=== PATIENT | female | born 1995 | race Caucasian/White ===

== ENCOUNTER 2022-01-22 08:59 | Outpatient (CLI) | payer OTHER, SELFPAY ==
--- NOTE | 2022-01-22 09:15 | CRLHL7_ITS ---
For Patients: As a result of the Cures Act, medical imaging exams and procedure reports are released immediately into your electronic medical record. You may view this report before your referring provider. If you have questions, please contact your health care provider. INDICATION: First trimester scan, establish dates. COMPARISON: None. TECHNIQUE: Real-time hays-scale imaging of the pelvis was performed. FINDINGS: Sonographic imaging demonstrates a single living intrauterine gestation. The embryo demonstrates a regular cardiac rate measuring 174 beats per minute. The embryo`s crown-rump length measurement of 1.7 cm corresponds to a gestational age of 8 weeks 1 day with a sonographic due date of 09.02.22. There is a normal-appearing yolk sac. There are no gross abnormalities noted within the embryo at this early state of development. The gestational sac has a normal appearance. There is no evidence of a perigestational hemorrhage. The amount of fluid within the sac appears appropriate for gestational age. The cervix is closed. The myometrium appears normal. The ovaries are of normal size. Corpus luteal cyst left ovary. There are no suspicious fluid collections noted in the cul-de-sac. IMPRESSION: Normal first trimester OB ultrasound exam. Gestational age calculated at 8w 1d with a sonographic due date of 09.02.22. Dictated by Tushar Solomon MD @ 01/22/2022 9:42:35 AM (Electronically Signed)
== END 2022-01-22 09:00 | disposition home or self-care (01) ==
LOC: US 09:02
PROVIDERS: Visit Provider Advanced Practice Midwife
DX: Z34.91 Encounter for supervision of normal pregnancy, unspecified, first trimester (principal); Z3A.08 8 weeks gestation of pregnancy
CPT/HCPCS: 76817

== ENCOUNTER 2022-01-22 09:52 | Outpatient (CLI) | payer OTHER, SELFPAY ==
[2022-01-22 13:18] LABS: Hepatitis B Surface Antigen* Negative (Negative)
[2022-01-22 13:19] LABS: TSH With Reflex to FT4* 0.421 uIU/mL (0.270-4.200)
[2022-01-22 13:26] LABS: HIV 1/2/P24 Combo Screen* Negative (Negative)
[2022-01-22 13:35] LABS: Hepatitis C Virus Antibody* Negative (Negative)
[2022-01-22 14:22] LABS: Chlamydia DNA Amplified* NOT DETECTED (No Detected); GC DNA Amplified* NOT DETECTED (No Detected)
[2022-01-25 00:58] LABS: Rapid Plasma Reagin (RPR) Non Reactive (Non Reactive)
[2022-01-25 05:06] LABS: Rubella Antibody IgG 22.9 IU/mL
== END 2022-01-22 09:53 | disposition home or self-care (01) ==
PROVIDERS: Visit Provider Advanced Practice Midwife
DX: Z34.91 Encounter for supervision of normal pregnancy, unspecified, first trimester (principal)
CPT/HCPCS: 84443; 86592; 86703; 86762; 86803; 86850; 86900; 86901; 87086; 87340; 87491; 87591

== ENCOUNTER 2022-03-29 11:09 | Outpatient (CLI) | payer OTHER, SELFPAY | END 2022-03-29 11:10 | disposition home or self-care (01) | PROVIDERS: Visit Provider Advanced Practice Midwife | DX: Z34.92 Encounter for supervision of normal pregnancy, unspecified, second trimester (principal); Z3A.16 16 weeks gestation of pregnancy | CPT/HCPCS: 87086 ==

== ENCOUNTER 2022-04-15 08:59 | Outpatient (CLI) | payer OTHER, SELFPAY ==
--- NOTE | 2022-04-15 09:15 | CRLHL7_ITS ---
For Patients: As a result of the Century Cures Act, medical imaging exams and procedure reports are released immediately into your electronic medical record. You may view this report before your referring provider. If you have questions, please contact your health care provider. INDICATION: Evaluate anatomy. COMPARISON: 01.22.22 TECHNIQUE: Real time hays scale imaging of the fetus was performed as well as color Doppler analysis of the umbilical vessels. FINDINGS: Sonographic imaging demonstrates a single living intrauterine gestation. Fetus demonstrates a regular cardiac rate of 149 beats per minute. Fetus has a breech position. The placenta lies posteriorly without evidence of placenta previa. The edge of the placenta is located 4.8 cm from the internal cervical os. Amniotic fluid volume appears normal. Single deepest vertical pocket: 4.5 cm. The cervix is closed and measures 4.1 cm in length. The composite ultrasound gestational age is calculated at 20 weeks 0 days with an estimated sonographic due date of 09/02/2022. The estimated weight is 360 grams which lies at the 68th %. The following biometric measurements were obtained: Biparietal diameter: 4.7 cm/20 weeks 1 day 48th% Head circumference: 17.5 cm/20 weeks 0 days 35th% Abdominal circumference: 16.4 cm/21 weeks 3 days 84th% Femur length: 3.1 cm/19 weeks 4 days 22nd% The HC/AC ratio measures: 1.06 range (1.08-1.25) On anatomic survey, there is a normal appearance of the cerebral ventricles, cavum septi pellucidi, cisterna magna and cerebellum. The nose, lips, and facial profile appear normal. The cervical, thoracic and lumbar spine are well visualized and appear normal. There is a normal four-chamber heart view and the left and right ventricular outflow tracts appear normal. The diaphragm and stomach appear normal. The kidneys and bladder also appear normal. There is a normal three-vessel cord and there is an eccentric cord insertion site. The four extremities appear normal. IMPRESSION: Normal OB ultrasound exam with concordance of clinical and sonographic dating. No intrinsic abnormalities noted on anatomic survey. Dictated by Tushar Solomon MD @ 04/15/2022 10:11:50 AM (Electronically Signed)
== END 2022-04-15 09:00 | disposition home or self-care (01) ==
LOC: US 09:00
PROVIDERS: Visit Provider Advanced Practice Midwife
DX: Z34.82 Encounter for supervision of other normal pregnancy, second trimester (principal)
CPT/HCPCS: 76805

== ENCOUNTER 2022-05-17 11:20 | Outpatient (CLI) | payer OTHER, SELFPAY ==
--- OUTSIDE RECORDS SUMMARY | 2022-05-17 11:34 | XMS_ITS | Encounter Summary ---
:1995 Author Organization [facility] Address [address] [place] [address] Care Team Providers Name Role Phone Haylee Gastelum M.D. Primary Care Provider [phone] Reason for Visit Reason Comments Med Refill Encounter Details Date Type Department Care Team Description 02/05/2022 Refill Department of Obstetrics and Col kelly Miller M.D. Med Refill Gynecology in [place], [place] [address] [place] [address] [facility] [phone] Social History Tobacco Use Types Packs/Day Years Used Date Smoking Tobacco: Never Smokeless Tobacco: Never Alcohol Use Standard Drinks/Week Comments Yes 2 (1 standard drink = 0.6 oz pure alcoho l) Alcohol Habits Answer Date Recorded How often do you have a drink containing alcohol? 2-3 times a week 11/23/2020 How many drinks containing alcohol do you have on a 1 or 2 11/23/2020 typical day when you are drinking? How often do you have six or more drinks on one Never 11/23/2020 occasion? Social Isolation Answer Date Recorded In a typical week, how many times do you talk on Once a week 11/23/2020 the phone with family, friends, or neighbors? How often do you get together with friends or Patient refuse d 11/23/2020 relatives? How often do you attend jehovah's witness or baptist Never 11/23/2020 services? Do you belong to any clubs or organizations such as No 11/23/2020 jehovah's witness groups, unions, fraternal or athletic groups, or school groups? How often do you attend meetings of the clubs or Never 11/23/2020 organizations you belong to? Are you now , , , , Living wi partner 11/23/2020 never or living with a partner? Physical Activity Answer Date Recorded On average, how many days per week do you engage in moderate to 2 days 11/23/2020 strenuous exercise (like walking fast, running, jogging, dancing, swimming, biking, or other activities that cause a light or heavy sweat)? On average, how many minutes do you engage in exercise at is 30 min 11/23/2020 level? Stress Answer Date Recorded Do you feel stress - tense, restless, nervous, or anxious, o r Very much 11/23/2020 unable to sleep at night because your mind is troubled all the time - these days? Intimate Partner Violence Answer Date Recorded Within the last year, have you been afraid of your partner o r No 11/23/2020 ex-partner? Within the last year, have you been humiliated or emotionall y No 11/23/2020 abused in other ways by your partner or ex-partner? Within the last year, have you been kicked, hit, slapped, or No 11/23/2020 otherwise physically hurt by your partner or ex-partner? Within the last year, have you been raped or forced to have any No 11/23/2020 kind of sexual activity by your partner or ex-partner? Food Insecurity Answer Date Recorded Within the past 12 months, you worried that your food would Never true 11/23/2020 run out before you got money to buy more. Within the past 12 months, the food you bought just didn't N ever true 11/23/2020 last and you didn't have money to get more. Transportation Needs Answer Date Recorded In the past 12 months, has lack of transportation kept you f rom No 11/23/2020 medical appointments or from getting medications? In the past 12 months, has lack of transportation kept you f rom No 11/23/2020 meetings, work, or getting things needed for daily living? Housing Stability Answer Date Recorded In the last 12 months, was there a time when you were not ab le No 11/23/2020 to pay the mortgage or rent on time? In the last 12 months, how many places have you lived? 1 11/23/2020 In the last 12 months, was there a time when you did not hav e a No 11/23/[address] to [address] or slept in a usp (including now)? Education Answer Date Recorded What is the highest level of school you have completed or 12 th grade 04/15/2019 the highest degree you have received? 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 PCP - General Family Medicine 07/05/202199 [address] [address] documented as of this encounter
--- OUTSIDE RECORDS SUMMARY | 2022-05-17 11:34 | XMS_ITS | Encounter Summary ---
:1995 Author Organization [facility] Address [address] [place] [address] Care Team Providers Name Role Phone Haylee Gastelum M.D. Primary Care Provider [phone] Reason for Visit Reason Comments Toe Injury Encounter Details Date Type Department Care Team Description 11/25/2021 Nurse Triage Department of [facility] Yvette Patel T oe Injury Medicine, , M.S.N ., R.N. in [facility] [address] [place] [address] [facility] [phone] Social History Tobacco Use Types Packs/Day Years [...] 11/23/2020 relatives? How often do you attend bahai or baptist Never 11/23/2020 services? Do you belong to any clubs or organizations such as No 11/23/2020 bahai groups, unions, fraternal or athletic groups, or [...] place to sleep or slept in a retirement (including now)? Education Answer Date Recorded What is the highest level of school you have completed or 12 th grade 04/15/2019 the highest degree you have received? 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 - 11/25/2021 9:31 AM CDT COVID-19 Nurse Line Screening ASSESSMENT Initial Screening Pathway Select appropriate pathway: : Adult In the last 48 hours, have you had a fever* OR symptoms that are unrelated to a preexisting illness?: No symptoms noted (Continue Screening) COVID Asymptomatic Screening Have you had close contact* with a person who has tested positive with COVID-19 in the past 14 days?: No (Continue Screening) Have you tested positive for COVID-19 in the last 90 days?: No (Continue Screening) Have you been advised to undergo testing or are you requesting testing?: No, testing for COVID-19 isnot indicated (End Screening) Testing Recommendation Endpoint Is testing recommended? : Not recommended to test Further Triage Needs Any further triage needs? : Yes, transferring for appointment scheduling assistance. PLAN Endpoint recommendation: Testing not indicated at this time Standard Care Points -Get a COVID -19 vaccine as soon as you can if not fully vaccinated. -Wash hands frequently with soap and water, use hand gum rolling machine operator if soap and water aren't available. -Wear a mask over your nose and mouth to help protect yourself and others if not fully vaccinated and having no symptoms -Stay 6 feet between yourself and others who don't live with you. -Avoid crowds and poorly ventilated indoor spaces. -Seek emergent care if any of the following occur Trouble breathing Bluish lips or face Persistent pain or pressure in the chest New confusion or inability to rouse. -Notify your regular care provider of any new or worsening symptoms. Asymptomatic without exposure Carepoints: Testing is not recommended at this time. If you become symptomatic, please call back for additional screening. Education: Patient/caregiver able to teach back Patient agreeable to plan of care: Yes The following references were used: [facility] novel coronavirus (COVID- 19) resources Telephone Encounter - Yvette Patel M.S.N., R.N. - 11/25/2021 9:23 AM CDT Chief Complaint / Reason for Call Patient is a 26 y.o. female calling regarding Toe Injury. Assessment Concern: 400 lb cow stepped on her Right great toe. Rates her pain at 6/10. Swollen and red. Present for: Yesterday. Home cares tried: Tylenol and Ibuprofen Calling to request: Do I need an appointment or can I take care of this at home? The recommended disposition is See a health care provider within 24 hours. Patient will call clinic to get an appointment Care Advice Patient/Caregiver understands and will follow care advice?: Yes, able to teach back SEE PCP WITHIN 24 HOURS: USE A COLD PACK FOR PAIN, SWELLING, OR BRUISING: * Put a cold pack or an ice bag (wrapped in a moist towel) on the area for 20 minutes. * Repeat in 1 hour, then every 4 hours while awake. * Continue this for the first 48 hours (2 days) after an injury. * This will help decrease pain, swelling, and bruising. * Caution: Avoid frostbite. USE HEAT ON AREA AFTER 48 HOURS: * If pain, swelling, or bruising last more than 48 hours (2 days), then use heat on the area. * Use a heat pack, heating pad, or warm wet washcloth. * Do this for 10 minutes three times a day. * This will help increase blood flow and improve healing. * Caution: Avoid burn. Do not sleep on a heating pad. SHOES: * If regular shoes cause too much pain, wear open-toe sandals with a firm sole until the injury heals. CALL BACK IF: * Pain becomes worse * You become worse CARE ADVICE given per Toe Injury (Adult) guideline. PAIN MEDICINES: * For pain relief, you can take either acetaminophen, ibuprofen, or naproxen. * They are xrpr-uzh-zpqvtlr (OTC) pain drugs. You can buy them at the drugstore. * ACETAMINOPHEN - REGULAR STRENGTH TYLENOL: Take 650 mg (two 325 mg pills) by mouth every 4 to 6 hours as needed. Each Regular Strength Tylenol pill has 325 mg of acetaminophen. The most you should take each day is 3,250 mg (10 pills a day). * ACETAMINOPHEN - EXTRA STRENGTH TYLENOL: Take 1,000 mg (two 500 mg pills) every 8 hours as needed. Each Extra Strength Tylenol pill has 500 mg of acetaminophen. The most you should take each day is 3,000 mg (6 pills a day). * IBUPROFEN (E.G., MOTRIN, ADVIL): Take 400 mg (two 200 mg pills) by mouth every 6 hours. The most you should take each day is 1,200 mg (six 200 mg pills), unless your doctor has told you to take more. * NAPROXEN (E.G., ALEVE): Take 220 mg (one 220 mg pill) by mouth every 8 to 12 hours as needed. You may take 440 mg (two 220 mg pills) for your first dose. The most you should take each day is 660 mg (three 220 mg pills a day), unless your doctor has told you to take more. Reason for Disposition ??? [1] Toe injury AND [2] bad limp or can't wear shoes/sandals Protocols used: TOE [id number] documented in this encounter Plan of Treatment Not on filedocumented as of this encounter Visit Diagnoses Not on filedocumented in this encounter Care Teams Flour Inspector Relationship Specialty Start Date End Date Haylee Gastelum M.D. PCP - General Family Medicine 07/05/202199 [address] [address] documented as of this encounter
--- OUTSIDE RECORDS SUMMARY | 2022-05-17 11:34 | XMS_ITS | Encounter Summary ---
:1995 Author Organization [facility] Address [address] [place] [address] Care Team Providers Name Role Phone Haylee Gastelum M.D. Primary Care Provider [phone] Reason for Visit Reason Comments Annual Exam Bad cramping Encounter Details Date Type Department Care Team Description 12/04/2021 Office Visit Department of [place], Preventive Mechanic Driver ecological Exam (Primary Dx); Obstetrics and Diandra Lee Pap Smear Examination Gynecology in [address] [place], [place] [address] [place], [place] [phone] [address] (Work) [phone] Social History Tobacco Use Types Packs/Day Years [...] 11/23/2020 relatives? How often do you attend yazidism or mandaeism Never 11/23/2020 services? Do you belong to any clubs or organizations such as No 11/23/2020 yazidism groups, unions, fraternal or athletic groups, or school groups? How often do you attend meetings of the clubs or Never 11/23/2020 organizations you belong to? Are you now , , , , Living wi th partner 11/23/2020 never or living with a [...] place to sleep or slept in a alf (including now)? Education Answer Date Recorded What is the highest level of school you have completed or 12 th grade 04/15/2019 the highest degree you have received? 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 - 12/04/2021 1:30 PM CDT SUBJECTIVE Chief Complaint Patient presents with ??? Annual Exam Bad cramping HISTORY OF PRESENT ILLNESS: Emily Zapien is a 26 y.o. here for her annual visit. She denies any acute complaints.She is in a monogamous relationship with her male partner. Denies issues with bowel or bladder function. Her periods are regular. Denies issues with substance abuse. She eats a healthy diet but does note that there is room to improve her exercise regimen. She has a provider that she follows with for anxiety and depression. She is not on any form of contraception at this time. She would be ok with becoming , but would prefer to plan her pregnancies if possible. SYSTEMS REVIEW A complete review of systems is obtained and is negative other than stated in the HPI. MEDICATIONS Current Outpatient Medications Medication Sig Dispense Refill ??? acetaminophen (TYLENOL) 500 mg capsule Take 1,000 mg by mouth every 6 (six) hours as needed for pain. ??? drdvurm-iqoivaebeszwr-pcirkyms (EXCEDRIN MIGRAINE) 250-250-65 mg per tablet Take 1 tablet by mouth every 6 (six) hours as needed for pain. ??? DULoxetine (CYMBALTA) [address] capsule Take 20 mg by mouth daily. ??? hydrOXYzine (ATARAX) 10 mg tablet Take 1 tablet (10 mg total) by mouth 4 (four) times a day as needed for anxiety. 30 tablet 0 ??? ibuprofen (ADVIL,MOTRIN) 400 mg tablet Take 400 mg by mouth every 6 (six) hours as needed for pain. ??? up-cdb-JR-Mz-Oh-ymmzuvb-lutein 0.4-162-18 mg tablet Take by mouth. ??? norethindrone-ethinyl estradiol (Microgestin 07/12, ,) 1-20 mg-mcg per tablet Take 1 tablet by mouth daily. (Patient not taking: No sig reported) 63 tablet 4 ??? rizatriptan INDUSTRIAL GAS SERVICER HELPER (Maxalt-INDUSTRIAL GAS SERVICER HELPER) 5 mg disintegrating tablet Take 1 tablet (5 mg total) by mouth as needed for migraine. May repeat dose once in 2 hours if migraine unresolved. Do not exceed 30 mg in 24hours. (Patient not taking: Reported on 12/04/2021) 9 tablet 3 No current facility-administered medications for this visit. ALLERGIES Allergies Allergen Reactions ??? Codeine GI intolerance PAST MEDICAL/SURGICAL HISTORY Past Medical History: Diagnosis Date ??? Anxiety Generalized Disorder ??? Depressive Disorder ??? Migraine Without Aura Not Intractable Without Status Migrainosus 04/20/2008 Past Surgical History: Procedure Laterality Date ??? CLOSED REDUCTION INTERNAL FIXATION RADIUS/ULNA WRIST Left 01/31/2001 ??? TONSILLECTOMY ??? TONSILLECTOMY AND ADENOIDECTOMY N/A 04/30/2006 Tonsillectomy and adenoidectomy; younger than age 12.. SOCIAL HISTORY Social History Socioeconomic History ??? Marital status: Single ??? Number of children: 2 ??? Highest education level: 12th grade Tobacco Use ??? Smoking status: Never Smoker ??? Smokeless tobacco: Never Used Substance and Sexual Activity ??? Alcohol use: Yes Alcohol/week: 2.0 standard drinks Types: 2 Glasses of wine per week ??? Drug use: No ??? Sexual activity: Yes Partners: Male control/protection: Condom, Pill, I.U.D., Patch, Withdrawal FAMILY HISTORY Family History Problem Relation Age of Onset ??? Hypertension Grandfather ??? Heart attack Grandfather ??? Lung cancer Paternal Grandmother ??? Lung cancer Paternal Grandfather ??? Alcohol abuse Paternal Grandfather ??? Hyperlipidemia Father ??? Hyperlipidemia Maternal Grandfather ??? Seizures Maternal Grandfather ??? Asthma Sister ??? Migraines Mother ??? Anxiety disorder Mother ??? Migraines Maternal Grandmother ??? Anxiety disorder Maternal Grandmother ??? Anxiety disorder Sister OBJECTIVE Physical Exam BP 121/80 Pulse 101 Ht 172 cm Wt 100 kg LMP 11/26/2021 BMI 33.80 kg/m?? Constitutional Appearance: Normal appearance. HENT Head: Normocephalic and atraumatic. Mouth/Throat: Mouth: Mucous membranes are moist. Pulmonary Effort: Pulmonary effort is normal. Genitourinary Comments: Normal appearing external genitalia. Normal appearing vagina. Normal appearing cervix. Thin, white discharge noted. No rashes, masses or lesions Skin General: Skin is warm and dry. Neurological General: No focal deficit present. Mental Status: She is alert. Mental status is at baseline. Psychiatric Mood and Affect: Mood normal. Behavior: Behavior normal. ASSESSMENT / PLAN #1 Preventive Gynecological Exam - Hepatitis C screening ordered - Contraception: planning on starting fertility awareness and condoms - Patient educated on breast self-awareness - BMI 33.8. Discussed diet and exercise recommendations - BP normotensive - Diabetes screening ordered - Hyperlipidemia screening ordered - declines COVID vaccine, declines HPV vaccine #2 Pap Smear Examination Repeat in 3 years if normal Rosa Gipson MD 1:52 PM CDT, 12/04/2021 documented in this encounter Plan of Treatment Scheduled Orders Name Type Priority Associated Diagnoses Order S chedule HCV Ab Scrn w/Reflex Microbiology Routine Preventive Gynecolog ical Expected: to HCV PCR, Serum Exam 12/04/2021 , Expires: 03/06/2023 Lipid Panel Lab Routine Preventive Gynecological Exp ected: Exam 12/04/2021, Expires: 03/06/2023 Hemoglobin A1c Lab Routine Preventive Gynecological E xpected: Exam 12/04/2021, Expires: 03/06/2023 documented as of this encounter Procedures Procedure Name Priority Date/Time Associated Diagnosis Comme nts THINPREP SCREEN HPV Routine 12/04/2021 2:09 PM Pap Smear Re sults for this REFLEX CDT Examination procedure are i n the results section. documented in this encounter Results ThinPrep Screen HPV Reflex (12/04/2021 2:09 PM CDT) Component Value Ref Test Analysis Performed Pathologis t Range Method Time At Signature 12/07/2021 [facility] 11:46 AM CDT Report Jessica Roche MD 12/07/2021 [facility] electronically 11:46 AM signed by CDT I verify that I have examined all relevant slides/materials for the specimen(s) and rendered or confirmed the diagnosis. Gross Description Received specimen 12/07/2021 [facility] Y in a ThinPrep 11:46 AM vial. CDT Pap Test Source Cervical/Endocervi 12/07/2021 [facility] drake 11:46 AM CDT Clinical History well woman exam 12/07/2021 [facility] 11:46 AM CDT Menstrual unknown 12/07/2021 [facility] Status(LMP, PM, 11:46 AM ) CDT Hormone unknown 12/07/2021 [facility] Therapy/Contracep 11:46 AM tives CDT Interpretation Cervical/Endocervical ??(ThinPrep): 12/07/2021 [facility] 11:46 AM Satisfactory for Evaluation CDT Negative for Intraepithelial Lesion or Malignancy Reactive cellular changes associated with: ? Reparative or inflammatory changes Specimen Anatomical Collection Method Collection Time Receive d Time (Source) Location / / Volume Laterality Varies 12/04/2021 2:09 PM 7:35 (Cervix/Endocerv CDT AM CDT ix) Narrative This result has an attachment that is no t available. Rosa Gipson M.D. LAB PAP PATHDX ORDERABLES Performing Organization Address City/State/ZIP Code Phon e Number [facility] [place] [address] [facility] [place] [address] [facility] [address] [facility] documented in this encounter Visit Diagnoses Diagnosis Preventive Gynecological Exam - Primary Pap Smear Examination documented in this encounter Care Teams Network Diagnostic Support Specialist Relationship Specialty Start Date End Date Haylee Gastelum M.D. PCP - General Family Medicine 07/05/[address] [phone] documented as of this encounter
--- OUTSIDE RECORDS SUMMARY | 2022-05-17 11:34 | XMS_ITS | Encounter Summary ---
:1995 Author Organization [facility] Address [address] [place] [address] Care Team Providers Name Role Phone Haylee Gastelum M.D. Primary Care Provider [phone] Reason for Referral Outpatient (Routine) - Closed Specialty Diagnoses / Procedures Referred By Contact Refer red To Contact Diagnoses Injury Foot Initial Right Vickie Osorio M.D. [facility] Procedures DX Foot Right 3+ Views [address] [place], [place] [address] Referral ID Status Reason Start Date Expiration Date Visits Requ ested Visits Authorized [id number] Closed 11/25/2021 11/25/2022 1 1 Reason for Visit Reason Comments Toe Pain Cow stepped on right foot la st nightPain at base of big toe Encounter Details Date Type Department Care Team Description 11/25/2021 Office Visit [facility] [employer] Vickie Osorio Inj ury Foot Initial MedicineLauro M.D. Right (Primary Dx) Clinic, in [place], [address] [place], [place] [address] [address] [place], [place] [phone] [address] (Work) [phone] Social History Tobacco Use Types Packs/Day Years [...] 11/23/2020 relatives? How often do you attend rastafarian or pentecostal Never 11/23/2020 services? Do you belong to any clubs or organizations such as No 11/23/2020 rastafarian groups, unions, fraternal or athletic groups, or [...] place to sleep or slept in a [facility] (including now)? Education Answer Date Recorded What is the highest level of school you have completed or 12 th grade 04/15/2019 the highest degree you have received? 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 - 11/25/2021 11:00 AM CDT CHIEF COMPLAINT/REASON FOR VISIT Toe Pain (Cow stepped on right foot last night/Pain at base of big toe) HISTORY OF PRESENT ILLNESS Emily Zapien is a 26 y.o. female who presents for evaluation of a right foot injury. She states that [place] 1 a callus stepped on her right foot. She states that thecow was on it for just a few seconds, but she started to have significant pain involving the right great toe. She tried Tylenol and ibuprofen for pain relief, but she had significant pain throughout the night. She is concerned that there may be a fracture. She has not been able to bear weight on the right foot. She is able to move her right toe. She denies pain involving the other toes. Patient Active Problem List Diagnosis ??? Migraine Without Aura Not Intractable Without Status Migrainosus ??? Anxiety Generalized Disorder CURRENT MEDICATIONS Current Outpatient Medications Medication Sig Dispense Refill ??? acetaminophen (TYLENOL) 500 mg capsule Take 1,000 mg by mouth every 6 (six) hours as needed for pain. ??? ofsfjoj-wzrlmycursbll-wgkfrhxa (EXCEDRIN MIGRAINE) 250-250-65 mg per tablet Take [...] (six) hours as needed for pain. ??? dw-rti-YM-Yj-Lj-mkzrzin-lutein 0.4-162-18 mg tablet Take by mouth. ??? norethindrone-ethinyl estradiol (Microgestin 07/12, ,) 1-20 mg-mcg per tablet Take 1 tablet by mouth daily. (Patient not taking: Reported on 11/25/2021) 63 tablet 4 ??? rizatriptan NOVELTY PRINTING MACHINE OPERATOR (Maxalt-NOVELTY PRINTING MACHINE OPERATOR) 5 mg disintegrating tablet Take 1 tablet (5 mg total) by mouth as needed for migraine. May repeat dose once in 2 hours if migraine unresolved. Do not exceed 30 mg in 24hours. 9 tablet 3 No current facility-administered medications for this visit. ALLERGIES/CONTRAINDICATIONS Allergies Allergen Reactions ??? Codeine GI intolerance OBJECTIVE BP 141/72 (BP Location: Right arm, Patient Position: Sitting, Cuff Size: Large) Pulse 99 Temp 37??C (Temporal) Resp 24 Wt 100 kg No BMI 33.80 kg/m?? PHYSICAL EXAMINATION General: No acute distress. HEENT: Normocephalic. Atraumatic. Musculoskeletal: Involving the right great toe, there is increased edema and tenderness to palpationalong the dorsal aspect but no tenderness to palpation along the plantar aspect. No gross bony deformity on examination. Skin: No skin breakdown over the right foot. ASSESSMENT / PLAN #1 Right foot injury Ms. Zapien has developed pain and tenderness to palpation overlying the right great toe mainly involving the dorsal aspect of it after having a cow step on her foot. She has not been able to bear weight. As a result I recommend obtaining an x-ray of the right foot to evaluate for fracture. The x-raydid not show any acute findings including normal bone/joint and soft tissues. I discussed that thereis no evidence for fracture and that this is likely a soft tissue injury. However, rarely a fracturemay not be evident on initial radiographs. As a result, if her pain is not improved or worsens within the next 1 week, I would recommend follow-up evaluation. With regards to management, I recommend the below. Recommendations: ?? A rigid-soled shoe aids in immobilization and comfort. Athletic and walking shoes provide inadequate immobilization, and their use is discouraged ?? May require a walking boot. The injured toe should be immobilized until point tenderness has resolved, which can require four to six weeks. ?? Application of ice and elevation of the foot above the level of the heart during the first few days after the injury will decrease inflammation, swelling, and pain. Care should be taken not to causea cold-induced injury when applying ice. This can generally be accomplished by placing a layer of bandage or cloth between the ice and the skin, and limiting the application time to about 15 minutes nancy time, followed by a respite of 20 to 30 minutes. ?? Discussed alternating ibuprofen 600 mg every 6 hours with Tylenol 1000 mg every 6 hours for pain relief. It was a pleasure seeing Ms. Zapien today. All questions answered. Electronically signed by: Vickie Osorio M.D. 11/25/21 11:15 AM CDT documented in this encounter Plan of Treatment Not on filedocumented as of this encounter Results DX Foot Right 3+ Views (11/25/2021 12:01 PM CDT) Anatomical Region Laterality Modality Lower Extremity, Foot, Musculoskeletal RST LOS, Right Digital Radiography Musculoskeletal ARZ LOS, Muskuloskeletal FLA LOS Specimen (Source) Anatomical Collection Method Collection Time Re ceived Time Location / / Volume Laterality 11/25/2021 1:34 PM CDT Impressions 11/25/2021 1:35 PM CDT No acute fracture. Narrative 11/25/2021 1:35 PM CDT EXAM: DX FOOT RIGHT 3+ VIEWS Procedure Note Nixon Hennessy M.D. - 11/25/2021Formatt ing of this note might be different from the original. EXAM: DX FOOT RIGHT 3+ VIEWS IMPRESSION: No acute fracture. Vickie Osorio M.D. [facility] DONNIE BOONE documented in this encounter Visit Diagnoses Diagnosis Injury Foot Initial Right - Primary Injury Foot Initial Right documented in this encounter Care Teams Footwear Sales Leader Relationship Specialty Start Date End Date Haylee Gastelum M.D. PCP - General Family Medicine 07/05/202199 [address] [address] documented as of this encounter
--- OUTSIDE RECORDS SUMMARY | 2022-05-17 11:34 | XMS_ITS | Clinical Summary ---
:1995 Author Organization [facility] Address [address] [place] [address] Care Team Providers Name Role Phone Haylee Gastelum M.D. Primary Care Provider [phone] Source Comments Patient records contain information from all sites at [facility]. For routine questions regarding patient records, call [phone] during business hours, M-F 8:00 AM - 5:00 PM Central Time. Record requests for emergency care only can be directed to [phone] at any time.[facility] Allergies Active Allergy Reactions Severity Noted Date Comments Codeine GI intolerance Low 05/19/2011 Medications Medication Sig Dispensed Refills Start Date End Date Status lm-cmm-NC-Um-Ep-xibrbpk Take by mouth. 0 Active -lutein 0.4-162-18 mg tablet acetaminophen (TYLENOL) Take 1,000 mg by 0 Active 500 mg capsule mouth every 6 (six) hours as needed for pain. ibuprofen Take 400 mg by 0 Activ e (ADVIL,MOTRIN) 400 mg mouth every 6 tablet (six) hours as needed for pain. lolrhxo-jpmwkerzqjhit-w Take 1 tablet by 0 Active affeine (EXCEDRIN mouth every 6 MIGRAINE) 250-250-65 mg (six) hours as per tablet needed for pain. rizatriptan SPECIAL MAKEUP FX ARTIST INSTRUCTOR Take 1 tablet (5 9 tablet 3 06/06/2020 Active (Maxalt-SPECIAL MAKEUP FX ARTIST INSTRUCTOR) 5 mg mg total) by disintegrating tablet mouth as needed for migraine. May repeat dose once in 2 hours if migraine unresolved. Do not exceed 30 mg in 24 hours. Additional Information Patient not taking. Reported on 12/04/2021 hydrOXYzine (ATARAX) 10 mg Take 1 tablet (10 mg 30 tablet 0 Active tablet total) by mouth 4 (four) times a day as needed for anxiety. DULoxetine (CYMBALTA) 20 mg Take 20 mg by mouth [address] capsule daily. norethindrone-ethinyl Take 1 tablet by mouth 63 tablet 4 03/05 Active estradiol (Microgestin /, daily. 21,) 1-20 mg-mcg per tablet Additional Information Patient not taking. Reported on 12/04/2021 Active Problems Problem Noted Date Anxiety Generalized Disorder 06/29/2020 Migraine Without Aura Not Intractable Without Status M igrainosus 04/20/2008 Estimated Date of Delivery Comments Yes 08/31/2022 Resolved Problems Problem Noted Date Resolved Date Normal Not First 05/21/2017 Overview: ( x 1 at 39 wks by Юлия Lorenzo) Encounters Date Type Specialty Care Team Description 04/05/2022 Office Visit Family Medicine Theo Wayne Frequency Urinary (Primary Dx) 04/05/2022 Clinical Family Medicine Haylee Gastelum M.D. 04/05/2022 Nurse Triage Family Medicine Taras, Urinary Citlali Chen, Infection R.N. 04/05/2022 E-Visit Express or Urgent Humera Quintana [facility] BLOCK BREAKER OPERATOR, C.N.P., Online for Cam yisel M.S.N. Infection (fema le anatomy, age 12 -65 years) 03/25/2022 Orders Only Ophthalmology Edward Steel M.D. from Last 3 Months Immunizations Name Administration Dates Next Due DTP / Hib 03/02/1996, 1995, 1995 DTaP (Infanrix, Tripedia) 01/25/2008, 12/08/2000, 02/08/1997 H1N1 All Forms 02/21/2017 HepB Adult 08/13/1996, 1995 HepB Pediatric/Adolescent 1995 HepB, Unspecified 08/13/1996, 1995, 1995 Hib, Unspecified 12/21/1996 IPV 12/08/2000 Influenza (IM) Preservative Free 06/09/2008 Influenza Split 05/04/2003 Influenza TIV (IM) 05/04/2003 Influenza, Seasonal, Injectable 05/04/2003 MCV4 (Menactra) 09/06/2009 MCV4, Unspecified 09/06/2009 MMR 12/08/2000, 12/21/1996 OPV 05/21/1996, 1995, 1995 Polio, Unspecified 05/21/1996, 1995, 1995 Tdap 07/11/2017, 11/15/2015, 01/25/2008 CARLOS 01/25/2008, 08/16/1997 Family History Medical History Relation Name Comments Hyperlipidemia Father Heart attack Grandfather Hypertension Grandfather Hyperlipidemia Maternal Grandfather Seizures Maternal Grandfather Anxiety disorder Maternal Grandmother Migraines Maternal Grandmother Anxiety disorder Mother Migraines Mother Alcohol abuse Paternal Grandfather Lung cancer Paternal Grandfather Lung cancer Paternal Grandmother Asthma Sister 1 Anxiety disorder Sister 2 Relation Name Status Comments Father Grandfather Maternal Grandfather Maternal Grandmother Mother Paternal Grandfather Paternal Grandmother Sister 1 Sister 2 Social History Tobacco Use Types Packs/Day Years Used Date Smoking Tobacco: Never Smokeless Tobacco: Never Tobacco Cessation: Counseling Given: Not Answered Alcohol Use Standard Drinks/Week Comments Yes 2 [...] 11/23/2020 relatives? How often do you attend christianity or latter day Never 11/23/2020 services? Do you belong to any clubs or organizations such as No 11/23/2020 christianity groups, unions, fraternal or athletic groups, or [...] place to sleep or slept in a penitentiary (including now)? Education Answer Date Recorded What is the highest level of school you have completed or 12 th grade 04/15/2019 the highest degree you have received? 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 Last Filed Vital Signs Vital Sign Reading Time Taken Comments Blood Pressure 135/80 04/05/2022 1:43 PM CDT Pulse 99 04/05/2022 1:43 PM CDT Temperature 36.7 ??C (98.1 ??F) 04/05/2022 1:43 PM CDT Respiratory Rate 16 04/05/2022 1:43 PM CDT Oxygen Saturation 99% 02/07/2020 1:17 PM CDT Inhaled Oxygen Concentration - - Weight 103 kg (227 lb 4.7 oz) 04/05/2022 1:43 PM CDT Height 172 cm (5' 7.72) 12/04/2021 1:20 PM CDT Body Mass Index 34.85 12/04/2021 1:20 PM CDT Plan of Treatment Health Maintenance Due Date Last Done Comments Hepatitis C Screening 1995 COVID-19 Vaccine (#1) 02/07/1996 HPV Vaccines (1 - 2-dose 2004 series) Influenza Vaccine (#1) 2022 06/09/2008, 05/04/2003, 05/04/2003, Additional history exists Cervical Cancer Screening 12/04/2024 12/04/2021, 12/17/2016 DTaP,Tdap,and Td Vaccines 07/11/2027 07/11/2017, 11/15/2015 , (9 - Td or Tdap) 01/25/2008, Additional history exists Hepatitis B Vaccines Completed 08/13/1996, 08/13/1996, 1995, Additional history exists HIV Screening Completed 12/09/2016, 05/23/2015 Chlamydia and Gonorrhea Discontinued 04/13/2018 Screening Depression Screening Completed 12/04/2021 (Annual PHQ-2) Pneumococcal vaccine (0-64 Aged Out No lo nger eligible years) based on patient 's age to complete this topic Procedures Procedure Name Priority Date/Time Associated Comments Diagnosis NV URINALYSIS AUTO WO Routine 04/05/2022 1:41 PM Results for this MICRO CDT procedure are i n the results section. URINALYSIS WITH Routine 04/05/2022 1:41 PM Frequency Urinary R esults for this MICROSCOPIC IF CDT procedure are in INDICATED, U the results section. from Last 3 Months Results (ABNORMAL) Urinalysis with Microscopic if Indicated (04/05/2022 1:41 PM CDT) Analysis Performed At Patho logist Time Signature Source Urine, Urine, 04/05/2022 [facility] Midstream 1:57 PM CDT Clarity Clear Clear 04/05/2022 OWAT 1:57 PM CDT Color Yellow 04/05/2022 OWAT 1:57 PM CDT Comment: ----REFERENCE VALUE---- Colorless Yellow Monica Blood Negative Negative 04/05/2022 1:57 PM CDT [facility] Nitrite Negative Negative 04/05/2022 1:57 PM CDT [facility] Leukocyte Esterase Small (A) Negative 04/05/2022 1:57 PM CD T [facility] Protein Negative mg/dL 04/05/2022 1:57 PM CDT OW[facility] Comment: ----REFERENCE VALUE---- Negative Trace Glucose Negative Negative mg/dL 04/05/2022 1:57 PM CDT OW AT Ketone Negative Negative mg/dL 04/05/2022 1:57 PM CDT OW AT Bilirubin Negative Negative 04/05/2022 1:57 PM CDT [facility] pH 6.5 5.0 - 8.0 04/05/2022 1:57 PM CDT [facility] Specific Richardson 1.018 1.001 - 1.035 04/05/2022 1:57 PM CDT [facility] Urobilinogen 1.0 0.2 - 1.0 mg/dL 04/05/2022 1:57 PM CD T [facility] Specimen Anatomical Collection Method Collection Time Receive d Time (Source) Location / / Volume Laterality Urine (Urine, 04/05/2022 1:41 PM 04/05/20 1:57 Midstream) CDT PM CDT [facility] URINE ORDERABLES Performing Organization Address City/State/ZIP Code Phon e Number [facility] [address] [place] [address] [place] [address] System in [place] [address] [facility] (ABNORMAL) Microscopic Automated (04/05/2022 1:41 PM CDT) Analysis Performed At Patho logist Time Signature White Blood 11-20 (A) /hpf 04/05/2022 [facility] Cells 2:00 PM CDT Comment: ----REFERENCE VALUE---- Males: 0-3 Females: 0-10 Unknown: 0-10 Red Blood Cells None Seen 0 - 2 /hpf 04/05/2022 2:00 PM CDT [facility] Hyaline Casts 4-10 /lpf 04/05/2022 2:00 PM CDT OWA T Squamous Cells 4-10 /hpf 04/05/2022 2:00 PM CDT OW AT Specimen Anatomical Collection Method Collection Time Receive d Time (Source) Location / / Volume Laterality Urine 04/05/2022 1:41 PM 1:57 CDT PM CDT [facility] URINE ORDERABLES Performing Organization Address City/State/ZIP Code Phon e Number [facility]- [address] [place] [address] [place] [address] System in [place] [address] [facility] from Last 3 Months Insurance Payer Benefit Plan / Subscriber ID Effective Phone Address T ype Group Dates [place] [employer] [id number] 2020-Prese [address] Medicaid HMO [facility] nt [address] [place] [address] Care Teams Retail Shift Leader Relationship Specialty Start Date End Date Haylee Gastelum M.D. PCP - General Family Medicine 07/05/202199 [place] [address] (work)
--- OUTSIDE RECORDS SUMMARY | 2022-05-17 11:34 | XMS_ITS | Encounter Summary ---
:1995 Author Organization [facility] Address [address] [place] [address] Care Team Providers Name Role Phone Haylee Gastelum M.D. Primary Care Provider [phone] Reason for Referral Outpatient (Routine) - Authorized Specialty Diagnoses / Procedures Referred By Contact Refer red To Contact Ophthalmology Edward Steel M.D. [facility] [address] [place] [address] Referral ID Status Reason Start Date Expiration Date Visits V isits Requested Authorized [id number] Authorized 03/25/2022 03/24/2025 1 1 Encounter Details Date Type Department Care Team Description 03/25/2022 Orders Only Department of Ophthalmology Edward Geller M.D. in [facility] [address] [place] [phone] (Wo rk) Social History Tobacco Use Types Packs/Day Years [...] 11/23/2020 relatives? How often do you attend religious or evangelical Never 11/23/2020 services? 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 PCP - General Family Medicine 07/05/[address] [phone] documented as of this encounter
--- OUTSIDE RECORDS SUMMARY | 2022-05-17 11:34 | XMS_ITS | Encounter Summary ---
:1995 Author Organization [facility] Address [address] [place] [address] Care Team Providers Name Role Phone Haylee Gastelum M.D. Primary Care Provider [phone] Reason for Visit Reason Comments Abdominal Pain Encounter Details Date Type Department Care Team Description 01/03/2022 Nurse Triage Department of [facility] Socorro Brantley Abd ominal Pain Medicine, [facility], R. in [address] [facility] [address] [place] [phone] Social History Tobacco Use Types Packs/Day Years [...] 11/23/2020 relatives? How often do you attend mosque or adventism Never 11/23/2020 services? 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 - 01/03/2022 9:36 AM CDT COVID-19 Nurse Line Screening ASSESSMENT Initial Screening Pathway Select appropriate pathway: : Adult In the last 48 hours, have you had a fever* OR symptoms that are unrelated to a preexisting illness?: New muscle aches Date of symptom onset: 12/24/21 COVID Asymptomatic Screening Have you had close contact* with a person who has tested positive with COVID-19 in the past 14 days?: No (Continue Screening) Have you tested positive for COVID-19 in the last 90 days?: No (Continue Screening) Symptom Onset Date of symptom onset: 12/24/21 PLAN Endpoint recommendation: Symptomatic testing recommended Standard Care Points -Get a COVID -19 vaccine as soon as you can if not fully vaccinated. -Wash hands frequently with soap and water, use hand systems requirements planner if soap and water aren't available. -Wear [...] provider of any new or worsening symptoms. Education: Patient/caregiver able to teach back Patient agreeable to plan of care: Yes The following references were used: [facility] novel coronavirus (COVID- 19) resources Telephone Encounter - Socorro Brantley R.N. - 01/03/2022 9:27 AM CDT Chief Complaint / Reason for Call Patient is a 26 y.o. female calling regarding Abdominal Pain. Assessment Concern: 5 week caller reports lower abdominal cramping that is constant with frequent increase to 7/10. Also reports nausea and vomiting with little urination and dark yellow urine Present for: 10 days Home cares tried: rest, trying to drink fluids more often and try bland foods with continued symptoms. Calling to request: Wondering what to do The recommended disposition is Go to ED Now. Caller will go to ED now. Reason for Disposition ??? MODERATE-SEVERE abdominal pain (e.g., interferes with normal activities, awakens from sleep) Protocols used: - ABDOMINAL PAIN LESS THAN 20 WEEKS [id number] Care Advice Patient/Caregiver understands and will follow care advice?: Yes, able to teach back GO TO ED NOW: * You need to be seen in the Emergency Department. * Go to the ED at nearest Hospital. * Leave now. Drive carefully. NOTHING BY MOUTH: * Do not eat or drink anything for now. * Reason: condition may need surgery and general anesthesia. ANOTHER ADULT SHOULD DRIVE: * It is better and safer if another adult drives instead of you. CARE ADVICE given per - Abdominal Pain, under 20 Weeks EGA (Adult) guideline. documented in this encounter Plan of Treatment Not on filedocumented as of this encounter Visit Diagnoses Not on filedocumented in this encounter Care Teams Audit Senior Associate Relationship Specialty Start Date End Date Haylee Gastelum M.D. PCP - General Family Medicine 07/05/[address] [place] [phone] documented as of this encounter
--- OUTSIDE RECORDS SUMMARY | 2022-05-17 11:34 | XMS_ITS | Encounter Summary ---
:1995 Author Organization [facility] Address [address] [place] [address] Care Team Providers Name Role Phone Haylee Gastelum M.D. Primary Care Provider [phone] Reason for Referral Outpatient (Routine) - Closed Specialty Diagnoses / Procedures Referred By Contact Refer red To Contact Diagnoses Injury Foot Initial Right Vickie Osorio M.D. [facility] Region Procedures DX Foot Right 3+ Views [address] [place], [place] [phone] Referral ID Status Reason Start Date Expiration Date Visits Requ ested Visits Authorized [id number] Closed 11/25/2021 11/25/2022 1 1 Reason for Visit Outpatient (Routine) - Closed Specialty Diagnoses / Procedures Referred By Contact Refer red To Contact Diagnoses Injury Foot Initial Right [facility] Region Procedures DX Foot Right 3+ Views [address] [place] [address] Referral ID Status Reason Start Date Expiration Date Visits Requ ested Visits Authorized [id number] Closed 11/25/2021 11/25/2022 1 1 Encounter Details Date Type Department Care Team Description 11/25/2021 Hospital Encounter Department of Vickie Osorio Injury Foot Initial Radiology in [place]ado Right [place], [place] [address] [facility] [address] [place] [phone] Social History Tobacco Use Types Packs/Day Years [...] 11/23/2020 relatives? How often do you attend caodaism or oriental orthodox Never 11/23/2020 services? Do you belong to any clubs or organizations such as No 11/23/2020 caodaism groups, unions, fraternal or athletic groups, or [...] place to sleep or slept in a skilled nursing (including now)? Education Answer Date Recorded What is the highest level of school you have completed or 12 th grade 04/15/2019 the highest degree you have received? Sex Assigned at Date Recorded Female 05/20/2017 4:45 PM SPECIAL CLASS WELDER documented as of this encounter Medications at Time of Discharge Medication Sig Dispensed Refills Start Date End Date acetaminophen (TYLENOL) 500 Take 1,000 mg by 0 mg capsule mouth every 6 (six) hours as needed for pain. rhcopfh-igionkidwvdva-dwntq Take 1 tablet by 0 ine (EXCEDRIN MIGRAINE) mouth every 6 (six) 250-250-65 mg per tablet hours as needed for pain. DULoxetine (CYMBALTA) 20 mg Take 20 mg by mouth [address] capsule daily. hydrOXYzine (ATARAX) 10 mg Take 1 tablet (10 mg 30 tablet 0 06/29/2020 tablet total) by mouth 4 (four) times a day as needed for anxiety. ibuprofen (ADVIL,MOTRIN) Take 400 mg by mouth 0 400 mg tablet every 6 (six) hours as needed for pain. km-ogs-WZ-Ib-Sl-hivgidj-lut Take by mouth. 0 ein 0.4-162-18 mg tablet norethindrone-ethinyl Take 1 tablet by 63 tablet 4 03/05/20 21 estradiol (Microgestin mouth daily. 07/12, ,) 1-20 mg-mcg per tablet rizatriptan POLEYARD SUPERVISOR Take 1 tablet (5 mg 9 tablet 3 06/06/2020 (Maxalt-POLEYARD SUPERVISOR) 5 mg total) by mouth as disintegrating tablet needed for migraine. May repeat dose once in 2 hours if migraine unresolved. Do not exceed 30 mg in 24 hours. documented as of this encounter Plan of Treatment Not on filedocumented as of this encounter Procedures Procedure Name Priority Date/Time Associated Comments Diagnosis DX FOOT RIGHT 3+ RAD - Routine 11/25/2021 12:01 Injury Foot Result s for this VIEWS (most inpatients PM CDT Initial Right procedure are in and all the results outpatients) section. documented in this encounter Results DX Foot Right 3+ [...] 3+ VIEWS IMPRESSION: No acute fracture. Vickie [facility] DONNIE BOONE documented in this encounter Visit Diagnoses Diagnosis Injury Foot Initial Right documented in this encounter Care Teams Site Foreman Relationship Specialty Start Date End Date Haylee Gastelum M.D. PCP - General Family Medicine 07/05/[address] [place] [phone] documented as of this encounter
--- OUTSIDE RECORDS SUMMARY | 2022-05-17 11:34 | XMS_ITS | Encounter Summary ---
:1995 Author Organization [facility] Address [address] [place] [address] Care Team Providers Name Role Phone Haylee Gastelum M.D. Primary Care Provider [phone] Reason for Visit Reason Onset Date Comments Testing For Upper Respiratory Virus Symptoms 06/26/2021 Encounter Details Date Type Department Care Team Description 06/26/2021 External Outreach Department of [facility] Sami Schofield Contact With And (Suspected) Exposure To COVID-19; Medicine, [facility] Arabella Ruiz Infection Upper Respiratory Building, in [address] [place], [place] [address] [facility] [address] [place], [place] [phone] [address] (Work) [phone] Social History Tobacco Use Types Packs/Day Years [...] 11/23/2020 relatives? How often do you attend jew or roman catholic Never 11/23/2020 services? Do you belong to any clubs or organizations such as No 11/23/2020 jew groups, unions, fraternal or athletic groups, or [...] place to sleep or slept in a fpc (including now)? Education Answer Date Recorded What is the highest level of school you have completed or 12 th grade 04/15/2019 the highest degree you have received? Sex Assigned at Date Recorded Female 05/20/2017 4:45 PM SHIFT SUPERVISOR RN documented as of this encounter Progress Notes Oliva Vargas R.N. - 06/26/2021 5:17 PM CST Encounter created for symptomatic infectious disease screening with possible COVID, Influenza, RSV, and/or Group A Strep testing. T SUPERVISOR RN documented in this encounter Miscellaneous Notes Addendum Note - Oliva Vargas R.N. - 06/26/2021 5:17 PM SHIFT SUPERVISOR RN Addended by: OLIVA VARGAS on: 06/27/2021 05:20 PM Modules accepted: Orders T SUPERVISOR RN documented in this encounter Plan of Treatment Not on filedocumented as of this encounter Visit Diagnoses Diagnosis Contact With And (Suspected) Exposure To COVID-19 Infection Upper Respiratory documented in this encounter Additional Health Concerns Infection Onset Date Last Indicated Resolved Time COVID19 Pending 06/26/2021 06/26/2021 06/27/2021 5:20 PM SHIFT SUPERVISOR RN documented as of this encounter Care Teams Electrical Manufacturing Engineer Relationship Specialty Start Date End Date Haylee Gastelum M.D. PCP - General Family Medicine 07/05/20 [address], [place] [address] documented as of this encounter
--- OUTSIDE RECORDS SUMMARY | 2022-05-17 11:34 | XMS_ITS | Encounter Summary ---
:1995 Author Organization [facility] Address [address] [place] [address] Care Team Providers Name Role Phone Haylee Gastelum M.D. Primary Care Provider [phone] Reason for Visit Reason Comments JORDAN Nurse Line Encounter Details Date Type Department Care Team Description 06/26/2021 Clinical Communication Division of [facility] Nurse [facility] Internal Martha Jaimes [facility] [phone] [facility], in (Work) [place], [place] [address] [place] [address] Social History Tobacco Use Types Packs/Day Years [...] 11/23/2020 relatives? How often do you attend restorationist or christianity Never 11/23/2020 services? Do you belong to any clubs or organizations such as No 11/23/2020 restorationist groups, unions, fraternal or athletic groups, or [...] place to sleep or slept in a senior care (including now)? Education Answer Date Recorded What is the highest level of school you have completed or 12 th grade 04/15/2019 the highest degree you have received? Sex Assigned at Date Recorded Female 05/20/2017 4:45 PM ADJUNCT INSTRUCTOR CHEMISTRY documented as of this encounter Miscellaneous Notes Telephone Encounter - Radha Larson R.N. - 06/26/2021 3:25 PM ADJUNCT INSTRUCTOR CHEMISTRY COVID-19 Nurse Line Screening ASSESSMENT Initial Screening Pathway Select appropriate pathway: : Adult In the last 48 hours, have you had a fever* OR symptoms that are unrelated to a preexisting illness?: New muscle aches,Fever,New nausea,New headache COVID Symptomatic Screening Do you have any of the following urgent symptoms?: No urgent symptoms noted (Continue Screening) Have you received a COVID-19 vaccine in the last 72 hours? : No vaccine received (Continue Screening) Have you had close contact* with a person who has a LABORATORY CONFIRMED case of COVID-19 in the past 14 days?: No (Continue Screening) Have you tested positive for COVID-19 in the last 45 days?: No. COVID-19 testing is indicated (Continue Screening for Additional Testing) Additional Screening for Influenza, RSV and Strep Select appropriate region: : [place] Do you have any of the following respiratory syntonical virus (RSV) complications? : No complications noted (Continue Screening) Do you have any of the following high risk influenza criteria?: No criteria noted (Continue Screening) Are all of the following Strep criteria met? : Age is between 18-75 years,No, all criteria are not met. Influenza tesing is indicated. (End Screening) Symptom Onset Date of symptom onset: 06/23/21 Testing Recommendation Endpoint Is testing recommended? : Recommended to test Further Triage Needs Any further triage needs? : No further concerns noted. PLAN Endpoint recommendation: Symptomatic testing indicated, advised to be swabbed for COVID-19 and Influenza, sent to [facility] located at [address] [place] [address] ([facility]). An appointment is required for testing, please call [phone] Friday-Friday 7am to 6pm and Friday & Friday 9am to 4pm to schedule an appointment. Testing hours are 8am - 4:30pm daily. You can also schedule via your Patient Online Services account., Please avoid using public transportation per CDC recommendation. If you do not have personal transportation please self-quarantine until a personal transportation option is available. Standard Care Points -Get a COVID -19 vaccine as soon as you can if not fully vaccinated. -Wash hands frequently with soap and water, use hand senior technical support engineer if soap and water aren't available. -Wear [...] provider of any new or worsening symptoms. Symptomatic Carepoints: Stay home and separate yourself from others and stay in a specific sick room if able. Avoid sharing personal or household items. Rest. Hydrate. Take Acetaminophen/Ibuprofen asneeded to control fever and muscles aches. Use over the counter medications as needed for other symptoms. If you have received a negative COVID-19 test result and continue to have new or worsening symptoms after 72 hours please call the COVID Nurse Line to assess if you need repeat testing or reach out to your Primary Care Provider for guidance. Education: Patient/caregiver able to teach back Patient agreeable to plan of care: Yes The following references were used: [facility] novel coronavirus (COVID- 19) resources CDC web site https://www.cdc.gov/coronavirus/2019-ncov/your-health/index.html Nursing judgement NCT INSTRUCTOR CHEMISTRY documented in this encounter Plan of Treatment Not on filedocumented as of this encounter Visit Diagnoses Not on filedocumented in this encounter Care Teams Learning Technologist Relationship Specialty Start Date End Date Haylee Gastelum M.D. PCP - General Family Medicine 07/05/[address] [address] documented as of this encounter
--- OUTSIDE RECORDS SUMMARY | 2022-05-17 11:34 | XMS_ITS | Encounter Summary ---
:1995 Author Organization [facility] Address [address] [place] [address] Care Team Providers Name Role Phone Haylee Gastelum M.D. Primary Care Provider [phone] Encounter Details Date Type Department Care Team Description 04/05/2022 E-Visit [facility] Express SmaHumera randall, Expr ess Care Online [facility] Bladder In fection Building on the 4th M.S.N. (female anatomy, age Floor [address] [place] [address] 12-65 years) [address] [place] [address] [phone] Social History Tobacco Use Types Packs/Day Years [...] 11/23/2020 relatives? How often do you attend tenriism or hindu Never 11/23/2020 services? Do you belong to any clubs or organizations such as No 11/23/2020 tenriism groups, unions, fraternal or athletic groups, or [...] place to sleep or slept in a jail (including now)? Education Answer Date Recorded What is the highest level of school you have completed or 12 th grade 04/15/2019 the highest degree you have received? 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 PCP - General Family Medicine 07/05/[address] [address] documented as of this encounter
--- OUTSIDE RECORDS SUMMARY | 2022-05-17 11:34 | XMS_ITS | Encounter Summary ---
:1995 Author Organization [facility] Address [address] [place] [address] Care Team Providers Name Role Phone Haylee Gastelum M.D. Primary Care Provider [phone] Encounter Details Date Type Department Care Team Description 01/03/2022 Emergency [facility] Vomiting (Primary Dx) [address] [place] [address] [facility] [phone] Social History Tobacco Use Types Packs/Day Years [...] 11/23/2020 relatives? How often do you attend jewish or roman catholic Never 11/23/2020 services? Do you belong to any clubs or organizations such as No 11/23/2020 jewish groups, unions, fraternal or athletic groups, or [...] place to sleep or slept in a care home (including now)? Education Answer Date Recorded What is the highest level of school you have completed or 12 th grade 04/15/2019 the highest degree you have received? Sex Assigned at Date Recorded Female 05/20/2017 4:45 PM CO DIRECTOR documented as of this encounter Medications at Time of Discharge Medication Sig Dispensed Refills Start Date End Date acetaminophen (TYLENOL) 500 Take 1,000 mg by 0 mg capsule mouth every 6 (six) hours as needed for pain. dobaxir-jhqzdxamzvjgq-fostw Take 1 tablet by 0 ine (EXCEDRIN [...] 6 (six) hours as needed for pain. my-qpk-XF-Ck-Yj-dvhuhdu-lut Take by mouth. 0 ein 0.4-162-18 mg tablet norethindrone-ethinyl Take 1 tablet by 63 tablet 4 03/05/20 21 estradiol (Microgestin mouth daily. 07/12, ,) 1-20 mg-mcg per tablet rizatriptan MANAGED CARE ANALYST Take 1 tablet (5 mg 9 tablet 3 06/06/2020 (Maxalt-MANAGED CARE ANALYST) 5 mg total) by mouth as disintegrating tablet needed for migraine. May repeat dose once in 2 hours if migraine unresolved. Do not exceed 30 mg in 24 hours. documented as of this encounter Plan of Treatment Not on filedocumented as of this encounter Procedures Procedure Name Priority Date/Time Associated Comments Diagnosis US OB FIRST RAD - Semiurgent 01/03/2022 1:53 Results for this TRIMESTER AND (Fast; most ED PM CDT procedure ar e in TRANSVAGINAL patients; some the results inpatients) section. documented in this encounter Results US OB First Trimester and Transvaginal (01/03/2022 1:53 PM CDT) Anatomical Region Laterality Modality Body, Ultrasound OB RST LOS, Ultrasound ARZ LOS N/A Ultrasound Specimen (Source) Anatomical Collection Method Collection Time Re ceived Time Location / / Volume Laterality 01/03/2022 2:12 PM CDT Impressions 01/03/2022 2:18 PM CDT Intrauterine gestational sac and yolk sac, as described in the body of the report. No pole identified. Recommend follow- up ultrasound in 11 or greater days for viability. Narrative 01/03/2022 2:18 PM CDT EXAM: US OB FIRST TRIMESTER AND TRANSVAGINAL COMPARISON: None TECHNIQUE: Transvaginal Only FINDINGS: Number of Gestations: Single Gestational age and ISATU by LMP or OB/EHR assignment: Unknown LMP INTRAUTERINE Pole: Not seen, [place] Length: Gestational Sac: Mean gestational sac si ze of 13 mm, corresponding to 5 weeks 3 days gestation. Yolk Sac: Normal Placenta Location: Too Early to ID Age and ISATU by current ultrasound measur ements: 5 w 3 d, ISATU: . heart rate: Uterus: No unexpected findings. Right Ovary/Adnexa: Normal. Left Ovary/Adnexa: 3 cm ovarian cyst. Cervical Length: Normal, greater than 2. 5cm TV Intraperitoneal Fluid: None. Procedure Note Nixon Hennessy M.D. - 01/03/2022Formatt ing of this note might be different from the original. EXAM: US OB FIRST TRIMESTER AND TRANSVAG INAL COMPARISON: None TECHNIQUE: Transvaginal Only FINDINGS: Number of Gestations: Single Gestational age and ISATU by LMP or OB/EHR assignment: Unknown LMP INTRAUTERINE Pole: Not seen, [place] Length: Gestational Sac: Mean gestational sac si ze of 13 mm, corresponding to 5 weeks 3 days gestation. Yolk Sac: Normal Placenta Location: Too Early to ID Age and ISATU by current ultrasound measur ements: 5 w 3 d, ISATU: . heart rate: Uterus: No unexpected findings. Right Ovary/Adnexa: Normal. Left Ovary/Adnexa: 3 cm ovarian cyst. Cervical Length: Normal, greater than 2. 5cm TV Intraperitoneal Fluid: None. IMPRESSION: Intrauterine gestational sac and yolk sa c, as described in the body of the report. No pole identified. Recommend follow- up ultrasound in 11 or greater days for viability. Rachel Hilario P.A.-C. IMG OB US PROCEDURES documented in this encounter Visit Diagnoses Diagnosis Vomiting - Primary documented in this encounter Care Teams Rural Route Carrier Relationship Specialty Start Date End Date Haylee Gastelum M.D. PCP - General Family Medicine 07/05/[address] [phone] documented as of this encounter
--- OUTSIDE RECORDS SUMMARY | 2022-05-17 11:34 | XMS_ITS | Encounter Summary ---
:1995 Author Organization [facility] Address [address] [place] [address] Care Team Providers Name Role Phone Haylee Gastelum M.D. Primary Care Provider [phone] Encounter Details Date Type Department Care Team Description 04/05/2022 Clinical Communication Department of [facility] Sara Gastelum [place] M, M.D. [facility] [address] [place], [place] [address] [address] [place], [place] [phone] [address] (Work) [phone] Social History Tobacco Use Types Packs/Day Years [...] 11/23/2020 relatives? How often do you attend protestant or holiness Never 11/23/2020 services? Do you belong to any clubs or organizations such as No 11/23/2020 protestant groups, unions, fraternal or athletic groups, or [...] place to sleep or slept in a chcf (including now)? Education Answer Date Recorded What is the highest level of school you have completed or 12 th grade 04/15/2019 the highest degree you have received? 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 Current Can Nursing/Provider leave a detailed message?: Did the patient refuse triage through Nurse line? (for symptom based concerns): Action Needed: Please resubmit Rx to [facility] Name of Medication (if relevant): macrobid Please send all scheduling replies to scheduling pool. documented in this encounter Plan of Treatment Not on filedocumented as of this encounter Visit Diagnoses Not on filedocumented in this encounter Care Teams Account Receivable Associate Relationship Specialty Start Date End Date Haylee Gastelum M.D. PCP - General Family Medicine 07/05/[address] [phone] documented as of this encounter
--- OUTSIDE RECORDS SUMMARY | 2022-05-17 11:34 | XMS_ITS | Encounter Summary ---
:1995 Author Organization [facility] Address [address] [place] [address] Care Team Providers Name Role Phone Haylee Gastelum M.D. Primary Care Provider [phone] Reason for Visit Reason Comments COVID Inquiry Encounter Details Date Type Department Care Team Description 06/26/2021 Clinical Communication Department of [facility] Sara Gastelum Medicine, Lauro Jhaveri M.D. [facility] [address] [place], [place] [address] [address] [place], [place] [phone] [address] (Work) [phone] Social History Tobacco Use Types Packs/Day Years [...] 11/23/2020 relatives? How often do you attend mandaeism or methodist Never 11/23/2020 services? Do you belong to any clubs or organizations such as No 11/23/2020 mandaeism groups, unions, fraternal or athletic groups, or [...] place to sleep or slept in a fdc (including now)? Education Answer Date Recorded What is the highest level of school you have completed or 12 th grade 04/15/2019 the highest degree you have received? Sex Assigned at Date Recorded Female 05/20/2017 4:45 PM GLASS FURNACE TENDER documented as of this encounter Miscellaneous Notes Telephone Encounter - Shellie Curry - 06/26/2021 3:19 PM CST What is the purpose of the call?: Symptomatic (Calling PCP Office) Calling [place] PCP Office What region is the patient calling from? : [facility] Have you tested positive for COVID-19 in the last 20 days? : No In the past 14 days are any of the following symptoms new to you and not related to an existing health condition?: New shortness of breath,New nausea,New myalgias (muscle aches),New headache Because of symptoms, transfer patient to: : [facility] COVID Nurse Line (End Screening) Symptom Onset Date of symptom onset: 06/23/21 Plan: Endpoint recommendation: Transferred to Nursing/COVID Line/Care Team *Reminder if sending patient for testing in [facility] or [facility], route encounter to the correct testing pool. S FURNACE TENDER documented in this encounter Plan of Treatment Not on filedocumented as of this encounter Visit Diagnoses Not on filedocumented in this encounter Care Teams Rod Tape Operator Relationship Specialty Start Date End Date Haylee Gastelum M.D. PCP - General Family Medicine 07/05/20 [address] [place] [phone] documented as of this encounter
--- OUTSIDE RECORDS SUMMARY | 2022-05-17 11:34 | XMS_ITS | Encounter Summary ---
:1995 Author Organization [facility] Address [address] [place] [address] Care Team Providers Name Role Phone Haylee Gastelum M.D. Primary Care Provider [phone] Reason for Visit Reason Comments Urinary Tract Infection Encounter Details Date Type Department Care Team Description 04/05/2022 Nurse Triage Department of [facility] Carlota Grajeda Urinary Tract Medicine, [place] [facility], [facility] [address] [place] [phone] Social History Tobacco Use Types Packs/Day Years [...] 11/23/2020 relatives? How often do you attend yarsanism or spiritism Never 11/23/2020 services? Do you belong to any clubs or organizations such as No 11/23/2020 yarsanism groups, unions, fraternal or athletic groups, or [...] place to sleep or slept in a snf (including now)? Education Answer Date Recorded What is the highest level of school you have completed or 12 th grade 04/15/2019 the highest degree you have received? 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 - 04/05/2022 12:09 PM CDT Chief Complaint / Reason for Call Patient is a 26 y.o. female calling regarding Urinary Tract Infection. Assessment Concern: UTI symptoms. Emily is 18 weeks and has new burning with urination. Emily sees an outside OB provider that is far away, and she does not believe she can make it to her OB clinic todayfor an appt. Calling to request: appt The recommended disposition is See a health care provider within 24 hours. Also advised Emily to contact her OB provider so they are aware. She agrees. Reason for Disposition [1] Painful urination in AND [2] no current antibiotic treatment Protocols used: - Urination Dlfo-RJRTD-AJ Care Advice Patient/Caregiver understands and will follow care advice?: Yes, able to teach back SEE PCP WITHIN 24 HOURS: * IF OFFICE WILL BE OPEN: You need to be examined within the next 24 hours. Call your doctor (or FLEXO OPERATOR/PA) when the office opens and make an appointment. * IF OFFICE WILL BE CLOSED: You need to be seen within the next 24 hours. A clinic or an urgent carecenter is often a good source of care if your doctor's office is closed or you can't get an appointment. * IF PATIENT HAS NO PCP: Refer patient to a clinic or urgent care center. Also try to help caller find a PCP for future care. NOTE TO TRIAGER: * Use nurse judgment to select the most appropriate source of care. * Consider both the urgency of the patient's symptoms AND what resources may be needed to evaluate and manage the patient. REASSURANCE AND EDUCATION - PAINFUL URINATION DURING : * This could be a urinary tract infection. * You should see your doctor (or FLEXO OPERATOR/PA) to be examined and tested. DRINK EXTRA FLUIDS: * Drink extra fluids. * Drink 8 to 10 cups (1,800 to 2,400 ml) of liquids a day. * Reason: This will water-down your urine and make it less painful to pass. If there is an infection, this will help wash out the germs from your bladder. CRANBERRY JUICE: * Some people think that drinking cranberry juice may help in fighting urinary tract infections. While there is some research that shows cranberry juice might help prevent a urine infection, there is not much evidence that it helps treat the infection. However, if you wish to drink cranberry juice, here are some instructions. * Dosage Cranberry Juice Cocktail: 8 oz (240 ml) twice a day. * Dosage 100% Cranberry Juice: 1 oz (30 ml) twice a day. CRANBERRY JUICE - EXTRA NOTES AND WARNINGS: * Do not drink more than 16 oz (480 ml) of cranberry juice cocktail per day. Too much cranberry juice can be irritating to the bladder. * There have been a couple cases reported of interactions between cranberry juice and Coumadin (warfarin). In these cases the INR level increased for a period of days while the person was drinking cranberry juice. The INR is a test that is used to determine if a person is taking the right amount of Coumadin. At higher INR levels there is an increased risk of bleeding. * Remember, antibiotics are needed to treat a urine infection! CALL BACK IF: * Pain with urination becomes severe * Fever over 100.4 F (38.0 C) occurs * Back pain occurs * You become worse documented in this encounter Plan of Treatment Not on filedocumented as of this encounter Visit Diagnoses Not on filedocumented in this encounter Care Teams [employer] Teacher Relationship Specialty Start Date End Date Haylee Gastelum M.D. PCP - General Family Medicine 07/05/[address] [phone] documented as of this encounter
--- OUTSIDE RECORDS SUMMARY | 2022-05-17 11:34 | XMS_ITS | Encounter Summary ---
:1995 Author Organization [facility] Address [address] [place] [address] Care Team Providers Name Role Phone Haylee Gastelum M.D. Primary Care Provider [phone] Reason for Visit Reason Comments Difficulty Urinating Urinary Frequency X today Appointment Request (Routine) - Closed Specialty Diagnoses / Procedures Referred By Contact Refer red To Contact Family Medicine Referral ID Status Reason Start Date Expiration Date Visits Requ ested Visits Authorized [id number] Closed 04/05/2022 04/05/2023 1 1 Encounter Details Date Type Department Care Team Description 04/05/2022 Office Visit Department of Family [facility] Urinary Medicine, [place] [address] [address] (Primary Dx) Clinic, in [facility] [phone] [address] [phone] [place], [place] (Work) [phone] Social History Tobacco Use Types Packs/Day Years [...] 11/23/2020 relatives? How often do you attend moravian or buddhism Never 11/23/2020 services? 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 documented as of this encounter Last Filed Vital Signs Vital Sign Reading Time Taken Comments Blood Pressure 135/80 04/05/2022 1:43 PM CDT Pulse 99 04/05/2022 1:43 PM CDT Temperature 36.7 ??C (98.1 ??F) 04/05/2022 1:43 PM CDT Respiratory Rate 16 04/05/2022 1:43 PM CDT Oxygen Saturation - - Inhaled Oxygen Concentration - - Weight 103 kg (227 lb 4.7 oz) 04/05/2022 1:43 PM CDT Height - - Body Mass Index 34.85 12/04/2021 1:20 PM CDT documented in this encounter Progress Notes Theo Wayne - 04/05/2022 2:00 PM CDT SUBJECTIVE CHIEF COMPLAINT / REASON FOR VISIT Difficulty Urinating and Urinary Frequency (X today ). HISTORY OF PRESENT ILLNESS Emily Zapien is a 26 y.o. female who presents for evaluation of Difficulty Urinating and Urinary Frequency (X today ) Patient presents for evaluation of urinary frequency and dysuria symptoms began a today. Patient states this symptoms are similar to when she is had UTIs in the past therefore she would like to get a head start with treatment. Patient is also 18 weeks' gestation. Denies abdominal pain cramping or vaginal discharge, back pain, hematuria or vomiting. The following portions of the patient's history were reviewed: medical history and problem list. Past Medical History: Diagnosis Date Anxiety Generalized Disorder Depressive Disorder Migraine Without Aura Not Intractable Without Status Migrainosus 04/20/2008 Past Surgical History: Procedure Laterality Date CLOSED REDUCTION INTERNAL FIXATION RADIUS/ULNA WRIST Left 01/31/2001 TONSILLECTOMY TONSILLECTOMY AND ADENOIDECTOMY N/A 04/30/2006 Tonsillectomy and adenoidectomy; younger than age 12.. Current Outpatient Medications Medication Sig acetaminophen (TYLENOL) 500 mg capsule Take 1,000 mg by mouth every 6 (six) hours as needed for pain. pwmtqzj-kcojnywptzsgf-ueudookj (EXCEDRIN MIGRAINE) 250-250-65 mg per tablet Take 1 tablet by mouth every 6 (six) hours as needed for pain. DULoxetine (CYMBALTA) [address] capsule Take 20 mg by mouth daily. hydrOXYzine (ATARAX) 10 mg tablet Take 1 tablet (10 mg total) by mouth 4 (four) times a day as needed for anxiety. ibuprofen (ADVIL,MOTRIN) 400 mg tablet Take 400 mg by mouth every 6 (six) hours as needed for pain. vp-tuy-XZ-Sc-Yr-tyxoqkc-lutein 0.4-162-18 mg tablet Take by mouth. nitrofurantoin monohydrate (MACROBID) 100 mg capsule Take 1 capsule (100 mg total) by mouth 2 (two)times a day for 5 days. norethindrone-ethinyl estradiol (Microgestin 07/12, ,) 1-20 mg-mcg per tablet Take 1 tablet by mouth daily. (Patient not taking: No sig reported) rizatriptan EPIC APPLICATION COORDINATOR (Maxalt-EPIC APPLICATION COORDINATOR) 5 mg disintegrating tablet Take 1 tablet (5 mg total) by mouth as needed for migraine. May repeat dose once in 2 hours if migraine unresolved. Do not exceed 30 mg in 24 hours. (Patient not taking: Reported on 12/04/2021) I have reviewed the current medications list. Allergies Allergen Reactions Codeine GI intolerance Social History Socioeconomic History Marital status: Single Number of children: 2 Highest education level: 12th grade Tobacco Use Smoking status: Never Smokeless tobacco: Never Substance and Sexual Activity Alcohol use: Yes Alcohol/week: 2.0 standard drinks Types: 2 Glasses of wine per week Drug use: No Sexual activity: Yes Partners: Male control/protection: Condom, Pill, I.U.D., Patch, Withdrawal REVIEW OF SYSTEMS Please see HPI for pertinent positives and negatives OBJECTIVE PHYSICAL EXAMINATION: BP 135/80 (BP Location: Right arm, Patient Position: Sitting, Cuff Size: Regular) Pulse 99 Temp 36.7 ??C (Temporal) Resp 16 Wt 103 kg LMP 11/26/2021 No BMI 34.85 kg/m?? Bodymass index is 34.85 kg/m??.Wt 103 kg Physical Exam General: Awake, and alert female. General appearance: Alert and orientated Heart: Heart rate and rhythm are normal. Respiratory: Lung sounds are clear in all lobes without wheezes. Abdomen: No costovertebral angle tenderness to palpation. DIAGNOSTICS Results for orders placed or performed in visit on 04/05/22 Urinalysis with Microscopic if Indicated Result Value Ref Range Source Urine, Urine, Midstream Clarity Clear Clear Color Yellow Blood Negative Negative Nitrite Negative Negative Leukocyte Esterase Small (A) Negative Protein Negative mg/dL Glucose Negative Negative mg/dL Ketone Negative Negative mg/dL Bilirubin Negative Negative pH 6.5 5.0 - 8.0 Specific Vaughn 1.018 1.001 - 1.035 Urobilinogen 1.0 0.2 - 1.0 mg/dL Microscopic Automated Result Value Ref Range White Blood Cells 11-20 (A) /hpf Red Blood Cells None Seen 0 - 2 /hpf Hyaline Casts 4-10 /lpf Squamous Cells 4-10 /hpf No images are attached to the encounter or orders placed in the encounter. ASSESSMENT / PLAN #1 Frequency Urinary - Urinalysis with Microscopic if Indicated Other orders - Microscopic Automated - nitrofurantoin monohydrate (MACROBID) 100 mg capsule; Take 1 capsule (100 mg total) by mouth 2 (two) times a day for 5 days., Starting Fri04/05/2022, Until Fri04/10/2022, Normal Plan and decision making Urinary frequency/dysuria/urinary tract infection Although urinalysis shows small leukocyte Estrace given presenting symptoms of dysuria and urinary frequency and patient is 18 weeks' gestation we collectively agreed treatment is warranted. Strongly recommend stay well hydrated. Informed patient if she develops abdominal cramping, vaginal discharge or bleeding or back pain should seek care immediately. Patient verbalizes understanding. We discussed symptoms to monitor symptoms that should prompt them to return for re- evaluation. Patient demonstrates understanding of and agreement with the plan for discharge. All questions and concerns were addressed to the best of my ability. Carri Hernandez L.P.N. - 04/05/2022 2:00 PM CDT We received a failed transmission on the Macrobid to [facility] in [place]. I called [facility] with Shana, the pharmacist and I gave her a verbal read for the Macrobid 100 MG take one tablet by mouth twice daily for five days with 10 tablets and zero refills. Shana gave me a verbal readback. documented in this encounter Plan of Treatment Not on filedocumented as of this encounter Procedures Procedure Name Priority Date/Time Associated Comments Diagnosis URINALYSIS WITH Routine 04/05/2022 1:41 PM Frequency Urinary R esults for this MICROSCOPIC IF CDT procedure are in INDICATED, U the results section. [place] URINALYSIS AUTO WO Routine 04/05/2022 1:41 PM Results for this MICRO CDT procedure are i n the results section. documented in this encounter Results (ABNORMAL) Microscopic Automated (04/05/2022 1:41 PM CDT) [...] [facility] LAB URINE ORDERABLES Performing Organization Address City/[facility]/ZIP Code Phon e Number [facility] [address] [place] [address] [place] [address] System in [place] [address] [facility] (ABNORMAL) Urinalysis with Microscopic if Indicated (04/05/2022 [...] 8.0 04/05/2022 1:57 PM CDT OW[facility] Specific Vaughn 1.018 1.001 - 1.035 04/05/2022 1:57 PM CDT OW[facility] Urobilinogen 1.0 0.2 - 1.0 mg/dL 04/05/2022 1:57 PM CD T [facility] Specimen Anatomical Collection Method Collection Time Receive d Time (Source) Location / / Volume Laterality Urine (Urine, 04/05/2022 1:41 PM 04/05/20 1:57 Midstream) CDT PM CDT Theo [facility] LAB URINE ORDERABLES Performing Organization Address City/[facility]/ZIP Code Phon e Number [facility] [address] [facility] [place] [address] [facility] [place] [address] System in [place] [address] documented in this encounter Visit Diagnoses Diagnosis Frequency Urinary - Primary documented in this encounter Care Teams Mat Machine Tender Relationship Specialty Start Date End Date Haylee Gastelum M.D. PCP - General Family Medicine 07/05/[address] [place] [id number] documented as of this encounter
--- OUTSIDE RECORDS SUMMARY | 2022-05-17 11:35 | XMS_ITS | Encounter Summary ---
:1995 Author Organization [facility] Address [address] [place] [address] Care Team Providers Name Role Phone Haylee Gastelum M.D. 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 Do you belong to [...] minutes do you engage in exercise at th is 30 min 11/23/2020 level? Stress Answer [...] to sleep or slept in a senior living (including now)? Education Answer Date Recorded What is the highest level of school you have completed or 12 th grade 04/15/2019 the highest degree you have received? 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 PCP - General Family Medicine 07/05/[address] [phone] documented as of this encounter
--- OUTSIDE RECORDS SUMMARY | 2022-05-17 11:35 | XMS_ITS | Encounter Summary ---
:1995 Author Organization [facility] Address [address] [place] [address] Care Team Providers Name Role Phone Haylee Gastelum M.D. Primary Care Provider [phone] Reason for Visit Reason Comments Menstrual Problem PELVIC PAIN Appointment Request (Routine) - Closed Specialty Diagnoses / Procedures Referred By Contact Refer red To Contact Obstetrics and Gynecology Referral ID Status Reason Start Date Expiration Date Visits Requ ested Visits Authorized [id number] Closed 02/12/2021 02/12/2022 1 1 Encounter Details Date Type Department Care Team Description 02/27/2021 Office Visit Department of Esequiel Vicente Fatigue ( Primary Dx); Obstetrics and M.D. Endocrine Dis order Screening Exam Gynecology in [place], [place] [address] [place] [id number] Social History Tobacco Use Types Packs/Day Years [...] How often do you attend jewish or denominational Never 11/23/2020 services? 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 - 02/27/2021 9:00 AM CDT PRODUCTION ILLUSTRATOR Progress Note SUBJECTIVE History of Present Illness: Patient presents to discuss abnormal hormone tests taken at home. Notably she has many nonspecific symptoms over the last year including headache, fatigue, fogginess, anxiety and depression, mood swings, irregular periods, unexplained weight gain. Notably she recently took at food sensitivity test that told her that she was sensitive to eggs. She cut out eggs from her dietand her headaches went away. She also ordered a test on line the tested for many hormones including TSH, T3, T4, FSH, LH, cortisol, testosterone, DHEA-S, and others. All of them were normal except for one out of for cortisol levels was low (the other three were normal), FSH was high at 10.2, progesterone was mildly low at 60, and free testosterone was mildly high at 124 (see messages for screenshots). She is concerned that some of these levels could potentially cause her symptoms. Notably she has a long history of anxiety and depression and this has gotten worse in the last year.She tried both Zoloft and Wellbutrin and neither seemed to be effective. Notably she has been seeinga therapist every month for at least six months and she finds it helpful and plans to continue to see her. She did recently signed up online for a program where she spoke with a psychiatric nurse practitioner who prescribed her Cymbalta for her anxiety. She says her anxiety is significantly worsen herdepression currently. Her depression is overall controlled. She has no suicidal or homicidal ideation. She has not yet started the Cymbalta but she plans to soon. Notably her periods come every month and are not painful or heavy. They last 5-7 days. I reviewed her calendar and for the last year they have come between every 26 and 29 days. She has never missed a period. She is currently not using contraception. She removed her Mary Kate by herself roughly two years ago. Notably she does have mild pelvic pain at around day 14 of her period every month. She believes it is due to ovulation. She is currently having this pain for the last 2-3 days and it is a little bit worse than normal. It is on the left currently. She says her most concerning symptoms are weight gain, fogginess, fatigue. No hirsutism. She has some acne but nothing above the normal for her age. OBJECTIVE Physical Exam Vitals: 02/27/21 0857 BP: 118/64 General: appears very comfortable Abdomen: soft, nontender, nondistended Extremities: no edema ASSESSMENT / PLAN Emily Zapien is a 25 y.o. who is here to discuss home hormone tests. 1. Patient took home hormone tests (see above) -FSH 10.2: Discussed that FSH varies widely with where she is in her cycle. She is unsure exactly which day this was. I discussed with her that this is a very normal level for a premenopausal woman. Ifshe had premature ovarian failure she would not be having regular periods and her FSH would be much higher. Reassurance provided -Low cortisol: She took four levels of cortisol. One was low (1 ng/mL) and the other three were normal. Discussed that cortisol varies widely with the time of the day and the fact that she has three normal levels likely needs that her cortisol was normal. In addition many of her symptoms would be caused from high cortisol, not low cortisol. -Elevated testosterone 124 pg/nL: Will reorder free and total testosterone today. Discussed that high testosterone would likely not cause her symptoms but could cause acne and hirsutism which she does not have. -Low progesterone: Discussed the progesterone varies widely with where she is in the cycle and a lowvalue would likely not cause her symptoms. Reassurance provided. -Overall reassurance provided. I offered to refer her to an hot mix operator if she still has concerns but she says that she is reassured. 2. Fatigue -CBC, TSH ordered today 3. Anxiety/depression -Her main concern currently is anxiety. She is currently seeing a therapist every month and has recently started following with an online psychiatric service called [facility]. She spoke with a psychiatric nurse practitioner who prescribed her Cymbalta. She has not started yet but I encouraged her to start this medication. I discussed with her that it might take up to 6-8 weeks to see improvement in her anxiety symptoms. Discussed other coping mechanisms. Encouraged to continue therapy in addition to the Cymbalta which she plans to do. Plan for follow-up with Dr. Gastelum which is already scheduled 4. Irregular periods -patient was originally concern for irregular periods and PCOS. Notably her periods are actually regular and come every 26-29 days apart. I reviewed her menstrual calendar for the last year and she hasno missed periods in all periods, then 26-29 days apart. Patient also has no clinical hyperandrogenism so I think PCOS is unlikely at this time. No ultrasound needed at this time. Reassurance provided and patient was thankful. 5. Weight gain -patient is unsure how much she has gained but she thinks maybe 20-40 lb in the last three years. Encouraged continuing exercising and eating of wide variety of food groups which she says she is currently doing. -Follow up with Dr. Gastelum RTC as needed Esequiel Vicente MD Answers for HPI/ROS submitted by the patient on 02/26/2021 Fatigue: Yes Weight gain of more than 10 pounds: Yes No eye issues: Yes No ENT issues: Yes No heart issues: Yes No respiratory issues: Yes Nausea: Yes No muscle/bone issues: Yes No skin issues: Yes Headache: Yes Light-headedness: Yes Change in sexual drive (decreased libido): Yes Excessive daytime sleepiness/tiredness: Yes Little interest or pleasure in doing things: Yes Feeling down, depressed, or hopeless: Yes Feeling nervous, anxious or on edge: Yes Not being able to stop or control worrying: Yes No blood/lymph issues: Yes Frequent urination: Yes Urgency: Yes Incontinence (urine leakage): Yes documented in this encounter Miscellaneous Notes Addendum Note - Esequiel Vicente M.D. - 02/27/2021 9:00 AM CDT Addended by: ESEQUIEL VICENTE on: 02/27/2021 10:10 AM Modules accepted: Orders documented in this encounter Plan of Treatment Not on filedocumented as of this encounter Results CBC without Differential (02/27/2021 9:53 AM CDT) P athologist Signature Hemoglobin 14.6 11.6 - 02/27/2021 [facility] 15.0 g/dL 10:06 AM CDT Hematocrit 43.8 35.5 - 02/27/2021 [facility] 44.9 % 10:06 AM CDT Erythrocytes 4.74 3.92 - 02/27/2021 [facility] 5.13 10:06 AM CDT x10(12)/L MCV 92.4 78.2 - 02/27/2021 [facility] 97.9 fL 10:06 AM CDT RBC Distrib Width 12.4 12.2 - 02/27/2021 [facility] 16.1 % 10:06 AM CDT Platelet Count 360 157 - 371 02/27/2021 [facility] x10(9)/L 10:06 AM CDT Leukocytes 7.0 3.4 - 9.6 02/27/2021 [facility] x10(9)/L 10:06 AM CDT Specimen Anatomical Collection Method Collection Time Receive d Time (Source) Location / / Volume Laterality Blood (Blood, 02/27/2021 9:53 AM 02/28/20 21 Venous) CDT 10:02 AM CDT Esequiel Vicente M.D. LAB BLOOD ADD-ON Performing Organization Address City/State/ZIP Code Phon e Number [facility] [address] [place] [address] [place] [address] System in [place] [address] [facility] Testosterone, Total and Free (02/27/2021 9:52 AM CDT) athologist Signature Testosterone, 0.78 0.06 - 1.06 03/04/2021 [facility] Free, S ng/dL 2:46 PM CDT Comment: ----ADDITIONAL INFORMATION---- Testing performed by Gianna Baezi gerson. This test was developed and its performa nce characteristics determined by [facility] in a manner consistent with CLIA requirements. This test has not been cleared or approved by the [place] and Drug Administration. Testosterone, Total by Mass 31 8 - 60 ng/dL 8:15 AM CDT [facility] Spectrometry, Serum Comment: ----ADDITIONAL INFORMATION---- Testing performed by Liquid Chromatograp hy-Tandem Mass Spectrometry (LC-MS/MS). This test was developed and its performa nce characteristics determined by [facility] in a manner consistent with CLIA requirements. This test has not been cleared or approved by the [place] and Drug Administration. Specimen Anatomical Collection Method Collection Time Receive d Time (Source) Location / / Volume Laterality Blood (Blood, 02/27/2021 9:52 AM 02/29/20 1:53 Venous) CDT PM CDT Esequiel Vicente M.D. LAB BLOOD NON ADD-ON Performing Organization Address City/State/ZIP Code Phon e Number [facility] [address] [place] [address] [place] [address] [place] [address] Laboratory Medicine and Pathology [address] ALMENDAREZ S-TSH (Thyroid-Stimulating Hormone - Sensitive) (02/27/2021 9:52 AM CDT) athologist Signature TSH, Sensitive 0.9 0.3 - 4.2 02/27/2021 [facility] mIU/L 10:45 AM CDT Specimen Anatomical Collection Method Collection Time Receive d Time (Source) Location / / Volume Laterality Blood (Blood, 02/27/2021 9:52 AM 09/07/20 21 Venous) CDT 10:02 AM CDT Esequiel Vicente M.D. LAB BLOOD ADD-ON Performing Organization Address City/State/ZIP Code Phon e Number [facility]- [address] [place] [address] [place] [address] System in [place] [address] documented in this encounter Visit Diagnoses Diagnosis Fatigue - Primary Endocrine Disorder Screening Exam documented in this encounter Care Teams University President Relationship Specialty Start Date End Date Haylee Gastelum M.D. PCP - General Family Medicine 07/05/[address] [place] [address] documented as of this encounter
--- OUTSIDE RECORDS SUMMARY | 2022-05-17 11:35 | XMS_ITS | Encounter Summary ---
:1995 Author Organization [facility] Address [address] [place] [address] Care Team Providers Name Role Phone Haylee Gastelum M.D. Primary Care Provider [phone] Encounter Details Date Type Department Care Team Description 03/05/2021 Orders Only Department of Obstetrics and Col kelly Miller M.D. Gynecology in [place], [place] [address] [place] [address] Social History Tobacco Use Types Packs/Day Years [...] 11/23/2020 relatives? How often do you attend yazidi or restorationist Never 11/23/2020 services? Do you belong to any clubs or organizations such as No 11/23/2020 yazidi groups, unions, fraternal or athletic groups, or [...] place to sleep or slept in a long-term (including now)? Education Answer Date Recorded What is the highest level of school you have completed or 12 th grade 04/15/2019 the highest degree you have received? 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 PCP - General Family Medicine 07/05/[address] [address] documented as of this encounter
--- OUTSIDE RECORDS SUMMARY | 2022-05-17 11:35 | XMS_ITS | Encounter Summary ---
:1995 Author Organization [facility] Address [address] [place] [address] Care Team Providers Name Role Phone Mirella Silva P.A.-C. Primary Care Provider [phone] Reason for Visit Reason Comments COVID Nurse Line Encounter Details Date Type Department Care Team Description 06/08/2020 Clinical Communication Division of Janell Isabel Nurse Line [facility] C, R.N. [place], [place] [address] [place] [address] Social History Tobacco Use Types Packs/Day Years [...] 11/23/2020 relatives? How often do you attend denominational or muslim Never 11/23/2020 services? 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 - 06/08/2020 1:31 PM COLLAR SETTER OVERLOCK COVID-19 Nurse Line Screening ASSESSMENT Combo COVID + Upper Respiratory Infection (URI) Screening Select the most appropriate pathway: : Adult Have you had close contact* with a person who has a LABORATORY CONFIRMED case of COVID-19 in the past 14 days?: No (Continue Screening) In the last 48 hours, have you had a fever* OR symptoms that are unrelated to a preexisting illness?: Fever, New nausea, New chills, New muscle aches, New repeated shaking with chills, New headache Do you have any of the following urgent symptoms?: No urgent symptoms noted (Continue Screening) Do you have any of the following respiratory syntonical virus (RSV) complications? : No complications noted (Continue Screening) Are all the following symptoms present: temperature of 100.0 degrees Fahrenheit or greater, muscle aches or headache AND a cough?: No all symptoms are not present (End Screening) Symptom Onset Date of symptom onset: 06/07/20 Testing Recommendation Endpoint Is testing recommended? : Recommended to test PLAN Endpoint recommendation: Screening positive, testing indicated, advised to be swabbed for COVID-19 Only , sent to [facility] located at [address] [place] [address]. The entrance is on the north side of the building. You must call [phone] for an appointment time.Testing hours are Daily 9 am to 7 pm.When you arrive at the testing site: Remain in your vehicle and check-in by phone using the same appointment line number. and Please avoid using public transportation per CDC recommendation. If you do not have personal transportation please self- quarantine until a personal transportation option is available. Care Points: -Wash hands frequently with soap and water for at least 20 seconds -If soap and water are not available, use a hand platform inspector -Avoid touching your eyes, nose and mouth. -Clean and disinfect high-touch surfaces routinely. -Wear a mask over your nose and mouth. A cloth face cover is not a substitute for social distancing -Continue to keep about 6 feet between yourself and others. -Avoid public areas and public transportation. -Find new ways to connect with family and friends, get support and share feelings. -Seek emergent care if any of the following occur Trouble breathing Bluish lips or face Persistent pain or pressure in the chest New confusion or inability to rouse. -Notify your regular care provider of any new or worsening symptoms. Symptomatic Carepoints: Separate yourself from others and stay in a specific sick room if able. Avoid sharing personal or household items. Rest. Hydrate. Take Acetaminophen/Ibuprofen as needed to control fever and muscles aches. Use over the counter medications as needed for other symptoms. Education: Patient/caregiver able to teach back Patient agreeable to plan of care: Yes The following references were used: [facility] novel coronavirus (COVID- 19) resources Nursing judgement AR SETTER OVERLOCK documented in this encounter Plan of Treatment Not on filedocumented as of this encounter Visit Diagnoses Not on filedocumented in this encounter Additional Health Concerns Assessment Noted Time PHQ-9 Depression Total Score: 9 05/05/2020 2:02 PM COLLAR SETTER OVERLOCK documented as of this encounter Care Teams Mechanical Technologist Relationship Specialty Start Date End Date Mirella Silva P.A.-C. PCP - General 05/17/20 07/04/[address] [address] documented as of this encounter
--- OUTSIDE RECORDS SUMMARY | 2022-05-17 11:35 | XMS_ITS | Encounter Summary ---
:1995 Author Organization [facility] Address [address] [place] [address] Care Team Providers Name Role Phone Mirella Silva P.A.-C. Primary Care Provider [phone] Encounter Details Date Type Department Care Team Description 06/08/2020 Admin Visit Department of Family Medicine, [address] [address] [facility] [phone] Social History Tobacco Use Types Packs/Day Years [...] 11/23/2020 relatives? How often do you attend mormon or holiness Never 11/23/2020 services? Do you belong to any clubs or organizations such as No 11/23/2020 mormon groups, unions, fraternal or athletic groups, or [...] at Date Recorded Female 05/20/2017 4:45 PM BODY WORKER documented as of this encounter Plan of Treatment Not on filedocumented as of this encounter Visit Diagnoses Not on filedocumented in this encounter Additional Health Concerns Infection Onset Date Last Indicated Resolved Time COVID19 Pending 06/08/2020 06/08/2020 06/09/2020 3:35 AM BODY WORKER Assessment Noted Time PHQ-9 Depression Total Score: 9 05/05/2020 2:02 PM BODY WORKER documented as of this encounter Care Teams Surface Miner Relationship Specialty Start Date End Date Mirella Silva P.A.-C. PCP - General 05/17/20 07/04/[address] [address] documented as of this encounter
--- OUTSIDE RECORDS SUMMARY | 2022-05-17 11:35 | XMS_ITS | Encounter Summary ---
:1995 Author Organization [facility] Address [address] [place] [address] Care Team Providers Name Role Phone Haylee Gastelum M.D. Primary Care Provider [phone] Encounter Details Date Type Department Care Team Description 06/26/2021 Patient Self-Triage CONNECTED CARE Symptom Nurses Director, Provider Social History Tobacco Use Types Packs/Day [...] 11/23/2020 relatives? How often do you attend shinto or oriental orthodox Never 11/23/2020 services? Do you belong to any clubs or organizations such as No 11/23/2020 shinto groups, unions, fraternal or athletic groups, or [...] place to sleep or slept in a assisted (including now)? Education Answer Date Recorded What is the highest level of school you have completed or 12 th grade 04/15/2019 the highest degree you have received? Sex Assigned at Date Recorded Female 05/20/2017 4:45 PM INFORMATION TECHNOLOGY PROJECT MANAGER documented as of this encounter Plan of Treatment Not on filedocumented as of this encounter Visit Diagnoses Not on filedocumented in this encounter Additional Health Concerns Infection Onset Date Last Indicated Resolved Time COVID19 Pending 06/26/2021 06/26/2021 06/27/2021 5:20 PM INFORMATION TECHNOLOGY PROJECT MANAGER documented as of this encounter Care Teams Hip Hop Artist Relationship Specialty Start Date End Date Haylee Gastelum M.D. PCP - General Family Medicine 07/05/[address] [address] documented as of this encounter
--- OUTSIDE RECORDS SUMMARY | 2022-05-17 11:35 | XMS_ITS | Encounter Summary ---
:1995 Author Organization [facility] Address [address] [place] [address] Care Team Providers Name Role Phone Haylee Gastelum M.D. Primary Care Provider [phone] Reason for Visit Reason Comments COVID Nurse Line Sinusitis Encounter Details Date Type Department Care Team Description 10/10/2020 Nurse Triage Department of [facility] Socorro Brantley, COV ID Nurse Line; Medicine, [facility], in [place], [address] [place], [place] [address] [place] [address] [place] [address] [phone] Social History Tobacco Use Types Packs/Day Years [...] 11/23/2020 relatives? How often do you attend scientologist or scientologist Never 11/23/2020 services? 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 - 10/10/2020 8:55 AM CDT COVID-19 Nurse Line Screening ASSESSMENT Region Select appropriate region: : [place] Age Pathway Select approprite pathway: : Adult Have you had close contact* with a person who has a LABORATORY CONFIRMED case of COVID-19 in the past 14 days?: No (Continue Screening) In the last 48 hours, have you had a fever* OR symptoms that are unrelated to a preexisting illness?: New headache Have you received a COVID-19 vaccine in the last 72 hours? : No vaccine received (Continue Screening) Do you have any of the following urgent symptoms?: No urgent symptoms noted (Continue Screening) Have you tested positive for COVID-19 in the last 45 days?: No (Continue Screening) Are ALL the following criteria met: age between 18 to 75 yrs, main symptom is a sore throat with duration of 24 hrs to 7 days, onset of sore throat not associated with new upper respiratory symptoms*? : No, COVID testing is recommended (End Screening) Symptom Onset Date of symptom onset: 10/03/20 Testing Recommendation Endpoint Is testing recommended? : Recommended to test PLAN Endpoint recommendation: Screening positive, testing indicated, advised to be swabbed for COVID-19 Only , sent to [facility] located at [address] [place] [address]. The entrance is on the north side of the building. You must call [phone] during the hours of 7am to 6 pm (M-F) or 9 am to 4 pm (Sat and Sun) for an appointment time. You can also schedule via your Patient Online Services account. Testing hours are 8 am to 12 noon every day. When you arrive at the testing site: Remain in your vehicle and check-inby calling the number listed on the signage at the testing site or provided to you at the time you schedule your testing appointment. and Please avoid using public transportation per CDC recommendation. If you do not have personal transportation please self- quarantine until a personal transportation option is available. Care Points: -Wash hands frequently with soap and water for at least 20 seconds -If soap and water are not available, use a hand gardening instructor -Avoid touching your eyes, nose and mouth. [...] counter medications as needed for other symptoms. Use a humidifier. Education: Patient/caregiver able to teach back Patient agreeable to plan of care: Yes The following references were used: [facility] novel coronavirus (COVID- 19) resources Chief Complaint / Reason for Call Patient is a 25 y.o. female calling regarding COVID Nurse Line and Sinusitis. Assessment Concern: Caller reports nasal congestion and sinus pressure and pain above right eye. Also reports she feels like she has a migraine but is hesitant to take maxalt because she read on google there is acontraindication in taking maxalt with zoloft. Reports even without medication the migraine goes away but this has not. Present for: 1 week Home cares tried: Tylenol, fluids, and humidifier with symptom improvement but still raes headache at 3/10. Calling to request: Wondering what to do The recommended disposition is Home Care. Caller will use home cares as directed and [facility] testing site information given. Message routed to [facility] Testing site. Reason for Disposition ? ? [1] Sinus congestion as part of a cold AND [2] present < 10 days Protocols used: SINUS PAIN OR [id number] Care Advice Patient/Caregiver understands and will follow care advice?: Yes, able to teach back HOME CARE: * You should be able to treat this at home. REASSURANCE AND EDUCATION: * Sinus congestion is a normal part of a cold. * Usually home treatment with nasal washes can prevent an actual bacterial sinus infection. * Antibiotics are not helpful for the sinus congestion that occurs with colds. PAIN MEDICINES: * For pain relief, take acetaminophen, ibuprofen, or naproxen. * Use the lowest amount that makes your pain feel better. ACETAMINOPHEN (E.G., TYLENOL): * Take 650 mg (two 325 mg pills) by mouth every 4-6 hours as needed. Each Regular Strength Tylenol pill has 325 mg of acetaminophen. The most you should take each day is 3,250 mg (10 Regular Strength pills a day). * Another choice is to take 1,000 mg (two 500 mg pills) every 8 hours as needed. Each Extra StrengthTylenol pill has 500 mg of acetaminophen. The most you should take each day is 3,000 mg (6 Extra Strength pills a day). IBUPROFEN (E.G., MOTRIN, ADVIL): * Take 400 mg (two 200 mg pills) by mouth every 6 hours as needed. * Another choice is to take 600 mg (three 200 mg pills) by mouth every 8 hours as needed. * The most you should take each day is 1,200 mg (six 200 mg pills a day), unless your doctor has told you to take more. NAPROXEN (E.G., ALEVE): * Take 220 mg (one 220 mg pill) by mouth every 8 hours as needed. You may take 440 mg (two 220 mg pills) for your first dose. * The most you should take each day is 660 mg (three 220 mg pills a day), unless your doctor has told you to take more. EXTRA NOTES: * Acetaminophen is thought to be safer than ibuprofen or naproxen for people over 65 years old. Acetaminophen is in many OTC and prescription medicines. It might be in more than one medicine that you are taking. You need to be careful and not take an overdose. An acetaminophen overdose can hurt the liver. * [employer], the company that makes Tylenol, has different dosage instructions for Tylenol in [place] and the [place]. In [place], the maximum recommended dose per day is 4,000 mg or twelve (12) Regular-Strength (325 mg) pills. In the [place], [employer] recommends a maximum dose of ten (10) Regular-Strength (325 mg) pills. * Before taking any medicine, read all the instructions on the package. EXPECTED COURSE: * Sinus congestion from viral upper respiratory infections (colds) usually lasts 5-10 days. * Occasionally a cold can worsen and turn into bacterial sinusitis. Clues to this are sinus symptomslasting longer than 10 days, fever lasting longer than 3 days and worsening pain. Bacterial sinusitis may need antibiotic treatment. CALL BACK IF: * Severe pain persists over 2 hours after pain medicine * Sinus pain persists over 1 day after using nasal washes * Sinus congestion (fullness) persists over 10 days * Fever lasts over 3 days * You become worse. CARE ADVICE given per Sinus Pain or Congestion (Adult) guideline. documented in this encounter Plan of Treatment Not on filedocumented as of this encounter Visit Diagnoses Not on filedocumented in this encounter Care Teams Public Health Advisor Relationship Specialty Start Date End Date Haylee Gastelum M.D. PCP - General Family Medicine 07/05/[address] [phone] documented as of this encounter
--- OUTSIDE RECORDS SUMMARY | 2022-05-17 11:35 | XMS_ITS | Encounter Summary ---
:1995 Author Organization [facility] Address [address] [place] [address] Care Team Providers Name Role Phone Haylee Gastelum M.D. Primary Care Provider [phone] Encounter Details Date Type Department Care Team Description 09/12/2020 Orders Only Department of Family Haylee Gastelum [facility] M.[facility]. Disorder (Primary Dx) Clinic, in [place] [address] [place], [place] [address] [address] [place], [place] [phone] [address] (Work) [phone] Social History Tobacco Use Types Packs/Day Years [...] 11/23/2020 relatives? How often do you attend buddhism or scientology Never 11/23/2020 services? 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 LAB BLOOD ADD-ON Performing Organization Address City/State/ZIP Code Phon e Number [facility] [address] [place] [address] [facility] [place] [place] [address] System in [place] [address] documented in this encounter Visit Diagnoses Diagnosis Anxiety Generalized Disorder - Primary documented in this encounter Care Teams Ladle Liner Helper Relationship Specialty Start Date End Date Haylee Gastelum M.D. PCP - General Family Medicine 07/05/202199 [facility] [place] [phone] documented as of this encounter
--- OUTSIDE RECORDS SUMMARY | 2022-05-17 11:35 | XMS_ITS | Encounter Summary ---
:1995 Author Organization [facility] Address [address] [place] [address] Care Team Providers Name Role Phone Haylee Gastelum M.D. Primary Care Provider [phone] Reason for Visit Reason Comments Follow-up headache Outpatient (Routine) - Closed Specialty Diagnoses / Procedures Referred By Contact Refer red To Contact Video Medicine Diagnoses Headache Unspecified Syncope Fatigue Dizziness Haylee Gastelum M.D. [facility] [address] [place] [address] Referral ID Status Reason Start Date Expiration Date Visits Requ ested Visits Authorized [id number] Closed 06/29/2020 06/29/2021 1 1 Encounter Details Date Type Department Care Team Description 07/05/2020 Telemedicine Department of [facility] Haylee Gastelum Sin usitis Subacute (Primary Dx); Lauro Ragland M.D. [facility], [address] [place], [place] [address] [place] [address] [place], [place] [phone] (Work) [phone] Social History Tobacco Use Types Packs/Day Years [...] 11/23/2020 relatives? How often do you attend latter day or mormon Never 11/23/2020 services? 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 - 07/05/2020 10:30 AM CST SUBJECTIVE CHIEF COMPLAINT/REASON FOR VISIT Recheck headache Consult conducted via real-time audio/video technology by Haylee Gastelum M.D. in [facility] to the patient in home. HISTORY OF PRESENT ILLNESS Emily Zapien is a 24 y.o. female presenting today for headache recheck. Today patient reportsto be much improved. Emily states the pressure in the back of her head had resolved after 2 days of taking Augmentin. Of note, patient reports the pressure had initially moved from the back of her headto the front of her face when she lied down. However, this continues to improve. She also notes the nasal steroid spray has helped to relieve her symptoms and she has had some nasal drainage since she started administering the nasal steroid spray. Patient states she has not had any headaches or issueswhile working on her computer. Emily denies any pain or photophobia. Furthermore, patient notes the d izziness and fatigue she had been experiencing has improved and this has helped with her anxiety. Patient states she had picked up the hydroxyzine for her anxiety, but has not needed to take it. There are no further concerns at this time. REVIEW OF SYSTEMS Please see HPI for pertinent positives and negative, otherwise full remainder of ROS negative. CURRENT MEDICATIONS Current Outpatient Medications Medication Sig Dispense Refill ??? acetaminophen (TYLENOL) 500 mg capsule Take 1,000 mg by mouth every 6 (six) hours as needed for pain. ??? amoxicillin-pot clavulanate (AUGMENTIN) 875-125 mg per tablet Take 1 tablet by mouth 2 (two) times a day for 7 days. 14 tablet 0 ??? iitpofu-dhjwwxhkrejsp-yqewjnrw (EXCEDRIN MIGRAINE) 250-250-65 mg per tablet Take 1 tablet by mouth every 6 (six) hours as needed for pain. ??? hydrOXYzine (ATARAX) 10 mg tablet Take 1 tablet (10 mg total) by mouth 4 (four) times a day as needed for anxiety. 30 tablet 0 ??? ibuprofen (ADVIL,MOTRIN) 400 mg tablet Take 400 mg by mouth every 6 (six) hours as needed for pain. ??? yj-lht-ZD-Fg-Uk-vcclbcb-lutein (MULTIVITAL) 0.4-162-18 mg tablet Take by mouth. ??? rizatriptan SECRETARY ADMINISTRATIVE ASSISTANT (Maxalt-SECRETARY ADMINISTRATIVE ASSISTANT) 5 mg disintegrating tablet Take 1 tablet (5 mg total) by mouth as needed for migraine. May repeat dose once in 2 hours if migraine unresolved. Do not exceed 30 mg in 24hours. 9 tablet 3 ??? cyclobenzaprine (FLEXERIL) 10 mg tablet Take 0.5 tablets (5 mg total) by mouth 3 (three) times aday as needed for muscle spasms for up to 7 days. 11 tablet 0 No current facility-administered medications for this visit. ALLERGIES/CONTRAINDICATIONS Allergies Allergen Reactions ??? Codeine GI intolerance MEDICAL HISTORY Past Medical History: Diagnosis Date ??? Anxiety Generalized Disorder ??? Depressive Disorder ??? Migraine Without Aura Not Intractable Without Status Migrainosus 04/20/2008 SURGICAL HISTORY Past Surgical History: Procedure Laterality Date ??? CLOSED REDUCTION INTERNAL FIXATION RADIUS/ULNA WRIST Left 01/31/2001 ??? TONSILLECTOMY ??? TONSILLECTOMY AND ADENOIDECTOMY N/A 04/30/2006 Tonsillectomy and adenoidectomy; younger than age 12.. SOCIAL HISTORY Social History Socioeconomic History ??? Marital status: Single Spouse name: None ??? Number of children: 2 ??? Years of education: None ??? Highest education level: 12th grade Occupational History ??? None Social Needs ??? Financial resource strain: Not hard at all ??? Food insecurity Worry: Never true Inability: Never true ??? Transportation needs Medical: No Non-medical: No Tobacco Use ??? Smoking status: Never Smoker ??? Smokeless tobacco: Never Used Substance and Sexual Activity ??? Alcohol use: Yes Alcohol/week: 2.0 standard drinks Types: 2 Glasses of wine per week Frequency: 2-3 times a week Drinks per session: 1 or 2 Binge frequency: Never ??? Drug use: No ??? Sexual activity: Yes Partners: Male control/protection: Condom, Pill, I.U.D., Patch, Withdrawal Lifestyle ??? Physical activity Days per week: 3 days Minutes per session: 30 min ??? Stress: Only a little Relationships ??? Social connections Talks on phone: Once a week Gets together: Once a week Attends mormon service: Never Active member of club or organization: No Attends meetings of clubs or organizations: Never Relationship status: Living with partner ??? Intimate partner violence Fear of current or ex partner: No Emotionally abused: No Physically abused: No Forced sexual activity: No Other Topics Concern ??? None Social History Narrative ??? None Social History Substance and Sexual Activity Drug Use No Social History Substance and Sexual Activity Alcohol Use Yes ??? Alcohol/week: 2.0 standard drinks ??? Types: 2 Glasses of wine per week ??? Frequency: 2-3 times a week ??? Drinks per session: 1 or 2 ??? Binge frequency: Never FAMILY HISTORY Family History Problem Relation Age [...] Maternal Grandmother ??? Anxiety disorder Sister OBJECTIVE VITAL SIGNS There were no vitals filed for this visit. There is no height or weight on file to calculate BMI. PHYSICAL EXAMINATION General: Well appearing and in no acute distress. Head: Normocephalic, atraumatic. Neck without rigidity or masses. Eyes: PERRL bilaterally. No eyelid swelling or mattering. Conjunctivae and sclerae clear bilaterallywithout injection or icterus. No discharge exhibited. ENT: External left and right ear normal. Normal nose. Lungs: Normal effort with no retractions or use of accessory muscles. Able to speak in full sentences. Neuro: Nonfocal. Skin: Normal color. Warm and dry. Not diaphoretic. No worrisome lesions or rash noted on exposed skin. Mental: Patient is alert and oriented x3. Does not appear depressed or anxious. Mood, behavior, thought content, and judgment normal. ASSESSMENT / PLAN #1 Subacute Sinusitis, Resolved PLAN: Patient's pain has resolved. Patient will finish course of Augmentin 875- 125 mg twice daily and continue with Flonase 2 sprays per nostril daily for one month. Will cancel MRI, as headaches have resolved. If any changes arise, patient will be in contact. #2 Generalized Anxiety Disorder PLAN: Patient's anxiety has improved since she was last seen. Patient has picked up hydroxyzine, however, she has not had to use it. Patient will have hydroxyzine 10 mg available and she will use it asneeded for anxiety, as this has been helpful for her in the past. I personally spent a total of 20 minutes face to face via video visit with the patient in counselingand discussion and/or coordination of care as described above. This document serves as a record of services personally performed by Dr. Haylee Gastelum. It was created on their behalf by Natalia Lowe, a trained senior medical director. The creation of this record is based on the scribe remotely listening to the visit and the provider's statements to them. This document hasbeen checked and approved by the attending provider. FORCE ADVISOR documented in this encounter Plan of Treatment Not on filedocumented as of this encounter Visit Diagnoses Diagnosis Sinusitis Subacute - Primary Anxiety Generalized Disorder documented in this encounter Additional Health Concerns Assessment Noted Time PHQ-9 Depression Total Score: 14 06/29/2020 3:00 PM CS T documented as of this encounter Care Teams Mainframe Programmer Relationship Specialty Start Date End Date Haylee Gastelum M.D. PCP - General Family Medicine 07/05/[address] [phone] documented as of this encounter
--- OUTSIDE RECORDS SUMMARY | 2022-05-17 11:35 | XMS_ITS | Encounter Summary ---
:1995 Author Organization [facility] Address [address] [place] [address] Care Team Providers Name Role Phone Haylee Gastelum M.D. Primary Care Provider [phone] Reason for Visit Reason Comments Follow-up Outpatient (Routine) - Closed Specialty Diagnoses / Procedures Referred By Contact Refer red To Contact Video Medicine Diagnoses Anxiety Generalized Disorder Haylee Gastelum, [facility] [address] [place] [address] Referral ID Status Reason Start Date Expiration Date Visits Requ ested Visits Authorized [id number] Closed 07/16/2020 07/16/2021 1 1 Encounter Details Date Type Department Care Team Description 09/04/2020 Telemedicine Department [facility], [facility] [address] [place], [place] [address] [place], [place] [phone] [address] (Work) [phone] Social History Tobacco Use Types Packs/Day Years [...] 11/23/2020 relatives? How often do you attend sabianism or sabianism Never 11/23/2020 services? Do you belong to any clubs or organizations such as No 11/23/2020 sabianism groups, unions, fraternal or athletic groups, or [...] place to sleep or slept in a nursing home (including now)? Education Answer Date Recorded What is the highest level of school you have completed or 12 th grade 04/15/2019 the highest degree you have received? 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 - 09/04/2020 10:30 AM CDT SUBJECTIVE CHIEF COMPLAINT/REASON FOR VISIT Follow-up for anxiety Consult conducted via real-time audio/video technology by Haylee Gastelum M.D. in [facility] to the patient in home. HISTORY OF PRESENT ILLNESS Emily Zapien is a 25 y.o. female presenting today for follow-up for anxiety. Patient reports her anxiety is much improved on Zoloft 50 mg daily. Initially, she notes having some side effects. She took this in the evening initially, and had some difficulty sleeping. However, she has since switched to taking this in the morning, and has not had any difficulties with sleep. Patient notes she has not been exposed to many anxiety provoking situations and she has some concerns regarding increasing her Zoloft dose, as she worries she may not feel like herself. She notes her dose is working well, and she would like to continue on her current dose. Of note, patient has been taking Zoloft for the la st 7 to 8 weeks. She also has hydroxyzine 10 mg by mouth four times daily as needed for anxiety. From the standpoints of her headaches, patient notes she no longer experiences headaches and she hasnot needed to take Maxalt. She denies having any pressure in her head and wonders if her headaches may have been related to her anxiety. There are no further concerns at this time. REVIEW OF SYSTEMS Please see HPI for pertinent positives and negative, otherwise full remainder of ROS negative. CURRENT MEDICATIONS Current Outpatient Medications Medication Sig Dispense Refill ??? acetaminophen (TYLENOL) 500 mg capsule Take 1,000 mg by mouth every 6 (six) hours as needed for pain. ??? vvharxv-hkfvhxjalfmal-kdinsceh (EXCEDRIN MIGRAINE) 250-250-65 mg per tablet Take [...] (six) hours as needed for pain. ??? oy-tgd-NN-Hl-Vc-zcwhjjm-lutein (MULTIVITAL) 0.4-162-18 mg tablet Take by mouth. ??? rizatriptan SUBACUTE NURSE (Maxalt-SUBACUTE NURSE) 5 mg disintegrating tablet Take 1 tablet (5 mg total) by mouth as needed for migraine. May repeat dose once in 2 hours if migraine unresolved. Do not exceed 30 mg in 24hours. 9 tablet 3 ??? sertraline (ZOLOFT) 50 mg tablet Take 1 tablet (50 mg total) by mouth daily. 90 tablet 3 ??? cyclobenzaprine (FLEXERIL) 10 mg [...] History ??? Marital status: Single Spouse name: Not on file ??? Number of children: 2 ??? Years of education: Not on file ??? Highest education level: 12th grade Occupational History ??? Not on file Social Needs ??? Financial resource strain: Not [...] week Gets together: Once a week Attends sabianism service: Never Active member of club or organization: No Attends meetings of clubs or organizations: Never Relationship status: Living with partner ??? Intimate partner violence Fear of current or ex partner: No Emotionally abused: No Physically abused: No Forced sexual activity: No Other Topics Concern ??? Not on file Social History Narrative ??? Not on file Social History Substance and Sexual Activity Drug [...] Mental: Patient is alert and oriented x3. Mood, behavior, thought content, and judgment normal. Doesnot appear depressed or anxious. Denies suicidal or homicidal ideations. DIAGNOSTICS The following screenings were completed: MEGHNA-7 Total Score (max 21): 1 PHQ-9 Total Score (max 27): 0 (09/04/20 [facility]) PHQ-2 Score: 0 ASSESSMENT / PLAN #1 Generalized Anxiety Disorder PLAN: Patient's anxiety is well controlled on Zoloft and she feels the current dose is appropriate at this time. Patient will continue taking Zoloft 50 mg daily and hydroxyzine 10 mg by mouth four times daily as needed for anxiety. This was refilled for the year today. If any worsening of symptoms or medication concerns arise, patient will be in contact. I personally spent a total of 20 minutes in care of the patient today. Time includes both non-face to face and face to face patient care. This document serves as a record of services personally performed by Dr. Haylee Gastelum. It was created on their behalf by Natalia Lowe, a trained medical management specialist. The creation of this record is based on the scribe remotely listening to the visit and the provider's statements to them. This document hasbeen checked and approved by the attending provider. documented in this encounter Plan of Treatment Not on filedocumented as of this encounter Visit Diagnoses Diagnosis Anxiety Generalized Disorder documented in this encounter Care Teams Managed Services Sales Consultant Relationship Specialty Start Date End Date Haylee Gastelum M.D. PCP - General Family Medicine 07/05/[address] [address] documented as of this encounter
--- OUTSIDE RECORDS SUMMARY | 2022-05-17 11:35 | XMS_ITS | Encounter Summary ---
:1995 Author Organization [facility] Address [address] [place] [address] Care Team Providers Name Role Phone Haylee Gastelum M.D. Primary Care Provider [phone] Reason for Visit Reason Comments COVID Inquiry Encounter Details Date Type Department Care Team Description 10/30/2020 Clinical Communication Department of [facility] Sara Gastelum Medicine, Lauro Jhaveri M.D. [facility], [facility] [address] [place], [place] [address] [address] [place], [place] [phone] [address] (Work) [phone] Social History Tobacco Use Types Packs/Day Years [...] How often do you attend tenriism or baptism Never 11/23/2020 services? Do you belong to [...] place to sleep or slept in a [facility] (including now)? Education Answer Date Recorded What is the highest level of school you have completed or 12 th grade 04/15/2019 the highest degree you have received? 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 documented as of this encounter Miscellaneous Notes Telephone Encounter - Abi Castro - 10/30/2020 11:41 AM CDT What is the purpose of the call?: Standard Appointment Process Standard Appointment Process Have you tested positive for COVID-19 in the last 20 days OR do you have a pending COVID-19 test because you had symptoms?: No, neither apply What region is the appointment being requested?: Less than 14 days [place] In the past 14 days are any of the following symptoms new to you and not related to an existing health condition?: No symptoms noted In the past 14 days have you had close contact* with a person who has a LABORATORY CONFIRMED case ofCOVID-19?: No exposure noted, follow appt process (End Screening) Testing Recommendation Endpoint Is testing recommended? : Not recommended to test Plan: Endpoint recommendation: Followed regional [facility] *Reminder if sending patient for testing in [facility] or [facility], route encounter to the correct testing pool. documented in this encounter Plan of Treatment Not on filedocumented as of this encounter Visit Diagnoses Not on filedocumented in this encounter Care Teams Grain Inspector Relationship Specialty Start Date End Date Haylee Gastelum M.D. PCP - General Family Medicine 07/05/20 [address], [place] [address] documented as of this encounter
--- OUTSIDE RECORDS SUMMARY | 2022-05-17 11:35 | XMS_ITS | Encounter Summary ---
:1995 Author Organization [facility] Address [address] [place] [address] Care Team Providers Name Role Phone Haylee Gastelum M.D. Primary Care Provider [phone] Reason for Visit Reason Comments COVID Nurse Line Encounter Details Date Type Department Care Team Description 11/23/2020 Clinical Communication Division of Cyndi Watson C [facility] Nurse Line [facility] Internal R.N. [facility] [phone] [place], in (Work) [place], [place] [address] [place] [address] Social History Tobacco Use Types Packs/Day Years [...] 11/23/2020 relatives? How often do you attend orthodoxy or muslim Never 11/23/2020 services? 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 - 11/23/2020 10:41 AM CDT COVID-19 Nurse Line Screening ASSESSMENT Region Select appropriate region: : [place] Age Pathway Select approprite pathway: : Adult Have you had close contact* with a person who has a LABORATORY CONFIRMED case of COVID-19 in the past 14 days?: No (Continue Screening) In the last 48 hours, have you had a fever* OR symptoms that are unrelated to a preexisting illness?: No symptoms noted (Continue Screening) (Chronic migraines) Have you tested positive for COVID-19 in the last 90 days?: No (Continue Screening) Have you been advised to undergo testing or are you requesting testing?: No, testing not recommended(End Screening) Testing Recommendation Endpoint Is testing recommended? : Not recommended to test PLAN Endpoint recommendation: Screening negative, testing not indicated at this time Care Points: -Wash hands frequently with soap and water for at least 20 seconds -If soap and water are not available, use a hand physicians and surgeons -Avoid touching your eyes, nose and mouth. [...] care: Yes The following references were used: [facility] novel coronavirus (COVID- 19) resources CDC web site https://www.cdc.gov/coronavirus/2019-ncov/summary.html documented in this encounter Plan of Treatment Not on filedocumented as of this encounter Visit Diagnoses Not on filedocumented in this encounter Care Teams Supervisor Net Making Relationship Specialty Start Date End Date Haylee Gastelum M.D. PCP - General Family Medicine 07/05/[address] [address] documented as of this encounter
--- OUTSIDE RECORDS SUMMARY | 2022-05-17 11:35 | XMS_ITS | Encounter Summary ---
:1995 Author Organization [facility] Address [address] [place] [address] Care Team Providers Name Role Phone Haylee Gastelum M.D. Primary Care Provider [phone] Encounter Details Date Type Department Care Team Description 09/27/2020 Hospital Encounter Department of Haylee Gastelum [facility] Laboratory Medicine Diandra Jhaveri Disorder in [facility] [address] [place], [place] 0 [facility] [address] [place], [place] [phone] [address] (Work) [phone] Social History Tobacco Use Types Packs/Day Years [...] How often do you attend sabianism or amish Never 11/23/2020 services? 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 kalrvwu-lwvnmzmcjrspe-oldj Take 1 tablet by 0 eine (EXCEDRIN MIGRAINE) mouth every 6 (six) 250-250-65 mg per tablet hours as needed for pain. hydrOXYzine (ATARAX) 10 mg Take 1 tablet (10 30 tablet 0 tablet mg total) by mouth 4 (four) times a day as needed for anxiety. ibuprofen (ADVIL,MOTRIN) Take 400 mg by 0 400 mg tablet mouth every 6 (six) hours as needed for pain. io-qzz-RH-Fk-Ql-qhxxyoy-brie Take by mouth. 0 tein 0.4-162-18 mg tablet rizatriptan TELEPHONE CLERKS SUPERVISOR Take 1 tablet (5 mg 9 tablet 3 06/06/2020 (Maxalt-TELEPHONE CLERKS SUPERVISOR) 5 mg total) by mouth as disintegrating tablet needed for migraine. May repeat dose once in 2 hours if migraine unresolved. Do not exceed 30 mg in 24 hours. cyclobenzaprine (FLEXERIL) Take 0.5 tablets (5 11 tablet 0 06/05/2020 11/02/2020 10 mg tablet mg total) by mouth 3 (three) times a day as needed for muscle spasms for up to 7 days. sertraline (ZOLOFT) 50 mg Take 1 tablet (50 90 tablet 3 02/27/2021 tablet mg total) by mouth daily. documented as of this encounter Plan of Treatment Not on filedocumented as of this encounter Procedures Procedure Name Priority Date/Time Associated Diagnosis Comme nts THYROID FUNCTION Routine 09/27/2020 1:08 PM Anxiety Generalize d Results for this CASCADE, S CDT Disorder procedure are i n the results section. documented in this encounter Results Thyroid Function [place] (09/27/2020 1:08 PM CDT) P athologist Signature TSH, Sensitive 1.1 0.3 - 4.2 09/27/2020 [place] mIU/L 2:36 PM CDT Specimen Anatomical Collection Method Collection Time Receive d Time (Source) Location / / Volume Laterality Blood (Blood, 09/27/2020 1:08 PM 09/28/19 1:50 Venous) CDT PM CDT Haylee Gastelum M.D. LAB BLOOD ADD-ON Performing Organization Address City/State/ZIP Code Phon e Number [facility] [address] [place] [address] [facility] [place] [address] System in [place] [address] documented in this encounter Visit Diagnoses Diagnosis Anxiety Generalized Disorder documented in this encounter Care Teams French Binding Folder Relationship Specialty Start Date End Date Haylee Gastelum M.D. PCP - General Family Medicine 07/05/[address] [place] [address] documented as of this encounter
--- OUTSIDE RECORDS SUMMARY | 2022-05-17 11:35 | XMS_ITS | Encounter Summary ---
:1995 Author Organization [facility] Address [address] [place] [address] Care Team Providers Name Role Phone Haylee Gastelum M.D. Primary Care Provider Reason for Visit Reason Comments Earache Pain in left ear and pressur e on top of forehead Appointment Request (Routine) - Closed Specialty Diagnoses / Procedures Referred By Contact Refer red To Contact Family Medicine Referral ID Status Reason Start Date Expiration Date Visits Requ ested Visits Authorized [id number] Closed 11/23/2020 11/23/2021 1 1 Encounter Details Date Type Department Care Team Description 11/23/2020 Office Visit Department of Family [place], Pain Ea r Right (Primary Dx); Medicine, [place], Headache Tension [facility], in [facility] [address] [place] [address] Social History Tobacco Use Types Packs/Day [...] 11/23/2020 relatives? How often do you attend islam or buddhist Never 11/23/2020 services? 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 - 11/23/2020 1:30 PM CDT SUBJECTIVE Emily Zapien is a 25 y.o. female here with complains of right ear pain. Onset 2 months intermittently, waxing and waning since that time. Past medical history of ear infections inclunde: no additional concerns noted. Recent swimming: NO . Pt states that she has h/o migraines. She also reports h/o anxiety and clenching her jaws frequently, and grinding teeth at night. She likes beef jerky. She denied otherwise trauma, fever, chills, sore throat, nasal congestion and drainage. Current Outpatient Medications on File Prior to Visit Medication Sig Dispense Refill ??? acetaminophen (TYLENOL) 500 mg capsule Take 1,000 mg by mouth every 6 (six) hours as needed for pain. ??? pogstbd-alldtgassjjha-xkgbrquq (EXCEDRIN MIGRAINE) 250-250-65 mg per tablet Take 1 tablet by mouth every 6 (six) hours as needed for pain. ??? buPROPion XL (WELLBUTRIN XL) 150 mg 24 hr tablet Take 1 tablet (150 mg total) by mouth every morning. 30 tablet 1 ??? hydrOXYzine (ATARAX) 10 mg tablet Take 1 tablet (10 mg total) by mouth 4 (four) times a day as needed for anxiety. 30 tablet 0 ??? ibuprofen (ADVIL,MOTRIN) 400 mg tablet Take 400 mg by mouth every 6 (six) hours as needed for pain. ??? wj-axu-HA-Nn-Ok-lfrythg-lutein (MULTIVITAL) 0.4-162-18 mg tablet Take by mouth. ??? sertraline (ZOLOFT) 50 mg tablet Take 1 tablet (50 mg total) by mouth daily. 90 tablet 3 ??? rizatriptan UTILITY SYSTEMS REPAIRER OPERATOR (Maxalt-UTILITY SYSTEMS REPAIRER OPERATOR) 5 mg disintegrating tablet Take 1 tablet (5 mg total) by mouth as needed for migraine. May repeat dose once in 2 hours if migraine unresolved. Do not exceed 30 mg in 24hours. (Patient not taking: Reported on 11/23/2020 ) 9 tablet 3 No current facility-administered medications on file prior to visit. Allergies Allergen Reactions ??? Codeine GI intolerance Social History Tobacco Use ??? Smoking status: Never Smoker ??? Smokeless tobacco: Never Used Substance Use Topics ??? Alcohol use: Yes Alcohol/week: 2.0 standard drinks Types: 2 Glasses of wine per week OBJECTIVE BP 125/86 (BP Location: Right arm, Patient Position: Sitting, Cuff Size: Large) Pulse (!) 125 Temp 37.2 ??C (Temporal) Resp 16 Wt 98.9 kg No BMI 33.43 kg/m?? General appearance:alert, no distress, cooperative Head: tenderness over the temporalis muscle region on right with palpation; Ears: R TM - normal landmarks and mobility without significant erythema or bulging, no tragus or pinnae tenderness L TM - normal landmarks and mobility without significant erythema or bulging, no tragus or pinnae tenderness Nose: normal Eyes: vision grossly intact, no tenderness over the bilateral temples. Oropharynx: normal and no erythema or exudates noted. Moderate wear of molars bilaterally. TMJ slightly tender on right. Neck: supple and no lymphadenopathy; trismus absent Lungs: Lungs clear bilaterally Heart: regular rate and rhythm ASSESSMENT Diagnosis Plan 1. Pain Ear Right 2. Headache Tension PLAN Fluids, acetaminophen, motrin. Elevate the head of the bed at night for added comfort. Keep the earsdry and warm. Avoid heavy chewing. May apply cool compresses to the areas of pain. Recheck as needed in 4-5 days for persistence, worsening, appearance of new symptoms. Side effects of the prescribed/recommended medications discussed. Questions answered. Hakan Price P.A.-C. documented in this encounter Plan of Treatment Not on filedocumented as of this encounter Visit Diagnoses Diagnosis Pain Ear Right - Primary Headache Tension documented in this encounter Care Teams Turf Sales Person Relationship Specialty Start Date End Date Haylee Gastelum M.D. PCP - General Family Medicine 07/05/[address] [address] documented as of this encounter
--- OUTSIDE RECORDS SUMMARY | 2022-05-17 11:35 | XMS_ITS | Encounter Summary ---
:1995 Author Organization [facility] Address [address] [place] [address] Care Team Providers Name Role Phone Haylee Gastelum M.D. Primary Care Provider [phone] Reason for Visit Reason Comments Sinusitis Encounter Details Date Type Department Care Team Description 01/25/2021 Nurse Triage Department of [facility] Xin Rivera, Sinusitis Medicine, [facility], R.N. in [facility] [address] [place] [phone] Social History Tobacco Use Types Packs/Day Years [...] 11/23/2020 relatives? How often do you attend holiness or bahai Never 11/23/2020 services? Do you belong to any clubs or organizations such as No 11/23/2020 holiness groups, unions, fraternal or athletic groups, or [...] place to sleep or slept in a custodial (including now)? Education Answer Date Recorded What is the highest level of school you have completed or 12 th grade 04/15/2019 the highest degree you have received? 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 - 01/25/2021 9:21 AM CDT Chief Complaint / Reason for Call Patient is a 25 y.o. female calling regarding Sinusitis. Assessment Concern: Patient says she feels like she may have another sinus infection. She says she has had 4 sinus infections in the last 12 months so would not meet the sinusitis protocol. Patient says she has had her symptoms for 4 days. She says she has sinus pressure in her forehead, nose, eyes and cheeks. She denies any redness in her face. She denies any fever. She denies any ear pain. She is using nasal spray, mucinex, tylenol, and humdifier. She says she has a slight headache and a slight cough. Advised to push lots of fluids Present for: 4 days Home cares tried: Mucinex, tylenol, allergy medicine, humidifier, nasal spray Calling to request: treatment The recommended disposition is Home Care. Care Advice Patient/Caregiver understands and will follow care advice?: Yes, able to teach back FOR A STUFFY NOSE - USE NASAL WASHES: * Introduction: Saline (salt water) nasal irrigation (nasal wash) is an effective and simple home remedy for treating stuffy nose and sinus congestion. The nose can be irrigated by pouring, spraying, or squirting salt water into the nose and then letting it run back out. * How it Helps: The salt water rinses out excess mucus, washes out any irritants (dust, allergens) that might be present, and moistens the nasal cavity. * Methods: There are several ways to perform nasal irrigation. You can use a saline nasal spray bottle (available gtoy-mid-pizczxo), a rubber ear syringe, a medical syringe without the needle, or a NETI POT. [id number] INSTRUCTIONS: * STEP 1: Lean over a sink. * STEP 2: Gently squirt or spray warm salt water into one of your nostrils. * STEP 3: Some of the water may run into the back of your throat. Spit this out. If you swallow the salt water it will not hurt you. * STEP 4: Blow your nose to clean out the water and mucus. * STEP 5: Repeat steps 1-4 for the other nostril. You can do this a couple times a day if it seems to help you. HOW TO MAKE SALINE (SALT WATER) NASAL WASH: * You can make your own saline nasal wash. * Put 1 cup (8 oz; 240 ml) of water in a clean container. * Add 3/4 teaspoon of non-iodized salt (such as agatha or pickling salt) to the water. * Add 1/4 teaspoon baking soda to the water. Stir well. * Use bottled or boiled tap water that has cooled. PAIN MEDICINES: * For pain relief, take acetaminophen, ibuprofen, or naproxen. * Use the lowest amount that makes your pain feel better. * Before taking any medicine, read all the instructions on the package. CALL BACK IF: * Severe pain persists over 2 hours after pain medicine * Sinus pain persists over 1 day after using nasal washes * Sinus congestion (fullness) persists over 10 days * Fever lasts over 3 days * You become worse. Reason for Disposition ? ? [1] Sinus congestion as part of a cold AND [2] present < 10 days Protocols used: SINUS PAIN OR [id number] documented in this encounter Plan of Treatment Not on filedocumented as of this encounter Visit Diagnoses Not on filedocumented in this encounter Care Teams Trim Stencil Maker Relationship Specialty Start Date End Date Haylee Gastelum M.D. PCP - General Family Medicine 07/05/[address] [phone] documented as of this encounter
--- OUTSIDE RECORDS SUMMARY | 2022-05-17 11:35 | XMS_ITS | Encounter Summary ---
:1995 Author Organization [facility] Address [address] [place] [address] Care Team Providers Name Role Phone Haylee Gastelum M.D. Primary Care Provider [phone] Encounter Details Date Type Department Care Team Description 02/27/2021 Hospital Encounter Department of Laboratory Georgina Miller, Fatigue Medicine in [facility] [place] [address] [place] [address] [facility] [phone] Social History Tobacco Use Types Packs/Day Years [...] How often do you attend yazidi or voodoo Never 11/23/2020 services? Do you belong to [...] at Date Recorded Female 05/20/2017 4:45 PM CLAIMS INVESTIGATOR documented as of this encounter Medications at Time of Discharge Medication Sig Dispensed Refills Start Date End Date acetaminophen (TYLENOL) 500 Take 1,000 mg by 0 mg capsule mouth every 6 (six) hours as needed for pain. qlpopsa-somljteluudpr-zcgdk Take 1 tablet by 0 ine (EXCEDRIN [...] 6 (six) hours as needed for pain. wr-cwb-TT-Kz-Zf-zjtcrdx-lut Take by mouth. 0 ein 0.4-162-18 mg tablet rizatriptan ADJUSTMENT CLERK Take 1 tablet (5 mg 9 tablet 3 06/06/2020 (Maxalt-ADJUSTMENT CLERK) 5 mg total) by mouth as disintegrating tablet needed for migraine. May repeat dose once in 2 hours if migraine unresolved. Do not exceed 30 mg in 24 hours. documented as of this encounter Plan of Treatment Not on filedocumented as of this encounter Procedures Procedure Name Priority Date/Time Associated Diagnosis Comme nts CBC WITHOUT Routine 02/27/2021 9:53 AM Fatigue Results f or this DIFFERENTIAL, B CDT procedure ar e in the results section. TESTOSTERONE, TOT Routine 02/27/2021 9:52 AM Fatigue Resu lts for this AND FR, S CDT procedure are i n the results section. THYROID-STIMULATING Routine 02/27/2021 9:52 AM Fatigue Re sults for this HORMONE-SENSITIVE CDT procedure are in (S-TSH) the results section. documented in this encounter Results CBC without Differential (02/27/2021 [...] 21 Venous) CDT 10:02 AM CDT Esequiel Miller M.D. LAB BLOOD ADD-ON Performing Organization Address City/State/ZIP Code Phon e Number [facility]- [address] [place] [address] [facility] [address] System in [place] [address] [facility] Testosterone, Total and Free (02/27/2021 9:52 AM CDT) P athologist Signature Testosterone, 0.78 0.06 - 1.06 03/04/2021 SDSC Free, S ng/dL 2:46 PM CDT Comment: ----ADDITIONAL INFORMATION---- Testing performed by Gianna hicks This test was developed and its performa nce characteristics determined by [facility] in a manner consistent with CLIA requirements. This test has not been cleared or approved by the [place] and Drug Administration. Testosterone, Total by Mass 31 8 - 60 ng/dL 8:15 AM CDT SDSC Spectrometry, Serum Comment: ----ADDITIONAL INFORMATION---- Testing performed by Liquid Chromatograp hy-Tandem Mass Spectrometry (LC-MS/MS). This test was developed and its performa nce characteristics determined by [facility] in a manner consistent with CLIA requirements. This test has not been cleared or approved by the [place] and Drug Administration. Specimen Anatomical Collection Method Collection Time Receive d Time (Source) Location / / Volume Laterality Blood (Blood, 02/27/2021 9:52 AM 02/29/20 1:53 Venous) CDT PM CDT Esequiel Miller M.D. LAB BLOOD NON ADD-ON Performing Organization Address City/[facility]/ZIP Code Phon e Number [facility] [address] [place] [address] [facility] [place] [address] Laboratory Medicine and Pathology [address] ALMENDAREZ S-TSH (Thyroid-Stimulating Hormone - Sensitive) (02/27/2021 9:52 AM CDT) P athologist Signature TSH, Sensitive 0.9 0.3 - 4.2 02/27/2021 [place] mIU/L 10:45 AM CDT Specimen Anatomical Collection Method Collection Time Receive d Time (Source) Location / / Volume Laterality Blood (Blood, 02/27/2021 9:52 AM 02/28/20 21 Venous) CDT 10:02 AM CDT Esequiel Miller M.D. LAB BLOOD ADD-ON Performing Organization Address City/State/ZIP Code Phon e Number [facility]- [address] [place] [address] [place] [address] System in [place] [address] documented in this encounter Visit Diagnoses Diagnosis Fatigue documented in this encounter Care Teams Vascular Technician Relationship Specialty Start Date End Date Haylee Gastelum M.D. PCP - General Family Medicine 07/05/202199 [address] [phone] documented as of this encounter
--- OUTSIDE RECORDS SUMMARY | 2022-05-17 11:35 | XMS_ITS | Encounter Summary ---
:1995 Author Organization [facility] Address [address] [place] [address] Care Team Providers Name Role Phone Haylee Gastelum M.D. Primary Care Provider [phone] Encounter Details Date Type Department Care Team Description 10/11/2020 Hospital Encounter Department of Laboratory Hanny Schofield, Medicine, [facility], in [place], [address] [place], [place] [address] [facility] [address] [place] [address] [phone] Social History Tobacco Use Types Packs/Day Years [...] 11/23/2020 relatives? How often do you attend judaism or islam Never 11/23/2020 services? Do you belong to any clubs or organizations such as No 11/23/2020 judaism groups, unions, fraternal or athletic groups, or [...] place to sleep or slept in a prison (including now)? Education Answer Date Recorded What is the highest level of school you have completed or 12 th grade 04/15/2019 the highest degree you have received? Sex Assigned at Date Recorded Female 05/20/2017 4:45 PM NEWS GATHERING TECHNICIAN documented as of this encounter Medications at Time of Discharge Medication Sig Dispensed Refills Start Date End Date acetaminophen (TYLENOL) Take 1,000 mg by 0 500 mg capsule mouth every 6 (six) hours as needed for pain. hkjxjzs-kiddencbglkgf-olwg Take 1 tablet by 0 eine (EXCEDRIN [...] 6 (six) hours as needed for pain. na-uvt-UG-Nf-Ru-zbmnxcb-brie Take by mouth. 0 tein 0.4-162-18 mg tablet rizatriptan MISSION SYSTEMS ENGINEER Take 1 tablet (5 mg 9 tablet 3 06/06/2020 (Maxalt-MISSION SYSTEMS ENGINEER) 5 mg total) by mouth as disintegrating [...] Date Last Indicated Resolved Time COVID19 Pending 10/10/2020 10/11/2020 10/11/2020 11:23 PM CDT documented as of this encounter Care Teams Edge Baster Relationship Specialty Start Date End Date Haylee Gastelum M.D. PCP - General Family Medicine 07/05/[address] [address] documented as of this encounter
--- OUTSIDE RECORDS SUMMARY | 2022-05-17 11:35 | XMS_ITS | Encounter Summary ---
:1995 Author Organization [facility] Address [address] [place] [address] Care Team Providers Name Role Phone Jose Gastelum M.D. Primary Care Provider [phone] Reason for Referral Outpatient (Routine) - Closed Specialty Diagnoses / Procedures Referred By Contact Refer red To Contact Video Medicine Diagnoses Headache Unspecified Syncope Fatigue Dizziness Jose Gastelum M.D. [facility] Region [address] [place] [address] Referral ID Status Reason Start Date Expiration Date Visits Requ ested Visits Authorized [id number] Closed 06/29/2020 06/29/2021 1 1 Scheduling Instructions Can take same day slot ENSATION AND BENEFITS ADVISOR Reason for Visit Reason Comments Anxiety Headache Appointment Request (Routine) - Closed Specialty Diagnoses / Procedures Referred By Contact Refer red To Contact Family Medicine Referral ID Status Reason Start Date Expiration Date Visits Requ ested Visits Authorized [id number] Closed 06/26/2020 06/26/2021 1 1 Encounter Details Date Type Department Care Team Description 06/29/2020 Telemedicine Department of Jose Burns Unspecified (Primary Dx); Medicine, Lauro Jhaveri M.D. Syncope; Clinic, in [place], [address] Fatigue; [place], [place] Dizziness; [address] [address] Anxiety Generalized Disorder [place], [place] [phone] [address] (Work) [phone] Social History Tobacco Use Types Packs/Day Years [...] How often do you attend yazidism or oriental orthodox Never 11/23/2020 services? Do [...] place to sleep or slept in a fci (including now)? Education Answer Date Recorded What is the highest level of school you have completed or 12 th grade 04/15/2019 the highest degree you have received? Sex Assigned at Date Recorded Female 05/20/2017 4:45 PM COMPENSATION AND BENEFITS ADVISOR documented as of this encounter Progress Notes Jose Gastelum M.D. - 06/29/2020 3:15 PM CST SUBJECTIVE CHIEF COMPLAINT/REASON FOR VISIT Concerns for headaches, dizziness, and anxiety Consult conducted via real-time audio/video technology by Jose Gastelum M.D. in [facility], [place] to the patient in home. HISTORY OF PRESENT ILLNESS Emily Zapien is a 24 y.o. female presenting today for concerns of headaches, dizziness, and anxiety. Patient notes experiencing constant pressure and pain in the back of her head for the last month. Additionally, Emily reports feeling fatigued, dizzy at times, and a hot sensation towards the back of her head. Patient reports being a night owl, however lately she notes being fatigued to the point she has been needing to sleep at around 7:00 p.m. From the standpoint of the dizziness, patient shares the dizziness is sometimes accompanied by a squeezing pressure in her head and at other times the dizziness comes with vision changes, mental fogginess, and a feeling of being disconnected from herself. Patient shares she has a history of migraines, however, she notes the symptoms she has been experiencing are unparalleled to her typical migraine symptoms. Patient reports fainting 3 weeks ago, upon getting out of bed and presenting to the emergency department for further evaluation. While in the emergency department, she had a variety of lab work done, including: CBC, Troponin I, magnesium, lipase, CMP, CBC which were found to be within normal limits. Additionally, she had a chest x-ray and CT scan that were also found to be within normal limits. Upon discharge, patient was provided an anxiety medication and migraine aborting medication. However, patient notes this has not helped to relieve the constant pressure and pain in the back of her head. Patient also notes she had not previously had any syncope episodes before and she wonders if it may have been related to dehydration. Emily also recalls having a fever the day before she had fainted. However, patient notes the fever had onlylasted one day and resolved on its own. Patient states her symptoms prompted her to be tested for COVID-19, however, it had returned negative on 06/08/2020. Today, patient states the pressure in her head persists, but is not as severe as it was originally one month ago. Emily notes the pressure in the back of her head comes and goes and is typically worse at night. Furthermore, patient states she experiences pressure in her ears she describes feels like water pouring down her ears when she lies down. Additionally, Emily notes sometimes waking up with throbbing pain in her head. Patient denies any nasal congestion, cough, or rhinorrhea. No chest pains or shortness of breath. No numbness or tingling. She also denies any abdominal pain, vomiting, diarrhea, or changes in the stool. No rashes or urinary symptoms. However, Emily notes when she stares at her computer at work this elicits dizziness and pain in her head and she reports having photophobia attimes. Patient reports taking 3 tablets of Tylenol or ibuprofen, 2 tablets of Motrin, or 1 tablet Excedrin once or twice daily for the last month, however, she has found little relief. Patient states her headaches are not positional and they do not improve with lying down. Emily shares when she is active and runs on her treadmill, she seems to feel at her best. Patient also recalls experiencing a migraine headache with pain in the back of her head last week and reports taking Maxalt which helped to improve her migraine. Patient notes she was seen on 06/05/2020 by Geri Dutta P.A.-C. who recommended she trial Flexeril, but after taking it twice Emily states she discontinued taking it because it had not improved her symptoms. Patient questions whether the symptoms she has been experiencing may be related to her anxiety. Emily states when she experiences anxiety she typically experiences tachycardia, dizziness, and an overall strange feeling. Patient notes she previously took hydroxyzine for her anxiety, which she notes helped with her anxiety. Additionally, she was previously prescribed Lexapro but discontinued taking it because she had experienced side effects and did not want to become dependent on a medication for heranxiety. Patient states she is not currently on any medications for her anxiety and is curious if she could start a medicine for this. Additionally, she wonders what can be done to help with the pressure, dizziness, and fatigue. There are no further concerns at this time. REVIEW OF SYSTEMS Please see HPI for pertinent positives and negative, otherwise full remainder of ROS negative. CURRENT MEDICATIONS Current Outpatient Medications Medication Sig Dispense Refill ??? acetaminophen (TYLENOL) 500 mg capsule Take 1,000 mg by mouth every 6 (six) hours as needed for pain. ??? wnpjslr-wzvdjvbzggstt-uxejbfqq (EXCEDRIN MIGRAINE) 250-250-65 mg per tablet Take 1 tablet by mouth every 6 (six) hours as needed for pain. ??? ibuprofen (ADVIL,MOTRIN) 400 mg tablet Take 400 mg by mouth every 6 (six) hours as needed for pain. ??? le-qvs-NV-Nj-Qt-zkztelw-lutein (MULTIVITAL) 0.4-162-18 mg tablet Take by mouth. ??? rizatriptan SCREENING NURSE (Maxalt-SCREENING NURSE) 5 mg disintegrating tablet Take 1 tablet (5 mg total) by mouth as needed for migraine. May repeat dose once in 2 hours if migraine unresolved. Do not exceed 30 mg in 24hours. 9 tablet 3 ??? amoxicillin-pot clavulanate (AUGMENTIN) 875-125 mg per tablet Take 1 tablet by mouth 2 (two) times a day for 7 days. 14 tablet 0 ??? cyclobenzaprine (FLEXERIL) 10 mg tablet Take 0.5 tablets (5 mg total) by mouth 3 (three) times aday as needed for muscle spasms for up to 7 days. 11 tablet 0 ??? hydrOXYzine (ATARAX) 10 mg tablet Take 1 tablet (10 mg total) by mouth 4 (four) times a day as needed for anxiety. 30 tablet 0 No current facility-administered medications for [...] week Gets together: Once a week Attends oriental orthodox service: Never Active member of club or [...] Mood, behavior, thought content, and judgment normal. DIAGNOSTICS IMAGING: CT HEAD WITHOUT IV CONTRAST 06/09/2020 IMPRESSION: Negative brain. DX CHEST 1 VIEW 06/09/2020 IMPRESSION: No cardiomegaly or lung consolidation. LABS RESULTS: STREP A PCR: Negative on 06/09/2020. THROAT RAPID STREP A WITH REFLEX: Negative on 06/09/2020. CBC WITH AUTO DIFFERENTIAL 06/09/2020 Component Ref Range & Units 2wk ago WHITE BLOOD COUNT ? 4.5 - 11.0 thou/cu mm 6.2 RED BLOOD COUNT ? 4.00 - 5.20 mil/cu mm 4.70 HEMOGLOBIN ? 12.0 - 16.0 g/dL 14.7 HEMATOCRIT ? 33.0 - 51.0 % 43.9 MCV ? 80 - 100 fL 93 MCH ? 26.0 - 34.0 pg 31.3 MCHC ? 32.0 - 36.0 g/dL 33.5 RDW ? 11.5 - 15.5 % 12.6 PLATELET COUNT ? 140 - 440 thou/cu mm 293 MPV ? 6.5 - 11.0 fL 9.6 NEUTROPHILS ?% 72.8 LYMPHOCYTES ?% 17.6 MONOCYTES ?% 6.6 EOSINOPHILS ?% 2.4 BASOPHILS ?% 0.6 ABSOLUTE NEUTROPHILS ? 1.7 - 7.0 thou/cu mm 4.5 ABSOLUTE LYMPHOCYTES ? 0.9 - 2.9 thou/cu mm 1.1 ABSOLUTE MONOCYTES ? <0.9 thou/cu mm 0.4 ABSOLUTE EOSINOPHILS ? <0.5 thou/cu mm 0.2 ABSOLUTE BASOPHILS ? <0.3 thou/cu mm 0.0 TROPONIN I: <0.010 on 06/09/2020. LACTATE VENOUS: 1.2 mmol/L on 06/09/2020. MAGNESIUM: 2.4 mg/dL on 06/09/2020. LIPASE: 14.7 IU/L on 06/09/2020. , SERUM: Negative on 06/09/2020. COMP METABOLIC PANEL 06/09/2020 Component Ref Range & Units 2wk ago SODIUM 135 - 145 mmol/L 139 POTASSIUM 3.5 - 5.0 mmol/L 4.2 CHLORIDE 98 - 110 mmol/L 105 CO2,TOTAL 21 - 31 mmol/L 24 ANION GAP 5 - 18 10 GLUCOSE 65 - 100 mg/dL 103High CALCIUM 8.5 - 10.5 mg/dL 9.3 BUN 8 - 25 mg/dL 8 CREATININE 0.57 - 1.11 mg/dL 0.79 BUN/CREAT RATIO ? 10 - 20 10 GFR if >60 ml/min/1.73m2 >60 GFR if not >60 ml/min/1.73m2 >60 ALBUMIN 3.5 - 5.2 g/dL 4.3 PROTEIN,TOTAL 6.0 - 8.0 g/dL 6.9 GLOBULIN ? 2.0 - 3.7 g/dL 2.6 A/G RATIO 1.0 - 2.0 1.7 BILIRUBIN,TOTAL 0.2 - 1.2 mg/dL 0.4 ALK PHOSPHATASE 50 - 136 IU/L 68 ALT (SGPT) 8 - 45 IU/L 20 AST (SGOT) 2 - 40 IU/L 13 ASSESSMENT / PLAN #1 New Headache For One Month #2 Syncope #3 Fatigue #4 Dizziness PLAN: Patient with one month history of new onset of pressure like headache that is unchanged with activity and mildly improving over the last month. Patient has had lab work and a CT done that were found to be within normal limits. She has found no improvement with migraine aborting therapies, anxiety medications, or muscle relaxants. Patient continues to experience fatigue, dizziness, photophobia, in the setting of one day of fever. Will have patient trial antibiotic course of Augmentin 875-125 mgper tablet twice daily for 7 days to treat possible sinusitis. Along with Augmentin, patient will trial Flonase, 2 sprays per nostril daily to see if there is any improvement. If patient's symptoms do not improve with Augmentin and Flonase, will go forward with further imaging. MRI of the brain was ordered for patient today. If MRI is within normal limits, will consider prophylactic medication for tension type headache. Patient will schedule video visit in one week for follow-up. #5 Generalized Anxiety Disorder PLAN: Started patient hydroxyzine 10 mg daily, as she has used this before for acute anxiety and this has worked well for her. I personally spent a total of 30 minutes face to face via video visit with the patient in counselingand discussion and/or coordination of care as described above. This document serves as a record of services personally performed by Dr. Jose Gastelum. It was created on their behalf by Natalia Lowe, a trained medical billing manager. The creation of this record is based on the scribe remotely listening to the visit and the provider's statements to them. This document hasbeen checked and approved by the attending provider. ENSATION AND BENEFITS ADVISOR documented in this encounter Miscellaneous Notes Addendum Note - Jose Gastelum M.D. - 06/29/2020 3:15 PM COMPENSATION AND BENEFITS ADVISOR Addended by: JOSE GASTELUM on: 07/05/2020 10:39 AM Modules accepted: Orders ENSATION AND BENEFITS ADVISOR documented in this encounter Plan of Treatment Scheduled Referrals Name Type Priority Associated Diagnoses Order S chedule Video anyplace Outpatient Referral Routine Headache Uns pecified Expected: visit Syncope 07/06/2020 Fatigue (Approximate), Dizziness Expires: 06/29/2023 documented as of this encounter Visit Diagnoses Diagnosis Headache Unspecified - Primary Syncope Fatigue Dizziness Anxiety Generalized Disorder documented in this encounter Additional Health Concerns Assessment Noted Time PHQ-9 Depression Total Score: 14 06/29/2020 3:00 PM CS T documented as of this encounter Care Teams Receiving Teller Relationship Specialty Start Date End Date Jose Gastelum M.D. PCP - General Family Medicine 07/05/202199 [address] [phone] documented as of this encounter
--- OUTSIDE RECORDS SUMMARY | 2022-05-17 11:35 | XMS_ITS | Encounter Summary ---
:1995 Author Organization [facility] Address [address] [place] [address] Care Team Providers Name Role Phone Haylee Gastelum M.D. Primary Care Provider [phone] Encounter Details Date Type Department Care Team Description 11/02/2020 Orders Only Department of [facility]lee [facility]elum, [facility] [address] [place] [address] [place] [address] [phone] Social History Tobacco Use Types Packs/Day Years [...] 11/23/2020 relatives? How often do you attend evangelical or pentecostalism Never 11/23/2020 services? Do you belong to any clubs or organizations such as No 11/23/2020 evangelical groups, unions, fraternal or athletic groups, or [...] at Date Recorded Female 05/20/2017 4:45 PM MAINSTREAMING FACILITATOR documented as of this encounter Plan of Treatment Not on filedocumented as of this encounter Visit Diagnoses Not on filedocumented in this encounter Care Teams Generator Man Relationship Specialty Start Date End Date Haylee Gastelum M.D. PCP - General Family Medicine 07/05/[address] [address] documented as of this encounter
--- OUTSIDE RECORDS SUMMARY | 2022-05-17 11:35 | XMS_ITS | Encounter Summary ---
:1995 Author Organization [facility] Address [address] [place] [address] Care Team Providers Name Role Phone Haylee Gastelum M.D. Primary Care Provider [phone] Encounter Details Date Type Department Care Team Description 09/22/2020 Orders Only [facility] LAURI Sa eliza Smallwood M.D. [address] [place], [place] [phone] (Wo rk) Social History Tobacco Use Types [...] 11/23/2020 relatives? How often do you attend yarsani or yazidi Never 11/23/2020 services? Do you belong to any clubs or organizations such as No 11/23/2020 yarsani groups, unions, fraternal or athletic groups, or [...] at Date Recorded Female 05/20/2017 4:45 PM SLEEVE SETTER SAFETY STITCH documented as of this encounter Plan of Treatment Not on filedocumented as of this encounter Visit Diagnoses Not on filedocumented in this encounter Care Teams Wood Tile Installer Relationship Specialty Start Date End Date Haylee Gastelum M.D. PCP - General Family Medicine 07/05/202[address] [address] documented as of this encounter
--- OUTSIDE RECORDS SUMMARY | 2022-05-17 11:35 | XMS_ITS | Encounter Summary ---
:1995 Author Organization [facility] Address [address] [place] [address] Care Team Providers Name Role Phone Haylee Gastelum M.D. Primary Care Provider [phone] Reason for Visit Reason Onset Date Comments Testing For Upper Respiratory Virus Symptoms 10/10/2020 Encounter Details Date Type Department Care Team Description 10/10/2020 External Outreach Department of [facility] Sami Schofield Contact With And Medicine, [facility] Arabella Ruiz (Suspected) Exposure Building, in [address] To COVID-19 (Primary [place], [place] Dx) [address] [facility] [address] [place], [place] [phone] [address] (Work) [phone] Social History Tobacco Use Types Packs/Day Years [...] 11/23/2020 relatives? How often do you attend faith or baptist Never 11/23/2020 services? Do you belong to any clubs or organizations such as No 11/23/2020 faith groups, unions, fraternal or athletic groups, or [...] at Date Recorded Female 05/20/2017 4:45 PM ROLFER documented as of this encounter Progress Notes Erickson Paula R.N. - 10/10/2020 3:27 PM CDT Encounter created for symptomatic infectious disease screening with possible COVID, Influenza, RSV, and/or Group A Strep testing. documented in this encounter Plan of Treatment Not on filedocumented as of this encounter Procedures Procedure Name Priority Date/Time Associated Diagnosis Comme nts SARS CORONAVIRUS-2 Routine 10/11/2020 8:32 AM Contact With And Results for this RNA, V CDT (Suspected) Exposure procedu re are in To COVID-19 the results section. documented in this encounter Results SARS Coronavirus-2 RNA, V Symptomatic (10/11/2020 8:32 AM CDT) [facility] Method Time Signature SARS-CoV-2 Swab, 10/11/2020 MKTO Specimen Nasopharynx 11:22 PM Source CDT SARS CoV-2 Undetected Undetected 10/11/2020 MKTO RNA, TMA 11:22 PM CDT Comment: SARS-CoV-2 RNA absent. This result does not rule out COVID-19 in the patient, as the sensitivity of the test depends o n the timing of the specimen collection and the quality of the specim en. Result should be correlated with patient's history and clinical presentat ion. ----ADDITIONAL INFORMATION---- This molecular amplification test was pe rformed using the Aptima SARS-CoV-2 assay ([employer] on the [place] Sys tem under emergency use authorization (EUA) by the U.S. Food and Drug Administ bandar. Fact sheets for this EUA assay can be fo und at the following links: For Healthcare Providers: https://www.fd a.gov/media/396550/download For Patients: https://www.fda.gov/media/ 424547/download Specimen Anatomical Collection Method Collection Time Receive d Time (Source) Location / / Volume Laterality Varies 10/11/2020 8:32 AM 3:00 (Nasopharynx) CDT PM CDT Sami Schofield D.O. LAB MICROBIOLOGY - GENERAL O RDERABLES Performing Organization Address City/State/[facility] Phon e Number [facility]- [address] [place] [phone] [place] [address] [place] [address] System [address] documented in this encounter Visit Diagnoses Diagnosis Contact With And (Suspected) Exposure To COVID-19 - Primary documented in this encounter Additional Health Concerns Infection Onset Date Last Indicated Resolved Time COVID19 Pending 10/10/2020 10/11/2020 10/11/2020 11:23 PM CDT documented as of this encounter Care Teams Anthropological Linguist Relationship Specialty Start Date End Date Haylee Gastelum M.D. PCP - General Family Medicine 07/05/202199 [address] [address] documented as of this encounter
--- OUTSIDE RECORDS SUMMARY | 2022-05-17 11:35 | XMS_ITS | Encounter Summary ---
:1995 Author Organization [facility] Address [address] [place] [address] Care Team Providers Name Role Phone Haylee Gastelum M.D. Primary Care Provider [phone] Encounter Details Date Type Department Care Team Description 10/11/2020 Admin Visit Department of Family Medicine, [address] [address] [facility] [phone] Social History Tobacco Use Types Packs/Day Years [...] 11/23/2020 relatives? How often do you attend advent or zoroastrian Never 11/23/2020 services? Do you belong to any clubs or organizations such as No 11/23/2020 advent groups, unions, fraternal or athletic groups, or [...] at Date Recorded Female 05/20/2017 4:45 PM FINAL DRESSING CUTTER documented as of this encounter Plan of Treatment Not on filedocumented as of this encounter Visit Diagnoses Not on filedocumented in this encounter Additional Health Concerns Infection Onset Date Last Indicated Resolved Time COVID19 Pending 10/10/2020 10/11/2020 10/11/2020 11:23 PM CDT documented as of this encounter Care Teams Country Manager Relationship Specialty Start Date End Date Haylee Gastelum M.D. PCP - General Family Medicine 07/05/202[address] [phone] documented as of this encounter
--- OUTSIDE RECORDS SUMMARY | 2022-05-17 11:35 | XMS_ITS | Encounter Summary ---
:1995 Author Organization [facility] Address [address] [place] [address] Care Team Providers Name Role Phone Mirella Silva P.A.-C. Primary Care Provider [phone] Reason for Visit Reason Comments Headache Encounter Details Date Type Department Care Team Description 06/09/2020 - Emergency [facility] Headache Unspecified; 06/10/2020 [address] [facility] [place] [address] [facility] [phone] Social History Tobacco Use Types Packs/Day Years [...] 11/23/2020 relatives? How often do you attend mandaen or amish Never 11/23/2020 services? Do you belong to any clubs or organizations such as No 11/23/2020 mandaen groups, unions, fraternal or athletic groups, or [...] place to sleep or slept in a group home (including now)? Education Answer Date Recorded What is the highest level of school you have completed or 12 th grade 04/15/2019 the highest degree you have received? Sex Assigned at Date Recorded Female 05/20/2017 4:45 PM MIRROR INSPECTOR documented as of this encounter Medications at Time of Discharge Medication Sig Dispensed Refills Start Date End Date acetaminophen (TYLENOL) Take 1,000 mg by 0 500 mg capsule mouth every 6 (six) hours as needed for pain. uvpwszv-eqzogmmzbbsoh-pilx Take 1 tablet by 0 eine (EXCEDRIN MIGRAINE) mouth every 6 (six) 250-250-65 mg per tablet hours as needed for pain. ibuprofen (ADVIL,MOTRIN) Take 400 mg by 0 400 mg tablet mouth every 6 (six) hours as needed for pain. er-eyg-CU-Vc-Vb-zxfguqh-brie Take by mouth. 0 tein 0.4-162-18 mg tablet rizatriptan OPTOMETRY TEACHER Take 1 tablet (5 mg 9 tablet 3 06/06/2020 (Maxalt-OPTOMETRY TEACHER) 5 mg total) by mouth as disintegrating tablet needed for migraine. May repeat dose once in 2 hours if migraine unresolved. Do not exceed 30 mg in 24 hours. cyclobenzaprine (FLEXERIL) Take 0.5 tablets (5 11 tablet 0 06/05/2020 11/02/2020 10 mg tablet mg total) by mouth 3 (three) times a day as needed for muscle spasms for up to 7 days. documented as of this encounter Plan of Treatment Not on filedocumented as of this encounter Procedures Procedure Name Priority Date/Time Associated Comments Diagnosis DX CHEST 1 VIEW RAD - Semiurgent 06/09/2020 10:23 Dizziness Resu lts for this (Fast; most ED AM MIRROR INSPECTOR procedure are in patients; some the results inpatients) section. CT HEAD WITHOUT RAD - Semiurgent 06/09/2020 10:22 Headache Resu lts for this IV CONTRAST (Fast; most ED AM MIRROR INSPECTOR Unspecified procedure are in patients; some the results inpatients) section. documented in this encounter Results DX Chest 1 View (06/09/2020 10:23 AM MIRROR INSPECTOR) Anatomical Region Laterality Modality Chest, Thoracic RST LOS, Thoracic ARZ LOS, Thoracic N/A Digital Radiography FLA LOS Specimen (Source) Anatomical Collection Method Collection Time Re ceived Time Location / / Volume Laterality 06/09/2020 10:25 AM MIRROR INSPECTOR Impressions 06/09/2020 10:26 AM MIRROR INSPECTOR No cardiomegaly or lung consolidation. Narrative 06/09/2020 10:26 AM MIRROR INSPECTOR EXAM: DX CHEST 1 VIEW Procedure Note Nixon Hennessy M.D. - 06/09/2020Formatt ing of this note might be different from the original. EXAM: DX CHEST 1 VIEW IMPRESSION: No cardiomegaly or lung consolidation. Jose Huizar M.D. IMG DIAGNOSTIC IMAGING PROCEDURES CT Head without IV Contrast (06/09/2020 10:22 AM MIRROR INSPECTOR) Anatomical Region Laterality Modality Head, Neuroradiology RST LOS, Neuroradiology ARZ LOS, N/A Computed Tomography Neuroradiology FLA LOS Specimen (Source) Anatomical Collection Method Collection Time Re ceived Time Location / / Volume Laterality 06/09/2020 10:34 AM MIRROR INSPECTOR Impressions 06/09/2020 10:35 AM MIRROR INSPECTOR Negative brain. Narrative 06/09/2020 10:35 AM MIRROR INSPECTOR EXAM: CT HEAD WITHOUT IV CONTRAST COMPARISON: None FINDINGS: Negative for acute intracrania l hemorrhage, herniation, hydrocephalus, mass, atrophy, or acute infarct. Small mucous retention cyst in the right maxillary sinus. Procedure Note Tushar Walden M.D. - 06/09/2020 EXAM: CT HEAD WITHOUT IV CONTRAST COMPARISON: None FINDINGS: Negative for acute intracrania l hemorrhage, herniation, hydrocephalus, mass, atrophy, or acute infarct. Small mucous retention cyst in the right maxillary sinus. IMPRESSION: Negative brain. Jose Huizar M.D. IMGeena CT PROCEDURES documented in this encounter Visit Diagnoses Diagnosis Headache Unspecified Dizziness documented in this encounter Additional Health Concerns Assessment Noted Time PHQ-9 Depression Total Score: 9 05/05/2020 2:02 PM MIRROR INSPECTOR documented as of this encounter Care Teams Mailroom Supervisor Relationship Specialty Start Date End Date Mirella Silva P.A.-C. PCP - General 05/17/20 07/04/202199 [place] [address] documented as of this encounter
--- OUTSIDE RECORDS SUMMARY | 2022-05-17 11:35 | XMS_ITS | Encounter Summary ---
:1995 Author Organization [facility] Address [address] [place] [address] Care Team Providers Name Role Phone Haylee Gastelum M.D. Primary Care Provider [phone] Encounter Details Date Type Department Care Team Description 07/16/2020 Orders Only Department of [facility] [address] [place] [address] [place] [address] [phone] Social History Tobacco Use Types Packs/Day Years [...] How often do you attend scientologist or anabaptist Never 11/23/2020 services? Do you belong to [...] at Date Recorded Female 05/20/2017 4:45 PM DELIVERY AGENT documented as of this encounter Plan of Treatment Not on filedocumented as of this encounter Visit Diagnoses Not on filedocumented in this encounter Additional Health Concerns Assessment Noted Time PHQ-9 Depression Total Score: 14 06/29/2020 3:00 PM CS T documented as of this encounter Care Teams Manager Land Relationship Specialty Start Date End Date Haylee Gastelum M.D. PCP - General Family Medicine 07/05/202[address] [address] documented as of this encounter
--- OUTSIDE RECORDS SUMMARY | 2022-05-17 11:35 | XMS_ITS | Encounter Summary ---
:1995 Author Organization [facility] Address [address] [place] [address] Care Team Providers Name Role Phone Haylee Gastelum M.D. Primary Care Provider [phone] Encounter Details Date Type Department Care Team Description 06/26/2021 Patient Self-Triage CONNECTED CARE Symptom Laborer Petroleum Refinery, Provider Social History Tobacco Use Types Packs/Day [...] How often do you attend scientologist or jew Never 11/23/2020 services? Do you belong to [...] at Date Recorded Female 05/20/2017 4:45 PM PATHOLOGY SUPERVISOR documented as of this encounter Plan of Treatment Not on filedocumented as of this encounter Visit Diagnoses Not on filedocumented in this encounter Additional Health Concerns Infection Onset Date Last Indicated Resolved Time COVID19 Pending 06/26/2021 06/26/2021 06/27/2021 5:20 PM PATHOLOGY SUPERVISOR documented as of this encounter Care Teams Dude Ranch Manager Relationship Specialty Start Date End Date Haylee Gastelum M.D. PCP - General Family Medicine 07/05/202[address] [address] documented as of this encounter
--- OUTSIDE RECORDS SUMMARY | 2022-05-17 11:35 | XMS_ITS | Encounter Summary ---
:1995 Author Organization [facility] Address [address] [place] [address] Care Team Providers Name Role Phone Haylee Gastelum M.D. Primary Care Provider [phone] Reason for Referral Outpatient (Routine) - Closed Specialty Diagnoses / Procedures Referred By Contact Refer red To Contact Family Medicine Haylee Gastelum M.D. [facility] [address] [place] [address] Referral ID Status Reason Start Date Expiration Date Visits Requ ested Visits Authorized [id number] Closed 11/27/2020 11/27/2021 1 1 Encounter Details Date Type Department Care Team Description 11/27/2020 Orders Only Department of [facility] [address] [place] [address] [place] [address] [phone] Social History Tobacco Use Types Packs/Day Years [...] 11/23/2020 relatives? How often do you attend sikh or temple Never 11/23/2020 services? Do you belong to any clubs or organizations such as No 11/23/2020 sikh groups, unions, fraternal or athletic groups, or [...] at Date Recorded Female 05/20/2017 4:45 PM CLEANING SPECIALIST documented as of this encounter Plan of Treatment Scheduled Referrals Name Type Priority Associated Diagnoses Order S [facility] Family Medicine Outpatient Referral Routine Expec samy: office visit 11/27/2020 (clinic) (Approximate), Expires: 11/28/2023 documented as of this encounter Visit Diagnoses Not on filedocumented in this encounter Care Teams Telecom Network Manager Relationship Specialty Start Date End Date Haylee Gastelum M.D. PCP - General Family Medicine 07/05/[address] [address] documented as of this encounter
--- OUTSIDE RECORDS SUMMARY | 2022-05-17 11:35 | XMS_ITS | Encounter Summary ---
:1995 Author Organization [facility] Address [address] [place] [address] Care Team Providers Name Role Phone Mirella Silva P.A.-C. Primary Care Provider [phone] Reason for Visit Reason Onset Date Comments Testing For Upper Respiratory Virus Symptoms 06/08/2020 Encounter Details Date Type Department Care Team Description 06/08/2020 External Outreach Department of [facility] Sami Schofield [facility] Medicine, Castillo Ruiz D.O. Respiratory (Primary Building, in [address]) [place], [place] [address] [facility] [address] [place], [place] [phone] [address] (Work) [phone] Social History Tobacco Use Types Packs/Day Years [...] How often do you attend scientologist or adventism Never 11/23/2020 services? Do you [...] at Date Recorded Female 05/20/2017 4:[address] [place] APPEALS JUDGE documented as of this encounter Progress Notes Erickson Paula R.N. - 06/08/2020 1:39 PM CST Encounter created for symptomatic infectious disease screening with possible COVID, Influenza, and RSV testing. T OF APPEALS JUDGE documented in this encounter Plan of Treatment Not on filedocumented as of this encounter Procedures Procedure Name Priority Date/Time Associated Diagnosis Comme nts SARS CORONAVIRUS-2 Routine 06/08/2020 3:25 PM Infection Upper Results for this RNA, V COURT OF APPEALS JUDGE Respiratory procedure are i n the results section. documented in this encounter Results SARS Coronavirus-2 RNA, V Symptomatic (06/08/2020 3:[address] APPEALS JUDGE) [facility] Method Time Signature SARS-CoV-2 Swab, 06/09/2020 [facility] Specimen Nasopharynx 3:[address] APPEALS JUDGE Source SARS CoV-2 Undetected Undetected 06/09/2020 MKTO RNA, TMA 3:[address] APPEALS JUDGE Comment: SARS-CoV-2 RNA absent. This result does not rule out COVID-19 in the patient, as the sensitivity of the test depends o n the timing of the specimen collection and the quality of the specim en. Result should be correlated with patient's history and clinical presentat ion. ----ADDITIONAL INFORMATION---- This test is performed using the Aptima SARS-CoV-2 assay ([employer] which has received Emergency Use Authori zation (EUA) by the U.S. Food and Drug Administration. Fact sheets for this Emergency Use Autho rization (EUA) assay can be found at the following links: For Healthcare Providers: https://www.fd a.gov/media/133155/download For Patients: https://www.fda.gov/media/ 695699/download Specimen Anatomical Collection Method Collection Time Receive d Time (Source) Location / / Volume Laterality Varies 06/08/2020 3:25 PM 0 9:44 (Nasopharynx) COURT OF APPEALS JUDGE PM COURT OF APPEALS JUDGE Sami Schofield D.O. LAB MICROBIOLOGY - GENERAL O RDERABLES Performing Organization Address City/State/[facility] Code Phon e Number [facility]- [address] [place] [address] [place] [address] [address] documented in this encounter Visit Diagnoses Diagnosis Infection Upper Respiratory - Primary documented in this encounter Additional Health Concerns Infection Onset Date Last Indicated Resolved Time COVID19 Pending 06/08/2020 06/08/2020 06/09/2020 3:[address] APPEALS JUDGE Assessment Noted Time PHQ-9 Depression Total Score: 9 05/05/2020 2:[address] [place] APPEALS JUDGE documented as of this encounter Care Teams Car Conditioner Relationship Specialty Start Date End Date Mirella Silva P.A.-C. PCP - General 05/17/20 07/04/[address] [address] documented as of this encounter
--- OUTSIDE RECORDS SUMMARY | 2022-05-17 11:35 | XMS_ITS | Encounter Summary ---
:1995 Author Organization [facility] Address [address] [place] [address] Care Team Providers Name Role Phone Haylee Gastelum M.D. Primary Care Provider [phone] Reason for Referral Outpatient (Routine) - Closed Specialty Diagnoses / Procedures Referred By Contact Refer red To Contact Procedures Edward Steel M.D. [facility] General eye exam [address] [place] [address] Referral ID Status Reason Start Date Expiration Date Visits Requ ested Visits Authorized [id number] Closed 06/12/2020 06/12/2021 1 1 [facility] Reason for Visit Reason Comments Eye Exam Appointment Request (Routine) - Closed Specialty Diagnoses / Procedures Referred By Contact Refer red To Contact Ophthalmology Referral ID Status Reason Start Date Expiration Date Visits Requ ested Visits Authorized [id number] Closed 04/11/2020 04/11/2021 1 1 Encounter Details Date Type Department Care Team Description 06/12/2020 Comprehensive Visit Department of Edward Steel Bilateral Ophthalmology in Di[facility] Bernard (Primary Dx) [place], [place] [address] [place] [phone] [phone] Social History Tobacco Use Types Packs/Day Years [...] 11/23/2020 relatives? How often do you attend pentecostalism or yarsani Never 11/23/2020 services? Do you belong to any clubs or organizations such as No 11/23/2020 pentecostalism groups, unions, fraternal or athletic groups, or [...] at Date Recorded Female 05/20/2017 4:45 PM PHYSICIAN OFFICE CLIN [facility] documented as of this encounter Progress Notes Edward Steel M.D. - 06/12/2020 1:15 PM CST Emily Talaverae Curry was seen today for Eye Exam #1 Myopia Bilateral Plan: Update glasses as desired. U/v protection. Ocular lubricants twice daily. New trial contacts. F/u one year for routine exam or as needed. cex/ref [facility] documented in this encounter Plan of Treatment Scheduled Orders Name Type Priority Associated Diagnoses Order S chedule OPH General eye exam Procedures Routine Expecte d: 06/12/2021 (Approximate), Expires: 06/12/2023 documented as of this encounter Visit Diagnoses Diagnosis Myopia Bilateral - Primary documented in this encounter Additional Health Concerns Infection Onset Date Last Indicated Resolved Time COVID19 Pending 10/10/2020 10/11/2020 10/11/2020 11:23 PM CDT Assessment Noted Time PHQ-9 Depression Total Score: 9 05/05/2020 2:02 PM PHYSICIAN OFFICE [facility] documented as of this encounter Care Teams Taxi Driver Relationship Specialty Start Date End Date Haylee Gastelum M.D. PCP - General Family Medicine 07/05/202199 [address] [address] documented as of this encounter
--- OUTSIDE RECORDS SUMMARY | 2022-05-17 11:36 | XMS_ITS | Encounter Summary ---
:1995 Author Organization [facility] Address [address] [place] [address] Care Team Providers Name Role Phone Iris Garcia APRN, C.N.P., M.S.N. Primary Care [facility] Encounter Details Date Type Department Care Team Description 07/16/2018 Orders Only Department of [facility] Iris Garcia , Medicine, [facility], Melanie GARNICA, M.S.N. in [facility] [address] [facility] [address] [place] [phone] (Wo rk) Social History Tobacco Use Types [...] 11/23/2020 relatives? How often do you attend adventism or sabianism Never 11/23/2020 services? Do you belong to any clubs or organizations such as No 11/23/2020 adventism groups, unions, fraternal or athletic groups, or [...] place to sleep or slept in a halfway (including now)? Sex Assigned at Date Recorded Female 05/20/2017 4:45 PM MANAGER INTERFACE documented as of this encounter Plan of Treatment Not on filedocumented as of this encounter Visit Diagnoses Not on filedocumented in this encounter Additional Health Concerns Assessment Noted Time PHQ-9 Depression Total Score: 23 12/22/2017 1:35 PM CD T documented as of this encounter Care Teams Flying Shear Operator Relationship Specialty Start Date End Date Iris Garcia APRN, C.N.P., PCP - General Family Medicine 05/16/20 M.S.N. [address] [place] [phone] documented as of this encounter
--- OUTSIDE RECORDS SUMMARY | 2022-05-17 11:36 | XMS_ITS | Encounter Summary ---
:1995 Author Organization [facility] Address [address] [place] [address] Care Team Providers Name Role Phone Iris Garcia APRN C.N.PSampson, M.S.N. Primary Care Provi di Reason for Visit Reason Comments Sore Throat x 4 days Sinus Problem Fatigue Loss of appetite Encounter Details Date Type Department Care Team Description 06/22/2018 Office Visit Urgent Care in Sarah Avelar Sinusitis Acute [place], [place] E, P.A.-C. (Primary Dx) [address] [place] [phone] Social History Tobacco Use Types Packs/Day Years [...] 11/23/2020 relatives? How often do you attend baptist or amish Never 11/23/2020 services? Do you belong to any clubs or organizations such as No 11/23/2020 baptist groups, unions, fraternal or athletic groups, or [...] or slept in a fci (including now)? Sex Assigned at Date Recorded Female 05/20/2017 4:45 PM SENIOR CAPITAL MARKETS SPECIALIST documented as of this encounter Last Filed Vital Signs Vital Sign Reading Time Taken Comments Blood Pressure 128/77 06/22/2018 12:38 PM SENIOR CAPITAL MARKETS SPECIALIST Pulse 120 06/22/2018 12:38 PM SENIOR CAPITAL MARKETS SPECIALIST Temperature 37 ??C (98.6 ??F) 06/22/2018 12:38 PM SENIOR CAPITAL MARKETS SPECIALIST Respiratory Rate 14 06/22/2018 12:38 PM SENIOR CAPITAL MARKETS SPECIALIST Oxygen Saturation - - Inhaled Oxygen Concentration - - Weight 98.2 kg (216 lb 7.9 oz) 06/22/2018 12:38 PM SENIOR CAPITAL MARKETS SPECIALIST Height - - Body Mass Index 33.19 04/15/2017 4:30 PM CDT documented in this encounter Patient Instructions Patient InstructionsSarah Avelar P.A.-C. - 06/22/2018 10:45 AM SENIOR CAPITAL MARKETS SPECIALIST Take antibiotic as prescribed; complete all pills Drink plenty of fluids; water and hot liquids Mucinex twice a day for 5 days can help Afrin/Sudafed can help with pressure however do not take more than 3 days as symptoms will return worse Follow up with primary doctor if not better OR CAPITAL MARKETS SPECIALIST documented in this encounter Progress Notes Sarah Avelar P.A.-C. - 06/22/2018 10:45 AM CST CHIEF COMPLAINT/REASON FOR VISIT Sinus congestion HISTORY OF PRESENT ILLNESS Emily Zapien is a 22 y.o. presents with sinus congestion with mild pressure and pain that is been present for 4 days. She notes to have a dry nonproductive cough with this. She states that her throat is been hurting last 3 days and feels like there is stuff in her throat. She reports a fever with this. She has been taking Tylenol and DayQuil for symptoms. She denies any chance of . She denies any ear pain. No other symptoms reported today. Current Outpatient Prescriptions: ??? amoxicillin (AMOXIL) 500 mg capsule, Take 1 capsule (500 mg total) by mouth 3 (three) times a day for 10 days., Disp: 30 capsule, Rfl: 0 ??? escitalopram (LEXAPRO) 10 mg tablet, Take 1 tablet (10 mg total) by mouth daily., Disp: 90 tablet, Rfl: 3 ??? qw-zhv-OR-Zr-Gf-obmdmzp-lutein (MULTIVITAL) 0.4-162-18 mg tablet, Take by mouth., Disp: , Rfl: Allergies Allergen Reactions ??? Codeine GI intolerance The following portions of the patient's history were reviewed and updated as appropriate: Past history, Medications allergies, and current Vital Signs. PHYSICAL EXAMINATION Vitals: 06/22/18 1238 BP: 128/77 Pulse: (!) 120 Resp: 14 Temp: 37 ??C GENERAL APPEARANCE: Well developed; well nourished female in no acute distress. ENT: Ears TMs clear without erythema bilaterally. Nose rhinorrhea present. Throat oropharynx posteriorly erythematous. Sinuses nontender palpation. LYMPHADENOPATHY: None palpable RESPIRATORY: Clear to auscultation CARDIAC: Regular rate and rhythm IMPRESSION/PLAN Sinusitis acute. Explained the patient recommend treat with amoxicillin for 10 days. We did review supportive therapy. Recommend follow-up with Family Medicine symptoms do not improve. Patient verbalized understanding with no further questions. OR CAPITAL MARKETS SPECIALIST documented in this encounter Plan of Treatment Not on filedocumented as of this encounter Visit Diagnoses Diagnosis Sinusitis Acute - Primary documented in this encounter Additional Health Concerns Assessment Noted Time PHQ-9 Depression Total Score: 23 12/22/2017 1:35 PM CD T documented as of this encounter Care Teams Maintenance Mgr Relationship Specialty Start Date End Date Iris Garcia APRN, C.N.P., PCP - General Family Medicine 05/16/20 M.S.N. [address] [place] [phone] documented as of this encounter
--- OUTSIDE RECORDS SUMMARY | 2022-05-17 11:36 | XMS_ITS | Encounter Summary ---
:1995 Author Organization [facility] Address [address] [place] [address] Care Team Providers Name Role Phone Iris Garcia APRN, C.N.P., M.S.N. Primary Care [facility] Reason for Visit Reason Comments Eye Exam Outpatient (Routine) - Closed Specialty Diagnoses / Procedures Referred By Contact Refer red To Contact Ophthalmology Diagnoses Myopia Bilateral Edward Steel M.D. 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 Myopia Bilateral [place], [place] [address] [place] [phone] Social History Tobacco Use Types Packs/Day Years [...] 11/23/2020 relatives? How often do you attend mu-ism or hinduism Never 11/23/2020 services? Do you belong to any clubs or organizations such as No 11/23/2020 mu-ism groups, unions, fraternal or athletic groups, or [...] or slept in a assisted (including now)? Sex Assigned at Date Recorded Female 05/20/2017 4:45 PM EXAMINATION SUPERVISOR documented as of this encounter Progress Notes Edward Steel M.D. 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 Plan: RTC AM intraocular pressure with OCT nerve and pachymetry. cex/ref documented in this encounter Plan of Treatment Not on filedocumented as of this encounter Visit Diagnoses Diagnosis Glaucoma Suspect Ocular Hypertension Will ateral - Primary Myopia Bilateral documented in this encounter Additional Health Concerns Assessment Noted Time PHQ-9 Depression Total Score: 27 10/26/2018 12:16 PM C DT documented as of this encounter Care Teams Radar Air Traffic Controller Relationship Specialty Start Date End Date Iris Garcia APRN, C.N.P., PCP - General Family Medicine 05/16/20 M.S.N. [address] [place] [phone] documented as of this encounter
--- OUTSIDE RECORDS SUMMARY | 2022-05-17 11:36 | XMS_ITS | Encounter Summary ---
:1995 Author Organization [facility] Address [address] [place] [address] Care Team Providers Name Role Phone Iris Garcia APRN CSampsonNKb, M.S.N. Primary Care [facility] Encounter Details Date Type Department Care Team Description 01/21/2019 Clinical Communication Department of Keturah Bobo, [place], [place] [address] [place] [phone] Social History Tobacco Use Types Packs/Day Years [...] How often do you attend tenriism or islam Never 11/23/2020 services? Do you [...] place to sleep or slept in a correction (including now)? Sex Assigned at Date Recorded Female 05/20/2017 4:45 PM GERIATRIC NURSE ASSISTANT documented as of this encounter Plan of Treatment Not on filedocumented as of this encounter Visit Diagnoses Not on filedocumented in this encounter Additional Health Concerns Assessment Noted Time PHQ-9 Depression Total Score: 27 10/26/2018 12:16 PM C DT documented as of this encounter Care Teams Phone Banker Relationship Specialty Start Date End Date Iris Garcia APRN, C.N.P., PCP - General Family Medicine 05/16/20 M.S.N. [address] [place] [phone] documented as of this encounter
--- OUTSIDE RECORDS SUMMARY | 2022-05-17 11:36 | XMS_ITS | Encounter Summary ---
:1995 Author Organization [facility] Address [address] [place] [address] Care Team Providers Name Role Phone Iris Garcia APRN, C.N.P., M.S.N. Primary Care Provi di Reason for Visit Reason Comments Contraception remove IUD, cramping , coppe r, spotting to heavier bleeding Encounter Details Date Type Department Care Team Description 04/13/2018 Office Visit Department of Haylee Miller Intrauterine Device (Primary Dx); Obstetrics and J, NAHUN, C.N.P. Pelvic And Perineal Pain Gynecology in [address] [place], [place] [address] [address] [place], [place] [phone] (Work) [phone] Social History Tobacco Use Types Packs/Day Years [...] 11/23/2020 relatives? How often do you attend druze or mormon Never 11/23/2020 services? Do you belong to any clubs or organizations such as No 11/23/2020 druze groups, unions, fraternal or athletic groups, or [...] slept in a care home (including now)? Sex Assigned at Date Recorded Female 05/20/2017 4:45 PM GLASS SCIENCE ENGINEER documented as of this encounter Last Filed Vital Signs Vital Sign Reading Time Taken Comments Blood Pressure 128/70 04/13/2018 1:08 PM CDT Pulse - - Temperature - - Respiratory Rate - - Oxygen Saturation - - Inhaled Oxygen Concentration - - Weight 94.1 kg (207 lb 7.3 oz) 04/13/2018 1:08 PM CDT Height - - Body Mass Index 31.81 04/15/2017 4:30 PM CDT documented in this encounter Progress Notes Haylee Miller, NAHUN, C.N.P. - 04/13/2018 1:15 PM CDT CHIEF COMPLAINT/REASON FOR VISIT Chief Complaint Patient presents with ??? Contraception remove IUD, cramping , copper, spotting to heavier bleeding HISTORY OF PRESENT ILLNESS Emily is a 22-year-old para 2-0-0-2 female whose last menstrual period started last week. She currently has a ParaGard IUD which was placed on 12/12/[address] Zelaya. Notes that she has had cramping on and off since it was placed. States that the cramps occur on a daily basis. She is taking Midol and Tylenol almost every day due to this pain. She also had 1 episode about 2-3 weeks ago where she experienced severe pain that lasted about a week. She has also noticed increased PMS symptoms and cramping with her periods. She is concerned that there might be something wrong with her IUD and would likeit checked today. She is considering removal, but has not done well with other control optionsin the past. She did like the patch in the past but then developed nausea and vomiting and had to discontinue the patch. She also experienced nausea and vomiting with the pill in the past. She would like to preserve the IUD if possible, but if the pain continues she is going to want removed. MEDICATIONS Current Outpatient Prescriptions Medication Sig Dispense Refill ??? copper 380 square mm IUD 1 Intra Uterine Device (1 each total) by intrauterine route once for 1 dose. Inserted: 12/12/17 1 Intra Uterine Device 0 ??? escitalopram (LEXAPRO) 10 mg tablet Take 1 tablet (10 mg total) by mouth daily. 90 tablet 3 No current facility-administered medications for this visit. ALLERGIES Allergies Allergen Reactions ??? Codeine GI intolerance VITAL SIGNS BP 128/70 (BP Location: Left arm, Patient Position: Sitting, Cuff Size: Regular) Wt 94.1 kg BMI 31.81 kg/m?? PHYSICAL EXAMINATION/PROCEDURE GENERAL: She is a well-appearing female, in no acute distress. PELVIS: External genitalia appears healthy and normal. Upon speculum examination, cervix is visualized, appears pink and intact. Normal physiologic discharge noted. IUD strings were visible protruding from the cervical os. GC chlamydia and vaginitis panel obtained. Upon bimanual exam uterus is small, m obile, and nontender. IUD strings are palpable. IMPRESSION/REPORT/PLAN #1 Surveillance Intrauterine Device #2 Pelvic And Perineal Pain PLAN: Patient reassured of normal exam findings. IUD was noted to be in the proper location. I will plan to portal message her with her GC chlamydia and vaginitis panel results. I will also portal message her with the results of the ultrasound. We will treat accordingly. If everything comes back normal we will consider treatment with doxycycline for possible endometritis. She would like the faxed to [facility] if necessary. If that is not effective she will then proceed with IUD removal. At this point she has no concerns or questions and is agreeable to this plan of care. documented in this encounter Plan of Treatment Not on filedocumented as of this encounter Procedures Procedure Name Priority Date/Time Associated Diagnosis Comme nts VAGINITIS PANEL Routine 04/13/2018 1:39 PM Pelvic And Perineal Results for this CDT Pain procedure are i n the results section. CHLAMYDIA/GONORRHOE Routine 04/13/2018 1:39 PM Pelvic And Sachi linda Results for this AE AMPLIFIED RNA CDT Pain procedure a re in the results section. documented in this encounter Results (ABNORMAL) Vaginitis Panel (04/13/2018 1:39 PM CDT) Patholo gist Method Time Signature Brittany Negative Negative 04/13/2018 [facility] species, DNA 3:[address] [facility] Gardnerella Positive (A) Negative 04/13/2018 [facility] vaginalis, DNA 3:[address] [facility] Trichomonas Negative Negative 04/13/2018 [facility] vaginalis, DNA 3:57 PM CDT [facility] Specimen Anatomical Collection Method Collection Time Receive d Time (Source) Location / / Volume Laterality Swab (Vagina) 04/13/2018 1:39 PM 04/13/20 18 2:48 CDT PM CDT Haylee Miller APRN, C.N.P. LAB MICROBIOLOGY - GENE [facility] ORDERABLES Performing Organization Address City/State/ZIP Code Phon e Number [facility] [address] [place] [id number] LAB Chlamydia / Gonorrhoeae Amplified RNA (04/13/2018 1:39 PM CDT) [facility] Snipd Method Time Signature Source VAGINA 04/14/2018 [facility] 1:[address] [facility] Chlamydia Negative Negative 04/14/2018 [facility] trachomatis 1:43 PM CDT [facility] [employer] [facility] Comment: ----ADDITIONAL INFORMATION---- This report is intended for use in clini drake monitoring and management of patients. It is not in tended for use in medical-legal applications. Source VAGINA 04/14/2018 1:[address] [facility] Neisseria gonorrhoeae Negative Negative 04/14/2018 1:4 3 PM CDT [facility] amplified RNA [facility] Comment: ----ADDITIONAL INFORMATION---- This report is intended for use in clini drake monitoring and management of patients. It is not in tended for use in medical-legal applications. Specimen Anatomical Collection Method Collection Time Receive d Time (Source) Location / / Volume Laterality Varies (Vagina) 04/13/2018 1:39 PM 2017 7:17 CDT PM CDT Haylee Miller APRN, C.N.P. LAB MICROBIOLOGY - [facility] ORDERABLES Performing Organization Address City/State/ZIP Code Phon e Number [place] [id number] [place] [address] LAB documented in this encounter Visit Diagnoses Diagnosis Surveillance Intrauterine Device - Prima ry Pelvic And Perineal Pain documented in this encounter Additional Health Concerns Assessment Noted Time PHQ-9 Depression Total Score: 23 12/22/2017 1:35 PM CD T documented as of this encounter Care Teams Systems Lead Relationship Specialty Start Date End Date Iris Garcia APRN, C.N.P., PCP - General Family Medicine 05/16/20 M.S.N. [address] [place] [address] documented as of this encounter
--- OUTSIDE RECORDS SUMMARY | 2022-05-17 11:36 | XMS_ITS | Encounter Summary ---
:1995 Author Organization [facility] Address [address] [place] [address] Care Team Providers Name Role Phone Iris Garcai APRN, C.N.P., M.S.N. Primary Care [facility] Reason for Visit Reason Comments Contraception remove IUD,constant pain Appointment Request (Routine) - Closed Specialty Diagnoses / Procedures Referred By Contact Refer red To Contact Obstetrics and Gynecology Referral ID Status Reason Start Date Expiration Date Visits Requ ested Visits Authorized [id number] Closed 05/06/2018 05/06/2019 1 Encounter Details Date Type Department Care Team Description 05/20/2018 Office Visit Department of Jose Vicente Removal Of Intrauterine Obstetrics and NAHUN Ruiz, C.N.P. Contraceptive Device Gynecology in [address] (Primary Dx) [place], [place] [address] [facility] [address] [place], [place] [phone] (Work) [phone] Social History Tobacco Use Types Packs/Day Years [...] 11/23/2020 relatives? How often do you attend methodist or synagogue Never 11/23/2020 services? Do you belong to any clubs or organizations such as No 11/23/2020 methodist groups, unions, fraternal or athletic groups, or [...] or slept in a [facility]p (including now)? 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 - 05/20/2018 11:15 AM CST CHIEF COMPLAINT/REASON FOR VISIT Chief Complaint Patient presents with ??? Contraception remove IUD,constant pain HISTORY OF PRESENT ILLNESS Emily is a 22 year-old para 2-0-0-2 female who presents for removal of her ParaGard IUD. She notes that the device was placed on 12/12/2017. Notes that she has had cramping on and off since it was placed. States that the cramps occur on a daily basis. She is taking Midol and Tylenol almost every day due to this pain. I saw her last in the department of Obstetrics and Gynecology on 04/13/2018 for discussion surrounding her concerns with her IUD. She did have positive bacterial vaginosis on vaginitispanel at that time and was treated. She notes that with treatment the acute symptoms resolved, but the chronic symptoms of cramping continued. At this point she has decided she would like the IUD removed. She would like to take a break from control and plans to use condoms when sexually active. She may consider the patch in the future. She is not interested in a prescription today. ?? We did review the removal process. Her consent was obtained. [place] protocol was followed. The device was successfully removed today. ?? MEDICATIONS Current Outpatient Prescriptions Medication Sig Dispense Refill ??? escitalopram (LEXAPRO) 10 mg tablet Take 1 tablet (10 mg total) by mouth daily. 90 tablet 3 ??? tx-ogs-FJ-Wh-Bg-stuaznz-lutein (MULTIVITAL) 0.4-162-18 mg tablet Take by mouth. No current facility-administered medications for this visit. ALLERGIES Allergies Allergen Reactions ??? Codeine GI intolerance VITAL SIGNS BP 104/74 Pulse 76 Resp 16 Wt 95.2 kg LMP 05/04/2018 BMI 32.18 kg/m? PHYSICAL EXAMINATION General: She is a well-appearing female in no acute distress. Pelvis: External genitalia appears healthy and intact. BUS is negative. Upon speculum exam vaginal mucosa appears pink and intact. Normal physiologic discharge noted. Cervix is visualized and appears pink and intact. IUD strings are present protruding from the cervical os. IUD strings were grasped with ring forceps and removed without difficulty. IUD was noted to be intact before discarding. Patient tolerated well. ?? IMPRESSION/REPORT/PLAN #1 Removal Of Intrauterine Contraceptive Device Patient tolerated the procedure well. Postprocedure instructions were discussed in detail. She will contact me if she wishes to proceed with the patch, in which case I will provide her a prescription for a full year. She will use condoms until that time. At this point she does not have any additional concerns or questions and is agreeable to this plan of care. ING AID MECHANIC documented in this encounter Procedure Notes Jose Vicente APRN, C.N.P. - 05/20/2018 11:15 AM CSTAssociated Order(s): INTRAUTERINE DEVICE (IUD) - REMOVAL Post-Procedure Diagnose(s): Removal Of Intrauterine Contraceptive Device IUD Removal Date/Time: 05/20/2018 1:20 PM Performed by: JOSE VICENTE Authorized by: JOSE VICENTE Care team members present: Michelle Bourgeois LPN Consent: Consent obtained: Verbal Consent given by: Patient The benefits, risks and alternatives to the procedure and the potential need for sedation or anesthesia as well as the names, roles, and responsibilities of healthcare team members performing significant interventional tasks were discussed with the patient and/or decision maker.: yes [place] protocol: All relevant documentation and testing were reviewed and available. All required blood products, implants, devices and/or special equipment were made available as applicable. The pre-procedure verification was conducted, the correct site was marked if required, and the procedural time out was conducted prior to performing the procedure and confirmed in a procedural pause.: yes Pre-procedure details: Assessment - reasonably exclude based on: PREG criteria Indications: Side effects Appropriate hand hygiene, gown, cap, mask, protective eyewear, sterile gloves, skin preparation, sterile drape, and strict aseptic technique were utilized as applicable for the procedure.: yes Sedation/Anesthesia (see MAR for exact dosages): Anesthesia method: None Procedure details: Procedure: Removal Pelvic exam performed: yes Strings visible: yes IUD removed intact: yes IUD shown to patient prior to disposable: yes Post-procedure details: Procedure completed successfully: yes Complications: no apparent complications DRIER FEEDER 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 documented in this encounter Results NM REMOVAL OF INTRAUTERINE DEVICE (05/20/2018 11:15 AM HEARING AID MECHANIC) Narrative MMODAL - 05/20/2018 11:15 AM HEARING AID MECHANIC Jose Vicente APRN, C.N.P. ? 05/20/2018 ??1:22 PM IUD Removal Date/Time: 05/20/2018 1:20 PM Performed by: JOSE VICENTE Authorized by: JOSE VICENTE Care team members present: ??Michelle Bourgeois LPN Consent: ??Consent obtained: ??Verbal ??Consent given by: ??Patient ??The benefits, risks and alternatives to the procedure and the potential need for sedation or anesthesia as well as the names, roles, and responsibilities of healthcare team memb ers performing significant interventional tasks were discussed with the patient and/or decision maker.: yes ?? [place] protocol: ??All relevant documentation and testin g were reviewed and available. All required blood products, implants, devic es and/or special equipment were made available as applicable. The pre-pr ocedure verification was conducted, the correct site was marked i f required, and the procedural time out was conducted prior to performi ng the procedure and confirmed in a procedural pause.: yes ?? Pre-procedure details: ?? Assessment - reas onably exclude based on: ??PREG criteria ??Indications: ??Side effects ??Appropriate hand hygiene, gown, cap, mask, protective eyewear, sterile gloves, skin preparation, sterile drape, and strict aseptic technique were utilized as applicable for the procedure .: yes ?? Sedation/Anesthesia (see MAR for exact d osages): ??Anesthesia method: ??None Procedure details: ??Procedure: ??Removal ??Pelvic exam performed: yes ?Strings visible: yes ?IUD removed intact: yes ?IUD shown to patient prior to disposa ble: yes ?? Post-procedure details: ??Procedure completed successfully: yes ?Complications: no apparent complicati ons ?? Jose Vicente APRN, C.N.P. OB GYNE ORDERABLES Performing Organization Address City/State/ZIP Code Phon e Number MMODAL MMODAL NA documented in this encounter Visit Diagnoses Diagnosis Removal Of Intrauterine Contraceptive De vice - Primary documented in this encounter Additional Health Concerns Assessment Noted Time PHQ-9 Depression Total Score: 23 12/22/2017 1:35 PM CD T documented as of this encounter Care Teams Batch Mixer Relationship Specialty Start Date End Date Iris Garcia APRN, C.N.P., PCP - General Family Medicine 05/16/20 M.S.N. [address] [place] [address] documented as of this encounter
--- OUTSIDE RECORDS SUMMARY | 2022-05-17 11:36 | XMS_ITS | Encounter Summary ---
:1995 Author Organization [facility] Address [address] [place] [address] Care Team Providers Name Role Phone Mirella Silva P.A.-C. Primary Care Provider [phone] Reason for Visit Reason Comments Dizziness Encounter Details Date Type Department Care Team Description 06/03/2020 - Emergency [facility] Migraine Headache 06/04/2020 [address] [facility] (Primary Dx) [facility] [place] [address] [facility] [phone] Social History Tobacco Use Types Packs/Day Years [...] How often do you attend tenriism or protestant Never 11/23/2020 services? 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 tlmnfgl-ujkrkiaczloyk-hkr Take 1 tablet by 0 feine (EXCEDRIN MIGRAINE) mouth every 6 (six) 250-250-65 mg per tablet hours as needed for pain. ibuprofen (ADVIL,MOTRIN) Take 400 mg by mouth 0 400 mg tablet every 6 (six) hours as needed for pain. xj-nhx-KP-Jj-Tr-ksdybao-l Take by mouth. 0 utein 0.4-162-18 mg tablet SUMAtriptan (IMITREX) 50 Take 1 tablet (50 mg 27 tablet 3 1 07/05/2019 06/06/2020 mg tabletIndications: total) by mouth as Migraine Headache needed for migraine. May repeat dose once in 2 hours if migraine unresolved. Do not exceed 200 mg in 24 hours. 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 PCP - General 05/17/20 07/04/20 [address], [place] [address] documented as of this encounter
--- OUTSIDE RECORDS SUMMARY | 2022-05-17 11:36 | XMS_ITS | Encounter Summary ---
:1995 Author Organization [facility] Address [address] [place] [address] Care Team Providers Name Role Phone Iris Garcia APRN C.NKb, M.S.N. Primary Care Provi di Reason for Visit Reason Comments Fever fever x4 days, vomiting sinc e yesterday. cough that started Friday morning. Encounter Details Date Type Department Care Team Description 04/15/2019 Emergency [facility] Emergency Jesika Gautam, Pneumoni a (Primary Dx); Department P.A.-C. Hypokalemia [address] [facility] [address] [place] [address] [address] [place] [phone] [address] Social History Tobacco Use Types Packs/Day Years [...] 11/23/2020 relatives? How often do you attend quaker or bahai Never 11/23/2020 services? Do you belong to any clubs or organizations such as No 11/23/2020 quaker groups, unions, fraternal or athletic groups, or [...] place to sleep or slept in a [place] [facility] (including now)? Education Answer Date Recorded What is the highest level of school you have completed or 12 th grade 04/15/2019 the highest degree you have received? 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 Hypokalemia (Malaysian)Community-Acquired Pneumonia Adult (Malaysian)documented in this encounter Medications at Time of Discharge Medication Sig Dispensed Refills Start Date End Date acetaminophen (TYLENOL) Take 1,000 mg by 0 500 mg capsule mouth every 6 (six) hours as needed for pain. ibuprofen (ADVIL,MOTRIN) Take 400 mg by mouth 0 400 mg tablet every 6 (six) hours as needed for pain. cw-ttq-HA-Aj-Ln-smesocr-l Take by mouth. 0 utein 0.4-162-18 mg tablet aspirin-sod bicarb-citric Take 324 mg by mouth 0 05/05/2020 acid (FARTUN-SELTZER) 324 every 6 (six) hours mg tablet as needed for pain. azithromycin (ZITHROMAX) Take 1 tablet (250 4 tablet 0 04/19/2019 250 mg tablet mg total) by mouth as directed for 4 days. documented as of this encounter ED Notes Jesika Gautam - 04/15/2019 10:25 AM CDT SUBJECTIVE: CHIEF COMPLAINT/REASON FOR VISIT: Fever (fever x4 days, vomiting since yesterday. cough that started Friday morning. ) HISTORY OF PRESENT ILLNESS: Patient is a 23 year old female who presents to the ED for evaluation of fever and vomiting. Symptoms began 4 days ago with fever and cough. She states she was exposed to family member with cough. Her cough has been nonproductive. She reports low-grade fevers since Friday initially starting at 99.8??F. The following day on Friday the temperature was a 102.5?? F. She has been experiencing hot flashes and chills. She has been treating with Tylenol and ibuprofen. She states she is also nauseated and has had 4 episodes of emesis since yesterday. She has been able to keep down Gatorade but has not been able to tolerate any solids. This morning she felt dizzy as she was showering and she felt as though she was going to pass out therefore she was able to lower herself down while in the shower and denies any injuries. She does admit to sore throat, cough, headache, muffled hearing and body aches. She denies any abdominal pain or diarrhea. She has not had her influenza vaccine yet this year. She isnot currently does have 3 small children at home, not breast-feeding. History of previous tonsillectomy REVIEW OF SYSTEMS: Constitutional: Positive for chills and fever. HENT: Positive for rhinorrhea and sore throat. Negative for facial swelling. Eyes: Negative for visual disturbance. Respiratory: Positive for cough. Negative for shortness of breath. Cardiovascular: Negative for chest pain and leg swelling. Gastrointestinal: Positive for nausea and vomiting. Negative for abdominal pain and diarrhea. Genitourinary: Negative for dysuria. Denies Musculoskeletal: Positive for myalgias. Negative for back pain and neck pain. Skin: Negative for rash. Allergic/Immunologic: Negative for immunocompromised state. Neurological: Positive for light-headedness and headaches. Negative for weakness. ALLERGIES/MEDICATIONS: Reviewed in medical record PAST MEDICAL/FAMILY/SOCIAL HISTORY: Medical History: Past Medical History: Diagnosis Date ??? Migraine Without Aura Not Intractable Without Status Migrainosus 04/20/2008 Patient Active Problem List Diagnosis Date Noted ??? Migraine Without Aura Not Intractable Without Status Migrainosus 04/20/2008 Surgical History: Past Surgical History: Procedure Laterality Date ??? CLOSED REDUCTION INTERNAL FIXATION RADIUS/ULNA WRIST Left 01/31/2001 ??? TONSILLECTOMY AND ADENOIDECTOMY N/A 04/30/2006 Tonsillectomy and adenoidectomy; younger than age 12.. Family History: Reviewed in chart Social History: Social History Socioeconomic History ??? Marital status: Single Spouse name: None ??? Number of children: 2 ??? Years of education: None ??? Highest education level: None Occupational History ??? None Social Needs ??? Financial resource strain: None ??? Food insecurity: Worry: None Inability: None ??? Transportation needs: Medical: None Non-medical: None Tobacco Use ??? Smoking status: Never Smoker ??? Smokeless tobacco: Never Used Substance and Sexual Activity ??? Alcohol use: Yes Alcohol/week: 2.0 standard drinks Types: 2 Glasses of wine per week ??? Drug use: No ??? Sexual activity: Yes Partners: Male Lifestyle ??? Physical activity: Days per week: None Minutes per session: None ??? Stress: None Relationships ??? Social connections: Talks on phone: None Gets together: None Attends bahai service: None Active member of club or organization: None Attends meetings of clubs or organizations: None Relationship status: None ??? Intimate partner violence: Fear of current or ex partner: None Emotionally abused: None Physically abused: None Forced sexual activity: None Other Topics Concern ??? None Social History Narrative ??? None Social History Substance and Sexual Activity Alcohol Use Yes ??? Alcohol/week: 2.0 standard drinks ??? Types: 2 Glasses of wine per week Social History Substance and Sexual Activity Drug Use No OBJECTIVE: INITIAL VITAL SIGNS: Initial Vitals Temperature Pulse Rate Heart Rate Resp Rate Blood Pressure SpO2 04/15/19 1009 04/15/19 1009 -- 04/15/19 1009 04/15/19 1009 04/15/19 1009 36.2 ??C (!) 111 16 (!) 138/99 97 % Pain Score 04/15/19 1010 0 - No pain PHYSICAL EXAMINATION: Constitutional: No distress. HENT: Right Ear: Tympanic membrane normal. Left Ear: Tympanic membrane normal. Nose: Nose normal. Mouth/Throat: Oropharynx is clear and moist. Mucous membranes are moist. No tonsillar exudate. Mild posterior oropharynx erythema without any exudates or swelling, previous tonsillectomy Eyes: Conjunctivae and EOM are normal. Pupils are equal, round, and reactive to light. Extraocular Movements: EOM normal. Neck: Neck supple. No tracheal deviation present. Cardiovascular: Regular rhythm and normal heart sounds. Tachycardia present. Pulses are strong and palpable. Capillary refill: takes less than 3 seconds, Pulmonary/Chest: Effort normal and breath sounds normal. No respiratory distress. She has no wheezes. She has no rhonchi. She has no rales. Abdominal: Soft. Bowel sounds are normal. There is no tenderness. There is no guarding. Musculoskeletal: Normal range of motion. Neurological: She is alert and oriented to person, place, and time. Skin: Skin is warm and dry. No rash noted. Psychiatric: She has a normal mood and affect. Nursing note and vitals reviewed. ED COURSE: ED Course as of Apr 15 1740 Maria Apr 15, 2019 1131 Influenza A, POCT: Negative 1131 Influenza B, POCT: Negative 1131 Resp Synctial Virus, POCT: Negative 1131 Potassium, P(!): 3.4 Final Diagnoses: as of Apr 15 1740 Pneumonia Hypokalemia INTERVENTIONS: Medications ondansetron (PF) injection 4 mg (ZOFRAN) (4 mg intravenous Given 04/15/19 1055) NaCl 0.9 % bolus 1,000 mL (0 mL intravenous Stopped 04/15/19 1211) azithromycin tablet 500 mg (ZITHROMAX) (500 mg oral Given 04/15/19 1149) LABS: Labs Reviewed CBC WITH DIFFERENTIAL, B - Abnormal Result Value Hemoglobin 14.6 Hematocrit 44.6 Erythrocytes 4.87 MCV 91.6 RBC Distrib Width 13.3 Platelet Count 252 Leukocytes 6.0 Neutrophils 5.06 Lymphocytes 0.55 (*) Monocytes 0.37 Eosinophils 0.02 (*) Basophils 0.01 BASIC METABOLIC PANEL, S/P - Abnormal Potassium, P 3.4 (*) Sodium, P 138 Chloride, P 101 Bicarbonate, P 23 Anion Gap, P 14 BUN, P 9 Creatinine, P 0.85 eGFR Black >90 eGFR Non-Black >90 Calcium, Total, P 9.7 Glucose, P 159 (*) INFLUENZA A, B, RSV, PCR, POCT Influenza A, B, RSV, PCR, POCT Collected INFLUENZA A, B, RSV, PCR, POCT Influenza A, POCT Negative Influenza B, POCT Negative Resp Synctial Virus, POCT Negative ECG: RADIOLOGY: DX Chest AP or PA and Lateral 2 Views Final Result Patchy right basilar and lower lobe infiltrates. ASSESSMENT AND PLAN: Impression and Plan This is a 23 y.o. female who presents to the ED for a cough. CXR reveals patchy right basilar and lower lobe infiltrates. Patient was treated with IV fluids and tachycardia resolved. Patient is feelingmuch improved. She will be treated with azithromycin for pneumonia. Follow up with PCP as needed Differential Diagnoses URI, pneumonia, CHF, reactive airway disease, COPD, bronchial irritation, medication effect such as ACEI, foreign body aspiration or toxic exposure, malignancy, mediastinal mass or PE. DIAGNOSIS: Final diagnoses: [J18.9] Pneumonia [E87.6] Hypokalemia ED DISCHARGE MEDS: ED Prescriptions Medication Sig Dispense Start Date End Date Auth. Provider azithromycin (ZITHROMAX) 250 mg tablet Take 1 tablet (250 mg total) by mouth as directed for 4 days. 4 tablet 04/15/2019 04/19/2019 Jesika Gautam DISPOSITION: Home or Self Senior Living or Self Care FOLLOW UP: Jesika Gautam PA-C Emergency Medicine Jesika Gautam 04/15/19 4507 documented in this encounter Plan of Treatment Not on filedocumented as of this encounter Procedures Procedure Name Priority Date/Time Associated Comments Diagnosis INFLUENZA A, B, Routine 04/15/2019 11:15 Results for this RSV, PCR, POCT AM CDT procedure are in the results section. DX CHEST AP OR PA RAD - Semiurgent 04/15/2019 11:05 Re sults for this AND LATERAL 2 (Fast; most ED AM CDT procedure ar e in VIEWS patients; some the results inpatients) section. INFLUENZA A, B, Routine 04/15/2019 10:51 Results for this RSV, PCR, POCT AM CDT procedure are in the results section. CBC WITH STAT 04/15/2019 10:15 Results for this DIFFERENTIAL, B AM CDT procedure ar e in the results section. BASIC METABOLIC STAT 04/15/2019 10:15 Results for this PANEL, S/P AM CDT procedure are i n the results section. documented in this encounter Results Influenza A/B and RSV, PCR, Point of Care (04/15/2019 11:15 AM CDT) P athologist Signature Influenza A, Negative Negative 04/15/2019 [facility] POCT 11:15 AM CDT Influenza B, Negative Negative 04/15/2019 [facility] POCT 11:15 AM CDT Resp Syncytial Negative Negative 04/15/2019 [facility] Virus, POCT 11:15 AM CDT Specimen Anatomical Collection Method Collection Time Receive d Time (Source) Location / / Volume Laterality Varies 04/15/2019 11:15 04/15/2019 AM CDT 11:21 AM CDT Generic Rals LAB POCT ORDERABLES - DEVICE Performing Organization Address City/State/[facility] Code Phon e Number [facility]- [address] [place] [address] [address] [place] [address] System in [address] DX Chest AP or PA and Lateral 2 Views (04/15/2019 11:05 AM CDT) Anatomical Region Laterality Modality Chest, Thoracic RST LOS, Thoracic ARZ LOS, Thoracic N/A Digital Radiography FLA LOS Specimen (Source) Anatomical Collection Method Collection Time Re ceived Time Location / / Volume Laterality 04/15/2019 11:08 AM CDT Impressions 04/15/2019 11:09 AM CDT Patchy right basilar and lower lobe infi ltrates. Narrative 04/15/2019 11:09 AM CDT EXAM: DX CHEST AP OR PA AND LATERAL 2 VIEWS COMPARISON: 10/21/2016. FINDINGS: Heart size and pulmonary vascu larity are within normal limits. There is some subtle patchy infiltration at th e right base apparently in the lower lobe. Left lung is clear. There are no e ffusions. Procedure Note Juan Newman Jr., M.D. - 2018 EXAM: DX CHEST AP OR PA AND LATERAL 2 EWS COMPARISON: 10/21/2016. FINDINGS: Heart size and pulmonary vascu larity are within normal limits. There is some subtle patchy infiltration at th e right base apparently in the lower lobe. Left lung is clear. There are no e ffusions. IMPRESSION: Patchy right basilar and lower lobe infi ltrates. Jesika Gautam P.A.-C. IMG DIAGNOSTIC IMAGING PROCE DURES Influenza A/B and RSV, PCR, Point of Care (04/15/2019 10:51 AM CDT) Analysis Performed At Patho logist Time Signature Influenza A, Collected DEFAULT 04/15/2019 [facility] B, RSV, PCR, 10:59 AM CDT POCT Specimen Anatomical Collection Method Collection Time Receive d Time (Source) Location / / Volume Laterality Varies 04/15/2019 10:51 04/15/2019 (Nasopharynx) AM CDT 10:59 AM CDT Jesika Gautam P.A.-C. LAB POCT ORDERABLES - DEVICE Performing Organization Address City/State/ZIP Code Phon e Number [facility]- [address] [place] [address] [place] [address] System in [address] (ABNORMAL) BMP (Basic Metabolic Panel) (04/15/2019 10:15 AM CDT) P athologist Signature Potassium, P 3.4 (L) 3.6 - 5.2 04/15/2019 [facility] mmol/L 11:24 AM CDT Sodium, P 138 135 - 145 04/15/2019 [facility] mmol/L 11:24 AM CDT Chloride, P 101 98 - 107 04/15/2019 [facility] mmol/L 11:24 AM CDT Bicarbonate, P 23 22 - 29 04/15/2019 [facility] mmol/L 11:24 AM CDT Anion Gap, P 14 7 - 15 04/15/2019 [facility] 11:24 AM CDT BUN (Blood Urea 9 6 - 21 04/15/2019 [facility] Nitrogen), P mg/dL 11:24 AM CDT Creatinine 0.85 0.59 - 04/15/2019 [facility] 1.04 mg/dL 11:24 AM CDT eGFR-Black/Afri >90 >=60 04/15/2019 [facility] can [place]ian mL/min/BSA 11:24 AM CDT Comment: ----ADDITIONAL INFORMATION---- Estimated GFR calculated using the 2009 CKD_EPI creatinine equation. eGFR Non-Black/ >90 >=60 mL/min/BSA 04/15/2019 11:24 AM CDT [facility] Comment: ----ADDITIONAL INFORMATION---- Estimated GFR calculated using the 2009 CKD_EPI creatinine equation. Calcium, Total, P 9.7 8.6 - 10.0 mg/dL 04/15/2019 11:2 4 AM CDT [facility] Glucose, P 159 (H) 70 - 140 mg/dL 04/15/2019 11:24 AM CDT [facility] Specimen Anatomical Collection Method Collection Time Receive d Time (Source) Location / / Volume Laterality Blood (Blood, 04/15/2019 10:15 04/15/2019 Venous) AM CDT 11:00 AM CDT Jesika Gautam P.A.-C. LAB BLOOD ADD-ON Performing Organization Address City/State/ZIP Code Phon e Number [facility]- [address] [place] [address] LAB [place] [phone] System in [address] (ABNORMAL) CBC with Differential (04/15/2019 10:15 AM CDT) [facility] Method Time Signature Hemoglobin 14.6 11.6 - 04/15/2019 [facility] 15.0 g/dL 11:06 AM CDT Hematocrit 44.6 35.5 - 04/15/2019 [facility] 44.9 % 11:06 AM CDT Erythrocytes 4.87 3.92 - 04/15/2019 [facility] 5.13 11:06 AM CDT x10(12)/L MCV 91.6 78.2 - 04/15/2019 [facility] 97.9 fL 11:06 AM CDT RBC Distrib Width 13.3 12.2 - 04/15/2019 [facility] 16.1 % 11:06 AM CDT Platelet Count 252 157 - 371 04/15/2019 [facility] x10(9)/L 11:06 AM CDT Leukocytes 6.0 3.4 - 9.6 04/15/2019 [facility] x10(9)/L 11:06 AM CDT Neutrophils 5.06 1.56 - 04/15/2019 [facility] 6.45 11:06 AM CDT x10(9)/L Lymphocytes 0.55 (L) 0.95 - 04/15/2019 [facility] 3.07 11:06 AM CDT x10(9)/L Monocytes 0.37 0.26 - 04/15/2019 [facility] 0.81 11:06 AM CDT x10(9)/L Eosinophils 0.02 (L) 0.03 - 04/15/2019 [facility] 0.48 11:06 AM CDT x10(9)/L Basophils 0.01 0.01 - 04/15/2019 [facility] 0.08 11:06 AM CDT x10(9)/L Specimen Anatomical Collection Method Collection Time Receive d Time (Source) Location / / Volume Laterality Blood (Blood, 04/15/2019 10:15 04/15/2019 Venous) AM CDT 11:00 AM CDT Jesika Gautam P.A.-C. LAB BLOOD ADD-ON Performing Organization Address City/State/ZIP Code Phon e Number [facility]- [address] [place] [address] LAB [place] [phone] System in [address] documented in this encounter Visit Diagnoses Diagnosis Pneumonia - Primary Hypokalemia documented in this encounter Administered Medications Inactive Administered Medications - up to 3 most recent administrations Medication Order MAR Action Action Date Dose Rate Site azithromycin tablet 500 mg Given 04/15/2019 11:49 AM CDT 500 mg (ZITHROMAX) 500 mg, oral, Once, On Maria 04/15/19 at 1145, For 1 dose, Indications: Respiratory tract infection, community acquired, RLL infiltrate-CAP NaCl 0.9 % bolus 1,000 mL New Bag 04/15/2019 10:55 AM CDT 1,000 mL 1000 mL/hr 1,000 mL, intravenous, at 1,000 mL/hr, Administer over 1 Hours, Once, On Maria 04/15/19 at 1026, For 1 dose ondansetron (PF) injection 4 mg (ZOFRAN) Given 04/15/2019 10:55 AM CDT 4 mg 4 mg, intravenous, Once, On Maria 04/15/19 at 1026, For 1 dose documented in this encounter Active and Recently Administered Medications Times are shown in CDT. Scheduled Medication Order 04/13/2019 04/14/2019 04/15/2019 azithromycin tablet 500 mg (ZITHROMAX) (COMPLETED) 1149 (Given - Provider: Rachel Santana R.N.) 500 mg, oral, Once, On Maria 04/15/19 at 1 145, For 1 dose, Indications: Respiratory tract infection, community acquired, RLL infiltrate-CAP NaCl 0.9 % bolus 1,000 mL (COMPLETED) 1055 (New Bag - Provider: Rachel Santana R.N.)1211 (Stopped - Provider: Rachel Santana R.N.) 1,000 mL, intravenous, at 1,000 mL/hr, A dminister over 1 Hours, Once, On Maria 04/15/19 at 1026, For 1 dose ondansetron (PF) injection 4 mg (ZOFRAN) (COMPLETED) 1055 (Given - Provider: Rachel Santana R.N.) 4 mg, intravenous, Once, On Maria 04/15/19 at 1026, For 1 dose documented in this encounter Additional Health Concerns Assessment Noted Time PHQ-9 Depression Total Score: 27 10/26/2018 12:16 PM C DT documented as of this encounter Care Teams Crossing Guard Relationship Specialty Start Date End Date Iris Garcia APRN, C.N.P., PCP - General Family Medicine 05/16/20 M.S.N. [address] [place] [address] documented as of this encounter
--- OUTSIDE RECORDS SUMMARY | 2022-05-17 11:36 | XMS_ITS | Encounter Summary ---
:1995 Author Organization [facility] Address [address] [place] [address] Care Team Providers Name Role Phone Iris Garcia APRN C.NKb, M.S.N. Primary Care [facility] Reason for Visit Reason Comments Med Refill Encounter Details Date Type Department Care Team Description 09/23/2018 Refill Department of Obstetrics and Gau ntJose M.D. Med Refill Gynecology in [facility] [address] [id number] [place] [address] [phone] Social History Tobacco Use Types Packs/Day Years [...] How often do you attend orthodoxy or congregation Never 11/23/2020 services? Do you belong to [...] or slept in a long-term (including now)? 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 Telephone Encounter - Mohit Mitchell - 09/24/2018 7:58 AM CDT Please review surescript medication request. The requested medication is not on the patient's medication list. documented in this encounter Plan of Treatment Not on filedocumented as of this encounter Visit Diagnoses Not on filedocumented in this encounter Additional Health Concerns Assessment Noted Time PHQ-9 Depression Total Score: 23 12/22/2017 1:35 PM CD T documented as of this encounter Care Teams Airport Operations Crew Member Relationship Specialty Start Date End Date Iris Garcia APRN, C.N.P., PCP - General Family Medicine 05/16/20 M.S.N. [address] [place] [address] documented as of this encounter
--- OUTSIDE RECORDS SUMMARY | 2022-05-17 11:36 | XMS_ITS | Encounter Summary ---
:1995 Author Organization [facility] Address [address] [place] [address] Care Team Providers Name Role Phone Iris Garcia APRN, C.N.P., M.S.N. Primary Care [facility] Reason for Visit Reason Comments Med Refill Encounter Details Date Type Department Care Team Description 04/27/2018 Refill Department of Internal Iris Garcia, Med Refill Medicine in [facility] Restrepo C.N. P., M.S.N. [place] [address] [facility] [address] [place] [address] [place] [address] [facility] [phone] Social History Tobacco Use Types Packs/Day Years [...] How often do you attend buddhism or adventist Never 11/23/2020 services? Do you belong to [...] or slept in a alf (including now)? 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 [address] [place] [id number] documented as of this encounter
--- OUTSIDE RECORDS SUMMARY | 2022-05-17 11:36 | XMS_ITS | Encounter Summary ---
:1995 Author Organization [facility] Address [address] [place] [address] Care Team Providers Name Role Phone Mirella Silva P.A.-C. Primary Care Provider [phone] Reason for Visit Reason Comments Headache Dizziness Encounter Details Date Type Department Care Team Description 06/03/2020 Nurse Triage Department of [facility] [place]; Dizziness Medicine, [place] Jeffrey RStephany [facility], in [place], [address] [place], [place] [address] [address] [place] [address] Social History Tobacco Use Types Packs/Day [...] 11/23/2020 relatives? How often do you attend scientology or caodaism Never 11/23/2020 services? Do you belong to any clubs or organizations such as No 11/23/2020 scientology groups, unions, fraternal or athletic groups, or [...] at Date Recorded Female 05/20/2017 4:45 PM BUSINESS PROCESS REPRESENTATIVE documented as of this encounter Miscellaneous Notes Telephone Encounter - Imelda Perrin R.N. - 06/03/2020 10:31 AM BUSINESS PROCESS REPRESENTATIVE Chief Complaint / Reason for Call Patient is a 24 y.o. female calling regarding Headache and Dizziness. Assessment Concern: Dizziness; lightheaded; confused (unable to focus); tired; pain on the back of her head; rubber band around her head, heart racing; discomfort 8/10 currently); light sensitivity especially at night or in stores; seems like her symptom are getting progressively worse. Present for: 8 days Home cares tried: tylenol and ibuprofen; Imitrex tried on Friday; Calling to request: Advice The recommended disposition is Seek medical care immediately. Reason for Disposition ? ? [1] MODERATE headache (e.g., interferes with normal activities) AND [2] present > 24 hours AND [3] unexplained (Exceptions: analgesics not tried, typical migraine, or headache part of viral illness) Protocols used: [id number] CALL BACK IF: * You become worse. Patient/Caregiver understands and will follow care advice? Yes, able to teach back COVID-19 Nurse Line Screening ASSESSMENT Combo COVID [...] are unrelated to a preexisting illness?: New vomiting, New nausea, New headache Do you have any of the following urgent symptoms?: Newly confused or unable to stay alert and awake. Symptom Onset Date of symptom onset: 05/27/20 PLAN Endpoint recommendation: Emergency Department Care Points: -Wash hands frequently with soap and water for at least 20 seconds -If soap and water are not available, use a hand care management assistant -Avoid touching your eyes, nose and mouth. [...] provider of any new or worsening symptoms. NESS PROCESS REPRESENTATIVE documented in this encounter Plan of Treatment Not on filedocumented as of this encounter Visit Diagnoses Not on filedocumented in this encounter Additional Health Concerns Assessment Noted Time PHQ-9 Depression Total Score: 9 05/05/2020 2:02 PM BUSINESS PROCESS REPRESENTATIVE documented as of this encounter Care Teams Child And Adolescent Psychiatrist Relationship Specialty Start Date End Date Mirella Silva P.A.-C. PCP - General 05/17/20 07/04/[address] [address] documented as of this encounter
--- OUTSIDE RECORDS SUMMARY | 2022-05-17 11:36 | XMS_ITS | Encounter Summary ---
:1995 Author Organization [facility] Address [address] [place] [address] Care Team Providers Name Role Phone Iris Garcia APRN C.N.P., M.S.N. Primary Care [phone] Encounter Details Date Type Department Care Team Description 04/13/2018 Orders Only Department of Obstetrics Haylee Miller, and Gynecology in [facility] NAHUN , C.N.PSampson [place] [address] [place] [address] [place] [address] [phone] Social History Tobacco Use Types Packs/Day Years [...] How often do you attend religious or episcopalian Never 11/23/2020 services? Do you belong to [...] slept in a skilled nursing (including now)? Sex Assigned at Date Recorded Female 05/20/2017 4:45 PM MATERIAL INSPECTOR documented as of this encounter Plan of Treatment Not on filedocumented as of this encounter Visit Diagnoses Not on filedocumented in this encounter Additional Health Concerns Assessment Noted Time PHQ-9 Depression Total Score: 23 12/22/2017 1:35 PM CD T documented as of this encounter Care Teams Exceptional Children Teacher Assistant Relationship Specialty Start Date End Date Iris Garcia APRN, C.N.P., PCP - General Family Medicine 05/16/20 M.S.N. [address] [place] [phone] documented as of this encounter
--- OUTSIDE RECORDS SUMMARY | 2022-05-17 11:36 | XMS_ITS | Encounter Summary ---
:1995 Author Organization [facility] Address [address] [place] [address] Care Team Providers Name Role Phone Iris Garcia APRN, C.NKb, M.S.N. Primary Care [facility] Encounter Details Date Type Department Care Team Description 02/07/2020 Clinical Communication Urgent Care in [facility] [place], [place] [address] [place] [phone] Social History Tobacco Use Types Packs/Day Years [...] 11/23/2020 relatives? How often do you attend anabaptist or orthodoxy Never 11/23/2020 services? Do you belong to any clubs or organizations such as No 11/23/2020 anabaptist groups, unions, fraternal or athletic groups, or [...] place to sleep or slept in a detention (including now)? Education Answer Date Recorded What is the highest level of school you have completed or 12 th grade 04/15/2019 the highest degree you have received? Sex Assigned at Date Recorded Female 05/20/2017 4:45 PM SEWER HAND documented as of this encounter Miscellaneous Notes Telephone Encounter - Tess Price - 02/07/2020 9:18 AM CDT ([facility] and [facility] locations only: If the patient is not having symptoms and is requesting COVID-19 Nasal Swab testing only, use the process listed in the COVID-19 Patient Requesting COVID PCR Test OTG COVID-19 [place] Patient Requesting COVID PCR Test). 1. Do you have a pending COVID test because you had symptoms or exposure to someone with COVID or you have tested positive for COVID in the last 30 days? no 2. In the past 14 days, do you, anyone in the household, or anyone you have had prolonged exposure have any of the following? a. Fever greater than or equal to 37.8 C (100.0 F)? no b. New symptoms (Specifically: headache, cough, shortness of breath, respiratory distress, sore throat, diarrhea, nausea, vomiting, chills and repeated shaking with chills, myalgia's (muscle aches), loss of smell, or change or loss of taste sensation)? no Route reply to: n/a Scheduling Contact Number: [phone] documented in this encounter Plan of Treatment Not on filedocumented as of this encounter Visit Diagnoses Not on filedocumented in this encounter Additional Health Concerns Assessment Noted Time PHQ-9 Depression Total Score: 27 10/26/2018 12:16 PM C DT documented as of this encounter Care Teams Contract Manager Relationship Specialty Start Date End Date Iris Garcia APRN C.N.P., PCP - General Family Medicine 05/16/20 MSampsonS.NSampson [address] [place] [address] documented as of this encounter
--- OUTSIDE RECORDS SUMMARY | 2022-05-17 11:36 | XMS_ITS | Encounter Summary ---
:1995 Author Organization [facility] Address [address] [place] [address] Care Team Providers Name Role Phone Iris Garcia APRN, C.N.P., M.S.N. Primary Care [facility] Reason for Visit Reason Comments Contraception IUD Appointment Request (Routine) - Closed Specialty Diagnoses / Procedures Referred By Contact Refer red To Contact Obstetrics and Gynecology Referral ID Status Reason Start Date Expiration Date Visits Requ ested Visits Authorized [id number] Closed 04/12/2019 04/11/2020 1 1 Encounter Details Date Type Department Care Team Description 04/20/2019 Office Visit Department of Haylee Miller Management Obstetrics and J, NAHUN, C.N.P. Contraceptive (Primary Gynecology in [address]) [place], [place] [address] [address] [place], [place] [phone] (Work) [phone] Social History Tobacco Use Types Packs/Day Years [...] 11/23/2020 relatives? How often do you attend pentecostal or protestant Never 11/23/2020 services? Do you belong to any clubs or organizations such as No 11/23/2020 pentecostal groups, unions, fraternal or athletic groups, or [...] at Date Recorded Female 05/20/2017 4:45 PM STEWARD/STEWARDESS LOUNGE documented as of this encounter Last Filed Vital Signs Vital Sign Reading Time Taken Comments Blood Pressure 118/80 04/20/2019 10:45 AM CDT Pulse 90 04/20/2019 10:45 AM CDT Temperature - - Respiratory Rate 18 04/20/2019 10:45 AM CDT Oxygen Saturation - - Inhaled Oxygen Concentration - - Weight 101 kg (223 lb 12.3 oz) 04/20/2019 10:45 AM CDT Height - - Body Mass Index 34.31 04/15/2017 4:30 PM CDT documented in this encounter Progress Notes Haylee Miller, NAHUN, C.N.P. - 04/20/2019 10:45 AM CDT CHIEF COMPLAINT/REASON FOR VISIT Chief Complaint Patient presents with ??? Contraception IUD HISTORY OF PRESENT ILLNESS Emily is a 23 year-old para 2002 female who presents for Mary Kate IUD insertion. Her LMP was last month, but she is unsure as to the exact date. She and her partner have been using condoms for contraception since she had her ParaGard IUD removed approximately a year ago. She notes that there are a couple occasions about a month ago in which they use withdrawal for contraception. She has not been sexually active in the last couple weeks. She consents to test to rule out prior to insertion of her IUD today. We did review the risks, benefits, side effects, alternatives, insertion and removal process. Her consent was obtained. Deale protocol was followed. The device was successfully inserted today. CURRENT MEDICATIONS Current Outpatient Medications Medication Sig Dispense Refill ??? acetaminophen (TYLENOL) 500 mg capsule Take 1,000 mg by mouth every 6 (six) hours as needed for pain. ??? ibuprofen (ADVIL,MOTRIN) 400 mg tablet Take 400 mg by mouth every 4 (four) hours. ??? dx-ock-EL-Rs-Oe-snqahwu-lutein (MULTIVITAL) 0.4-162-18 mg tablet Take by mouth. ??? aspirin-sod bicarb-citric acid (FARTUN-SELTZER) 324 mg tablet Take 324 mg by mouth every 6 (six) hours as needed for pain. ??? levonorgestrel (MARY KATE) 14 mcg/24 hrs (3 yrs) 13.5 mg IUD 1 Intra Uterine Device (1 each total) by intrauterine route once for 1 dose. Due for removal 04/20/2022. 1 Intra Uterine Device 0 No current facility-administered medications for this visit. ALLERGIES Allergies Allergen Reactions ??? Codeine GI intolerance VITAL SIGNS BP 118/80 (BP Location: Left arm, Patient Position: Sitting, Cuff Size: Large) Pulse 90 Resp 18 Wt 101 kg LMP (LMP Unknown) ? No BMI 34.31 kg/m?? DIAGNOSTICS Urine test obtained and negative. PROCEDURE General: She is a well-appearing female in no acute distress. Pelvis: External genitalia appears healthy and intact. BUS is negative. Bimanual exam reveals a normal size and position of the uterus. Procedural pause was performed to identify procedure and patient.Patient was prepped in the dorsolithotomy position, and a sterile speculum was inserted. Vaginal mucosa appears pink and intact. Normal physiologic discharge noted. Cervix is visualized and appears pink and intact. The cervix was then prepped with iodine. A tenaculum was placed at the anterior lip of the cervix. A pipelle sound was placed in the cervical os in the usual sterile fashion. The uterus sounded to 8 cm. The Mirena was loaded in the applicator in the usual fashion using sterile technique, and the indicator was placed according to the sound. The applicator was inserted into the cervix. Theintrauterine device was placed approximately 1 cm before the depth sounder was obtained. The device was deployed and pushed approximately to the area of the fundus. The uterine device was withdrawn with the strings apparent in the cervical os. The strings were trimmed to approximately 2 to 3 cm in length from the external cervical os. Tenaculum was then removed from the anterior cervix. Hemostasis was achieved. The patient tolerated the procedure well. She had no complications. Specifically there was no abdominal pain after the procedure. Mary Kate IUD- Lot#: [id number] Expiration Date: November/2020 ICE CREAM DIPPER: Michelle Bourgeois LPN ASSESSMENT/PLAN #1 Management Contraceptive Plan: After appropriate discussion of the risks and benefits of an IUD placement, written and informed consent was obtained. was ruled out with urine test, and the IUD was placed without complication. Postprocedure instructions were discussed in detail. The patient will use alternate forms of control for the next week. Discussed checking strings in 2 weeks. [facility] and the information card with the insertion and removal dates and my contact information on it. She will contact me if she has any concerns, questions, or problems. I will plan to see her back in clinic in 6 weeks for a string check. documented in this encounter Procedure Notes Haylee Miller APRN, CSampsonNSampsonP. - 04/20/2019 10:45 AM CDTAssociated Order(s): IUD - Insertion or Reinsertion w/removal Post-Procedure Diagnose(s): Management Contraceptive IUD - Insertion or Reinsertion w/removal Date/Time: 04/20/2019 11:55 AM Performed by: Haylee Miller APRN, C.N.P. Authorized by: Haylee Miller APRN, C.N.P. Care team members present 1. Michelle Bourgeois L.P.N. PROCEDURE DETAILS Procedure: Insertion Pelvic exam performed: yes GC/Chlamydia: Not indicated Tenaculum applied to cervix: yes Uterus sounded: yes Uterus sound depth (cm): 8 Strings length (cm): 2 cm IUD type: 1 each levonorgestrel 14 mcg/24 hrs (3 yrs) 13.5 mg CONSENT Consent obtained: written UNIVERSAL PROTOCOL All relevant documentation and testing were reviewed and available. All required blood products, implants, devices and or special equipment were made available as applicable. Pre-procedure verificationwas conducted and the correct site was marked if required. A fire risk assessment was done as applicable. The procedural time-out was conducted prior to performing the procedure and confirmed in a procedural pause. PRE-PROCEDURE DETAILS Assessment - reasonably exclude based on: test Indications: Contraception Appropriate hand hygiene, gown, cap, mask, protective eyewear, sterile gloves, skin preparation, sterile drape, and strict aseptic technique were utilized as applicable for the procedure.: yes Site preparation: Povidone-iodine SEDATION / ANESTHESIA Anesthesia method: none POST-PROCEDURE DETAILS Procedure completed successfully: yes Complications: no apparent complications COMMENTS Mary Kate AQUACULTURIST documented in this encounter Plan of Treatment Not on filedocumented as of this encounter Procedures Procedure Name Priority Date/Time Associated Diagnosis Comme nts TEST, POCT, Routine 04/20/2019 10:58 Management Re sults for this U (LAB) AM CDT Contraceptive procedure are in the results section. ME INSERT OF Routine 04/20/2019 10:45 Management Results for this INTRAUTERINE DEVICE AM CDT Contraceptive procedu re are in the results section. documented in this encounter Results Test, POCT, Urine (lab) (04/20/2019 10:58 AM CDT) P athologist Signature Negative 04/20/2019 OWAT Test, POCT, U 11:18 AM CDT Specimen Anatomical Collection Method Collection Time Receive d Time (Source) Location / / Volume Laterality Urine (Urine, 04/20/2019 10:58 04/20/2019 Clean Catch) AM CDT 11:11 AM CDT Haylee Miller APRN, C.N.P. LAB POCT ORDERABLES - D EVICE Performing Organization Address City/State/ZIP Code Phon e Number [facility] [address] [place] [address] [facility] [place] [place] [address] System in [place] [address] [place] INSERT OF INTRAUTERINE DEVICE (04/20/2019 10:45 AM CDT) Narrative [facility]ODAL - 04/20/2019 10:45 AM CDT Haylee Miller APRN, C.N.P. ? 04/20/2019 11:56 AM IUD - ??Insertion or Reinsertion w/remov al Date/Time: 04/20/2019 11:55 AM Performed by: Haylee Miller APRN, C.N.P. Authorized by: Haylee Miller APRN, C.N.PSampson Care team members present 1. Michelle Bourgeois L.P.N. PROCEDURE DETAILS ??Procedure: ??Insertion ??Pelvic exam performed: yes ?GC/Chlamydia: ??Not indicated ??Tenaculum applied to cervix: yes ?Uterus sounded: yes ?Uterus sound depth (cm): ??8 ??Strings length (cm): ??2 cm ??IUD type: 1 each levonorgestrel 14 mc g/24 hrs (3 yrs) 13.5 mg CONSENT Consent obtained: written UNIVERSAL PROTOCOL All relevant documentation and testing w ere reviewed and available. All required blood products, implants, devic es and or special equipment were made available as applicable. Pre-proced ure verification was conducted and the correct site was marked if required. A fire risk assessment was done as applicable. The procedural time-out w as conducted prior to performing the procedure and confirmed in a procedu ral pause. PRE-PROCEDURE DETAILS ?? Assessment - reas onably exclude based on: ?? test ??Indications: ??Contraception ??Appropriate hand hygiene, gown, cap, mask, protective eyewear, sterile gloves, skin preparation, sterile drape, and strict aseptic technique were utilized as applicable for the procedure .: yes ?Site preparation: ??Povidone-iodine SEDATION / ANESTHESIA Anesthesia method: none POST-PROCEDURE DETAILS ??Procedure completed successfully: yes ?Complications: no apparent complicati ons ?? COMMENTS ?? Mary Kate Haylee Miller APRN, C.N.P. OB GYNE ORDERABLES Performing Organization Address City/State/ZIP Code Phon e Number [facility] NA documented in this encounter Visit Diagnoses Diagnosis Management Contraceptive - Primary documented in this encounter Administered Medications Inactive Administered Medications - up to 3 most recent administrations Medication Order MAR Action Action Date Dose Rate Site levonorgestrel 14 mcg/24 hrs (3 Given 04/20/2019 11:55 AM CDT 1 each yrs) 13.5 mg IUD 1 each (MARY KATE) 1 each, intrauterine, One-Time Injection, Starting on Fri04/20/19 at 1155, For 1 dose documented in this encounter Additional Health Concerns Assessment Noted Time PHQ-9 Depression Total Score: 27 10/26/2018 12:16 PM C DT documented as of this encounter Care Teams Adolescent Counselor Relationship Specialty Start Date End Date Iris Garcia APRN, C.N.P., PCP - General Family Medicine 05/16/20 M.S.N. [address] [place] [address] documented as of this encounter
--- OUTSIDE RECORDS SUMMARY | 2022-05-17 11:36 | XMS_ITS | Encounter Summary ---
:1995 Author Organization [facility] Address [address] [place] [address] Care Team Providers Name Role Phone Iris Garcia APRN C.N.P., M.S.N. Primary Care [facility] Reason for Visit Reason Comments JORDAN Nurse Line Encounter Details Date Type Department Care Team Description 02/09/2020 Clinical Communication Division of JORDAN [facility] Internal Shauna Whiting, Medicine, N[place] GARNICA, C.N.P., Building, in D.N.P. [place], [address] [place], [place] [address] [facility] [address] [place], [place] [phone] (Work) [phone] Social History Tobacco Use Types Packs/Day Years [...] 11/23/2020 relatives? How often do you attend adventist or gnosticist Never 11/23/2020 services? Do you belong to any clubs or organizations such as No 11/23/2020 adventist groups, unions, fraternal or athletic groups, or [...] at Date Recorded Female 05/20/2017 4:45 PM GLOBE CHANGER documented as of this encounter Miscellaneous Notes Telephone Encounter - Shauna Ahmadi R.N. - 02/09/2020 9:26 AM CDT COVID-19 Nurse Line Screening ASSESSMENT COVID 19 Screening Have you had close contact with a person who has a LABORATORY CONFIRMED case of COVID-19?: No - Continue screening. In the last 48 hours have you had any of the following symptoms?: No - Complete screening. Consider alternative diagnosis. We are not currently testing or isolating patients or visitors who have no symptoms and no close contact. PLAN Endpoint recommendation: Screening negative, testing not indicated at this time Care Points provided: STANDARD PRECAUTIONS FOR ALL PATIENTS: Wash hands often with soap and water for at least 20 seconds, especially after blowing your nose, coughing, sneezing, or having been in a public place. If soap and water aren't available, use a hand ground products director that contains at least 60% alcohol. Avoid close contact with anyone who may be exhibiting respiratory symptoms such as coughing and sneezing. Avoid touching your eyes, nose and mouth. Clean and disinfect frequently touched surfaces daily. Cover your mouth and nose with a cloth face cover when around others or in public. The cloth face cover is not a substitute for social distancing. Continue to keep about 6 feet between yourself andothers. Monitor for symptoms. Do not take your temperature within 30 minutes of exercise. If your test or screen is negative and new symptoms develop please contact your provider if it has been greaterthan 72 hours since you were tested. Educational Resource: https://www.cdc.gov/coronavirus/2019-ncov/ gxocjil-rzbiwcj-gcpo/index.html Education: patient/caregiver Patient/caregiver able to teach back Patient agreeable to plan of care: Yes The following references were used: [facility] novel coronavirus (COVID- 19) resources CDC web site https://www.cdc.gov/coronavirus/2019-ncov/summary.html Nursing judgement documented in this encounter Plan of Treatment Not on filedocumented as of this encounter Visit Diagnoses Not on filedocumented in this encounter Additional Health Concerns Assessment Noted Time PHQ-9 Depression Total Score: 27 10/26/2018 12:16 PM C DT documented as of this encounter Care Teams Service Line Coordinator Relationship Specialty Start Date End Date Iris Garcia APRN, C.N.P., PCP - General Family Medicine 05/16/20 M.S.N. [address] [place] [phone] documented as of this encounter
--- OUTSIDE RECORDS SUMMARY | 2022-05-17 11:36 | XMS_ITS | Encounter Summary ---
:1995 Author Organization [facility] Address [address] [place] [address] Care Team Providers Name Role Phone Iris Garcia APRN, C.N.P., M.S.N. Primary Care [facility] Encounter Details Date Type Department Care Team Description 10/26/2018 Orders Only Department of [facility] Iris Garcia , Medicine, [facility], Melanie GARNICA, M.S.N. in [facility] [address] [facility] [address] [place] [phone] (Wo rk) Social History Tobacco Use Types [...] How often do you attend orthodoxy or yarsani Never 11/23/2020 services? Do you [...] slept in a senior care (including now)? Sex Assigned at Date Recorded Female 05/20/2017 4:45 PM BUSINESS DEPARTMENT CHAIR documented as of this encounter Plan of Treatment Not on filedocumented as of this encounter Visit Diagnoses Not on filedocumented in this encounter Additional Health Concerns Assessment Noted Time PHQ-9 Depression Total Score: 27 10/26/2018 12:16 PM C DT documented as of this encounter Care Teams Flat Lock Machine Operator Relationship Specialty Start Date End Date Iris Garcia APRN, C.N.P., PCP - General Family Medicine 05/16/20 M.S.N. [address] [place] [phone] documented as of this encounter
--- OUTSIDE RECORDS SUMMARY | 2022-05-17 11:36 | XMS_ITS | Encounter Summary ---
:1995 Author Organization [facility] Address [address] [place] [address] Care Team Providers Name Role Phone Mirella Silva P.A.-C. Primary Care Provider [phone] Encounter Details Date Type Department Care Team Description 06/06/2020 Orders Only Department of Family Nargis Reddy AP RN, Medicine, [facility], C.N.P ., M.S.N. in [facility] [address] [place] [address] [place] [address] [phone] Social History Tobacco Use Types Packs/Day Years [...] How often do you attend caodaism or faith Never 11/23/2020 services? Do you belong to [...] place to sleep or slept in a half-way (including now)? Education Answer Date Recorded What is the highest level of school you have completed or 12 th grade 04/15/2019 the highest degree you have received? Sex Assigned at Date Recorded Female 05/20/2017 4:45 PM WRAPPER SHEETER documented as of this encounter Plan of Treatment Not on filedocumented as of this encounter Visit Diagnoses Not on filedocumented in this encounter Additional Health Concerns Assessment Noted Time PHQ-9 Depression Total Score: 9 05/05/2020 2:02 PM WRAPPER SHEETER documented as of this encounter Care Teams Nail Making Machine Setter Relationship Specialty Start Date End Date Mirella Silva P.AAbiel. PCP - General 05/17/20 07/04/[address] [address] documented as of this encounter
--- OUTSIDE RECORDS SUMMARY | 2022-05-17 11:36 | XMS_ITS | Encounter Summary ---
:1995 Author Organization [facility] Address [address] [place] [address] Care Team Providers Name Role Phone Iris Garcia APRN, C.NKb, M.S.N. Primary Care [facility] Reason for Visit Reason Comments COVID Nurse Line Triage Encounter Details Date Type Department Care Team Description 11/19/2019 Nurse Triage Department of [facility] Kaylee Bundy Nurse Line; Medicine in [place], M, R.N. Triage [place] [address] [place] [address] Social History Tobacco Use Types Packs/Day Years [...] How often do you attend christianity or anabaptism Never 11/23/2020 services? Do you belong to [...] place to sleep or slept in a intermediate (including now)? Education Answer Date Recorded What is the highest level of school you have completed or 12 th grade 04/15/2019 the highest degree you have received? Sex Assigned at Date Recorded Female 05/20/2017 4:45 PM TOWEL SORTER documented as of this encounter Miscellaneous Notes Telephone Encounter - Kaylee Bundy R.N. - 11/19/2019 11:54 AM CDT COVID-19 Nurse Line Screening ASSESSMENT [...] and water aren't available, use a hand choir accompanist that contains at least 60% alcohol. Avoid [...] keep about 6 feet between yourself andothers. Stay home as much as possible (only going out for essential items or medical care). Educational Resource: https://www.cdc.gov/coronavirus/2019-ncov/panyrgi-lzblosm-nmgl/index.html SELF CARE FOR ALL PATIENTS: In these stressful times, it is important to take care of your mental health as well as your physical health. Take breaks from watching, reading, or listening to news stories. It can be upsetting to hear about the crisis and see images repeatedly. Make time to unwind. Try to do some other activities you enjoy. Connect with others. Talk with people you trust about your concerns and how you are feeling. Be creative in keeping connected with loved ones. Develop a plan for your day. Shower, get dressed, have a routine. Structure in productive tasks as well as leisure time. Try healthy coping strategies such as meditation, relaxation, exercise, healthy eating habits, and avoid alcohol and drugs. Maintain a consistent sleep schedule. Keep sleep area and work areas separate. Education: patient/caregiver She will read care points in her Portal. Patient agreeable to plan of care: Yes The following references were used: [facility] novel coronavirus (COVID- 19) resources COVID-19 provider advice CARE POINTS REVIEWED - If symptoms worsen or continue at the end of the course of medication, call primary provider. - For women ages 16-55: Antibiotics may decrease the efficacy of contraceptive medications includingtablets, NuvaRing and patch. If using these medications, an additional form of control must beused until the end of patient's current cycle. - Drink extra fluids. - Urinate frequently and avoid retaining your urine for a long time when you feel the urge to void. - Empty bladder after intercourse documented in this encounter Plan of Treatment Not on filedocumented as of this encounter Visit Diagnoses Not on filedocumented in this encounter Additional Health Concerns Assessment Noted Time PHQ-9 Depression Total Score: 27 10/26/2018 12:16 PM C DT documented as of this encounter Care Teams Wildlife Rehabilitator Relationship Specialty Start Date End Date Iris Garcia APRN, C.N.P., PCP - General Family Medicine 05/16/20 M.S.N. [address] [place] [phone] documented as of this encounter
--- OUTSIDE RECORDS SUMMARY | 2022-05-17 11:36 | XMS_ITS | Encounter Summary ---
:1995 Author Organization [facility] Address [address] [place] [address] Care Team Providers Name Role Phone Mirella Silva P.A.-C. Primary Care Provider [phone] Reason for Visit Reason Comments Headache x1 week, pressure, dizzy, co nfusion, pain in the back of her head, iv meds helped but made her drowsy, pressure is constant, imitrex is giving her side effects, nothing seems to be relieving the pressure Appointment Request (Routine) - Closed Specialty Diagnoses / Procedures Referred By Contact Refer red To Contact Family Medicine Referral ID Status Reason Start Date Expiration Date Visits Requ ested Visits Authorized [id number] Closed 06/05/2020 06/05/2021 1 1 Encounter Details Date Type Department Care Team Description 06/05/2020 Telemedicine Urgent Care in Geri Dutta, Headache Un specified [place], [place] Kev (Primary Dx) [address] [place] [phone] Social History Tobacco Use Types Packs/Day Years [...] How often do you attend bahai or adventism Never 11/23/2020 services? Do you [...] at Date Recorded Female 05/20/2017 4:45 PM CONCRETE FLOATER documented as of this encounter Progress Notes Geri Dutta P.A.-C. - 06/05/2020 7:00 PM CST SUBJECTIVE CHIEF COMPLAINT/REASON FOR VISIT Headache (x1 week, pressure, dizzy, confusion, pain in the back of her head, iv meds helped but madeher drowsy, pressure is constant, imitrex is giving her side effects, nothing seems to be relieving the pressure) HISTORY OF PRESENT ILLNESS Emily Zapien is a 24 y.o. female who presents for evaluation of headache. She states that about 1 week ago she developed her typical migraine headache. This was accompanied with dizziness, confusion, blurred vision. She presented to the emergency department 3 days ago and was given droperidol and Toradol. This helped relieve her migraine, though she felt very drowsy afterwards. Ever since thattime, she has had pain in the back of her head. It feels like a constant pressure. She has associated neck pain/soreness. She states her neck muscles feel tight. She has never had this type of pain in the past. She has been taking tylenol and ibuprofen without relief. She states that her dizziness, blurred vision, and confusion has all essentially resolved. She is most concerned about this pain in the back of her head. She denies fevers/chills. Patient Active Problem List Diagnosis ??? Migraine Without Aura Not Intractable Without Status Migrainosus CURRENT MEDICATIONS Current Outpatient Medications Medication Sig Dispense Refill ??? acetaminophen (TYLENOL) 500 mg capsule Take 1,000 mg by mouth every 6 (six) hours as needed for pain. ??? gtbfsct-mqvqjuotcvusc-hynysdog (EXCEDRIN MIGRAINE) 250-250-65 mg per tablet Take 1 tablet by mouth every 6 (six) hours as needed for pain. ??? cyclobenzaprine (FLEXERIL) 10 mg tablet Take 0.5 tablets (5 mg total) by mouth 3 (three) times aday as needed for muscle spasms for up to 7 days. 11 tablet 0 ??? ibuprofen (ADVIL,MOTRIN) 400 mg tablet Take 400 mg by mouth every 6 (six) hours as needed for pain. ??? ne-xru-RO-Nb-Yx-reqllkp-lutein (MULTIVITAL) 0.4-162-18 mg tablet Take by mouth. ??? SUMAtriptan (IMITREX) 50 mg tablet Take 1 tablet (50 mg total) by mouth as needed for migraine. May repeat dose once in 2 hours if migraine unresolved. Do not exceed 200 mg in 24 hours. 27 tablet 3 No current facility-administered medications for this visit. ALLERGIES/CONTRAINDICATIONS Allergies Allergen Reactions ??? Codeine GI intolerance OBJECTIVE There were no vitals taken for this visit. PHYSICAL EXAMINATION General: No acute distress. Patient is polite and cooperative. Appropriately dressed and normal hygiene. Skin: No suspicious lesions or rash noted over exposed skin. HEENT: Normocephalic. Pupils equal, conjunctiva clear. Mental Health: Alert and oriented. Normal thought form and content. ASSESSMENT / PLAN #1 Headache Unspecified - Limited exam due to virtual nature of this visit. Based on history, does sound like typical tension type headache. There are no red flag symptoms to indicate need for emergent imaging at this time. - Recommend trial of Flexeril. Side effects were discussed. If symptoms do not improve with this therapy she will follow-up in the clinic. Order for CRCC placed. - She should present to the emergency department if she develops any new or worsening symptoms. Electronically signed by: Geri Dutta P.A.-C. 06/05/20 8:22 PM CONCRETE FLOATER RETE FLOATER documented in this encounter Plan of Treatment Not on filedocumented as of this encounter Visit Diagnoses Diagnosis Headache Unspecified - Primary documented in this encounter Additional Health Concerns Assessment Noted Time PHQ-9 Depression Total Score: 9 05/05/2020 2:02 PM CONCRETE FLOATER documented as of this encounter Care Teams Lumber Inspector Relationship Specialty Start Date End Date Mirella Silva P.A.-C. PCP - General 05/17/20 07/04/[address] [phone] documented as of this encounter
--- OUTSIDE RECORDS SUMMARY | 2022-05-17 11:36 | XMS_ITS | Encounter Summary ---
:1995 Author Organization [facility] Address [address] [place] [address] Care Team Providers Name Role Phone Iris Garcia APRN, C.N.P., M.S.N. Primary Care Pro[place] di Reason for Visit Reason Comments Migraine Duration 6 months, exhaustio n, dizziness. Anxiety High Outpatient (Routine) - Closed Specialty Diagnoses / Procedures Referred By Contact Refer red To Contact Family Medicine Iris Garcia, [facility] Melanie GARNICA, M.S.N. [address] [place] [address] Referral ID Status Reason Start Date Expiration Date Visits Requ ested Visits Authorized [id number] Closed 01/11/2020 01/10/2021 1 1 Encounter Details Date Type Department Care Team Description 05/05/2020 Office Visit Department of Nargis Aaron Mi graine Headache Medicine, [place] GARNICA C.N.[place], (Primary Dx) Clinic, in [place] M.S.NSam[place] [address] [place] [phone] Social History Tobacco Use Types Packs/Day [...] How often do you attend scientology or oriental orthodox Never 11/23/2020 services? Do [...] at Date Recorded Female 05/20/2017 4:45 PM SWAT TEAM MEMBER documented as of this encounter Last Filed Vital Signs Vital Sign Reading Time Taken Comments Blood Pressure 112/76 05/05/2020 1:52 PM SWAT TEAM MEMBER Pulse 76 05/05/2020 1:52 PM SWAT TEAM MEMBER Temperature 36.1 ??C (97 ??F) 05/05/2020 1:52 PM SWAT TEAM MEMBER Respiratory Rate 14 05/05/2020 1:52 PM SWAT TEAM MEMBER Oxygen Saturation - - Inhaled Oxygen Concentration - - Weight 98.7 kg (217 lb 9.5 oz) 05/05/2020 1:52 PM SWAT TEAM MEMBER Height - - Body Mass Index 33.36 04/15/2017 4:30 PM CDT documented in this encounter Progress Notes Nargis Reddy APRN, C.N.P., M.S.N. - 05/05/2020 2:00 PM CST SUBJECTIVE CHIEF COMPLAINT / REASON FOR VISIT Migraine (Duration 6 months, exhaustion, dizziness.) and Anxiety (High) HISTORY OF PRESENT ILLNESS Emily Zapien is a pleasant 24 y.o. female who presents to the clinic today for evaluation of migraine headaches. Patient reports that she believes that she started to have migraine headaches around the age of 16. She has never been on migraine prevention or abortive medications for the headachein the past. She reports that she has usually just taken Excedrin migraine. However she reports thatrecently she is experiencing severe headaches 2-3 days a week and the exact is no longer helping to improve her headaches. She reports that she will experience pain mostly in the front of her head feels like a lot of pressure. She denies having an aura when the headache and denies that she has any vomiting with them. Recently she had the Zaida IUD and she thought that was increasing her headaches however she has had it removed 6 months ago and has noticed no improvement in the duration and frequency of her headaches. Patient reports that she has a strong family history of migraines in that both her mother and grandmother have migraine headaches and are on medication for migraines. She notices that she has an increase in her headaches when she is tired or has increased stress. She reports that she has 3 small children so feels that she does have increased stress more recently. She has no further concerns today. REVIEW OF SYSTEMS: Neurological: Positive for headaches. The following systems were negative: Constitutional, Skin, Eyes, ENT, CV, Respiratory, GI, , Hematologic, Musculoskeletal, Psych CURRENT MEDICATIONS Current Outpatient Medications Medication Sig Dispense Refill ??? acetaminophen (TYLENOL) 500 mg capsule Take 1,000 mg by mouth every 6 (six) hours as needed for pain. ??? xzqgfcx-umlwgwpwfvmjz-udcsgsad (EXCEDRIN MIGRAINE) 250-250-65 mg per tablet Take 1 tablet by mouth every 6 (six) hours as needed for pain. ??? ibuprofen (ADVIL,MOTRIN) 400 mg tablet Take 400 mg by mouth every 6 (six) hours as needed for pain. ??? jz-jvk-AU-Mn-Rq-trbqsvi-lutein (MULTIVITAL) 0.4-162-18 mg tablet Take by mouth. ??? SUMAtriptan (IMITREX) 50 mg tablet Take 1 tablet (50 mg total) by mouth as needed for migraine. May repeat dose once in 2 hours if migraine unresolved. Do not exceed 200 mg in 24 hours. 27 tablet 3 No current facility-administered medications for this visit. ALLERGIES / CONTRAINDICATIONS Allergies Allergen Reactions ??? Codeine GI intolerance OBJECTIVE BP 112/76 (BP Location: Right arm, Patient Position: Sitting, Cuff Size: Large) Pulse 76 Temp 36.1 ??C (Temporal) Resp 14 Wt 98.7 kg LMP 04/24/2020 (Exact Date) No BMI 33.36kg/m?? PHYSICAL EXAMINATION General: Alert, pleasant female appearing in no acute distress. Neurologic: Oriented x 3, responds appropriately to questions and follows commands without difficulty. Pupils equal and reactive to light. Cranial nerves II-XII grossly intact. Head: Normocephalic, atraumatic. Neck: Supple without lymphadenopathy. No thyromegaly or carotid bruits. Heart: Normal S1, S2 with regular rate and rhythm. No murmurs, rubs, or clicks heard. Lungs: Clear to auscultation bilaterally posteriorly without rhonchi, wheezes, or crackles. No coughon exam today. Respirations are easy and unlabored. Abdomen: Soft, nondistended, nontender to palpation without palpable masses or organomegaly. Bowel sounds positive in all four quadrants. Musculoskeletal: full range of motion of upper and lower extremities. Skin: Warm and dry without rashes on the visible areas. Psychiatric: Appropriate mood and affect. ASSESSMENT / PLAN 1. Migraine Headache Plan: discussed with patient preventative migraine medication versus abortive medications. At this time patient would rather take a as needed medication to start with. Discussed with patient Imitrex. Discussed with patient how to take the medication and potential side effects. I would like the patientto follow up in 1 month either via portal or a visit to reassess, she should follow up sooner if needed. Encouraged patient to avoid migraine triggers, reduce stress, eat a balanced diet and exercise. - SUMAtriptan (IMITREX) 50 mg tablet; Take 1 tablet (50 mg total) by mouth as needed for migraine. May repeat dose once in 2 hours if migraine unresolved. Do not exceed 200 mg in 24 hours. Dispense: 27tablet; Refill: 3 PATIENT EDUCATION Ready to learn, no apparent learning barriers were identified; learning preferences include listening. Explained diagnosis and treatment plan; patient expressed understanding of the content, discussed at length. All questions answered. Nargis Reddy APRN, C.N.P., M.S.N. TEAM MEMBER documented in this encounter Plan of Treatment Not on filedocumented as of this encounter Visit Diagnoses Diagnosis Migraine Headache - Primary documented in this encounter Additional Health Concerns Assessment Noted Time PHQ-9 Depression Total Score: 9 05/05/2020 2:02 PM SWAT TEAM MEMBER documented as of this encounter Care Teams Bass Viol Repairer Relationship Specialty Start Date End Date Iris Garcia APRN, C.N.Sadie., PCP - General Family Medicine 05/16/20 M.S.N. [address] [place] [address] documented as of this encounter
--- OUTSIDE RECORDS SUMMARY | 2022-05-17 11:36 | XMS_ITS | Encounter Summary ---
:1995 Author Organization [facility] Address [address] [place] [address] Care Team Providers Name Role Phone Iris Garcia APRN C.N.P., M.S.N. Primary Care [phone] Encounter Details Date Type Department Care Team Description 04/14/2018 Orders Only Department of Obstetrics Haylee Miller, and Gynecology in [facility] NAHUN , C.N.PSampson [place] [address] [place] [address] [place] [address] [phone] Social History Tobacco Use Types Packs/Day Years [...] 11/23/2020 relatives? How often do you attend gnosticist or buddhism Never 11/23/2020 services? Do you belong to any clubs or organizations such as No 11/23/2020 gnosticist groups, unions, fraternal or athletic groups, or [...] place to sleep or slept in a residential (including now)? Sex Assigned at Date Recorded Female 05/20/2017 4:45 PM YACHT CAPTAIN documented as of this encounter Plan of Treatment Not on filedocumented as of this encounter Visit Diagnoses Not on filedocumented in this encounter Additional Health Concerns Assessment Noted Time PHQ-9 Depression Total Score: 23 12/22/2017 1:35 PM CD T documented as of this encounter Care Teams Rubber Compounder Supervisor Relationship Specialty Start Date End Date Iris Garcia APRN, C.N.P., PCP - General Family Medicine 05/16/20 M.S.N. [address] [place] [phone] documented as of this encounter
--- OUTSIDE RECORDS SUMMARY | 2022-05-17 11:36 | XMS_ITS | Encounter Summary ---
:1995 Author Organization [facility] Address [address] [place] [address] Care Team Providers Name Role Phone Iris Garcia APRN, C.N.P., M.S.N. Primary Care [facility] Encounter Details Date Type Department Care Team Description 05/01/2020 Clinical Communication Department of [facility], [place] APRN, Clinic, in eMlanie Restrepo, M.S .N. [place] [address] [facility] [address] [place] [phone] Social History Tobacco Use Types Packs/Day Years [...] How often do you attend yarsanism or congregation Never 11/23/2020 services? Do you [...] at Date Recorded Female 05/20/2017 4:45 PM DRAMA DIRECTOR documented as of this encounter Plan of Treatment Not on filedocumented as of this encounter Visit Diagnoses Not on filedocumented in this encounter Additional Health Concerns Assessment Noted Time PHQ-9 Depression Total Score: 27 10/26/2018 12:16 PM C DT documented as of this encounter Care Teams Diagnostic Radiologist Relationship Specialty Start Date End Date Iris Garcia APRN, C.N.P., PCP - General Family Medicine 05/16/20 M.S.N. [address] [place] [phone] documented as of this encounter
--- OUTSIDE RECORDS SUMMARY | 2022-05-17 11:36 | XMS_ITS | Encounter Summary ---
:1995 Author Organization [facility] Address [address] [place] [address] Care Team Providers Name Role Phone Iris Garcia APRN C.NSampsonPSampson, M.S.N. Primary Care Provi di Reason for Visit Reason Comments Migraine has had a migraine for about a week Appointment Request (Routine) - Closed Specialty Diagnoses / Procedures Referred By Contact Refer red To Contact Family Medicine Referral ID Status Reason Start Date Expiration Date Visits Requ ested Visits Authorized [id number] Closed 02/07/2020 02/06/2021 1 1 Encounter Details Date Type Department Care Team Description 02/07/2020 [place], Headache (Primary Dx) [place], [place] [address] [place] [phone] Social History Tobacco Use Types Packs/Day [...] 11/23/2020 relatives? How often do you attend sabianist or orthodoxy Never 11/23/2020 services? Do you belong to any clubs or organizations such as No 11/23/2020 sabianist groups, unions, fraternal or athletic groups, or [...] at Date Recorded Female 05/20/2017 4:45 PM ENDOCRINOLOGY PHYSICIAN documented as of this encounter Last Filed Vital Signs Vital Sign Reading Time Taken Comments Blood Pressure 127/76 02/07/2020 1:17 PM CDT Pulse 85 02/07/2020 1:17 PM CDT Temperature 36.3 ??C (97.3 ??F) 02/07/2020 1:17 PM CDT Respiratory Rate 18 02/07/2020 1:17 PM CDT Oxygen Saturation 99% 02/07/2020 1:17 PM CDT Inhaled Oxygen Concentration - - Weight 101 kg (222 lb 0.1 oz) 02/07/2020 1:17 PM CDT Height - - Body Mass Index 34.04 04/15/2017 4:30 PM CDT documented in this encounter Progress Notes [place] Shabazz M.D. - 02/07/2020 1:30 PM CDT CHIEF COMPLAINT/REASON FOR VISIT Emily Zapien is a 24 y.o. female that presents with headache somewhat migratory in nature. Yesterday or headache was across the entire scalp distribution but now today it is only in the frontal region bilaterally. This has been present in mostly present but somewhat intermittent fashion over the last week, less frequently/consistently somewhat longer. When asked specifically, she states that her current contacts do not provide clear vision as consistently as she would like. She believes it has been about 3 years since her last eye exam. She also feels that she is fairly anxious or stressed re cently. Current Outpatient Medications: ??? acetaminophen (TYLENOL) 500 mg capsule, Take 1,000 mg by mouth every 6 (six) hours as needed forpain., Disp: , Rfl: ??? aspirin-sod bicarb-citric acid (FARTUN-SELTZER) 324 mg tablet, Take 324 mg by mouth every 6 (six) hours as needed for pain., Disp: , Rfl: ??? ibuprofen (ADVIL,MOTRIN) 400 mg tablet, Take 400 mg by mouth every 6 (six) hours as needed for pain. , Disp: , Rfl: ??? up-lxs-PL-Cs-Wb-xoanacn-lutein (MULTIVITAL) 0.4-162-18 mg tablet, Take by mouth., Disp: , Rfl: ??? levonorgestrel (DEAN) 14 mcg/24 hrs (3 yrs) 13.5 mg IUD, 1 Intra Uterine Device (1 each total) by intrauterine route once for 1 dose. Due for removal 04/20/2022., Disp: 1 Intra Uterine Device, Rfl: 0 Allergies Allergen Reactions ??? Codeine GI intolerance Vitals: 02/07/20 1317 BP: 127/76 Pulse: 85 Resp: 18 Temp: 36.3 ??C SpO2: 99% PHYSICAL EXAMINATION GENERAL APPEARANCE: No acute distress. HEENT: CN 2 through 12 grossly intact on exam. Reproducible tenderness across the frontal region bilaterally on palpation. This is not reproduced on movement. This does not just include the frontal sinus region but also more superior and lateral near the hairline. Currently no tenderness elsewhere across the scalp but she is not having discomfort in that area at this time either. She thinks that if she were to have palpated this area when it was hurting yesterday that would have made it worse. Neck is supple. Good range of motion of all extremities is also noted with normal gait. IMPRESSION/PLAN Headache, likely muscle tension type. Conservative measures are reviewed and written out. Also suggest that she have an eye exam when she is able. All questions are discussed and answered. Patient voices good understanding and agreement with our plan. Follow-up with primary care if not improving as exp ected or otherwise as needed. documented in this encounter Plan of Treatment Not on filedocumented as of this encounter Visit Diagnoses Diagnosis Headache Unspecified - Primary documented in this encounter Additional Health Concerns Assessment Noted Time PHQ-9 Depression Total Score: 27 10/26/2018 12:16 PM C DT documented as of this encounter Care Teams Gasoline Attendant Relationship Specialty Start Date End Date Iris Garcia APRN, C.N.P., PCP - General Family Medicine 05/16/20 M.S.N. [address] [place] [address] documented as of this encounter
--- OUTSIDE RECORDS SUMMARY | 2022-05-17 11:36 | XMS_ITS | Encounter Summary ---
:1995 Author Organization [facility] Address [address] [place] [address] Care Team Providers Name Role Phone Iris Garcia APRN, C.N.P., M.S.N. Primary Care [facility] Reason for Referral Outpatient (Routine) - Closed Specialty Diagnoses / Procedures Referred By Contact Refer red To Contact Family Medicine Iris Garcia, [facility] Melanie GARNICA, M.S.N. [address] [place] [address] Referral ID Status Reason Start Date Expiration Date Visits Requ ested Visits Authorized [id number] Closed 01/11/2020 01/10/2021 1 1 Encounter Details Date Type Department Care Team Description 01/11/2020 [facility] Only [facility] I[facility] AP RN, C.N.P., M.S.N. [address] [place] [address] [phone] ( rk) Social History Tobacco Use Types Packs/Day [...] 11/23/2020 relatives? How often do you attend presybeterian or tenriism Never 11/23/2020 services? Do you belong to any clubs or organizations such as No 11/23/2020 presybeterian groups, unions, fraternal or athletic groups, or [...] at Date Recorded Female 05/20/2017 4:45 PM ESL TUTOR documented as of this encounter Plan of Treatment Scheduled Referrals Name Type Priority Associated Diagnoses Order S [facility] Family Medicine Outpatient Referral Routine Expec samy: office visit 01/25/2020, (clinic) Expires: 01/10/2023 documented as of this encounter Visit Diagnoses Not on filedocumented in this encounter Additional Health Concerns Assessment Noted Time PHQ-9 Depression Total Score: 27 10/26/2018 12:16 PM C DT documented as of this encounter Care Teams Wrapper Off Relationship Specialty Start Date End Date Iris Garcia APRN, C.N.P., PCP - General Family Medicine 05/16/20 M.S.N. [address] [place] [address] documented as of this encounter
--- OUTSIDE RECORDS SUMMARY | 2022-05-17 11:36 | XMS_ITS | Encounter Summary ---
:1995 Author Organization [facility] Address [address] [place] [address] Care Team Providers Name Role Phone Mirella Silva P.A.-C. Primary Care Provider [phone] Reason for Visit Reason Comments Headache Encounter Details Date Type Department Care Team Description 06/01/2020 Nurse Triage Department of [facility] Mandy Schaeffer He [facility], [facility], M.A.N ., R.N., N.E.-B.C. in [facility] [address] [facility] [address] [place] [address] [facility] [phone] Social History Tobacco Use Types Packs/Day Years [...] 11/23/2020 relatives? How often do you attend taoism or orthodox Never 11/23/2020 services? Do you belong to any clubs or organizations such as No 11/23/2020 taoism groups, unions, fraternal or athletic groups, or [...] at Date Recorded Female 05/20/2017 4:45 PM MOSAIC TILER documented as of this encounter Miscellaneous Notes Telephone Encounter - Mandy Schaeffer M.A.N., R.N., N.E.-B.C. - 06/01/2020 2:52 PM CST Chief Complaint / Reason for Call Patient is a 24 y.o. female calling regarding Headache. Assessment Concern: Patient calling to report strange symptoms since she had a really bad migraine on 05/28/2020. She took 50mg of Imitrex and states this is only the second time she has taken the medication. She initially thought her symptoms could be side effects of the medication, but she is becoming worried as it has now been 4 days. She reports nausea and vomiting and states it's been over one year since she experienced vomiting with a migraine. She also complains of a sharp pain at the back of her head that feels like a rubber band squeezing. She is also feeling very anxious and states her heart isracing off and on and her chest feels tight. She is having heat flashes without fever and keeps get ting dizzy. She just feels out of it with a lingering pain at her temples that comes and goes. Shealso has a lot of pressure on her head that is worse when lying down. She rates this pressure 7/10. She has not vomited again since 05/28/2020. Present for: 4 days Home cares tried: Imitrex Calling to request: Appointment The recommended disposition is See a health care provider within 4 hours. Reason for Disposition ??? [1] SEVERE headache (e.g., excruciating) AND [2] not improved after 2 hours of pain medicine Protocols used: [id number] Care Advice Patient/Caregiver understands and will follow care advice?: Yes, able to teach back SEE PCP WITHIN 4 HOURS (OR PCP TRIAGE): * IF OFFICE WILL BE OPEN: You need to be seen within the next 3 or 4 hours. CALL BACK IF: * You become worse. IC TILER documented in this encounter Plan of Treatment Not on filedocumented as of this encounter Visit Diagnoses Not on filedocumented in this encounter Additional Health Concerns Assessment Noted Time PHQ-9 Depression Total Score: 9 05/05/2020 2:02 PM MOSAIC TILER documented as of this encounter Care Teams Mental Health Therapist Relationship Specialty Start Date End Date Mirella Silva P.A.-C. PCP - General 05/17/20 07/04/[address] [address] documented as of this encounter
--- OUTSIDE RECORDS SUMMARY | 2022-05-17 11:36 | XMS_ITS | Encounter Summary ---
:1995 Author Organization [facility] Address [address] [place] [address] Care Team Providers Name Role Phone Iris Garcia APRN, C.NKb, M.S.N. Primary Care Provi di Reason for Visit Reason Comments Cough w/ chest discomfort symptoms x 8 days Sinus Problem congestion/pain Fever Hoarseness Shortness of Breath with exertion Encounter Details Date Type Department Care Team Description 10/04/2018 Office Visit Urgent Care in [place], [place] , Cough (Primary Dx) [place] M.DSampson [address] [place] [address] [place], [place] [phone] Social History Tobacco Use Types Packs/Day Years [...] 11/23/2020 relatives? How often do you attend spiritism or sabianism Never 11/23/2020 services? Do you belong to any clubs or organizations such as No 11/23/2020 spiritism groups, unions, fraternal or athletic groups, or [...] at Date Recorded Female 05/20/2017 4:45 PM KNOCKER OUT documented as of this encounter Last Filed Vital Signs Vital Sign Reading Time Taken Comments Blood Pressure 134/72 10/04/2018 2:55 PM CDT Pulse 103 10/04/2018 2:55 PM CDT Temperature 37.1 ??C (98.7 ??F) 10/04/2018 2:55 PM CDT Respiratory Rate 14 10/04/2018 2:55 PM CDT Oxygen Saturation 98% 10/04/2018 2:55 PM CDT Inhaled Oxygen Concentration - - Weight 97.3 kg (214 lb 8.1 oz) 10/04/2018 2:55 PM CDT Height - - Body Mass Index 32.89 04/15/2017 4:30 PM CDT documented in this encounter Progress Notes You Oneal M.D. - 10/04/2018 2:45 PM CDT CHIEF COMPLAINT / REASON FOR VISIT Eimly Zapien is a 23 y.o. female who presents for evaluation of Cough (w/ chest discomfort symptoms x 8 days); Sinus Problem (congestion/pain); Fever; Hoarseness; and Shortness of Breath (with exertion). HISTORY OF PRESENT ILLNESS Patient presents with many symptoms that been going on for over a week. Initially was more sinus congestion which has persisted but she has also had a cough. The cough has been productive. She has had some hot flashes as well and she finds she short of breath. She had exercise-induced asthma when she was younger but has not had any recurrence of that. She notes persistent postnasal drainage and sinuspressure. Patient Active Problem List Diagnosis ??? Migraine Without Aura Not Intractable Without Status Migrainosus Current Outpatient Prescriptions Medication Sig Dispense Refill ??? amoxicillin-pot clavulanate (AUGMENTIN) 875-125 mg per tablet Take 1 tablet by mouth 2 (two) times a day for 10 days. Patient can't take Zithromax with Lexapro. 20 tablet 0 ??? escitalopram (LEXAPRO) 10 mg tablet Take 1 tablet (10 mg total) by mouth daily. 90 tablet 3 ??? hydrOXYzine (ATARAX) 10 mg tablet Take 1 tablet (10 mg total) by mouth 4 (four) times a day as needed for anxiety. 30 tablet 3 ??? om-usm-ET-Tg-Ru-kocxjzn-lutein (MULTIVITAL) 0.4-162-18 mg tablet Take by mouth. No current facility-administered medications for this visit. Allergies Allergen Reactions ??? Codeine GI intolerance BP 134/72 (BP Location: Right arm, Patient Position: Sitting, Cuff Size: Regular) Pulse 103 Temp37.1 ??C (Temporal) Resp 14 Wt 97.3 kg SpO2 98% BMI 32.89 kg/m?? The following portions of the patient's history were reviewed and updated as appropriate: Past history, Medications, allergies, and current Vital Signs. PHYSICAL EXAM On exam today TMs are clear bilaterally. There is sinus pressure throughout noted. Throat is mildly inflamed. No tender adenopathy in the neck. Lungs have coarse breath sounds bilaterally. ASSESSMENT / PLAN 1. Cough Multifactorial including sinusitis and bronchitis. I recommended Augmentin and symptomatic care. Contact her primary if this should worsen or not improve. Initially we thought of Zithromax but since she is on Lexapro it is contraindicated. This note has been written using fluency direct voice recognition dictation. Typographical errors may occur. For any concerns regarding accuracy or clarification of this note, please contact the author. documented in this encounter Plan of Treatment Not on filedocumented as of this encounter Visit Diagnoses Diagnosis Cough Unspecified Type - Primary documented in this encounter Additional Health Concerns Assessment Noted Time PHQ-9 Depression Total Score: 23 12/22/2017 1:35 PM CD T documented as of this encounter Care Teams Geographic Information System Analyst Relationship Specialty Start Date End Date Iris Garcia APRN, C.N.P., PCP - General Family Medicine 05/16/20 MEstelaNSampson [address] [place] [address] documented as of this encounter
--- OUTSIDE RECORDS SUMMARY | 2022-05-17 11:36 | XMS_ITS | Encounter Summary ---
:1995 Author Organization [facility] Address [address] [place] [address] Care Team Providers Name Role Phone Iris Garcia APRN, C.N.P., M.S.N. Primary Care [facility] Encounter Details Date Type Department Care Team Description 12/17/2018 Orders Only Department of [facility] Iris Garcia , Medicine, [facility], Melanie GARNICA, M.S.N. in [facility] [address] [facility] [address] [place] [phone] (Wo rk) Social History Tobacco Use Types [...] 11/23/2020 relatives? How often do you attend nondenominational or hoahaoism Never 11/23/2020 services? Do you belong to any clubs or organizations such as No 11/23/2020 nondenominational groups, unions, fraternal or athletic groups, or [...] at Date Recorded Female 05/20/2017 4:45 PM CERTIFIED ETHICAL HACKER documented as of this encounter Plan of Treatment Not on filedocumented as of this encounter Visit Diagnoses Not on filedocumented in this encounter Additional Health Concerns Assessment Noted Time PHQ-9 Depression Total Score: 27 10/26/2018 12:16 PM C DT documented as of this encounter Care Teams Cessation Systems Outreach Specialist Relationship Specialty Start Date End Date Iris Garcia APRN, C.N.P., PCP - General Family Medicine 05/16/20 M.S.N. [address] [place] [phone] documented as of this encounter
--- OUTSIDE RECORDS SUMMARY | 2022-05-17 11:36 | XMS_ITS | Encounter Summary ---
:1995 Author Organization [facility] Address [address] [place] [address] Care Team Providers Name Role Phone Mirella Silva P.A.-C. Primary Care Provider [phone] Reason for Visit Reason Comments Headache COVID Nurse [place] Encounter Details Date Type Department Care Team Description 06/05/2020 Nurse Triage Department of Family TeVanessa millan Heada che; [facility]JOS[facility], in [place], [place] [address] [place] [phone] Social History Tobacco Use Types Packs/Day Years [...] How often do you attend mandaeism or jewish Never 11/23/2020 services? Do you belong to [...] or slept in a correction (including now)? Education Answer Date Recorded What is the highest level of school you have completed or 12 th grade 04/15/2019 the highest degree you have received? Sex Assigned at Date Recorded Female 05/20/2017 4:45 PM ADMINISTRATIVE SERVICES MANAGER documented as of this encounter Miscellaneous Notes Telephone Encounter - Vanessa Sanders R.N. - 06/05/2020 11:37 AM CST Chief Complaint / Reason for Call Patient is a 24 y.o. female calling regarding Headache. Assessment Concern: Headache and dizziness for over a week. Present for: 8 days Home cares tried: Over the counter pain medications, increased fluids and rest Calling to request: An appointment. The recommended disposition is See a health care provider within 24 hours. Reason for Disposition ? ? [1] MODERATE headache (e.g., interferes with normal activities) AND [2] present > 24 hours AND [3] unexplained (Exceptions: analgesics not tried, typical migraine, or headache part of viral illness) Protocols used: [id number] Care Advice Patient/Caregiver understands and will follow care advice?: Yes, able to teach back SEE PCP WITHIN 24 HOURS: * IF OFFICE WILL BE OPEN: You need to be seen within the next 24 hours. PAIN MEDICINES: * For pain relief, take acetaminophen, ibuprofen, or naproxen. * Follow package directions for proper dosing REST: Lie down in a dark quiet place and relax until feeling better. LOCAL COLD: Apply a cold wet washcloth or cold pack to the forehead for 20 minutes CALL BACK IF: * You become worse. COVID-19 Nurse Line Screening ASSESSMENT Combo COVID [...] unrelated to a preexisting illness?: New headache Do you have any of the following urgent symptoms?: No urgent symptoms noted (Continue Screening) Have you tested positive for COVID-19 in the last 90 days?: No (Continue Screening) Do you have any of the following respiratory syntonical virus (RSV) complications? : No complications noted (Continue Screening) Have you been advised to undergo testing or are you requesting testing?: No (End Screening)- Testingnot indicated Symptom Onset Date of symptom onset: 05/28/20 Testing Recommendation Endpoint Is testing recommended? : Not recommended to test PLAN Endpoint recommendation: Screening positive, patient refusing testing. Care Points: -Notify your regular care provider of any new or worsening symptoms. Education: Patient/caregiver unable to teach back Patient agreeable to plan of care: No The following references were used: [facility] novel coronavirus (COVID- 19) resources Nursing judgement NISTRATIVE SERVICES MANAGER documented in this encounter Plan of Treatment Not on filedocumented as of this encounter Visit Diagnoses Not on filedocumented in this encounter Additional Health Concerns Assessment Noted Time PHQ-9 Depression Total Score: 9 05/05/2020 2:02 PM ADMINISTRATIVE SERVICES MANAGER documented as of this encounter Care Teams Silverware Buffer Relationship Specialty Start Date End Date Mirella Silva P.A.-C. PCP - General 05/17/20 07/04/20 [address] [phone] documented as of this encounter
--- OUTSIDE RECORDS SUMMARY | 2022-05-17 11:37 | XMS_ITS | Encounter Summary ---
:1995 Author Organization [facility] Address [address] [place] [address] Care Team Providers Name Role Phone Unavailable Primary Care Provider Unavailable Encounter Details Date Type Department Care Team Description 02/20/2017 Hospital Encounter HX [facility] Nicolás Taylor M.D. [address] [place], [place] [phone] (Wo rk) Social History Tobacco Use Types Packs/Day Years Used Date Smoking Tobacco: Never Alcohol Habits Answer Date Recorded How often [...] How often do you attend yarsani or buddhism Never 11/23/2020 services? Do you [...] place to sleep or slept in a long term (including now)? Sex Assigned at Date Recorded Female 05/20/2017 4:45 PM BUSINESS EMPLOYMENT SPECIALIST documented as of this encounter Medications at Time of Discharge Medication Sig Dispensed Refills Start Date End Date ondansetron (ZOFRAN, Take 1 tablet by 0 201612/22/2017 HYDROCHLORIDE,) 4 mg mouth every 8 tablet (eight) hours as needed. PNV NO.95/FERROUS Take 1 tablet by 0 12/17/2016 0 12/22/2017 FUM/FOLIC AC ( mouth daily. MULTIVITAMINS ORAL) documented as of this encounter Plan of Treatment Not on filedocumented as of this encounter Visit Diagnoses Not on filedocumented in this encounter Additional Health Concerns Assessment Noted Time PHQ-9 Depression Total Score: 14 11/08/2016 1:35 PM CD T documented as of this encounter
--- OUTSIDE RECORDS SUMMARY | 2022-05-17 11:37 | XMS_ITS | Encounter Summary ---
:1995 Author Organization [facility] Address [address] [place] [address] Care Team Providers Name Role Phone Unavailable Primary Care Provider Unavailable Reason for Visit Reason Comments Routine Visit Outpatient (Routine) - Closed Specialty Diagnoses / Procedures Referred By Contact Refer red To Contact Obstetrics and Jose Zelaya M.D. Gynecology [address] [place] [address] Referral ID Status Reason Start Date Expiration Date Visits Requ ested Visits Authorized [id number] Closed 04/15/2017 10/12/2017 1 1 Encounter Details Date Type Department Care Team Description 05/20/2017 Routine Department of Jose Zelaya, Normal Not Obstetrics and [facility] Gynecology in [address] (Primary Dx) [place], [place] [address] [address] [place], [place] [phone] (Work) [phone] Social History Tobacco Use Types Packs/Day Years Used Date Smoking Tobacco: Never Smokeless Tobacco: Never Alcohol Habits Answer Date Recorded [...] How often do you attend jew or hinduism Never 11/23/2020 services? Do you [...] or slept in a intermediate (including now)? Sex Assigned at Date Recorded Female 05/20/2017 4:45 PM INTERLOCKER documented as of this encounter Last Filed Vital Signs Vital Sign Reading Time Taken Comments Blood Pressure 110/56 05/20/2017 4:37 PM INTERLOCKER Pulse - - Temperature - - Respiratory Rate - - Oxygen Saturation - - Inhaled Oxygen Concentration - - Weight 99.3 kg (218 lb 14.7 oz) 05/20/2017 4:37 PM INTERLOCKER Height - - Body Mass Index 33.56 04/15/2017 4:30 PM CDT documented in this encounter Progress Notes Miles Esquivel - 05/20/2017 4:45 PM CST Zika Screen Have you or your partner traveled outside of [place] 6 months prior to no If So Where specifically have our or your partner traveled? Country, state? Have you or your partner traveled for [place] since November? no Where in [place] did you travel? RLOCKER Jose Zelaya M.D. - 05/20/2017 4:45 PM CST CHIEF COMPLAINT: care, third trimester. HISTORY OF PRESENT ILLNESS: This patient presents for a visit in the third trimester (29w5d). She has no unusual complaints today and is not experiencing abnormal discharge nor vaginal bleeding. She is tolerating PO well, and is taking vitamins. movement is reported as good. She is performing the one hour glucose test today. CURRENT MEDICATIONS and ALLERGIES have been reviewed and are current in the EMR as of today's date. Social History Substance Use Topics ??? Smoking status: Never Smoker ??? Smokeless tobacco: Never Used ??? Alcohol use Not on file OB History Para Term AB Living 2 1 1 1 SAB TAB Ectopic Molar Multiple Live Births 1 The patient???s established ISATU, documentation of prior obstetric history, laboratory information, and summary of medical record are reviewed today. Physical exam: BP 110/56 Wt 99.3 kg LMP 12/09/2016 BMI 33.56 kg/m?? General: well nourished, well developed female in no acute distress. Weight gain is documented today. Fundal height is appropriate for gestational age. Heart Tones are in the normal range by Doppler interrogation. OB labs reviewed today. Glucose test and hemoglobin are pending at the time of dictation. IMPRESSION/REPORT/PLAN: Third trimester . Recommendations: Follow up visit is scheduled in two weeks. The one hour glucose test results will be communicated to the patient by phone if abnormal or at next visit if normal. is accompanied by glucose resistance, mediated primarily by placental secretion of hormones that exert an anti-insulin effect. To avoid adverse outcomes such as preeclampsia, hydramnios, macrosomia, maternal and trauma, and mortality all woman are screened regardless of risk factors. Monitoring of movement is encouraged, with instructions to seek care when the perception is that movement is decreased. While there is no consensus that any quantitative alarm limit distinguishes a healthy fetus from a fetus at increased risk, common advice is to do kick counts. Perceptionof at least 10 movements in an hour is one quantitative approach, although transient decreasesin activity occur due to sleep status. Electronically signed by: Jose Zelaya M.D. 05/21/17 5:07 PM RLOCKER documented in this encounter Plan of Treatment Not on filedocumented as of this encounter Visit Diagnoses Diagnosis Normal Not First - P rimary documented in this encounter Additional Health Concerns Assessment Noted Time PHQ-9 Depression Total Score: 14 11/08/2016 1:35 PM CD T documented as of this encounter
--- OUTSIDE RECORDS SUMMARY | 2022-05-17 11:37 | XMS_ITS | Encounter Summary ---
:1995 Author Organization [facility] Address [address] [place] [address] Care Team Providers Name Role Phone Unavailable Primary Care Provider Unavailable Encounter Details Date Type Department Care Team Description 05/06/2017 Abstract Department of Obstetrics and Provider, [facility] Gynecology in [place], [place] [address] [place] [address] Social History Tobacco Use Types Packs/Day [...] 11/23/2020 relatives? How often do you attend temple or orthodoxy Never 11/23/2020 services? Do you belong to any clubs or organizations such as No 11/23/2020 temple groups, unions, fraternal or athletic groups, or [...] at Date Recorded Female 05/20/2017 4:45 PM TELEPHONE AD TAKER documented as of this encounter Plan of Treatment Not on filedocumented as of this encounter Visit Diagnoses Not on filedocumented in this encounter Additional Health Concerns Assessment Noted Time PHQ-9 Depression Total Score: 14 11/08/2016 1:35 PM CD T documented as of this encounter
--- OUTSIDE RECORDS SUMMARY | 2022-05-17 11:37 | XMS_ITS | Encounter Summary ---
:[address] [facility] Address [address] [place] [address] Care Team Providers Name Role Phone Unavailable Primary Care Provider Unavailable Encounter Details Date Type Department Care Team Description 04/15/2017 Hospital Encounter HX [facility] Nicolás Taylor M.D. [address] [place], [place] [phone] (Wo rk) Social History [...] How often do you attend mandaen or bahai Never 11/23/2020 services? 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 as of this encounter Last Filed Vital Signs Vital Sign Reading Time Taken Comments Blood Pressure 110/58 04/15/2017 4:30 PM CDT Pulse - - Temperature - - Respiratory Rate - - Oxygen Saturation - - Inhaled Oxygen Concentration - - Weight 95.3 kg (210 lb 1.6 oz) 04/15/2017 4:30 PM CDT Height 172 cm (5' 7.72) 04/15/2017 4:30 PM CDT Body Mass Index 32.21 04/15/2017 4:30 PM CDT documented in this encounter Medications at Time of Discharge Medication Sig Dispensed Refills Start Date End Date ondansetron (ZOFRAN, Take 1 tablet by 0 201612/22/2017 HYDROCHLORIDE,) 4 mg mouth every 8 tablet (eight) hours as needed. PNV NO.95/FERROUS Take 1 tablet by 0 12/17/2016 0 12/22/2017 FUM/FOLIC AC ( mouth daily. MULTIVITAMINS ORAL) documented as of this encounter Progress Notes Catracho Zelaya M.D. - 04/17/2017 2:15 PM CDT Progress Note, Obstetrics_Gynecology CHIEF COMPLAINT: care, third trimester. HISTORY OF PRESENT ILLNESS: This patient presents for a visit in the third trimester. She is tolerating PO well, and is taking vitamins. movement is reported as good. CURRENT MEDICATIONS and ALLERGIES have been reviewed and are current in the EMR as of today's date. Refer to the patient's accompanying ACOG form for established ISATU, documentation of prior obstetric history, laboratory information, and summary of medical record. Physical exam: Vital signs are reviewed, stable, and in the normal range as documented in the EMR as of today's date. General: well nourished, well developed female in no acute distress. Weight gain is documented on the ACOG form. Fundal height is appropriate for gestational age. Heart Tones are in the normal range by doppler interrogation. OB labs reviewed today. Glucose test results and hemoglobin are documented in the EMR. IMPRESSION/REPORT/PLAN: Third trimester . Recommendations: Follow up visit is scheduled in two weeks. counseling was given today including the need to continue with routine care, kick counts, and monitoring of early labor contractions. labor signs and symptoms such as painful contractions or a gush of fluid would prompt presentation to the Center. kick counts are an important home monitor of well being. Monitoring of movement isencouraged, with instructions to seek care when the perception is that movement is decreased. While there is no consensus that any quantitative alarm limit distinguishes a healthy fetus from a fetus at increased risk, common advice is to do kick counts. Perception of at least 10 movements in an hour is one quantitative approach, although transient decreases in activity occur due to sleep status. Regular, frequent, strong and painful contractions may be a sign of labor. Either this or vaginal spotting should be evaluated immediately to allow early intervention and avoidance of delivery. Catracho Ortiz CC: Labor and Delivery Electronically Signed By: CATRACHO ZELAYA MD On: 04/23/2017 02:15 PM Source: [facility] Document Id: [id number] documented in this encounter Miscellaneous Notes Miscellaneous - Catracho Zelaya M.D. - 04/23/2017 2:14 PM CDT Ambulatory Patient Summary [address] [id number] Visit Information Name: EMILY MCGUIRE [facility] Number: [id number] Current Date: 04/23/2017 14:14:45 Physicians Attending Provider: CATRACHO ZELAYA MD Primary Care Provider: PCP, ELSEWHERE EMILY MCGUIRE has been given the following list of follow-up instructions, medication list, and patient education materials: Follow-up Instructions Your Medications Here is a list of your medications. It is important to take your medications as directed. Use a pillbox or chart to help remind you to take your medications. Please let your doctor or nurse know if you have problems taking your medications. Medication/Strength Dose Route Frequency Indications/Special Instructions/Comments/Notes ondansetron (Zofran 4 mg oral tablet) 4 mg Oral every 8 hours as needed for Nausea multivitamin, ( Multivitamins Folic Acid 1 mg oral tablet) 1 tab(s) Oral once a day Attention: If you have any medications at home that are not on this list, DO NOT take them until youcontact your provider for clarification. Give a copy of your medication list to your primary care provider. Update your medication list any time medications or doses are changed and carry your medication list at all times in case of emergency. 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 Consider Using Patient Online Services Patient Online Services is a secure online and Mobile application that lets you: ?? View lab and test results ?? View portions of your medical record including clinical notes, immunizations and discharge summaries ?? Request an appointment or medication refill ?? Review your appointment schedule ?? Send secure messages to your care team Its easy to create an account if you dont have one. Go to [email or web address] and click on Create Your Account. Then, follow the directions to complete the online form. Youll be asked for your [facility] number which you can find at the top of this document. Your Goals/Additional instructions: Source: [facility] Document Id: [id number] Miscellaneous - Catracho Zelaya M.D. - 04/23/2017 2:14 PM CDT Ambulatory Discharge Medication List [facility] [address] [place] [id number] Visit Information Name: EMILY MCGUI[facility] Number: [id number] Current Date: 04/23/2017 14:14:44 Attending Provider: CATRACHO ZELAYA MD Primary Care Provider: PCP, EMILY JOSHI has been given the following list of medications: Your Medications It is important to take your medications as directed. Use a pill box or chart to help remind you to take your medications. Please let your doctor or nurse know if you have problems taking your medications. Medication/Strength Dose Route Frequency Indications/Special Instructions/Comments/Notes ondansetron (Zofran 4 mg oral tablet) 4 mg Oral every 8 hours as needed for Nausea multivitamin, ( Multivitamins Folic Acid 1 mg oral tablet) 1 tab(s) Oral once a day Attention: If you have any medications at home that are not on this list, DO NOT take them until youcontact your provider for clarification. Give a copy of your medication list to your primary care provider. Update your medication list any time medications or doses are changed and carry your medication list at all times in case of emergency. Electronically Signed By: CATRACHO ZELAYA MD Signed On:15-APR-2017 16:46:26 Additional Information: Source: [facility] Document Id: [id number] Miscellaneous - Miles Esquivel - 04/15/2017 4:30 PM CDT Adult Blow Molder Intake/History Adult Blow Molder Intake/History Entered On: 04/15/2017 16:34 CDT Performed On: 04/15/2017 16:30 CDT by MILES ESQUIVEL Intake Chief Complaint : ob ck-see acog-24 4/7 weeks LMP Date : 12-09-16 Ambulatory Intake Additional Information : zika (Comment: Zika screening questions1.) Have you or your partner traveled outside of [place] up to 6 monthsprior to this ? no2.) If so, where specifically have you or your partner traveled (Country,State)?3.) If you or your partner have traveled to [place] since November? no Where in [place] did you travel? _ [MILES ESQUIVEL - 04/15/2017 16:30 CDT] ) Systolic Blood Pressure : 110 mmHg Diastolic Blood Pressure : 58 mmHg NIBP Mean : 75 mmHg BP Location : Left upper extremity Blood Pressure Cuff Size : Large Height : 172 cm(Converted to: 5 ft 8 inch(es), 68 inch(es)) Actual Weight : 95.3 kg(Converted to: 210 lb 2 oz) Dosing Weight Clinic : 95.3 kg Clinic BSA : 2.13 Body Mass Index : 32.21 kg/m2 MLIES ESQUIVEL - 04/15/2017 16:30 CDT General Info Information Given By : Patient Preferred Communication Mode : Verbal Languages : Algerian Is Patient Female and 13-50 no hysterectomy : Yes Status : Confirmed positive Are you ? : MILES Reyes - 04/15/2017 16:30 CDT Subjective Pain Symptoms : MILES Reyes - 04/15/2017 16:30 CDT Dependent Habits Exposure to Tobacco Smoke : Other: never Smoking Status : Never smoker Tobacco 2A : No Tobacco Use/Currently Using : No Tobacco Use/Last 30 Days : No Tobacco Use/Last 12 months : No MILES ESQUIVEL - 04/15/2017 16:30 CDT Source: [employer]ong Document Id: [id number] CDT!31 documented in this encounter Plan of Treatment Not on filedocumented as of this encounter Visit Diagnoses Not on filedocumented in this encounter Additional Health Concerns Assessment Noted Time PHQ-9 Depression Total Score: 14 11/08/2016 1:35 PM CD T documented as of this encounter
--- OUTSIDE RECORDS SUMMARY | 2022-05-17 11:37 | XMS_ITS | Encounter Summary ---
:1995 Author Organization [facility] Address [address] [place] [address] Care Team Providers Name Role Phone Unavailable Primary Care Provider Unavailable Encounter Details Date Type Department Care Team Description 12/17/2016 Hospital Encounter HX NO MAPPING Jose Zelaya M.D. [address] [place], [place] [phone] (Wo rk) Social History [...] How often do you attend druze or synagogue Never 11/23/2020 services? Do you [...] or slept in a fdc (including now)? 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 PNV NO.95/FERROUS Take 1 tablet by 0 12/17/2016 0 12/22/2017 FUM/FOLIC AC ( mouth daily. MULTIVITAMINS ORAL) documented as of this encounter Miscellaneous Notes Miscellaneous - Conversion, Historical Provider Ser - 12/17/2016 11:59 PM CDT Coding Summary-Paper Based CODING DATE: 12/25/2016 FINAL [facility] STATUS: * Discharged to Home or Self Care PAYOR: Medicaid ADMIT DX: REASON FOR VISIT DX: FINAL DX: PRINCIPAL: Z12.4 Encounter for screening for malignant neoplasm of cervix SECONDARY: PROCEDURES DOCTOR NAME DATE NOTE: The code number assigned matches the documented diagnosis and / or procedure in the patient's chart. However, the narrative phrase printed from the coding software may appear abbreviated, or result in slightly different terminology. Coded By: HERMILA ZHU Date Saved: 12/25/2016 04:04 pm Source: [facility] Document Id: [id number] documented in this encounter Plan of Treatment Not on filedocumented as of this encounter Visit Diagnoses Not on filedocumented in this encounter Additional Health Concerns Assessment Noted Time PHQ-9 Depression Total Score: 14 11/08/2016 1:35 PM CD T documented as of this encounter
--- OUTSIDE RECORDS SUMMARY | 2022-05-17 11:37 | XMS_ITS | Encounter Summary ---
:1995 Author Organization [facility] Address [address] [place] [address] Care Team Providers Name Role Phone Unavailable Primary Care Provider Unavailable Encounter Details Date Type Department Care Team Description 05/20/2017 Hospital Encounter Department of Jose Zelaya Encou nter for Laboratory Medicine M.DSampson supervision of in [place], [address] normal , [place], [place] unspecified, [address] [place] [phone] unspecified [place], [place] [phone] [facility] [phone] (Work) [phone] Social History Tobacco Use Types Packs/Day Years [...] 11/23/2020 relatives? How often do you attend anabaptism or hoahaoism Never 11/23/2020 services? Do you belong to any clubs or organizations such as No 11/23/2020 anabaptism groups, unions, fraternal or athletic groups, or [...] or slept in a usp (including now)? 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 unspecified trimester HEMOGLOBIN, B Routine 05/20/2017 5:33 PM Encounter for Results for this HOME DELIVERY DRIVER supervision of procedure are in normal , the result s unspecified, section. unspecified trimester documented in this encounter Results (ABNORMAL) Hemoglobin (05/20/2017 5:33 PM HOME DELIVERY DRIVER) athologist Signature Hemoglobin 10.2 (L) 11.6 - 15.0 05/20/2017 [facility] g/dL 5:[address] [facility] LAB Specimen Anatomical Collection Method Collection Time Receive d Time (Source) Location / / Volume Laterality Blood 05/20/2017 5:33 PM 7 5:39 HOME DELIVERY DRIVER PM HOME DELIVERY DRIVER Jose Zelaya M.D. LAB BLOOD ADD-ON Performing Organization Address City/State/ZIP Code Phon e Number [email or web address] [phone] [place] [address] LAB Glucose Tolerance Test, 1 hour (05/20/2017 5:33 PM HOME DELIVERY DRIVER) athologist Signature Glucose Alonso, 1 108 <130 mg/dL 05/20/2017 [facility] hr, S 8:09 PM HOME DELIVERY DRIVER [facility] LAB Specimen Anatomical Collection Method Collection Time Receive d Time (Source) Location / / Volume Laterality Blood 05/20/2017 5:33 PM 7 5:39 HOME DELIVERY DRIVER PM HOME DELIVERY DRIVER Jose Zelaya M.D. LAB BLOOD NON ADD-ON Performing Organization Address City/State/ZIP Code Phon e Number [facility] [place] [phone] [place] [address] LAB documented in this encounter Visit Diagnoses Diagnosis Encounter for supervision of normal preg claudia, unspecified, unspecified trimester (HCC) Encounter for supervision of normal preg claudia, unspecified, unspecified trimester documented in this encounter Additional Health Concerns Assessment Noted Time PHQ-9 Depression Total Score: 14 11/08/2016 1:35 PM CD T documented as of this encounter
--- OUTSIDE RECORDS SUMMARY | 2022-05-17 11:37 | XMS_ITS | Encounter Summary ---
:1995 Author Organization [facility] Address [address] [place] [address] Care Team Providers Name Role Phone Unavailable Primary Care Provider Unavailable Encounter Details Date Type Department Care Team Description 12/17/2016 Hospital Encounter HX NO MAPPING Jose Zelaya M.D. [address] [place], [place] [phone] (Wo rk) Social History [...] 11/23/2020 relatives? How often do you attend orthodox or restorationist Never 11/23/2020 services? 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
--- OUTSIDE RECORDS SUMMARY | 2022-05-17 11:37 | XMS_ITS | Encounter Summary ---
:1995 Author Organization [facility] Address [address] [place] [address] Care Team Providers Name Role Phone Unavailable Primary Care Provider Unavailable Reason for Visit Reason Comments Routine Visit 33 wk ob check Encounter Details Date Type Department Care Team Description 06/13/2017 Routine Department of Jose Zelaya, Normal Not Obstetrics and M.D. First Gynecology in [address] (Primary Dx) [place], [place] [address] [facility] [id number] [place], [place] [phone] [address] (Work) [phone] Social History Tobacco Use Types Packs/Day Years [...] How often do you attend presybeterian or advent Never 11/23/2020 services? 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 - 06/13/2017 2:45 PM CST CHIEF COMPLAINT: care, third trimester. HISTORY OF PRESENT ILLNESS: This patient presents for a visit in the third trimester (33w0d). She is tolerating PO well, and is taking vitamins. movement is reported as good. OB History Para Term AB Living 2 1 1 1 SAB TAB Ectopic Molar Multiple Live Births 1 CURRENT MEDICATIONS and ALLERGIES have been reviewed and are current in the EMR as of today's date. Social History Substance Use Topics ??? Smoking status: Never Smoker ??? Smokeless tobacco: Never Used ??? Alcohol use Not on file Refer to the patient's accompanying EMR documentation for established ISATU, documentation of prior obstetric history, laboratory information, and summary of medical record. Physical exam: BP 102/68 Wt 101.8 kg LMP 12/09/2016 BMI 34.41 kg/m?? General: well nourished, well developed female [...] allow early intervention and avoidance of delivery. Electronically signed by: Jose Zelaya M.D. 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
--- OUTSIDE RECORDS SUMMARY | 2022-05-17 11:37 | XMS_ITS | Encounter Summary ---
:1995 Author Organization [facility] Address [address] [place] [address] Care Team Providers Name Role Phone Unavailable Primary Care Provider Unavailable Encounter Details Date Type Department Care Team Description 12/09/2016 Historical Ophthalmology [facility] Rajani Fair Social History Tobacco Use Types Packs/Day Years [...] How often do you attend temple or rastafari Never 11/23/2020 services? 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 Faxed request back to them at asking for pt's date of as we had several pt's with same name but none with the address they gave us. Received call from them shortly after that with correct . Confirmed below cl rx with expiration date of 07/26/2018 over the phone at that time. CDM Reports - EYECL Id: [id number] Status: Fnl documented in this encounter Plan of Treatment Not on filedocumented as of this encounter Visit Diagnoses Not on filedocumented in this encounter Additional Health Concerns Assessment Noted Time PHQ-9 Depression Total Score: 14 11/08/2016 1:35 PM CD T documented as of this encounter
--- OUTSIDE RECORDS SUMMARY | 2022-05-17 11:37 | XMS_ITS | Encounter Summary ---
:1995 Author Organization [facility] Address [address] [place] [address] Care Team Providers Name Role Phone Unavailable Primary Care Provider Unavailable Reason for Visit Reason Comments Sinusitis Headache Encounter Details Date Type Department Care Team Description 07/12/2017 Office Visit Urgent Care in [place] Laura Si unm hospitalkimberly [facility] A, LEAD WEB DEVELOPER, C.N.P., (Primary Dx) [address] [facility] [place] [address] [address] [facility] [phone] [place] [address] Social History Tobacco Use Types Packs/Day Years Used Date Smoking Tobacco: Never Smokeless Tobacco: Never Alcohol Use Standard Drinks/Week Comments No 0 (1 standard drink = 0.6 oz pure [...] How often do you attend evangelical or yazidi Never 11/23/2020 services? Do you [...] at Date Recorded Female 05/20/2017 4:45 PM IMPORT COORDINATION AND PRODUCTION HEAD documented as of this encounter Last Filed Vital Signs Vital Sign Reading Time Taken Comments Blood Pressure 110/72 07/12/2017 10:24 AM IMPORT COORDINATION AND PRODUCTION HEAD Pulse 110 07/12/2017 10:24 AM IMPORT COORDINATION AND PRODUCTION HEAD Temperature 37.2 ??C (99 ??F) 07/12/2017 10:24 AM IMPORT COORDINATION AND PRODUCTION HEAD Respiratory Rate 20 07/12/2017 10:24 AM IMPORT COORDINATION AND PRODUCTION HEAD Oxygen Saturation 99% 07/12/2017 10:24 AM IMPORT COORDINATION AND PRODUCTION HEAD Inhaled Oxygen Concentration - - Weight 102 kg (225 lb 15.5 oz) 07/12/2017 10:24 AM IMPORT COORDINATION AND PRODUCTION HEAD Height - - Body Mass Index 34.65 04/15/2017 4:30 PM CDT documented in this encounter Progress Notes Ria Cat, NAHUN, C.N.P. - 07/12/2017 10:30 AM CST SUBJECTIVE CHIEF COMPLAINT / REASON FOR VISIT Emily Zapien is a 21 y.o. female who presents for evaluation of Sinusitis and Headache. HISTORY OF PRESENT ILLNESS Emily Zapien is a pleasant 21-year-old female who is 37 week gestation who presents to urgent care with complaints of a left sided facial pain, nasal congestion, and left upper tooth pain for the last10 days. She was seen in urgent care one week ago and started on Macrobid for a UTI and has 2 days re maining of this prescription. She has had a headache since yesterday that is associated with nausea and was not able to sleep well last night. She is currently afebrile but reports a fever 8 days ago. She denies a cough, shortness of breath, and wheezing. She denies vaginal bleeding, abdominal pain, dysuria, and diarrhea. She is tolerating PO with some mild nausea. She has a prescription for zofran at home that she was prescribed during her first trimester. She did not take this medication recently for her symptoms. REVIEW OF SYSTEMS All other systems reviewed and are negative. OBJECTIVE PHYSICAL EXAM Constitutional: She is oriented to person, place, and time. She appears well- developed and well-nourished. No distress. HENT: Right Ear: Tympanic membrane, external ear and ear canal normal. Left Ear: Tympanic membrane, external ear and ear canal normal. Nose: Mucosal edema and rhinorrhea present. Right sinus exhibits no maxillary sinus tenderness and no frontal sinus tenderness. Left sinus exhibits maxillary sinus tenderness and frontal sinus tenderness. Mouth/Throat: Uvula is midline, oropharynx is clear and moist and mucous membranes are normal. No trismus in the jaw. Eyes: Conjunctivae are normal. Neck: Normal range of motion. Cardiovascular: Normal rate, regular rhythm, normal heart sounds and intact distal pulses. Pulmonary/Chest: Effort normal and breath sounds normal. No respiratory distress. She has no wheezes. She has no rales. Abdominal: Soft. She exhibits no distension. There is no tenderness. Musculoskeletal: Normal range of motion. Neurological: She is alert and oriented to person, place, and time. Skin: Skin is warm and dry. Capillary refill takes less than 2 seconds. Psychiatric: She has a normal mood and affect. Vitals reviewed. ASSESSMENT / PLAN Extremely non-toxic appearing 21-year-old female at 37 weeks gestation presents afebrile and with appropriate vital signs. Clinically, this is sinusitis and because symptoms have been persistent for over 10 days she was prescribed Augmentin, which is a category B and safe during . She was encouraged to finish the Macrobid that was prescribed previously for a UTI. She is to return if her symptoms do not improve. She was encouraged to utilize the zofran prescription she already has at home asneeded for any ongoing nausea/emesis and was instructed to increase her fluid intake. We also discussed intranasal glucocorticoids and sinus rinses. All questions answered and concerns addressed. Diagnosis: Sinusitis RT COORDINATION AND PRODUCTION HEAD documented in this encounter Plan of Treatment Not on filedocumented as of this encounter Visit Diagnoses Diagnosis Sinusitis Acute - Primary documented in this encounter Additional Health Concerns Assessment Noted Time PHQ-9 Depression Total Score: 14 11/08/2016 1:35 PM CD T documented as of this encounter
--- OUTSIDE RECORDS SUMMARY | 2022-05-17 11:37 | XMS_ITS | Encounter Summary ---
:1995 Author Organization [facility] Address [address] [place] [address] Care Team Providers Name Role Phone Unavailable Primary Care Provider Unavailable Encounter Details Date Type Department Care Team Description 01/23/2017 Hospital Encounter HX [facility] Nicolás Taylor M.D. [address] [place], [place] [phone] (Wo rk) Social History [...] 11/23/2020 relatives? How often do you attend gnosticism or anglican Never 11/23/2020 services? Do you belong to any clubs or organizations such as No 11/23/2020 gnosticism groups, unions, fraternal or athletic groups, or [...] at Date Recorded Female 05/20/2017 4:45 PM FIFTH HAND documented as of this encounter Medications [...]
--- OUTSIDE RECORDS SUMMARY | 2022-05-17 11:37 | XMS_ITS | Encounter Summary ---
:1995 Author Organization [facility] Address [address] [place] [address] Care Team Providers Name Role Phone Iris Garcia APRN, C.N.P., M.S.N. Primary Care [facility] Encounter Details Date Type Department Care Team Description 02/18/2018 Orders Only Department of [facility] Iris Garcia , Medicine, [facility], Melanie GARNICA, M.S.N. in [facility] [address] [facility] [address] [place] [id number] [phone] (Wo rk) Social History Tobacco Use Types [...] How often do you attend druze or moravian Never 11/23/2020 services? 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 [address] [place] [phone] documented as of this encounter
--- OUTSIDE RECORDS SUMMARY | 2022-05-17 11:37 | XMS_ITS | Encounter Summary ---
:1995 Author Organization [facility] Address [address] [place] [address] Care Team Providers Name Role Phone Unavailable Primary Care Provider Unavailable Encounter Details Date Type Department Care Team Description 03/20/2017 Hospital Encounter HX [facility] Nicolás Taylor M.D. [address] [place], [place] [phone] (Wo rk) Social History [...] 11/23/2020 relatives? How often do you attend latter-day or yarsani Never 11/23/2020 services? 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 documented in this encounter Results US OB Greater than 14 weeks (03/20/2017 1:57 PM CDT) Anatomical Region Laterality Modality Ultrasound Specimen (Source) Anatomical Collection Method Collection Time Re ceived Time Location / / Volume Laterality 03/20/2017 1:57 PM CDT Addenda Addendum by Provider, Diandra Moreira 03/20/2017 1:57 PM CDT RAD^^^OW US OB Greater than 14 weeks 03/20/2017 13:57:47 US OB Greater than 14 weeks Impressions 03/20/2017 3:09 PM CDT 1. Viable with ISATU of July 28, 2017 , consistent with prior dates. 2. anatomic survey appears normal, gender is male. In general, it is reasonable to use the sonographically derived ISATU if it differs from that calculated using th e last menstrual period (LMP) by more than seven days in the first tri mester and by more than 10 days in the second trimester. In the thi rd trimester, a three-week discrepancy between LMP dating and ultra sound dating is allowed before changing ISATU. No anomalies were detected by batsheva alex's survey. Results shared with the patient were done with a n understanding of the limitations of ultrasound for detection of aneuploidy, as well as congenital heart defects. [facility] [place] in [place] CASING SOAKER Dept. [phone] Narrative 03/20/2017 3:09 PM CDT EXAM: US OB Greater than 14 weeks INDICATION: survey REFERRING PHYSICIAN: Dr. Zelaya SUPERVISOR FUR FLOOR WORKER: Nargis Ortega R.D.M.S. : 2 ?? PARA: 1 LMP: October 25, 2016 ? ISATU: August 01, 2017 ?EGA by LMP: 20 weeks and 6 days UTERUS: Visually normal. CERVIX: 3.8 cm. PLACENTA: Posterior with no evidence of placenta previa nor abruption. ADNEXA: Visually normal, no adnexal mass es detected. AMNIOTIC FLUID MAXIMUM VERTICAL POCKET ( MVP): ??Appropriate and normal for gestational age at 5.5 cm. BIOMETRY GA(BPD): 5.16 cm, 21 weeks and 4 days GA(HC): 19.1 cm, 21 weeks and 2 days GA(AC): 15.8 cm, 20 weeks and 6 days ?? GA(FL): 3.85 cm, 22 weeks and 2 days ?? GA(HL): 3.53 cm, 22 weeks and 1 day ? Based on the above, the average ultrasou nd age is 21 weeks and 3 days. See 'Impression' below for ultrasound ca lculation of Estimated Date of Delivery (ISATU). ? The following anatomic features we re well visualized and appear normal today: SPINE (longitudinal and transverse): Nor mal CEREBELLUM: Normal CISTERNA MAGNA: Normal NUCHAL FOLD: Normal LATERAL VENTRICLES: Normal CHOROID PLEXUS: Normal FOUR CHAMBER HEART: Normal ? HEART RATE: 160 beats per minute CARDIAC AXIS: Normal RIGHT AND LEFT OUTFLOW TRACTS: Normal ANTERIOR ABDOMINAL WALL: Normal DIAPHRAGM: Normal ?? CORD INSERTION: Normal THREE VESSEL CORD: Normal STOMACH: Normal BLADDER: Normal KIDNEYS: Normal EXTREMITIES (arms and legs): Normal HANDS AND FEET: Normal ORBITS: Normal PROFILE: Normal NOSE AND LIPS: Normal CORD INSERTION AT PLACENTA: Normal Procedure Note Jose Zelaya M.D. / Provider, Celia juan M.D. - 04/03/2017 EXAM: US OB Greater than 14 weeks INDICATION: survey REFERRING PHYSICIAN: Dr. Zelaya SUPERVISOR FUR FLOOR WORKER: Nargis Ortega R.D.M.S. : 2 PARA: 1 LMP: October 25, 2016 ISATU: August 01, 2017 E GA by LMP: 20 weeks and 6 days UTERUS: Visually normal. CERVIX: 3.8 cm. PLACENTA: Posterior with no evidence of placenta previa nor abruption. ADNEXA: Visually normal, no adnexal mass es detected. AMNIOTIC FLUID MAXIMUM VERTICAL POCKET ( MVP): Appropriate and normal for gestational age at 5.5 cm. BIOMETRY GA(BPD): 5.16 cm, 21 weeks and 4 days GA(HC): 19.1 cm, 21 weeks and 2 days GA(AC): 15.8 cm, 20 weeks and 6 days GA(FL): 3.85 cm, 22 weeks and 2 days GA(HL): 3.53 cm, 22 weeks and 1 day Based on the above, the average ultrasou nd age is 21 weeks and 3 days. See 'Impression' below for ultrasound ca lculation of Estimated Date of Delivery (ISATU). The following anatomic features we re well visualized and appear normal today: SPINE (longitudinal and transverse): Nor mal CEREBELLUM: Normal CISTERNA MAGNA: Normal NUCHAL FOLD: Normal LATERAL VENTRICLES: Normal CHOROID PLEXUS: Normal FOUR CHAMBER HEART: Normal HEART RATE: 160 beats per minute CARDIAC AXIS: Normal RIGHT AND LEFT OUTFLOW TRACTS: Normal ANTERIOR ABDOMINAL WALL: Normal DIAPHRAGM: Normal CORD INSERTION: Normal THREE VESSEL CORD: Normal STOMACH: Normal BLADDER: Normal KIDNEYS: Normal EXTREMITIES (arms and legs): Normal HANDS AND FEET: Normal ORBITS: Normal PROFILE: Normal NOSE AND LIPS: Normal CORD INSERTION AT PLACENTA: Normal IMPRESSION: 1. Viable with ISATU of July 28, 2017 , consistent with prior dates. 2. anatomic survey appears normal, gender is male. In general, it is reasonable to use the sonographically derived ISATU if it differs from that calculated using e last menstrual period (LMP) by more than seven days in the first tri mester and by more than 10 days in the second trimester. In the thi rd trimester, a three-week discrepancy between LMP dating and ultra sound dating is allowed before changing ISATU. No anomalies were detected by batsheva alex's survey. Results shared with the patient were done with a n understanding of the limitations of ultrasound for detection of aneuploidy, as well as congenital heart defects. [facility] [place] in [place] CASING SOAKER Dept. [phone] Nargis Greene R.V.T., My IMG OB US PROCEDUR ES documented in this encounter Visit Diagnoses Not on filedocumented in this encounter Additional Health Concerns Assessment Noted Time PHQ-9 Depression Total Score: 14 11/08/2016 1:35 PM CD T documented as of this encounter
--- OUTSIDE RECORDS SUMMARY | 2022-05-17 11:37 | XMS_ITS | Encounter Summary ---
:1995 Author Organization [facility] Address [address] [place] [address] Care Team Providers Name Role Phone Unavailable Primary Care Provider Unavailable Encounter Details Date Type Department Care Team Description 12/17/2016 Hospital Encounter HX [facility] Gustavo Rowe M.D. [address] [place], [place] [phone] (Wo rk) Social History [...] How often do you attend buddhism or jewish Never 11/23/2020 services? Do you [...] or slept in a prison (including now)? 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 documented in this encounter Results US FINISHED CARPET INSPECTOR less than 14 weeks multi (12/17/2016 2:25 PM CDT) Anatomical Region Laterality Modality Ultrasound Specimen (Source) Anatomical Collection Method Collection Time Re ceived Time Location / / Volume Laterality 12/17/2016 2:25 PM CDT Impressions 12/17/2016 3:13 PM CDT ?? 1. Single Viable Intrauterine with ISATU of August 01, 2017 , consistent with menstrual dates. In general, it is reasonable to use the sonographically derived ISATU if it differs from that calculated using th e last menstrual period (LMP) by more than five days for gestational a ges less than 9 weeks. Use the sonographically derived ISATU if it differ s by more than seven days for gestational ages of 9 weeks to less than 16 weeks. [facility] in [place] FINISHED CARPET INSPECTOR Dept. [phone] Narrative 12/17/2016 3:13 PM CDT EXAM: US OB less than 14 weeks INDICATION: Dates COMPARISON: None. ?? REFERRING PHYSICIAN: Garcia POLYGRAPH EXAMINER: Riki ChatmanSSamspon : 2 PARA: 1 ISATU by LMP: August 01, 2017 NUMBER: One CHORIONICITY: Not Applicable CARDIAC ACTIVITY: Yes HEART RATE: 166 beats per minute. UTERUS: Within normal limits. ?? UTERINE POSITION: Anteverted. CUL DE SAC: Normal. ADNEXA: Visually normal, no adnexal mass es detected. RIGHT OVARY: Appears normal. ?? LEFT OVARY: Appears normal. ?? Multiple measurements of the Sholes Rump Length (CRL) reveal an average ultrasound age of 7 weeks and 4 days. ?? See IMPRESSION below for ultrasound calculation of Estimated Date of Delivery (ISATU). Procedure Note Jose Zelaya M.D. / Provider, Celia juan M.D. - 12/27/2016 EXAM: US OB less than 14 weeks INDICATION: Dates COMPARISON: None. REFERRING PHYSICIAN: Garcia POLYGRAPH EXAMINER: Riki ChatmanSSampson : 2 PARA: 1 ISATU by LMP: August 01, 2017 NUMBER: One CHORIONICITY: Not Applicable CARDIAC ACTIVITY: Yes HEART RATE: 166 beats per minute. UTERUS: Within normal limits. UTERINE POSITION: Anteverted. CUL DE SAC: Normal. ADNEXA: Visually normal, no adnexal mass es detected. RIGHT OVARY: Appears normal. LEFT OVARY: Appears normal. Multiple measurements of the Sholes Rump Length (CRL) reveal an average ultrasound age of 7 weeks and 4 days. Se e IMPRESSION below for ultrasound calculation of Estimated Date of Delivery (ISATU). IMPRESSION: 1. Single Viable Intrauterine with ISATU of August 01, 2017 , consistent with menstrual dates. In general, it is reasonable to use the sonographically derived ISATU if it differs from that calculated using th e last menstrual period (LMP) by more than five days for gestational a ges less than 9 weeks. Use the sonographically derived ISATU if it differ s by more than seven days for gestational ages of 9 weeks to less than 16 weeks. [facility] in [place] FINISHED CARPET INSPECTOR Dept. [phone] Mayte Greene R.V.T., R.D.MSampsonS. IMG OB US PROCEDURE S documented in this encounter Visit Diagnoses Not on filedocumented in this encounter Additional Health Concerns Assessment Noted Time PHQ-9 Depression Total Score: 14 11/08/2016 1:35 PM CD T documented as of this encounter
--- OUTSIDE RECORDS SUMMARY | 2022-05-17 11:37 | XMS_ITS | Encounter Summary ---
:1995 Author Organization [facility] Address [address] [place] [address] Care Team Providers Name Role Phone Unavailable Primary Care Provider Unavailable Encounter Details Date Type Department Care Team Description 12/09/2016 Hospital Encounter HX NO MAPPING Jose Zelaya M.D. [address] [place], [place] [phone] (Wo rk) Social History [...] 11/23/2020 relatives? How often do you attend religion or hoahaoism Never 11/23/2020 services? Do you belong to any clubs or organizations such as No 11/23/2020 religion groups, unions, fraternal or athletic groups, or [...] slept in a group home (including now)? 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 However, the narrative phrase printed from the coding software may appear abbreviated, or result in slightly different terminology. Coded By: HERMILA ZHU Date Saved: 12/18/2016 08:56 am Source: [facility] [employer] Document Id: [id number] documented in this encounter Plan of Treatment Not on filedocumented as of this encounter Visit Diagnoses Not on filedocumented in this encounter Additional Health Concerns Assessment Noted Time PHQ-9 Depression Total Score: 14 11/08/2016 1:35 PM CD T documented as of this encounter
--- OUTSIDE RECORDS SUMMARY | 2022-05-17 11:37 | XMS_ITS | Encounter Summary ---
:1995 Author Organization [facility] Address [address] [place] [address] Care Team Providers Name Role Phone Iris Garcia APRN, C.NKb, M.S.N. Primary Care [facility] Reason for Visit Reason Comments Contraception Encounter Details Date Type Department Care Team Description 12/12/2017 Office Visit Department of Catracho Zelaya Insertion I ntrauterine Obstetrics and M.DSampson Device (Primary Dx) Gynecology in [address] [place], [place] [address] [facility] [address] [place], [place] [phone] [address] (Work) [phone] Social History Tobacco Use Types Packs/Day Years [...] 11/23/2020 relatives? How often do you attend hoahaoism or rastafari Never 11/23/2020 services? Do you belong to any clubs or organizations such as No 11/23/2020 hoahaoism groups, unions, fraternal or athletic groups, or [...] or slept in a custodial (including now)? 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 - 12/12/2017 2:00 PM CDT Chief complaint is contraceptive counseling and IUD insertion. HISTORY OF PRESENT ILLNESS: Emily Zapien presents for IUD insertion following her own investigation of this form of contraception. She is in a stable, healthy, monogamous relationship. She is reasonably certain that there is no chance she is today. She has no symptoms of such as amenorrhea, breast tenderness, excessive fatigue, nor nausea. A description of the procedure has been reviewed with the patient and she desires to proceed with insertion today. MEDICATIONS: @CURRENTMEDS@ ALLERGIES: Allergies Allergen Reactions ??? Codeine GI intolerance SYSTEMS REVIEW: She is experiencing normal bowel and bladder habits. She is not currently experiencing symptoms of pelvic pain nor unusual vaginal bleeding. No fevers nor chills. MEDICAL HISTORY: No past medical history on file. SURGICAL HISTORY: Past Surgical History: Procedure Laterality Date ??? OTHER CONVERTED SHX (SEE COMMENT) N/A 01/31/2001 Irrigation and debridement. >Closed reduction of left distal radius and ulna ??? OTHER CONVERTED SHX (SEE COMMENT) N/A 02/09/2001 >Examination. ??? OTHER CONVERTED SHX (SEE COMMENT) N/A 03/04/2001 >Cast change. X-rays and exam. ??? OTHER CONVERTED SHX (SEE COMMENT) N/A 03/30/2001 >Cast removal. X-rays out of cast. ??? TONSILLECTOMY AND ADENOIDECTOMY N/A 04/30/2006 Tonsillectomy and adenoidectomy; younger than age 12.. PHYSICAL EXAMINATION: GENERAL: She is alert and oriented x3. Appears in no acute distress. BP 104/72 Wt 91.4 kg LMP 12/09/2016 ? No BMI 30.89 kg/m?? ABDOMEN: soft, nondistended, nontender PELVIC: Lymph nodes are negative bilaterally. Normal external genitalia. No cervical pathology is noted. Risks, benefits, and alternatives have been fully discussed including, but not limited to, failure of this method, migration or loss of the IUD, infection, bleeding, and uterine perforation. Informed consent and patient identification, with no less than two identifiers, was obtained prior to the procedure. Emily Zapien 1995 The cervix is cleaned with Betadine prep x 3. The anterior cervix is grasped with a single toothed tenaculum and gentle traction is applied. A uterine sound is used to establish a depth of insertion at7 centimeters. A Copper Paragaurd IUD is inserted to the above depth without difficulty and patient report of mild cramping. Minimal bleeding is controlled with pressure by a cotton swab. The strings are trimmed, and the patient is able to rest. She tolerated the insertion well without apparent complication. IMPRESSION/REPORT/PLAN: Successful IUD insertion. The use of an IUD for control is reviewed today; I have quoted a 99% efficacy based on the available literature. can occur in a small minority of cases. When this rare event occurs, it can be ectopic in location. The patient is instructed in how to monitor placement by palpation of the strings. She will return to clinic if any doubts exist about correct placement. She will seek immediate attention for signs of fever or abdominal-pelvic discomfort. An [id number] medication such as Tylenol or Motrin should be appropriate pain control. Electronically signed by: Catracho Zelaya M.D. 12/12/17 2:27 PM documented in this encounter Miscellaneous Notes Addendum Note - Diomedes Mares L.P.N. - 12/12/2017 2:00 PM CDT Addended by: DIOMEDES MARES on: 01/14/2018 02:57 PM Modules accepted: Orders Addendum Note - aCtracho Zelaya M.D. - 12/12/2017 2:00 PM CDT Addended by: CATRACHO ZELAYA on: 01/14/2018 04:10 PM Modules accepted: Orders Addendum Note - Diomedes Mares L.P.N. - 12/12/2017 2:00 PM CDT Addended by: DIOMEDES MARES on: 01/23/2018 10:22 AM Modules accepted: Orders documented in this encounter Plan of Treatment Not on filedocumented as of this encounter Visit Diagnoses Diagnosis Insertion Intrauterine Device - Primary documented in this encounter Additional Health Concerns Assessment Noted Time PHQ-9 Depression Total Score: 14 11/08/2016 1:35 PM CD T documented as of this encounter Care Teams Web Production Assistant Relationship Specialty Start Date End Date Iris Garcia APRN, C.N.P., PCP - General Family Medicine 05/16/20 M.S.N. [address] [place] [address] documented as of this encounter
--- OUTSIDE RECORDS SUMMARY | 2022-05-17 11:37 | XMS_ITS | Encounter Summary ---
:1995 Author Organization [facility] Address [address] [place] [address] Care Team Providers Name Role Phone Unavailable Primary Care Provider Unavailable Reason for Referral Outpatient (Routine) - Closed Specialty Diagnoses / Procedures Referred By Contact Refer red To Contact Ophthalmology Diagnoses Myopia Bilateral Edward Steel M.D. [address] [place] [address] Referral ID Status Reason Start Date Expiration Date Visits Requ ested Visits Authorized [id number] Closed 04/22/2017 10/19/2017 1 1 utpatient (Routine) - Closed Specialty Diagnoses / Procedures Referred By Contact Refer red To Contact Obstetrics and Jose Zelaya M.D. Gynecology [address] [address] Referral ID Status Reason Start Date Expiration Date Visits Requ ested Visits Authorized [id number] Closed 04/15/2017 10/12/2017 1 1 Encounter Details Date Type Department Care Team Description 04/15/2017 Orders Only Department of Jose Zelaya, Encounter f or supervision of normal , unspecified, unspecified trimester; Obstetrics and MStacie Myopia Bilateral Gynecology in [address] [address] [place], [place] [phone] [phone] (Work) [phone] Social History Tobacco Use Types Packs/Day Years [...] How often do you attend mandaeism or gnosticism Never 11/23/2020 services? Do you belong to [...] or slept in a jail (including now)? 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 encounter Plan of Treatment Scheduled Referrals Name Type Priority Associated Order Schedule Diagnoses Ophthalmology office Outpatient Referral Routine Myopia Bilate ral Expected: visit (clinic) 01/22/2017 (Approximate), Expires: 01/26/2022 Obstetrics and Outpatient Referral Routine Expect ed: Gynecology office 05/13/2017 visit (clinic) (Approximate) , Expires: 05/17/2022 documented as of this encounter Results (ABNORMAL) Hemoglobin (05/20/2017 5:33 PM HANDLE ASSEMBLER) athologist Signature Hemoglobin 10.2 (L) 11.6 - 15.0 05/20/2017 [facility] g/dL 5:41 PM HANDLE ASSEMBLER [facility] Specimen Anatomical Collection Method Collection Time Receive d Time (Source) Location / / Volume Laterality Blood 05/20/2017 5:33 PM 7 5:39 HANDLE ASSEMBLER PM HANDLE ASSEMBLER Jose Zelaya M.D. LAB BLOOD ADD-ON Performing Organization Address City/State/ZIP Code Phon e Number [facility] [address] [address] LAB Glucose Tolerance Test, 1 hour (05/20/2017 5:33 PM HANDLE ASSEMBLER) P athologist Signature Glucose [place], 1 108 <130 mg/dL 05/20/2017 [facility] hr, S 8:09 PM HANDLE ASSEMBLER [facility] Specimen Anatomical Collection Method Collection Time Receive d Time (Source) Location / / Volume Laterality Blood 05/20/2017 5:33 PM 7 5:39 HANDLE ASSEMBLER PM HANDLE ASSEMBLER Jose Zelaya M.D. LAB BLOOD NON ADD-ON Performing Organization Address City/State/ZIP Code Phon e Number [facility] [address] [address] LAB documented in this encounter Visit Diagnoses Diagnosis Encounter for supervision of normal preg claudia, unspecified, unspecified trimester (HCC) Encounter for supervision of normal preg claudia, unspecified, unspecified trimester Myopia Bilateral documented in this encounter Additional Health Concerns Assessment Noted Time PHQ-9 Depression Total Score: 14 11/08/2016 1:35 PM CD T documented as of this encounter
--- OUTSIDE RECORDS SUMMARY | 2022-05-17 11:37 | XMS_ITS | Encounter Summary ---
:1995 Author Organization [facility] Address [address] [place] [address] Care Team Providers Name Role Phone Unavailable Primary Care Provider Unavailable Encounter Details Date Type Department Care Team Description 03/20/2017 Hospital Encounter HX [facility] Nicolás Taylor M.D. [address] [place], [place] [phone] (Wo rk) Social History [...] How often do you attend evangelical or bahai Never 11/23/2020 services? Do you [...] or slept in a snf (including now)? 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 - 03/20/2017 3:04 PM CDT CHIEF COMPLAINT: care, survey HISTORY OF PRESENT ILLNESS: This patient presents for a visit in the second trimester. She has no unusual complaints today and is not experiencing severe hyperemesis nor vaginal bleeding. She is tolerating PO well, and is taking vitamins. CURRENT MEDICATIONS and ALLERGIES have been reviewed [...] gain is documented on the ACOG form. growth is appropriate and normal based on measurements of the biparietal diameter, femure length, abdominal circumference, and head circumference. Heart Tones are in the normal range during the ultrasound examination. OB labs reviewed today. A detailed anatomic survey was performed and the results are normal. Please refer to separately dictated report. Gender is male. IMPRESSION/REPORT/PLAN: Second trimester . Recommendations: Follow up visit is scheduled in four weeks. Routine early ultrasound is beneficial in leading to early detection of clinically unsuspected malformations (including aneuploidies). The safety of obstetrical ultrasound is well established. While overall reassuring, the detailed survey today is a screening exam and like all tests is limited in it's ability to detect all possible problems. Catracho Ortiz CC: Labor and Delivery Electronically Signed By: CATRACHO ZELAYA MD On: 03/20/2017 03:05 PM Source: [facility] POWERCHART Document Id: [id number] documented in this encounter Miscellaneous Notes Miscellaneous - Catracho Zelaya M.D. - 03/20/2017 3:04 PM CDT Ambulatory Patient Summary [address] [id number] Visit Information Name: EMILY MCGUIRE [facility] Number: [id number] Current Date: 03/20/2017 15:04:30 Physicians Attending Provider: CATRACHO ZELAYA MD Primary Care Provider: PCP, DEEJAY EMILY MCGUIRE has been given the following [...] you have problems taking your medications. Medication/Strength How to Take Indications/Special Instructions/Comments/Notes for Patient Medication Changes/Routing multivitamin, ( Multivitamins Folic Acid 1 mg oral tablet) 1 Tablet(s), Oral, once a day ondansetron (Zofran 4 mg oral tablet) 1 Tablet(s), Oral, every 8 hours as needed for Nausea Stop Taking the Following Medications: Medication list as of 03-20-17 15:04 Attention: If you have any medications at [...] Electronically Signed By: CATRACHO ZELAYA MD Signed On:20-MAR-2017 15:04:27 Your Allergies & Intolerances Substance Reaction Symptoms Category Comments codeine Upset stomach Drug Your Problem List Problem Status Onset Comments Dizziness Active 04/12/2008 Migraine Common Active 04/20/2008 Sports Exam Active 09/06/2009 Active 10/25/2016 Your Upcoming Appointments Date Time Location Provider 04/15/2017 16:30 [facility] STEAM TURBINE ASSEMBLER Catracho Zelaya MD 05/20/2017 16:30 [place] STEAM TURBINE ASSEMBLER Catracho Zelaya MD 06/13/2017 14:30 [facility] STEAM TURBINE ASSEMBLER Catracho Zelaya MD Attention: Contact your local [...] if you dont have one. Go to [email or web address] and click on Create Your Account. Then, follow the directions to complete the online form. Youll be asked for your [facility] number which you can find at the top of this document. Your Goals/Additional instructions: Source: [facility] POWERCHART Document Id: [id number] Miscellaneous - Catracho Zelaya M.D. - 03/20/2017 3:04 PM CDT Ambulatory Discharge Medication List [address] [id number] Visit Information Name: EMILY MCGUIRE [facility] Number: [id number] Current Date: 03/20/2017 15:04:30 Attending Provider: CATRACHO ZELAYA MD Primary Care Provider: PCP, ELSEWHERE EMILY MCGUIRE has been given the following list of medications: Your Medications It is important to take your medications as directed. Use a pill box or chart to help remind you to take your medications. Please let your doctor or nurse know if you have problems taking your medications. Medication/Strength How to Take Indications/Special Instructions/Comments/Notes for Patient Medication Changes/Routing multivitamin, ( Multivitamins Folic Acid 1 mg oral tablet) 1 Tablet(s), Oral, once a day ondansetron (Zofran 4 mg oral tablet) 1 Tablet(s), Oral, every 8 hours as needed for Nausea Stop Taking the Following Medications: Medication list as of 03-20-17 15:04 Attention: If you have any medications at [...] Electronically Signed By: CATRACHO ZELAYA MD Signed On:20-MAR-2017 15:04:27 Additional Information: Source: [facility] POWERCHART Document Id: [id number] Miscellaneous - Michelle Yates, L.P.N. - 03/20/2017 2:45 PM CDT Adult Butter Liquefier Intake/History Adult Butter Liquefier Intake/History Entered On: 03/20/2017 14:46 CDT Performed On: 03/20/2017 14:45 CDT by MICHELLE YATES LPN Intake Chief Complaint : ob check Systolic Blood Pressure : 110 mmHg Diastolic Blood Pressure : 56 mmHg NIBP Mean : 74 mmHg BP Location : Left upper extremity Blood Pressure Cuff Size : Regular Height : 172 cm(Converted to: 5 ft 8 inch(es), 68 inch(es)) Actual Weight : 92.6 kg(Converted to: 204 lb 2 oz) Weight Source : Standing scale Dosing Weight Clinic : 92.6 kg Clinic BSA : 2.1 Body Mass Index : 31.3 kg/m2 MICHELLE YATES LPN - 03/20/2017 14:45 CDT General Info Information Given By : Patient Preferred Communication Mode : Verbal Languages : [place] Islander Is Patient Female and 13-50 no hysterectomy : MICHELLE Loo LPN - 03/20/2017 14:45 CDT Subjective Pain Symptoms : MICHELLE Loo LPN - 03/20/2017 14:45 CDT Dependent Habits Exposure to Tobacco Smoke : Other: non tobacco home Smoking Status : Never smoker Tobacco 2A : No Tobacco Use/Currently Using : No Tobacco Use/Last 30 Days : No Tobacco Use/Last 12 months : MICHELLE Loo LPN - 03/20/2017 14:45 CDT Source: [facility] POWERCHART Document Id: [id number] CDT!28 documented in this encounter Plan of Treatment Not on filedocumented as of this encounter Visit Diagnoses Not on filedocumented in this encounter Additional Health Concerns Assessment Noted Time PHQ-9 Depression Total Score: 14 11/08/2016 1:35 PM CD T documented as of this encounter
--- OUTSIDE RECORDS SUMMARY | 2022-05-17 11:37 | XMS_ITS | Encounter Summary ---
:1995 Author Organization [facility] Address [address] [place] [address] Care Team Providers Name Role Phone Unavailable Primary Care Provider Unavailable Reason for Visit Reason Comments Routine Visit 35 wk ob check Outpatient (Routine) - Canceled Specialty Diagnoses / Procedures Referred By Contact Refer red To Contact Obstetrics and Diagnoses OB check Jose Zelaya M.D. [facility] Gynecology [address] [place] [address] Referral ID Status Reason Start Date Expiration Date Visits V isits Requested Authorized [id number] Canceled 05/20/2017 11/16/2017 1 1 Encounter Details Date Type Department Care Team Description 06/27/2017 Routine Department of Jose Zelaya, Normal Not Obstetrics and M.DSampson First Gynecology in [address] (Primary Dx) [facility] [place] [address] [facility] [address] [place] [phone] [address] (Work) [phone] Social History Tobacco Use Types Packs/Day Years [...] How often do you attend quaker or muslim Never 11/23/2020 services? 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 - 06/27/2017 2:15 PM CST CHIEF COMPLAINT: care, third trimester. HISTORY OF PRESENT ILLNESS: This patient presents for a visit in the third trimester (35w0d). She has no unusual complaints today and [...] in the EMR as of today's date. The established ISATU, documentation of prior obstetric history, laboratory information, and summary of medical record is available for review today. Physical exam: BP 100/58 Wt 102.4 kg LMP 12/09/2016 BMI 34.61 kg/m?? General: well nourished, well developed female in no acute distress. Weight gain is documented on the ACOG form. Fundal height is appropriate for gestational age. Heart Tones are in the normal range by Doppler interrogation. OB labs reviewed today. Glucose test results and hemoglobin are documented in the EMR. Leopolds maneuvers are consistent with presentation of vertex. IMPRESSION/REPORT/PLAN: Third trimester . Recommendations: Follow up visit is scheduled in two weeks. counseling was given today including the need to continue with routine care, fetalkick counts, and monitoring of early labor contractions. labor signs and symptoms such as painful contractions or a gush of fluid would prompt presentation to the Center. Regular, frequent, strong and painful contractions may be a sign of labor. Either this or vaginal spotting should be evaluated immediately to allow early intervention and avoidance of delivery. These symptoms are in contrast to related body changes in weight, shape, and hormones thatare associated with musculoskeletal consequences including lordosis and joint laxity. Low back pain is a common complaint in . It is usually caused by mechanical factors. Leg cramps are common in women and can be relived by calf stretching and insuring proper diet to avoid electrolyte imbalances. Answers for HPI/ROS submitted by the patient on 05/20/2017 Night sweats: Yes Heartburn: Yes Muscle pain/stiffness: Yes Frequent urination: Yes S AND IN HOME DELIVERY SPECIALIST documented in this encounter Plan of Treatment Not on filedocumented as of this encounter Visit Diagnoses Diagnosis Normal Not First - P rimary documented in this encounter Additional Health Concerns Assessment Noted Time PHQ-9 Depression Total Score: 14 11/08/2016 1:35 PM CD T documented as of this encounter
--- OUTSIDE RECORDS SUMMARY | 2022-05-17 11:37 | XMS_ITS | Encounter Summary ---
:1995 Author Organization [facility] Address [address] [place] [address] Care Team Providers Name Role Phone Unavailable Primary Care Provider Unavailable Encounter Details Date Type Department Care Team Description 12/17/2016 Hospital Encounter HX [facility] Nicolás Taylor M.D. [address] [place], [place] [phone] (Wo rk) Social History [...] How often do you attend islam or sikhism Never 11/23/2020 services? Do you belong to [...] slept in a nursing home (including now)? 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 - 12/17/2016 3:11 PM CDT Chief complaint: Initiate OB care. HISTORY OF PRESENT ILLNESS The patient presents with a positive test to establish OB care. She is experiencing some of the usual signs of like breast tenderness, nausea, and fatigue. No signs of bleeding nor cramping. Her prior obstetrical history includes a vaginal delivery at term. CURRENT MEDICATIONS and ALLERGIES have been reviewed and are current as of this date. SYSTEMS REVIEW She is experiencing normal bowel and bladder habits. She is not currently experiencing symptoms of pelvic pain nor unusual vaginal bleeding. No fevers nor chills. PAST MEDICAL/SURGICAL HISTORY: noncontributory for this SOCIAL HISTORY: Smoking no Alcohol no Drugs no Family History Non contributory. Vital signs, were reviewed and are current in the EMR as of today's date. Weight is documented on the ACOG form. PHYSICAL EXAMINATION GENERAL: She is alert and oriented x3. Appears in no acute distress. CV: Regular rate and rythm LUNGS: clear to auscultation VITAL SIGNS: afebrile and normotensive ABDOMEN: non tender, no masses palpated. Fundal height, size=dates. EXTREMITIES: no edema or swelling. No cyanosis nor clubbing. PELVIC: Lymph nodes are negative bilaterally. Normal external genitalia. Bartholin, urethral, and Skenes glands are normal. Cervix is long, thick, and closed. No cervical pathology is noted. A GC/Chlamydia swab was sent to the lab for review. HEART RATE: normal range Separately dictated is a transvaginal ultrasound which documents a single viable intrauterine . Initial OB labs are pending at time of this dictation. Ms. Esquivel was present and assisted/chaperoned the exam. Impression/Report/Plan: New OB Visit, with confirmed EDC of good accuracy. Recommendation is to take a multivitamin supplement containing 0.4mg of folate daily. Screening for genetic disorders may be undertaken if concern exists based on familial or age-related risk factors. Some of the dietary and environmental exposure guidelines reviewed include: Fish/sushi: Fish is a good source of protein, contains desireable fatty acids, and is low in saturated fat. However, any fish can contain PCBs or higher levels of mercury than affect a developing baby.Eat in moderation but avoid shark, swordfish, alabcore tuna, tilefish, kylie mackeral, or whale. These large, saltwater sources of food are more likely to have high levels of mercury. Other locally caught fish that are more likely to have higher levels of heavy metals are walleye larger than 20 inches,northern pike larger than 30 inches, and all sizes of muskie (muskellunge). Light tuna (rather than albacore tuna) is less likely to have high levels of mercury. Up to two meals per week of salmon is ge nerally considered safe. Supplements: Nothing is needed besides a vitamin unless the patient has special needs. There is no good evidence that taking extra Vitamin D or omega-3 fatty acids is beneficial. A standard vitamin with iron satifies the daily requirments of most women. Cheese/meats: Although Listeriosis is rare, the common recommendation is to avoid unpasturized cheese or milk, refrigerated pates, meat spreads, or smoked seafood to avoid coming in to contact with this bacteria. Caffeine: is okay in moderation. Alcohol: there is no acceptable safe level in . Smoking: avoid smoking and/or stop if you are . Hot tubs: avoid in the first trimester. Hair dye: is okay in . Exercise is part of a healthy lifestyle before, during, and after . Exercise during has minimal risks and demonstrated benefits for most women, including maintenance or improvement of physical fitness, control of gestational weight gain, reduction in low back pain, and possibly a reduction in risk of developing gestational diabetes. Moderate exercise is not a direct cause of any adverse outcome; however, women may be at greater risk of injuries to joints, falling, and significant abdominal trauma during exercise. Abdominal trauma can result in placental abruption, so contact sports are a concern in . For most healthy women, moderate intensity exercise (able to carry on a normal conversation during exercise) that includes aerobic exercise andstrength training, can be performed for 30 minutes daily, 5 to 7 days per week. Previously sedentarywomen should begin with 15 minutes of continuous low-intensity exercise 3 times per week, increasingthe intensity, frequency, and duration gradually. Physically-active women can engage in moderate to vigorous physical activity. They should strive to maintain a good fitness level throughout without trying to reach their peak fitness level or train for athletic competition. women should continue wearing three-point seat belts during . The lap belt is placed across the hips and below the uterus. We plan monthly follow up visits until 28 weeks gestation, and then twice monthly until 36 weeks. A anatomy survery will be scheduled at 20 weeks gestation. A one-hour glucose test will be performed between 24 and 28 weeks. CC: Labor and Delivery Electronically Signed By: CATRACHO ZELAYA MD On: 12/17/2016 03:12 PM Source: [facility] POWERCHART Document Id: [id number] documented in this encounter Miscellaneous Notes Miscellaneous - Catracho Zelaya M.D. - 12/17/2016 3:11 PM CDT Ambulatory Patient Summary [facility] [address] [place], [place] [id number] Visit Information Name: EMILY MCGUIRE [facility] Number: [id number] Current Date: 12/17/2016 15:11:39 Physicians Attending Provider: CATRACHO ZELAYA MD Primary [...] every 8 hours as needed for Nausea New Routed to Printer Stop Taking the Following Medications: Medication list as of 12-17-16 15:11 Attention: If you have any medications at [...] Electronically Signed By: CATRACHO ZELAYA MD Signed On:17-DEC-2016 15:11:35 Your Allergies & Intolerances Substance Reaction Symptoms Category Comments codeine Upset stomach Drug Your Problem List Problem Status Onset Comments Dizziness Active 04/12/2008 Migraine Common Active 04/20/2008 Sports Exam Active 09/06/2009 Active 10/25/2016 Your Upcoming Appointments Date Time Location Provider No Appointments found Attention: Contact your local Clinic if further [...] if you dont have one. Go to [email or web address] and click on Create Your Account. Then, follow the directions to complete the online form. Youll be asked for your [facility] number which you can find at the top of this document. Your Goals/Additional instructions: Source: [facility] ProtectWiseCHART Document Id: [id number] Lul - Catracho Zelaya M.D. - 12/17/2016 3:11 PM CDT Ambulatory Discharge Medication List [address] [id number] Visit Information Name: EMILY MCGUIRE [facility] Number: [id number] Current Date: 12/17/2016 15:11:38 Attending Provider: CATRACHO ZELAYA MD Primary Care [...] every 8 hours as needed for Nausea New Routed to Printer Stop Taking the Following Medications: Medication list as of 12-17-16 15:11 Attention: If you have any medications at [...] Electronically Signed By: CATRACHO ZELAYA MD Signed On:17-DEC-2016 15:11:35 Additional Information: Source: [facility] Offerama Document Id: [id number] Lul - Michelle Yates L.P.N. - 12/17/2016 3:02 PM CDT Federal Agent Documentation Federal Agent Documentation Entered On: 12/17/2016 15:03 CDT Performed On: 12/17/2016 15:02 CDT by MICHELLE YATES LPN Federal Agent Documentation Exam/Procedure Performed : pelvic CD Federal Agent Present : Yes CD Federal Agent Name : Michelle Yates LPN Present in Room During Exam/Procedure : Significant other MICHELLE YATES LPN - 12/17/2016 15:02 CDT Source: [facility] [employer] Document Id: [id number] CDT!6 Miscellaneous - Michelle Yates L.P.NSampson - 12/17/2016 2:44 PM CDT Adult Cream Hauler Intake/History Adult Cream Hauler Intake/History Entered On: 12/17/2016 14:46 CDT Performed On: 12/17/2016 14:44 CDT by MICHELLE YATES LPN Intake Chief Complaint : new ob check cramping no bleeding Systolic Blood Pressure : 104 mmHg Diastolic Blood Pressure : 62 mmHg NIBP Mean : 76 mmHg BP Location : Left upper extremity Blood Pressure Cuff Size : Large Height : 172.4 cm(Converted to: 5 ft 8 inch(es), 68 inch(es)) Actual Weight : 91.3 kg(Converted to: 201 lb 5 oz) Weight Source : Standing scale Dosing Weight Clinic : 91.3 kg Clinic BSA : 2.09 Body Mass Index : 30.72 kg/m2 MICHELLE YATES LPN - 12/17/2016 14:44 CDT General Info Information Given By : Patient Preferred Communication Mode : Verbal Languages : Bengali Is Patient Female and 13-50 no hysterectomy : No MICHELLE YATES LPN - 12/17/2016 14:44 CDT Subjective Pain Symptoms : Yes MICHELLE YATES LPN - 12/17/2016 14:44 CDT Pain Scale Pain Scale Verbal 0-10 : Open MICHELLE YATES LPN - 12/17/2016 14:44 CDT Pain Pain Assessment Grid Pain 1 Location : Pelvic MICHELLE YATES LPN - 12/17/2016 14:44 CDT Dependent Habits Exposure to Tobacco Smoke : Other: non tobacco home Smoking Status : Never smoker Tobacco 2A : No Tobacco Use/Currently Using : No Tobacco Use/Last 30 Days : No Tobacco Use/Last 12 months : No MICHELLE YATES LPN - 12/17/2016 14:44 CDT Source: [facility] POWERCHART Document Id: [id number] CDT!34 documented in this encounter Plan of Treatment Not on filedocumented as of this encounter Procedures Procedure Name Priority Date/Time Associated Comments Diagnosis CHLAMYDIA/GONORRHOEAE Routine 12/17/2016 2:30 PM Results for this AMPLIFIED RNA CDT procedure are in the results section. CHLAMYDIA TRACHOMATIS Routine 12/17/2016 2:30 PM Results for this AMPLIFIED RNA CDT procedure are in the results section. PATHOLOGY [employer] Routine 12/17/2016 12:00 Results fo r this CYTOLOGY AM CDT procedure are i n the results section. documented in this encounter Results Chlamydia / gonorrhoeae Amplified RNA (12/17/2016 2:30 PM CDT) Component Value Ref Test Analysis Performed At [facility] Method Time Signature HX GC by Nucleic POWERCHART Acid Amplification HXFinal Negative for POWERCHART Neisseria gonorrhea by RNA amplification . HXFinal Reference: POWERCHART Negative HXFinal If you POWERCHART submitted a female urine sample, please note it is a Laboratory Developed Test. Specimen (Source) Anatomical Collection Method Collection Time Re ceived Time Location / / Volume Laterality Cervix/Endocervix 12/17/2016 2:30 PM CDT Catracho Zelaya M.D. LAB MICROBIOLOGY - GENERAL O RDERABLES Performing Organization Address City/State/ZIP Code Phon e Number POWERCHART Chlamydia trachomatis Amplified RNA (12/17/2016 2:30 PM CDT) Component Value Ref Test Analysis Performed At [facility] Method Time Signature HXChlamydia by POWERCHART Nucleic Acid Amplification HXFinal Negative for POWERCHART Chlamydia trachomatis by RNA amplification. HXFinal Reference: POWERCHART Negative HXFinal If you POWERCHART submitted a female urine sample, please note it is a Laboratory Developed Test. Specimen (Source) Anatomical Collection Method Collection Time Re ceived Time Location / / Volume Laterality Cervix/Endocervix 12/17/2016 2:30 PM CDT Catracho Zelaya M.D. LAB MICROBIOLOGY - GENERAL O RDERABLES Performing Organization Address City/State/ZIP Code Phon e Number POWERCHART Pathology [employer] Cytology (12/17/2016 12:00 AM CDT) Specimen (Source) Anatomical Location Collection Method / Collectio n Time Received Time / Laterality Volume 12/17/2016 Narrative [facility] - 12/19/2016 8:07 AM CDT [facility] [address] [place], [place] ??[phone] Patient Name: EMILY MCGUIRE Patient ID #: [id number] Collected: 12/17/2016 Address: City/State/Zip: [address] [place], [place] ??[address] Received: Reported: 12/18/2016 12/19/2016 Soc. Sec. #: ?/Age/Sex 1995 (Age: 21) ??F Physician(s): MAX ZELAYA MD Copy To: ? [facility] ?? [id number] [address] [facility], ??[place] ??[address] CYTOPATHOLOGY [employer] REPORT FINAL CYTOLOGIC DIAGNOSIS Pap Smear VCE - ThinPrep: NEGATIVE FOR INTRAEPITHELIAL LESION OR MALIGNANCY SPARSE TO NO ENDOCERVICAL COMPONENT PRES ENT. SATISFACTORY SPECIMEN FOR EVALUATION. Electronically Signed Out By amb/12/19/[address](ASCP) The Pap test is a screening procedure an d, as such, is subject to both false positive and false negative results as evidenced by published data. ??It is not a diagnostic test and results should be inter preted in the context of the patient's h istory and other clinical findings. ??Obtaining per iodic Pap tests may help to minimize the consequences of any false negatives that may occur. SPECIMEN(S) RECEIVED: Pap Smear VCE - ThinPrep CLINICAL HISTORY: Date of Last Menstrual Period: 10/25/2016 Menstrual History: Hormonal History: No hormonal therapy Other Clinical Conditions: HPV TYPING REQUESTED: IF ASCUS Catracho Zelaya M.D. LAB PAP COPATH ORDERABLES Performing Organization Address City/State/ZIP Code Phon e Number [facility] documented in this encounter Visit Diagnoses Not on filedocumented in this encounter Additional Health Concerns Assessment Noted Time PHQ-9 Depression Total Score: 14 11/08/2016 1:35 PM CD T documented as of this encounter
--- OUTSIDE RECORDS SUMMARY | 2022-05-17 11:37 | XMS_ITS | Encounter Summary ---
:1995 Author Organization [facility] Address [address] [place] [address] Care Team Providers Name Role Phone Unavailable Primary Care Provider Unavailable Reason for Visit Reason Comments Routine Visit 37 wk ob check Encounter Details Date Type Department Care Team Description 07/11/2017 Routine Department of Catracho Zelaya, Normal Not Obstetrics and M.D. First Gynecology in [address] (Primary Dx) [place], [place] [address] [facility] [address] [place], [place] [phone] (Work) [phone] Social History Tobacco Use Types Packs/Day Years [...] How often do you attend quaker or oriental orthodox Never 11/23/2020 services? Do [...] at Date Recorded Female 05/20/2017 4:45 PM RESISTANCE WELDER documented as of this encounter Last Filed Vital Signs Vital Sign Reading Time Taken Comments Blood Pressure 106/60 07/11/2017 2:30 PM RESISTANCE WELDER Pulse - - Temperature - - Respiratory Rate - - Oxygen Saturation - - Inhaled Oxygen Concentration - - Weight 103 kg (226 lb 6.6 oz) 07/11/2017 2:30 PM RESISTANCE WELDER Height - - Body Mass Index 34.71 04/15/2017 4:30 PM CDT documented in this encounter Progress Notes Catracho Zelaya M.D. - 07/11/2017 2:45 PM CST CHIEF COMPLAINT: care, third trimester. HISTORY OF PRESENT ILLNESS: This patient presents for a visit in the third trimester (37w0d). She has no unusual complaints today and is not experiencing severe hyperemesis nor vaginal bleeding. She is tolerating PO well, and is taking vitamins. movement is reported as good. CURRENT MEDICATIONS and ALLERGIES have been reviewed and are current in the EMR as of today's date. Social History Social History ??? Marital status: Single Spouse name: N/A ??? Number of children: N/A ??? Years of education: N/A Occupational History ??? Not on file. Social History Main Topics ??? Smoking status: Never Smoker ??? Smokeless tobacco: Never Used ??? Alcohol use Not on file ??? Drug use: Unknown ??? Sexual activity: Not on file Other Topics Concern ??? Not on file Social History Narrative ??? No narrative on file OB History Para Term AB Living 2 1 1 1 SAB TAB Ectopic Molar Multiple Live Births 1 Refer to the patient's accompanying EMR entries for established ISATU, documentation of prior obstetric history, laboratory information, and summary of medical record. Physical exam: BP 106/60 Wt 102.7 kg LMP 12/09/2016 BMI 34.71 kg/m?? General: well nourished, well developed female in no acute distress. Weight gain is documented on the ACOG form. Fundal height is appropriate for gestational age. Heart Tones are in the normal range by Doppler interrogation. OB labs reviewed today. Glucose test results and hemoglobin are documented in the EMR. A group B strep test is documented in the EMR. Cervical exam was performed, results are 1 cm dilation.. IMPRESSION/REPORT/PLAN: Third trimester . Recommendations: Follow up visit is scheduled in one week. counseling was given today including the need to continue with routine care, kick counts, and monitoring of early labor contractions. Most airlines allow women to travel up to 37 weeks of gestation, although individual policies may vary. When reaching 37 weeks gestation, women should avoid air travel. Electronically signed by: Catracho Zelaya M.D. 07/11/17 2:56 PM STANCE WELDER documented in this encounter Miscellaneous Notes Addendum Note - Catracho Zelaya M.D. - 07/11/2017 2:45 PM RESISTANCE WELDER Addended by: CATRACHO ZELAYA on: 07/11/2017 03:27 PM Modules accepted: Orders STANCE WELDER Addendum Note - Jose Ramon Morrison, LSampsonP.N. - 07/11/2017 2:45 PM RESISTANCE WELDER Addended by: JOSE RAMON MORRISON on: 07/11/2017 03:37 PM Modules accepted: Orders STANCE WELDER documented in this encounter Plan of Treatment Not on filedocumented as of this encounter Procedures Procedure Name Priority Date/Time Associated Diagnosis Comme nts GROUP B STREP (S. Routine 07/11/2017 4:05 PM Normal Not Results for this AGALACTIAE), PCR RESISTANCE WELDER First procedur e are in the results section. documented in this encounter Results Group B Strep (S. agalactiae), PCR Vagina-Rectum (07/11/2017 4:05 PM RESISTANCE WELDER) athologist Signature Grp B Strep Negative Negative 07/12/2017 [facility] (S. 9:09 PM RESISTANCE WELDER [facility] agalactiae), SYSTEM- PCR [place] [facility] Specimen Anatomical Collection Method Collection Time Receive d Time (Source) Location / / Volume Laterality Varies 07/11/2017 4:05 PM 8 (Vagina-Rectum) RESISTANCE WELDER 11:23 PM RESISTANCE WELDER Catracho Zelaya M.D. LAB MICROBIOLOGY - GENERAL O RDERABLES Performing Organization Address City/State/[place] [address] LAB documented in this encounter Visit Diagnoses Diagnosis Normal Not First - P rimary documented in this encounter Additional Health Concerns Assessment Noted Time PHQ-9 Depression Total Score: 14 11/08/2016 1:35 PM CD T documented as of this encounter
--- OUTSIDE RECORDS SUMMARY | 2022-05-17 11:37 | XMS_ITS | Encounter Summary ---
:1995 Author Organization [facility] Address [address] [place] [address] Care Team Providers Name Role Phone Unavailable Primary Care Provider Unavailable Reason for Visit Reason Comments Urinary Tract Infection Patient finished antibiotic 3 days ago for a UTI and is still having symptoms Encounter Details Date Type Department Care Team Description 07/05/2017 [facility] Infection Uri nary Tract (Primary Dx); [place], [place] Hakan, Dysuria [address] [place], [place] [address] [address] [place], [place] [phone] Social History Tobacco Use Types Packs/Day [...] How often do you attend moravian or presybeterian Never 11/23/2020 services? Do you belong to [...] at Date Recorded Female 05/20/2017 4:45 PM ELECTRIC MOTOR MECHANIC documented as of this encounter Last Filed Vital Signs Vital Sign Reading Time Taken Comments Blood Pressure 117/62 07/05/2017 4:35 PM ELECTRIC MOTOR MECHANIC Pulse 97 07/05/2017 4:35 PM ELECTRIC MOTOR MECHANIC Temperature 36.6 ??C (97.9 ??F) 07/05/2017 4:35 PM ELECTRIC MOTOR MECHANIC Respiratory Rate 20 07/05/2017 4:35 PM ELECTRIC MOTOR MECHANIC Oxygen Saturation - - Inhaled Oxygen Concentration - - Weight 104 kg (228 lb 6.3 oz) 07/05/2017 4:35 PM ELECTRIC MOTOR MECHANIC Height - - Body Mass Index 35.02 04/15/2017 4:30 PM CDT documented in this encounter Progress Notes Hakan Price, Leonidas.-Georgina., P.A. - 07/05/2017 4:15 PM CST SUBJECTIVE Emily Zapien is a 21 y.o. female who has the following urinary symptoms: dysuria, foul smelling urine, pain in the lower abdomen and urgency for 2 days who denies erythema of vaginal area, hematuria and vomiting. STI history: denies knowledge of risky exposure Patient denies, abnormal vaginal discharge or genital sores, immunosuppression, history of kidney stones, recent hospitalizations and catheterizations. Pt is 34 wk , second , had similar lower abdominal discomfort with the first baby. She had her last UTI on 06/18, states that the treatment helped but sxs have now returned. Current Outpatient Prescriptions on File Prior to Visit Medication Sig Dispense Refill ??? ondansetron (ZOFRAN, HYDROCHLORIDE,) 4 mg tablet Take 1 tablet by mouth every 8 (eight) hoursas needed. ??? PNV NO.95/FERROUS FUM/FOLIC AC ( MULTIVITAMINS ORAL) Take 1 tablet by mouth daily. No current facility-administered medications on file prior to visit. Allergies Allergen Reactions ??? Codeine GI intolerance Social History Substance Use Topics ??? Smoking status: Never Smoker ??? Smokeless tobacco: Never Used ??? Alcohol use Not on file OBJECTIVE BP 117/62 (BP Location: Right arm, Patient Position: Sitting, Cuff Size: Large) Pulse 97 Temp 36.6 ??C (Oral) Resp 20 Wt 103.6 kg LMP 12/09/2016 ? No BMI 35.02 kg/m?? General appearance:healthy, alert, no distress, cooperative Lungs: Lungs clear bilaterally Heart: regular rate and rhythm Abdomen: mild tenderness with palpation in LLQ, negative CVA tenderness, gravid Skin: Skin color, texture, turgor normal. No rashes or lesions Gu : deferred, pt has appt on 07/11 DIAGNOSTICS: Recent Results (from the past 24 hour(s)) Urinalysis with Microscopic if Indicated Collection Time: 07/05/17 4:41 PM Result Value Source Midstream Clarity Cloudy (A) Color Monica Blood Negative Nitrite Negative Leukocyte Esterase Moderate (A) Protein Negative Glucose Negative Ketone 15 (A) Bilirubin Negative pH 5.5 Specific Holt, U 1.027 Urobilinogen, Urine 1.0 Microscopic Automated Collection Time: 07/05/17 4:41 PM Result Value White Blood Cells 21-30 (A) Red Blood Cells Occ-2 Casts, Hyaline 1-3 Squamous Cells 4-10 Bacteria Present (A) ASSESSMENT / PLAN ASSESSMENT 1. Infection Urinary Tract with - nitrofurantoin monohydrate (for_MACROBID) 100 mg capsule; Take 1 capsule (100 mg total) by mouth 2(two) times a day for 7 days. Dispense: 14 capsule; Refill: 0 - Bacterial Culture, Aerobic + Susc, Urine Urine, Midstream PLAN Treatment current guidelines - also push fluids. Call or return to clinic prn if these symptoms worsen or fail to improve as anticipated. Hakan Price P.A.-C., P.A. TRIC MOTOR MECHANIC documented in this encounter Plan of Treatment Not on filedocumented as of this encounter Procedures Procedure Name Priority Date/Time Associated Comments Diagnosis URINALYSIS WITH STAT 07/05/2017 4:41 PM Result s for this MICROSCOPIC IF ELECTRIC MOTOR MECHANIC procedure are in INDICATED, U the results section. MICROSCOPIC AUTOMATED STAT 07/05/2017 4:41 PM Results for this ELECTRIC MOTOR MECHANIC procedure are i n the results section. BACTERIAL CULTURE, STAT 07/05/2017 4:41 PM Dysuria Res ults for this AEROBIC + SUSC, URINE ELECTRIC MOTOR MECHANIC proced ure are in the results section. documented in this encounter Results (ABNORMAL) Microscopic Automated (07/05/2017 4:41 PM ELECTRIC MOTOR MECHANIC) Analysis Performed At Patho logist Time Signature White Blood 21-30 (A) /hpf 07/05/2017 [facility] Cells 5:01 PM [facility] Comment: ----REFERENCE VALUE---- Males: 0-3 Females: 0-10 Unknown: 0-10 Red Blood Cells Occ-2 0 - 2 /hpf 07/05/2017 5:01 PM ELECTRIC MOTOR MECHANIC [facility] Casts, Hyaline 1-3 /lpf 07/05/2017 5:01 PM ELECTRIC MOTOR MECHANIC [facility] Squamous Cells 4-10 /hpf 07/05/2017 5:01 PM [facility] Bacteria Present (A) None Seen 07/05/2017 5:01 PM ELECTRIC MOTOR MECHANIC [facility] Specimen Anatomical Collection Method Collection Time Receive d Time (Source) Location / / Volume Laterality Urine 07/05/2017 4:41 PM 8 4:52 ELECTRIC MOTOR MECHANIC PM ELECTRIC MOTOR MECHANIC Hakan Price P.A.-C. LAB URINE ORDERABLES Performing Organization Address City/State/ZIP Code Phon e Number [facility] [address] [place] [address] LAB (ABNORMAL) Urinalysis with Microscopic if Indicated (07/05/2017 4:41 PM ELECTRIC MOTOR MECHANIC) P athologist Signature Source Midstream 07/05/2017 [facility] 5:01 PM [facility] Clarity Cloudy (A) Clear 07/05/2017 [facility] 5:01 PM [facility] Color Monica 07/05/2017 [facility] 5:01 PM [facility] Comment: ----REFERENCE VALUE---- Colorless Yellow Monica Blood Negative Negative 07/05/2017 5:[address] [facility] [place] Nitrite Negative Negative 07/05/2017 5:[address] [facility] Leukocyte Esterase Moderate (A) Negative 07/05/2017 5:01 PM [facility] [place] [facility] Protein, U Negative mg/dL 07/05/2017 5:01 PM [facility] [place] [facility] Comment: ----REFERENCE VALUE---- Negative Trace Glucose Negative Negative mg/dL 07/05/2017 5:01 PM [facility] [place] [facility] Ketone 15 (A) Negative mg/dL 07/05/2017 5:01 PM [facility] [place] [facility] Bilirubin Negative Negative 07/05/2017 5:01 PM [facility] pH 5.5 5.0 - 8.0 07/05/2017 5:01 PM [facility] Specific Holt 1.027 1.001 - 1.035 07/05/2017 5:01 PM [facility] Urobilinogen 1.0 0.2 - 1.0 07/05/2017 5:01 PM [facility] [place] Specimen Anatomical Collection Method Collection Time Receive d Time (Source) Location / / Volume Laterality Urine 07/05/2017 4:41 PM 8 4:52 ELECTRIC MOTOR MECHANIC PM ELECTRIC MOTOR MECHANIC Hakan Price P.A.-C. LAB URINE ORDERABLES Performing Organization Address City/State/ZIP Code Phon e Number [facility] [address] [place] [address] LAB Bacterial Culture, Aerobic + Susc, Urine Urine, Midstream (07/05/2017 4:41 PM ELECTRIC MOTOR MECHANIC) Analysis Performed At Patho logist Time Signature Bacterial Mixed 07/06/2017 [facility] Culture, edel. 4:[address] [facility] Aerobic, Urine [facility]- [place] LAB Specimen Anatomical Collection Method Collection Time Receive d Time (Source) Location / / Volume Laterality Urine (Urine, 07/05/2017 4:41 PM 07/05/19 18 9:49 Midstream) ELECTRIC MOTOR MECHANIC PM ELECTRIC MOTOR MECHANIC Comment: Specimen Source Site: Urine Hakan Price P.A.-C. LAB MICROBIOLOGY - GENERA L ORDERABLES Performing Organization Address City/State/[facility] [place] [address] LAB documented in this encounter Visit Diagnoses Diagnosis Infection Urinary Tract - Primary Dysuria documented in this encounter Additional Health Concerns Assessment Noted Time PHQ-9 Depression Total Score: 14 11/08/2016 1:35 PM CD T documented as of this encounter
--- OUTSIDE RECORDS SUMMARY | 2022-05-17 11:37 | XMS_ITS | Encounter Summary ---
:1995 Author Organization [facility] Address [address] [place] [address] Care Team Providers Name Role Phone Iris Garcia APRN, C.N.P., M.S.N. Primary Care Prov di Reason for Referral Outpatient (Routine) - Closed Specialty Diagnoses / Procedures Referred By Contact Refer red To Contact Family Medicine Iris Garcia [facility] Melanie GARNICA, M.S.N. [address] [place] [address] Referral ID Status Reason Start Date Expiration Date Visits Requ ested Visits Authorized [id number] Closed 12/22/2017 12/22/2018 1 1 Reason for Visit Reason Comments Other anxiety and depression Encounter Details Date Type Department Care Team Description 12/22/2017 Office Visit Department of [facility] Jose, Anxiety Generalized Disorder (Primary Dx); Medicine, Lauro Childs APRN, Depress ion Major Recurrent Moderate (HCC) Clinic, in Melanie Restrepo, M.S .N. [place] [address] [facility] [address] [place] [phone] Social History Tobacco Use Types Packs/Day Years [...] How often do you attend quaker or gnosticism Never 11/23/2020 services? Do you [...] at Date Recorded Female 05/20/2017 4:45 PM ACTIVE DIRECTORY ADMINISTRATOR documented as of this encounter Last Filed Vital Signs Vital Sign Reading Time Taken Comments Blood Pressure 119/67 12/22/2017 10:51 AM CDT Pulse 91 12/22/2017 10:51 AM CDT Temperature - - Respiratory Rate - - Oxygen Saturation - - Inhaled Oxygen Concentration - - Weight 92.5 kg (203 lb 14.8 oz) 12/22/2017 10:51 AM CDT Height - - Body Mass Index 31.27 04/15/2017 4:30 PM CDT documented in this encounter Progress Notes Iris Garcia, NAHUN, C.N.P., M.S.N. - 12/22/2017 11:00 AM CDT SUBJECTIVE CHIEF COMPLAINT / REASON FOR VISIT Emily Zapien is a 22 y.o. female who presents for evaluation of Other (anxiety and depression). HISTORY OF PRESENT ILLNESS Ms. Zpaien is a 22-year-old female who presents to the clinic today for evaluation of anxiety and depression. Has struggled with depression since adolescence. Most recently has been feeling depressed and anxious since the of her son 5 months ago. Was previously on Prozac (at age 18) and did not like the side effects of this medication; patient felt too up and down and like she was hallucinating at times. Has tried exercising, walking, eating a healthy diet, positive thinking, and self-encouragement, but has not seen an improvement in her symptoms. Feels like little things can trigger hersymptoms and cause her to feel hopeless, snippy, and saying things she does not mean. Patient has been hesitant in the past to start medications, but is thinking that medication would be helpful in treating her symptoms now. PHQ-9 is a 23 and MEHGNA- 7 is a 21. Denies suicidal or homicidal ideation. REVIEW OF SYSTEMS Genitourinary: Positive for decreased libido. Neurological: Positive for excessive daytime sleepiness. Psychiatric/Behavioral: Positive for decreased libido, excessive daytime sleepiness/tiredness, little interest or pleasure in doing things over past two weeks, feeling down, depressed, or hopeless overpast two weeks, not being able to stop or control worrying over past two weeks and feeling nervous, anxious, or on edge in past two weeks. The following systems were negative: Constitutional, Skin, Eyes, ENT, Respiratory, GI, Hematologic, Musculoskeletal Patient Active Problem List Diagnosis (none) - all problems resolved or deleted Past Surgical History: Procedure Laterality Date ??? [...] adenoidectomy; younger than age 12.. Current Outpatient Prescriptions: ??? copper 380 square mm IUD, 1 Intra Uterine Device (1 each total) by intrauterine route once for 1dose. Inserted: 12/12/17, Disp: 1 Intra Uterine Device, Rfl: 0 ??? escitalopram (LEXAPRO) 10 mg tablet, Take 1 tablet (10 mg total) by mouth daily., Disp: 60 tablet, Rfl: 0 Allergies Allergen Reactions ??? Codeine GI intolerance Family History Problem Relation Age of Onset ??? Hypertension Grandfather ??? Heart attack Grandfather Social History Social History ??? Marital status: Single Spouse name: N/A ??? Number of children: 2 ??? Years of education: N/A Social History Main Topics ??? Smoking status: Never Smoker ??? Smokeless tobacco: Never Used ??? Alcohol use 1.2 oz/week 2 Glasses of wine per week ??? Drug use: No ??? Sexual activity: Yes Partners: Male OBJECTIVE BP 119/67 (BP Location: Right arm, Patient Position: Sitting, Cuff Size: Large) Pulse 91 Wt 92.5kg BMI 31.27 kg/m?? PHYSICAL EXAM Constitutional: She is oriented to person, place, and time. She appears well- developed and well-nourished. Non-toxic appearance. No distress. Cardiovascular: Normal rate, regular rhythm, S1 normal and S2 normal. Exam reveals no gallop and no friction rub. No murmur heard. Pulmonary/Chest: Effort normal and breath sounds normal. No respiratory distress. Neurological: She is alert and oriented to person, place, and time. Psychiatric: She has a normal mood and affect. Her behavior is normal. She expresses no homicidal and no suicidal ideation. She expresses no suicidal plans and no homicidal plans. ASSESSMENT / PLAN #1 Anxiety Generalized Disorder #2 Depression Major Recurrent Moderate (HCC) We have prescribed the patient escitalopram 10 mg by mouth daily. We have educated her on the medications intended action and side effects, specifically on increased suicidal ideation in the first two weeks of initiation. If the patient experiences any side effects, we asked her to return to the clinic as soon as possible, or to the emergency department if she is have suicidal ideation. Encouraged her to continue her healthy lifestyle modification. We will plan to see her back in 1 month, or sooner if needed. PATIENT EDUCATION Ready to learn, no apparent learning barriers were identified; learning preferences include listening. Explained diagnosis and treatment plan; patient expressed understanding of the content. This note was completed by Uzma Soria RN, TUBE BENDING MACHINE OPERATOR Student. The physical exam, diagnosis and plan was discussed with the student and reviewed by Iris Garcia CNP. I agree with all documentation. documented in this encounter Plan of Treatment Scheduled Referrals Name Type Priority Associated Diagnoses Order S [facility] Family Medicine Outpatient Referral Routine Expec samy: office visit 01/22/2018 (clinic) - Self (Approximate ), Expires: 12/22/2020 documented as of this encounter Visit Diagnoses Diagnosis Anxiety Generalized Disorder - Primary Depression Major Recurrent Moderate (HCC ) documented in this encounter Additional Health Concerns Assessment Noted Time PHQ-9 Depression Total Score: 23 12/22/2017 1:35 PM CD T documented as of this encounter Care Teams Buncher Machine Relationship Specialty Start Date End Date Iris Garcia APRN, C.N.P., PCP - General Family Medicine 05/16/20 M.S.N. [address] [place] [phone] documented as of this encounter
--- OUTSIDE RECORDS SUMMARY | 2022-05-17 11:37 | XMS_ITS | Encounter Summary ---
:1995 Author Organization [facility] Address [address] [place] [address] Care Team Providers Name Role Phone Iris Garcia APRN, C.N.P., M.S.N. Primary Care [facility] di Reason for Visit Reason Comments Other Medication recheck Outpatient (Routine) - Closed Specialty Diagnoses / Procedures Referred By Contact Refer red To Contact Family Medicine Iris Garcia, [facility] Melanie GARNICA, M.S.N. [address] [place], [place] [address] Referral ID Status Reason Start Date Expiration Date Visits Requ ested Visits Authorized [id number] Closed 12/22/2017 12/22/2018 1 1 Encounter Details Date Type Department Care Team Description 02/06/2018 Office Visit Department of [facility] Jose, Anxiety Generalized Disorder (Primary Dx); Medicine, Lauro Childs APRN, Depress ion Major Recurrent Mild (HCC) Clinic, in Melanie Restrepo, M.S .N. [place] [address] [facility] [address] [place] [phone] Social History Tobacco Use Types Packs/Day [...] 11/23/2020 relatives? How often do you attend alevism or mu-ism Never 11/23/2020 services? 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 - 02/06/2018 1:30 PM CDT CHIEF COMPLAINT/REASON FOR VISIT Follow-up anxiety and depression HISTORY OF PRESENT ILLNESS Emily is a very pleasant 22-year-old female who presents to the clinic today for a follow-up of anxiety and depression after starting Lexapro 10 mg on December 22, 2017. She reports that her depression has been very well controlled and she has noticed a major increase in her mood. She denies any significant feelings of feeling down or hopeless and has noticed that her ???bad thoughts?? have stopped entirely. She is still noticing a difficult time with over-reacting and feels that when her anxiety is high it is usually triggered by something and not just coming ???out of the blue.?? She does notice that she is able to cope better, but is still having a difficult time doing and saying things that she re grets in certain situations, such as having an argument with her fiance. She reports that she will look back at heated situations and wonder why she reacted the way she did. She would be interested in increasing her medication. She does report that she felt better shortly after starting the medicationand had no side effects. She states that she is ???shocked at how much better I feel on medication.?? She denies any thoughts of hurting herself or others. She has no other concerns or complaints. SYSTEMS REVIEW All other systems reviewed and are negative except as stated in HPI. Allergies Allergen Reactions ??? Codeine GI intolerance Current Outpatient Prescriptions: ??? copper 380 square mm IUD, 1 Intra Uterine Device (1 each total) by intrauterine route once for 1dose. Inserted: 12/12/17, Disp: 1 Intra Uterine Device, Rfl: 0 ??? escitalopram (LEXAPRO) 20 mg tablet, Take 1 tablet (20 mg total) by mouth daily., Disp: 90 tablet, Rfl: 3 Vitals: 02/06/18 1330 BP: 122/62 Pulse: 86 Resp: 18 Temp: 37.1 ??C PHYSICAL EXAMINATION GENERAL: This is a well-appearing adult female in no acute distress. She is alert and oriented to person, place and time. IMPRESSION/REPORT/PLAN #1 Anxiety Generalized Disorder #2 Depression Major Recurrent Mild (HCC) We both agreed that increasing the Lexapro further to 20 mg daily would be beneficial for her persistent intermittent anxiety. Also discussed the importance of thought stopping when her worry becomes excessive and overwhelming. Also advised walking away from heated situations such as arguments with her fiance so that she does not say or do something that she will later regret. Follow-up as needed. All questions have been answered and patient is in agreement with this plan. documented in this encounter Plan of Treatment Not on filedocumented as of this encounter Visit Diagnoses Diagnosis Anxiety Generalized Disorder - Primary Depression Major Recurrent Mild (HCC) documented in this encounter Additional Health Concerns Assessment Noted Time PHQ-9 Depression Total Score: 23 12/22/2017 1:35 PM CD T documented as of this encounter Care Teams Irish Moss Operator Relationship Specialty Start Date End Date Iris Garcia APRN C.N.P., PCP - General Family Medicine 05/16/20 M.S.N. [address] [place] [address] documented as of this encounter
--- OUTSIDE RECORDS SUMMARY | 2022-05-17 11:37 | XMS_ITS | Encounter Summary ---
:1995 Author Organization [facility] Address [address] [place] [address] Care Team Providers Name Role Phone Unavailable Primary Care Provider Unavailable Reason for Visit Reason Comments Care 6 wk pp , vaginal delivery , breast feeding, no spotting, Encounter Details Date Type Department Care Team Description 09/11/2017 Visit Department of Jose Zelaya Care Po stpartum (HCC) Obstetrics and M.D. (Primary Dx) Gynecology in [address] [place], [place] [address] [facility] [address] [place], [place] [phone] (Work) [phone] Social History Tobacco Use Types Packs/Day Years [...] How often do you attend quaker or lutheran Never 11/23/2020 services? Do you belong to any clubs or organizations such as Marlee 11/23/2020 quaker groups, unions, fraternal or athletic [...] a [place] [facility] (including now)? Sex Assigned at Date Recorded Female 05/20/2017 4:45 PM SKATESMAN documented as of this encounter Last Filed Vital Signs Vital Sign Reading Time Taken Comments Blood Pressure 118/72 09/11/2017 10:34 AM CDT Pulse - - Temperature - - Respiratory Rate - - Oxygen Saturation - - Inhaled Oxygen Concentration - - Weight 92.8 kg (204 lb 9.4 oz) 09/11/2017 10:34 AM CDT Height - - Body Mass Index 31.37 04/15/2017 4:30 PM CDT documented in this encounter Progress Notes Jose Zelaya M.D. - 09/11/2017 10:45 AM CDT CHIEF COMPLAINT: examination HISTORY OF PRESENT ILLNESS: Emily Zapien presents for a exam following vaginal delivery with Dr. Medellin 7. The baby was delivered with the aid of vacuum kiwi device, and a shoulder dystocia was overcome. She has done well in the interval period without significant complications nor concerns. She is now experiencing normal bowel and bladder habits and minimal lochia. She is not experiencing any fever, chills, nausea, nor vomiting. Pain is well controlled. She is now returning to all normal activities of daily life. The infant is growing and doing well overall. Baby's name is Chi. She is not currently experiencing severe feelings of depression or baby blues. Current Outpatient Prescriptions on File Prior to Visit Medication Sig Dispense Refill ??? PNV NO.95/FERROUS FUM/FOLIC AC ( MULTIVITAMINS ORAL) Take 1 tablet by mouth daily. ??? ondansetron (ZOFRAN, HYDROCHLORIDE,) 4 mg tablet Take 1 tablet by mouth every 8 (eight) hoursas needed. No current facility-administered medications on file prior to visit. Allergies Allergen Reactions ??? Codeine GI intolerance OB History Para Term AB Living 2 1 1 1 SAB TAB Ectopic Molar Multiple Live Births 1 # Outcome Date GA Lbr Juan/2nd Weight Sex Delivery Anes PTL Lv 2 Current 1 Term 01/13/17 39w5d 3.317 kg F Vag-Spont EPI N EMIGDIO Physical exam: Vitals: 09/11/17 1034 BP: 118/72 Weight: 92.8 kg General: well nourished, well developed female in no acute distress. Pleasant and conversant. Abdomen: Non tender. No masses palpated. Pelvic: External genitalia, Bartholin, urethral, and [place] glands appear normal. Vaginal secretions are grossly physiologic. Uterus is well involuted, mobile, and non tender to palpation. Perineum is within normal limits and appears well healed. Adnexa is negative for masses or tenderness bilaterally. The [place] Depression Scale is 1. IMPRESSION/REPORT/PLAN: Post- examination now dismissed from the Obstetrical service. Ongoing non-obstetrical care concerns will be directed to her primary care provider. She is free to follow-uphere if any further obstetric or gynecologic issues. For contraception, she plans to a trial run of the Ortho Evra patch. She will contact us if she wants to switch from that to the NuvaRing. Electronically signed by: Jose Zelaya M.D. 09/11/17 11:02 AM documented in this encounter Plan of Treatment Not on filedocumented as of this encounter Visit Diagnoses Diagnosis Care (HCC) - Primary documented in this encounter Additional Health Concerns Assessment Noted Time PHQ-9 Depression Total Score: 14 11/08/2016 1:35 PM CD T documented as of this encounter
--- OUTSIDE RECORDS SUMMARY | 2022-05-17 11:37 | XMS_ITS | Encounter Summary ---
:1995 Author Organization [facility] Address [address] [place] [address] Care Team Providers Name Role Phone Unavailable Primary Care Provider Unavailable Encounter Details Date Type Department Care Team Description 12/09/[address] [facility] Geena Umanzor M.D. [address] [place] [address] (Wo rk) Social History Tobacco Use Types [...] How often do you attend yarsani or synagogue Never 11/23/2020 services? 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 Coded By: ADARSH MASTERSON Date Saved: 12/18/2016 08:02 am [facility] Document Id: [id number] documented in this encounter Plan of Treatment Not on filedocumented as of this encounter Visit Diagnoses Not on filedocumented in this encounter Additional Health Concerns Assessment Noted Time PHQ-9 Depression Total Score: 14 11/08/2016 1:35 PM CD T documented as of this encounter
--- OUTSIDE RECORDS SUMMARY | 2022-05-17 11:37 | XMS_ITS | Encounter Summary ---
:1995 Author Organization [facility] Address [address] [place] [address] Care Team Providers Name Role Phone Unavailable Primary Care Provider Unavailable Reason for Visit Reason Comments Routine Visit Encounter Details Date Type Department Care Team Description 07/25/2017 Routine Department of Jose Zelaya, Normal Not Obstetrics and M.D. First Gynecology in [address] (Primary Dx) [place], [place] [address] [address] [place], [place] [phone] (Work) [phone] Social History Tobacco Use Types Packs/Day Years [...] 11/23/2020 relatives? How often do you attend buddhist or islam Never 11/23/2020 services? Do you belong to any clubs or organizations such as No 11/23/2020 buddhist groups, unions, fraternal or athletic groups, or [...] or slept in a retirement (including now)? 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 - 07/25/2017 2:15 PM CST Zika Screen Have you or your partner traveled outside of Or 6 months prior to Yes If So Where specifically have our or your partner traveled? Country, state? [place] Have you or your partner traveled for [place] since November? no Where in [place] did you travel? R PROJECT ENGINEER Jose Zelaya M.D. - 07/25/2017 2:15 PM CST CHIEF COMPLAINT: care, third trimester. HISTORY OF PRESENT ILLNESS: This patient presents for a visit in the third trimester (39w0d). She is tolerating PO well, and is [...] laboratory information, and summary of medical record. Social History Substance Use Topics ??? Smoking status: Never Smoker ??? Smokeless tobacco: Never Used ??? Alcohol use No Physical exam: BP 120/60 Wt 104.9 kg LMP 12/09/2016 BMI 35.46 kg/m?? General: well nourished, well developed female in no acute distress. Weight gain is documented on the ACOG form. Fundal height is appropriate for gestational age. Heart Tones are in the normal range by Doppler interrogation. OB labs reviewed today. Glucose test results and hemoglobin are documented in the EMR. A group B strep test is documented in the EMR. IMPRESSION/REPORT/PLAN: Third trimester . Recommendations: Follow up visit is scheduled in one week. counseling was given today including the need to continue with routine care, kick counts, and monitoring of early labor contractions. kick counts is an important home monitor of wellbeing. If decreased movement is noted, she will report immediately to the Center for prompt evaluation. The patient will report to labor and delivery (which is staffed 24 hours a day) when regular, frequent, painful contractions are present. Report also if vaginal bleeding or rupture of membranes occurs (as evidenced by a gush of clear fluid followed by continued leakage). Electronically signed by: Jose Zelaya M.D. 07/25/17 2:22 PM R PROJECT ENGINEER documented in this encounter Plan of Treatment Not on filedocumented as of this encounter Visit Diagnoses Diagnosis Normal Not First - P rimary documented in this encounter Additional Health Concerns Assessment Noted Time PHQ-9 Depression Total Score: 14 11/08/2016 1:35 PM CD T documented as of this encounter
--- OUTSIDE RECORDS SUMMARY | 2022-05-17 11:38 | XMS_ITS | Encounter Summary ---
:1995 Author Organization [facility] Address [address] [place] [address] Care Team Providers Name Role Phone Unavailable Primary Care Provider Unavailable Encounter Details Date Type Department Care Team Description 10/22/2016 Hospital Encounter [facility]X [facility] Siria Eduardo M.D. [address] [place] [address] (Wo rk) Social History Tobacco [...] 11/23/2020 relatives? How often do you attend congregation or episcopalian Never 11/23/2020 services? 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 - 10/22/2016 4:01 PM CDT [id number] CHIEF COMPLAINT/REASON FOR VISIT Cough, shortness of breath, and chest tightness HISTORY OF PRESENT ILLNESS Emily Mcguire is a 21-year-old female who presents to the clinic today for the evaluation of a cough, shortness of breath, and chest tightness. Her symptoms first began on Friday with difficulty breathing, coughing, and chest tightness. She then went to [facility] on Friday, and this made it worsewith some additional dizziness. Today is the worst her symptoms have been. She has also had a sore throat, congestion, and a runny nose. Emily has been coughing very violently to the point that it has caused her to vomit yellow liquid 3 times today. She tried Claritin yesterday without any relief. Shehas also tried some Tylenol and ibuprofen with minimal relief. She denies any fevers, but she has had some chills. Emily was seen in the [facility] yesterday where she was told that she had a viral cold. She was concerned that she had pneumonia, but they told her than her chest XR was negative for this. Patient did have bronchitis in the past about 2 years ago. She does mention a questionable sports induced asthma in the past, but this was never pursued. She is a nonsmoker. There are no other concerns at this time. REVIEW OF SYSTEMS Was reviewed and negative except as mentioned above in the HPI. MEDICATIONS None. ALLERGIES Codeine (upset stomach). PAST MEDICAL/SURGICAL HISTORY 1. Depression and Anxiety. 2. Anemia. 3. UTI. 4. Migraine Headaches. VITAL SIGNS HEIGHT: 171 cm. WEIGHT: 91.3 kg. BMI: 31.22 kg/m2. TEMP: 37 DegC. PULSE: 114 /min. RESP RATE: 16 /min. O2 SAT: 97 %. SYSTOLIC: 104 mmHg. DIASTOLIC: 70 mmHg. PHYSICAL EXAMINATION GENERAL: Patient is well-appearing, well-developed, well-nourished female in no acute distress. EYES: PERRL. Sclerae are clear. ENT: TMs clear bilaterally. Nose is inflamed. Mouth reveals moist mucous membranes. Oropharynx clear. No erythema or exudate. Neck supple. No lymphadenopathy, thyromegaly, or carotid bruits. HEART: Regular rhythm and rate. No murmurs, gallops, or rubs. LUNGS: Clear to auscultation bilaterally. No crackles or wheezes. IMPRESSION/REPORT/PLAN 1. Viral upper respiratory infection - she has a cough, runny nose, and shortness of breath. Reassured that lungs were clear without any wheezing. Plan: We will start the patient on Tessalon pearls today for her cough. Side effects were discussed such as tingling/fuzzy feeling of the tongue. We discussed the typical path of a viral infection, assuring that she should turn the corner and get better soon. We talked about starting an inhaler as well, but we both agreed to refrain from this option at present. She may also try an over the counter decongestant for her congestion such as Sudafed, in addition to the Tessalon pearls, ibuprofen, fluids,and rest. She should be seen again if her symptoms persist or worsen beyond 1-2 weeks. This document serves as a record of services personally performed by Dr. iSria Eduardo. It was created on their behalf by Meng Lomeli, a trained medical billing clerk. The creation of this record is based on the scribe's personal observations and the provider's statements to them. This document has been checked and approved by the attending provider. Siria Eduardo M.D./kojo Electronically Signed By: SIRIA EDUARDO MD On: 10/22/2016 06:31 PM Source: [facility] MHSDOLBEYNONRADSYS Document Id: [id number] documented in this encounter Miscellaneous Notes Miscellaneous - Siria Eduardo M.D. - 10/22/2016 4:54 PM CDT Ambulatory Patient Summary [facility] [address] [place], [place] [address], [place] [phone] Visit Information Name: EMILY MCGUIRE [facility] Number: [id number] Current Date: 10/22/2016 16:54:48 Physicians Attending Provider: SIRIA EDUARDO MD Primary Care Provider: PCP, DEEJAY EMILY [...] Take Indications/Special Instructions/Comments/Notes for Patient Medication Changes/Routing benzonatate (Tessalon 200 mg oral capsule) 1 cap, Oral, three times a day as needed for Cough New Routed to [facility] [address] [place] [id number] Stop Taking the Following Medications: Medication list as of 10-22-16 16:54 Attention: If you have any medications at home that are not on this list, DO NOT take them until youcontact your provider for clarification. Give a copy of your medication list to your primary care provider. Update your medication list any time medications or doses are changed and carry your medication list at all times in case of emergency. Electronically Signed By: SIRIA EDUARDO MD Signed On:22-OCT-2016 16:54:45 Your Allergies & Intolerances Substance Reaction Symptoms Category Comments codeine Upset stomach Drug Your Problem List Problem Status Onset Comments Dizziness Active 04/12/2008 Migraine Common Active 04/20/2008 Sports Exam Active 09/06/2009 Your Upcoming Appointments Date Time Location Provider [...] if you dont have one. Go to [email or web address] and click on Create Your Account. Then, follow the directions to complete the online form. Youll be asked for your [facility] number which you can find at the top of this document. Your Goals/Additional instructions: Source: [facility] POWERCHART Document Id: [id number] Miscellaneous - Siria Eduardo M.D. - 10/22/2016 4:54 PM CDT Ambulatory Discharge Medication List [facility] [address] [place] [phone] Visit Information Name: MAYNOREMILY [facility] Number: [id number] Current Date: 10/22/2016 16:54:47 Attending Provider: SIRIA EDUARDO MD Primary Care Provider: PCP, EMILY JOSHI [...] Take Indications/Special Instructions/Comments/Notes for Patient Medication Changes/Routing benzonatate (Tessalon 200 mg oral capsule) 1 cap, Oral, three times a day as needed for Cough New Routed to [facility] [address] [place], [place] [phone] Stop Taking the Following Medications: Medication list as of 10-22-16 16:54 Attention: If you have any medications at home that are not on this list, DO NOT take them until youcontact your provider for clarification. Give a copy of your medication list to your primary care provider. Update your medication list any time medications or doses are changed and carry your medication list at all times in case of emergency. Electronically Signed By: SIRIA EDUARDO MD Signed On:22-OCT-2016 16:54:45 Additional Information: Source: [facility] POWERCHART Document Id: [id number] Miscellaneous - Berenice Wong L.P.N. - 10/22/2016 4:09 PM CDT Adult Business Area Manager Intake/History Adult Business Area Manager Intake/History Entered On: 10/22/2016 16:14 CDT Performed On: 10/22/2016 16:09 CDT by BERENICE WONG LPN Intake Chief Complaint : F/U [facility]- s/t, losing voice, congestion, chest pain with inhalation,SOB, cough, headache, dizzy, vomiting due to coughing- bright yellow bile Temperature Oral : 37 DegC(Converted to: 98.6 DegF) Peripheral Pulse Rate : 114 /min (HI) Respiratory Rate : 16 /min Systolic Blood Pressure : 104 mmHg Diastolic Blood Pressure : 70 mmHg NIBP Mean : 81 mmHg BP Location : Right upper extremity Blood Pressure Cuff Size : Large SpO2 : 97 % Height : 171 cm(Converted to: 5 ft 7 inch(es), 67 inch(es)) Actual Weight : 91.3 kg(Converted to: 201 lb 5 oz) Weight Source : Standing scale Dosing Weight Clinic : 91.3 kg Clinic BSA : 2.08 Body Mass Index : 31.22 kg/m2 BERENICE WONG LPN - 10/22/2016 16:09 CDT General Info Information Given By : Patient Languages : Telugu Is Patient Female and 13-50 no hysterectomy : Yes Status : Patient denies Are you ? : No BERENICE WONG LPN - 10/22/2016 16:09 CDT Subjective Pain Symptoms : Yes BERENICE WONG LPN - 10/22/2016 16:09 CDT Pain Scale Pain Scale Verbal 0-10 : Open BERENICE WONG LPN - 10/22/2016 16:09 CDT Pain Pain Assessment Grid Pain 1 Pain 2 Location : Throat Chest Intensity : 6 5 BERENICE WONG LPN - 10/22/2016 16:09 CDT BERENICE WONG LPN - 10/22/2016 16:09 CDT Dependent Habits Exposure to Tobacco Smoke : Other: non tobacco home Smoking Status : Never smoker Tobacco 2A : No Tobacco Use/Currently Using : No Tobacco Use/Last 30 Days : No Tobacco Use/Last 12 months : No BERENICE WONG LPN - 10/22/2016 16:09 CDT Source: [facility] [employer] Document Id: [id number] CDT!43 Miscellaneous - Berenice Wong L.P.NSampson - 10/22/2016 4:09 PM CDT Health Assessment Health Assessment Entered On: 10/22/2016 16:16 CDT Performed On: 10/22/2016 16:09 CDT by BERENICE WONG LPN Health Assessment Complete Health Assessment Complete or Modified : Annual Health Assessment Annual Health Assessment Completed : Yes BERENICE WONG LPN - 10/22/2016 16:09 CDT Nutrition Nutrition Risk Factors by History Adult : None BERENICE WONG LPN - 10/22/2016 16:09 CDT Functional Current Daily Living Assistance : None BERENICE WONG LPN - 10/22/2016 16:09 CDT Dependent Habits Exposure to Tobacco Smoke : Other: non tobacco home Smoking Status : Never smoker Tobacco 2A : No Tobacco Use/Currently Using : No Tobacco Use/Last 30 Days : No Tobacco Use/Last 12 months : No Alcohol Use : Yes BERENICE WONG LPN - 10/22/2016 16:09 CDT AUDIT Tool How Often Do You Have A Drink : 2 to 4 times a month How Many Drinks in a Day When Drinking : 1 or 2 Six or More Drinks On One Occassion : Never Audit Phase 1 Score : 2 BERENICE WONG LPN - 10/22/2016 16:09 CDT Psychosocial Domestic Abuse Concerns : None Behavioral Health Screen/Safety Assmt : Unable to obtain Scientology Preference : No qualifying data available. BERENICE WONG LPN - 10/22/2016 16:09 CDT Advance Directive Advanced Directives : No Advance Directive Additional Information : No BERENICE WONG LPN - 10/22/2016 16:09 CDT Educ Needs Learning Style Preference Adult Grid Patient : Video/Educational TV, Verbal explanation, Printed materials, Demonstration Family : None BERENICE WONG LPN - 10/22/2016 16:09 CDT Source: [facility] [employer] Document Id: [id number] CDT!32 documented in this encounter Plan of Treatment Not on filedocumented as of this encounter Visit Diagnoses Not on filedocumented in this encounter Additional Health Concerns Assessment Noted Time PHQ-9 Depression Total Score: 14 07/26/2013 11:[address] documented as of this encounter
--- OUTSIDE RECORDS SUMMARY | 2022-05-17 11:38 | XMS_ITS | Encounter Summary ---
:[address] [facility] Address [address] [place] [address] Care Team Providers Name Role Phone Unavailable Primary Care Provider Unavailable Encounter Details Date Type Department Care Team Description 11/15/2015 Hospital Encounter [facility]X [facility] Gustavo Rowe M.D. [address] [place], [place] [phone] (Wo rk) Social History Tobacco Use Types Packs/Day Years Used Date Smoking Tobacco: Never Assessed Alcohol Habits Answer Date Recorded How often [...] How often do you attend yarsani or confucianist Never 11/23/2020 services? Do you belong to [...] or slept in a half-way (including now)? 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 - 11/15/2015 2:18 PM CDT MnVFC Eligibility MnVFC Eligibility Entered On: 11/15/2015 14:18 CDT Performed On: 11/15/2015 14:18 CDT by DIOMEDES MARES LPN MnV[facility] Eligibility Provided MnVFC eligibility information : No DIOMEDES MARES LPN - 11/15/2015 14:18 CDT Source: [facility] POWERCHART Document Id: [id number] CDT!3 Miscellaneous - Rachel Peralta M.D. - 11/15/2015 1:59 PM CDT Ambulatory Discharge Medication List [facility] [address] [place] [address] [id number] Visit Information Name: MAYNOR EMILY PAYAL [facility] Number: [id number] Visit Date: 11/15/2015 13:59:33 Attending Provider: RACHEL PERALTA MD Primary Care Provider: PCP, DEEJAY MCGUIRE EMILY PAYAL has been given the following list of medications: Your Medications It is important to take your medications as directed. Use a pill box or chart to help remind you to take your medications. Please let your doctor or nurse know if you have problems taking your medications. Medication/Strength How to Take Indications/Special Instructions/Comments/Notes for Patient Medication Changes/Routing multivitamin, ( Multivitamins oral tablet) 1 Tablet(s), Oral, once a day Stop Taking the Following Medications: Medication list as of 11-15-15 13:59 Attention: If you have any medications at home that are not on this list, DO NOT take them until youcontact your provider for clarification. Give a copy of your medication list to your primary care provider. Update your medication list any time medications or doses are changed and carry your medication list at all times in case of emergency. Electronically Signed By: RACHEL PERALTA MD Signed On:15-NOV-2015 13:59:31 Additional Information: Source: [facility] POWERCHART Document Id: [id number] Miscellaneous - Rachel Peralta M.D. - 11/15/2015 1:59 PM CDT Ambulatory Patient Summary [facility] [address] [place] [id number] Visit Information Name: EMILY MCGUIRE PAYAL [facility] Number: [id number] Current Date: 11/15/2015 13:59:34 Physicians Attending Provider: RACHEL PERALTA MD Primary Care Provider: PCP, EMILY JOSHI [...] for Patient Medication Changes/Routing multivitamin, ( Multivitamins oral tablet) 1 Tablet(s), Oral, once a day Stop Taking the Following Medications: Medication list as of 11-15-15 13:59 Attention: If you have any medications at home that are not on this list, DO NOT take them until youcontact your provider for clarification. Give a copy of your medication list to your primary care provider. Update your medication list any time medications or doses are changed and carry your medication list at all times in case of emergency. Electronically Signed By: RACHEL PERALTA MD Signed On:15-NOV-2015 13:59:31 Your Allergies & Intolerances Substance Reaction Symptoms Category Comments codeine Upset stomach Drug Your Problem List Problem Status Onset Comments Dizziness Active 04/12/2008 Migraine Common Active 04/20/2008 Sports Exam Active 09/06/2009 Active 04/11/2015 Your Upcoming Appointments Date Time Location Provider 11/29/2015 13:45 [facility] GENERATOR REPAIRER Lucero MALDONADO, Rachel 12/13/2015 13:30 [facility] GENERATOR REPAIRER Lucero MALDONADO, Rachel 12/20/2015 13:30 [facility] GENERATOR REPAIRER Lucero MALDONADO, Rachel 12/27/2015 13:30 [facility] GENERATOR REPAIRER Lucero MALDONADO, Rachel 01/03/2016 13:30 [facility] GENERATOR REPAIRER Lucero MALDONADO, Rachel 01/10/2016 12:45 [facility] GENERATOR REPAIRER Haylee Miller CNP 01/17/2016 13:30 [facility] GENERATOR REPAIRER Lucero MALDONADO, Rachel 01/24/2016 13:30 [facility] GENERATOR REPAIRER Lucero MALDONADO, Rachel Attention: Contact your local Clinic if further [...] if you dont have one. Go to [email or web address] and click on Create Your Account. Then, follow the directions to complete the online form. Youll be asked for your [facility] number which you can find at the top of this document. Your Goals/Additional instructions: Source: [facility] POWERCHART Document Id: [id number] Miscellaneous - Diomedes Mares, L.P.N. - 11/15/2015 1:47 PM CDT Adult Mower Sharpener Intake/History Adult Mower Sharpener Intake/History Entered On: 11/15/2015 13:48 CDT Performed On: 11/15/2015 13:47 CDT by DIOMEDES MARES LPN Intake Chief Complaint : OB CHECK LMP Date : 04-11-2015 Systolic Blood Pressure : 100 mmHg Diastolic Blood Pressure : 56 mmHg NIBP Mean : 71 mmHg Height : 171 cm(Converted to: 5 ft 7 inch(es), 67 inch(es)) Actual Weight : 92.7 kg(Converted to: 204 lb 6 oz) Dosing Weight Clinic : 92.7 kg Clinic BSA : 2.1 Body Mass Index : 31.7 kg/m2 DIOMEDES MARES LPN - 11/15/2015 13:47 CDT General Info Information Given By : Patient Languages : Salvadorean Is Patient Female and 13-50 no hysterectomy : Yes Status : Confirmed positive Are you ? : No DIOMEDES MARSE LPN - 11/15/2015 13:47 CDT Subjective Pain Symptoms : No DIOMEDES MARES LPN - 11/15/2015 13:47 CDT Dependent Habits Exposure to Tobacco Smoke : Other: non tobacco home Smoking Status : Never smoker Tobacco 2A : No Tobacco Use/Currently Using : No Tobacco Use/Last 30 Days : No Tobacco Use/Last 12 months : No DIOMEDES MARES LPN - 11/15/2015 13:47 CDT Source: [facility] POWERCHART Document Id: [id number] CDT!27 documented in this encounter Plan of Treatment Not on filedocumented as of this encounter Visit Diagnoses Not on filedocumented in this encounter Additional Health Concerns Assessment Noted Time PHQ-9 Depression Total Score: 14 07/26/2013 11:[address] documented as of this encounter
--- OUTSIDE RECORDS SUMMARY | 2022-05-17 11:38 | XMS_ITS | Encounter Summary ---
:1995 Author Organization [facility] Address [address] [place] [address] Care Team Providers Name Role Phone Unavailable Primary Care Provider Unavailable Encounter Details Date Type Department Care Team Description 07/26/2016 Hospital Encounter HX [facility] Riley Chapman M.D. [address] [place], [place] [phone] (Wo rk) Social History [...] How often do you attend temple or zoroastrian Never 11/23/2020 services? 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 - 07/26/2016 12:59 PM CST [id number] The documentation for this visit is available in [facility] IMPRESSION/REPORT/PLAN #1 High Myopia, both eyes. Doing well with glasses and contacts. #2 Borderline IOP left eye. Plan: Recheck early AM IOP six months. RD precautions reviewed. Continue contacts. F/u one year. CE/ref Edward Milligan M.D./monique Electronically Signed By: EDWARD MILLIGAN MD On: 08/05/2016 07:55 AM Source: [facility] MHSDOLBEYNONRADSYS Document Id: [id number] SHOVEL OPERATOR documented in this encounter Miscellaneous Notes Miscellaneous - Edward Milligan M.D. - 07/26/2016 2:10 PM CST Ambulatory Patient Summary [address] [id number] Visit Information Name: EMILY MCGUIRE [facility] Number: [id number] Current Date: 07/26/2016 14:10:56 Physicians Attending Provider: EDWARD MILLIGAN MD Primary Care Provider: PCP, EMILY JOSHI PAYAL has been given the following list [...] Take Indications/Special Instructions/Comments/Notes for Patient Medication Changes/Routing albuterol (ProAir HFA 90 mcg/inh inhalation aerosol) 2 puff(s), Inhalation, every 4 hours as needed for Shortness of breath / Wheezing *levonorgestrel-ethinyl estradiol (Levora 0.15 mg-30 mcg oral tablet) 1 Tablet(s), Oral, once a day start first tablet today * You have let us know that you are not taking this medication as listed. Please talk with your primary care provider or the health care provider who prescribed the medication as soon as possible. Stop Taking the Following Medications: Medication list as of 07-26-16 14:10 Attention: If you have any medications at home that are not on this list, DO NOT take them until youcontact your provider for clarification. Give a copy of your medication list to your primary care provider. Update your medication list any time medications or doses are changed and carry your medication list at all times in case of emergency. Electronically Signed By: EDWARD MILLIGAN MD Signed On:26-JUL-2016 14:10:53 Your Allergies & Intolerances Substance Reaction Symptoms [...] if you dont have one. Go to [email or web address] and click on Create Your Account. Then, follow the directions to complete the online form. Youll be asked for your [facility] number which you can find at the top of this document. Your Goals/Additional instructions: Source: [facility] POWERCHART Document Id: [id number] SHOVEL OPERATOR Miscellaneous - Edward Milligan M.D. - 07/26/2016 2:10 PM CST Ambulatory Discharge Medication List [address] [id number] Visit Information Name: EMILY MCGUIRE [facility] Number: [id number] Current Date: 07/26/2016 14:10:55 Attending Provider: EDWARD MILLIGAN MD Primary Care Provider: PCP, DEEJAY EMILY [...] Take Indications/Special Instructions/Comments/Notes for Patient Medication Changes/Routing albuterol (ProAir HFA 90 mcg/inh inhalation aerosol) 2 puff(s), Inhalation, every 4 hours as needed for Shortness of breath / Wheezing *levonorgestrel-ethinyl estradiol (Levora 0.15 mg-30 mcg oral tablet) 1 Tablet(s), Oral, once a day start first tablet today * You have let us know that you are not taking this medication as listed. Please talk with your primary care provider or the health care provider who prescribed the medication as soon as possible. Stop Taking the Following Medications: Medication list as of 07-26-16 14:10 Attention: If you have any medications at home that are not on this list, DO NOT take them until youcontact your provider for clarification. Give a copy of your medication list to your primary care provider. Update your medication list any time medications or doses are changed and carry your medication list at all times in case of emergency. Electronically Signed By: EDWARD MILLIGAN MD Signed On:26-JUL-2016 14:10:53 Additional Information: Source: [facility] POWERCHART Document Id: [id number] SHOVEL OPERATOR documented in this encounter Plan of Treatment Not on filedocumented as of this encounter Visit Diagnoses Not on filedocumented in this encounter Additional Health Concerns Assessment Noted Time PHQ-9 Depression Total Score: 14 07/26/2013 11:[address] documented as of this encounter
--- OUTSIDE RECORDS SUMMARY | 2022-05-17 11:38 | XMS_ITS | Encounter Summary ---
:1995 Author Organization [facility] Address [address] [place] [address] Care Team Providers Name Role Phone Unavailable Primary Care Provider Unavailable Encounter Details Date Type Department Care Team Description 12/20/2015 Hospital Encounter HX [facility] Gustavo Rowe M.D. [address] [place], [place] [phone] (Wo rk) Social History [...] 11/23/2020 relatives? How often do you attend anglican or jewish Never 11/23/2020 services? 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 documented as of this encounter Last Filed Vital Signs Vital Sign Reading Time Taken Comments Blood Pressure 110/58 12/20/2015 1:34 PM CDT Pulse - - Temperature - - Respiratory Rate - - Oxygen Saturation - - Inhaled Oxygen Concentration - - Weight 95.9 kg (211 lb 6.7 oz) 12/20/2015 1:34 PM CDT Height 171 cm (5' 7.32) 12/20/2015 1:34 PM CDT Body Mass Index 32.8 12/20/2015 1:34 PM CDT documented in this encounter Miscellaneous Notes Miscellaneous - Miles Esquivel - 12/20/2015 2:03 PM CDT Cartographic Engineer Documentation Cartographic Engineer Documentation Entered On: 12/20/2015 14:04 CDT Performed On: 12/20/2015 14:03 CDT by MILES ESQUIVEL Cartographic Engineer Documentation Exam/Procedure Performed : cervical check CD Cartographic Engineer Present : Yes CD Cartographic Engineer Name : Miles Esquivel MANAGER INTRANET Present in Room During Exam/Procedure : Significant other MILES ESQUIVEL - 12/20/2015 14:03 CDT Source: [facility] POWERCHART Document Id: [id number] CDT!6 Miscellaneous - Rachel Peralta M.D. - 12/20/2015 1:49 PM CDT Ambulatory Discharge Medication List [address] [id number] Visit Information Name: EMILY MCGUIRE [facility] Number: [id number] Visit Date: 12/20/2015 13:49:10 Attending Provider: RACHEL PERALTA MD Primary Care [...] the Following Medications: Medication list as of 12-20-15 13:49 Attention: If you have any medications at [...] Electronically Signed By: RACHEL PERALTA MD Signed On:20-DEC-2015 13:49:08 Additional Information: Source: [facility] POWERCHART Document Id: [id number] Miscellaneous - Rachel Peralta M.D. - 12/20/2015 1:49 PM CDT Ambulatory Patient Summary [address] [id number] Visit Information Name: EMILY MCGUIRE [facility] Number: [id number] Current Date: 12/20/2015 13:49:11 Physicians Attending Provider: RACHEL PERALTA MD Primary Care Provider: PCP, ELSEWHERE EMILY [...] the Following Medications: Medication list as of 12-20-15 13:49 Attention: If you have any medications at [...] Electronically Signed By: RACHEL PERALTA MD Signed On:20-DEC-2015 13:49:08 Your Allergies & Intolerances Substance Reaction Symptoms Category Comments codeine Upset stomach Drug Your Problem List Problem Status Onset Comments Dizziness Active 04/12/2008 Migraine Common Active 04/20/2008 Sports Exam Active 09/06/2009 Active 04/11/2015 Your Upcoming Appointments Date Time Location Provider 12/27/2015 13:30 [facility] MANAGER MACHINE Lucero MALDONADO, Rachel 01/03/2016 13:30 [facility] MANAGER MACHINE Lucero MALDONADO, Rachel 01/10/2016 12:45 [facility] MANAGER MACHINE Paul FRAIRE Haylee Joy 01/17/2016 13:30 [facility] MANAGER MACHINE Lucero MALDONADO, Rachel 01/24/2016 13:30 [facility] MANAGER MACHINE Lucero MALDONADO, Rachel Attention: Contact your local [...] if you dont have one. Go to [email or web address] and click on Create Your Account. Then, follow the directions to complete the online form. Youll be asked for your [facility] number which you can find at the top of this document. Your Goals/Additional instructions: Source: [facility] POWERCHART Document Id: [id number] Miscellaneous - Diomedes Mares, L.P.N. - 12/20/2015 1:34 PM CDT Adult Lower In Supervisor Intake/History Adult Lower In Supervisor Intake/History Entered On: 12/20/2015 13:36 CDT Performed On: 12/20/2015 13:34 CDT by DIOMEDES MARES STEM LEAD FORMER Intake Chief Complaint : Ob check LMP Date : 04-11-2015 Systolic Blood Pressure : 110 mmHg Diastolic Blood Pressure : 58 mmHg NIBP Mean : 75 mmHg Height : 171 cm(Converted to: 5 ft 7 inch(es), 67 inch(es)) Actual Weight : 95.9 kg(Converted to: 211 lb 7 oz) Dosing Weight Clinic : 95.9 kg Clinic BSA : 2.13 Body Mass Index : 32.8 kg/m2 DIOMEDES MARES LPN - 12/20/2015 13:34 CDT General Info Information Given By : Patient Languages : Nigerian Is Patient Female and 13-50 no hysterectomy : Yes Status : Confirmed positive Are you ? : No DIOMEDES MARES LPN - 12/20/2015 13:34 CDT Subjective Pain Symptoms : No DIOMEDES MARES LPN - 12/20/2015 13:34 CDT Dependent Habits Exposure to Tobacco Smoke : Other: non tobacco home Smoking Status : Never smoker Tobacco 2A : No Tobacco Use/Currently Using : No Tobacco Use/Last 30 Days : No Tobacco Use/Last 12 months : No DIOMEDES MARES LPN - 12/20/2015 13:34 CDT Source: [facility] POWERCHART Document Id: [id number] CDT!27 documented in this encounter Plan of Treatment Not on filedocumented as of this encounter Procedures Procedure Name Priority Date/Time Associated Diagnosis Comme nts HXSTREP GROUP B BY Routine 12/20/2015 4:32 PM Res ults for this PCR CDT procedure are i n the results section. documented in this encounter Results HXSTREP GROUP B BY PCR (12/20/2015 4:32 PM CDT) [facility] gist Method Time Signature HXStrep Group POWERCHART B by PCR HXFinal Negative for POWERCHART Group B Strep by PCR. Specimen (Source) Anatomical Collection Method Collection Time Re ceived Time Location / / Volume Laterality Vaginal/Rectum 12/20/2015 4:32 PM CDT Rachel Peralta M.D. LAB HISTORICAL ORDERS Performing Organization Address City/State/ZIP Code Phon e Number POWERCHART documented in this encounter Visit Diagnoses Not on filedocumented in this encounter Additional Health Concerns Assessment Noted Time PHQ-9 Depression Total Score: 14 07/26/2013 11:[address] documented as of this encounter
--- OUTSIDE RECORDS SUMMARY | 2022-05-17 11:38 | XMS_ITS | Encounter Summary ---
:1995 Author Organization [facility] Address [address] [place] [address] Care Team Providers Name Role Phone Unavailable Primary Care Provider Unavailable Encounter Details Date Type Department Care Team Description 11/02/2015 Hospital Encounter [facility] Nicolás Taylor M.D. [address] [place], [place] [phone] (Wo rk) Social History [...] How often do you attend advent or taoist Never 11/23/2020 services? Do you belong to [...] place to sleep or slept in a longterm (including now)? 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 - 11/02/2015 10:22 AM CDT CHIEF COMPLAINT: care, third trimester. HISTORY OF PRESENT ILLNESS: This patient presents for a visit in the third trimester. She has no unusual complaints today [...] decreasesin activity occur due to sleep status. Catracho Ortiz CC: Labor and Delivery Electronically Signed By: CATRACHO ZELAYA MD On: 11/02/2015 10:23 AM Source: [facility] POWERCHART Document Id: [id number] documented in this encounter Miscellaneous Notes Miscellaneous - Catracho Zelaya M.D. - 11/02/2015 10:22 AM CDT Ambulatory Patient Summary [address] [id number] Visit Information Name: EMILY MCGUIRE PAYAL [facility] Number: [id number] Current Date: 11/02/2015 10:22:17 Physicians Attending Provider: CATRACHO ZELAYA MD Primary Care Provider: PCP, DEEJAY MCGUIRE EMILY MOE has been given the following list of [...] tablet) 1 Tablet(s), Oral, once a day nitrofurantoin (Macrobid 100 mg oral capsule) 1 cap, Oral, two times a day Stop Taking the Following Medications: Medication list as of 11-02-15 10:22 Attention: If you have any medications at [...] Electronically Signed By: CATRACHO ZELAYA MD Signed On:02-NOV-2015 10:22:09 Your Allergies & Intolerances Substance Reaction Symptoms Category Comments codeine Upset stomach Drug Your Problem List Problem Status Onset Comments Dizziness Active 04/12/2008 Migraine Common Active 04/20/2008 Sports Exam Active 09/06/2009 Active 04/11/2015 Your Upcoming Appointments Date Time Location Provider 11/15/2015 13:45 [facility] UNDERWRITING CONSULTANT Lucero MALDONADO, Rachel 11/29/2015 13:45 [facility] UNDERWRITING CONSULTANT Lucero MALDONADO, Rachel 12/13/2015 13:30 [facility] UNDERWRITING CONSULTANT Lucero MALDONADO, Rachel 12/20/2015 13:30 [facility] UNDERWRITING CONSULTANT Lucero MALDONADO, Rachel 12/27/2015 13:30 [facility] UNDERWRITING CONSULTANT Lucero MALDONADO, Rachel 01/03/2016 13:30 [facility] UNDERWRITING CONSULTANT Lucero MALDONADO, Rachel 01/10/2016 12:45 [facility] UNDERWRITING CONSULTANT Haylee Miller CNP 01/17/2016 13:30 [facility] UNDERWRITING CONSULTANT Lucero MALDONADO, Rachel 01/24/2016 13:30 [facility] UNDERWRITING CONSULTANT Lucero MALDONADO, Rachel Attention: Contact your local [...] if you dont have one. Go to [email or web address] and click on Create Your Account. Then, follow the directions to complete the online form. Youll be asked for your [facility] number which you can find at the top of this document. Your Goals/Additional instructions: Source: [facility] POWERCHART Document Id: [id number] Miscellaneous - Catracho Zelaya M.D. - 11/02/2015 10:22 AM CDT Ambulatory Discharge Medication List [facility] [address] [place] [id number] Visit Information Name: EMILY MCGUIRE [facility] Number: [id number] Visit Date: 11/02/2015 10:22:16 Attending Provider: CATRACHO ZELAYA MD Primary Care [...] tablet) 1 Tablet(s), Oral, once a day nitrofurantoin (Macrobid 100 mg oral capsule) 1 cap, Oral, two times a day Stop Taking the Following Medications: Medication list as of 11-02-15 10:22 Attention: If you have any medications at home that are not on this list, DO NOT take them until youcontact your provider for clarification. Give a copy of your medication list to your primary care provider. Update your medication list any time medications or doses are changed and carry your medication list at all times in case of emergency. Electronically Signed By: CATRACHO EZLAYA MD Signed On:02-NOV-2015 10:22:09 Additional Information: Source: [facility] POWERCHART Document Id: [id number] Miscellaneous - Diomedes Mares, L.P.N. - 11/02/2015 10:03 AM CDT Adult Sld Teacher Intake/History Adult Sld Teacher Intake/History Entered On: 11/02/2015 10:05 CDT Performed On: 11/02/2015 10:03 CDT by DIOMEDES MARES LPN Intake Chief Complaint : ob check LMP Date : 04-11-2015 Systolic Blood Pressure : 110 mmHg Diastolic Blood Pressure : 60 mmHg NIBP Mean : 77 mmHg Height : 171 cm(Converted to: 5 ft 7 inch(es), 67 inch(es)) Actual Weight : 90.2 kg(Converted to: 198 lb 14 oz) Dosing Weight Clinic : 90.2 kg Clinic BSA : 2.07 Body Mass Index : 30.85 kg/m2 DIOMEDES MARES LPN - 11/02/2015 10:03 CDT General Info Information Given By : Patient Languages : Rwandan Is Patient Female and 13-50 no hysterectomy : Yes Status : Confirmed positive Are you ? : No DIOMEDES MARES LPN - 11/02/2015 10:03 CDT Subjective Pain Symptoms : No DIOMEDES MARES LPN - 11/02/2015 10:03 CDT Dependent Habits Exposure to Tobacco Smoke : Other: non tobacco home Smoking Status : Never smoker Tobacco 2A : No Tobacco Use/Currently Using : No Tobacco Use/Last 30 Days : No Tobacco Use/Last 12 months : No DIOMEDES MARES LPN - 11/02/2015 10:03 CDT [facility] POWER[facility] Document Id: [id number] CDT!27 documented in this encounter Plan of Treatment Not on filedocumented as of this encounter Visit Diagnoses Not on filedocumented in this encounter Additional Health Concerns Assessment Noted Time PHQ-9 Depression Total Score: 14 07/26/2013 11:[address] documented as of this encounter
--- OUTSIDE RECORDS SUMMARY | 2022-05-17 11:38 | XMS_ITS | Encounter Summary ---
:1995 Author Organization [facility] Address [address] [place] [address] Care Team Providers Name Role Phone Unavailable Primary Care Provider Unavailable Encounter Details Date Type Department Care Team Description 12/13/2015 Hospital Encounter HX [facility] Gustavo Rowe M.D. [address] [place], [place] [phone] (Wo rk) Social History [...] How often do you attend sabianism or yazidism Never 11/23/2020 services? 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 - 12/13/2015 1:47 PM CDT Ambulatory Patient Summary [facility] [address] [place] [id number] Visit Information Name: EMILY MCGUIRE [facility] Number: [id number] Current Date: 12/13/2015 13:47:33 Physicians Attending Provider: RACHEL PERALTA MD Primary [...] the Following Medications: Medication list as of 12-13-15 13:47 Attention: If you have any medications at [...] Electronically Signed By: RACHEL PERALTA MD Signed On:13-DEC-2015 13:47:31 Your Allergies & Intolerances Substance Reaction Symptoms Category Comments codeine Upset stomach Drug Your Problem List Problem Status Onset Comments Dizziness Active 04/12/2008 Migraine Common Active 04/20/2008 Sports Exam Active 09/06/2009 Active 04/11/2015 Your Upcoming Appointments Date Time Location Provider 12/20/2015 13:30 [facility] STERILE TECHNICIAN Lucero MALDONADO, Rachel 12/27/2015 13:30 [facility] STERILE TECHNICIAN Lucero MALDONADO, Rachel 01/03/2016 13:30 [facility] STERILE TECHNICIAN Lucero MALDONADO, Rachel 01/10/2016 12:45 [facility] STERILE TECHNICIAN Paul FRAIREHaylee 01/17/2016 13:30 [facility] STERILE TECHNICIAN Lucero MALDONADO, Rachel 01/24/2016 13:30 [facility] STERILE TECHNICIAN Lucero MALDONADO, Rachel Attention: Contact your local [...] if you dont have one. Go to [email or web address] and click on Create Your Account. Then, follow the directions to complete the online form. Youll be asked for your [facility] number which you can find at the top of this document. Your Goals/Additional instructions: Source: [facility] POWERCHART Document Id: [id number] Miscellaneous - Rachel Peralta M.D. - 12/13/2015 1:47 PM CDT Ambulatory Discharge Medication List [facility] [address] [place] [id number] Visit Information Name: EMILY MCGUIRE [facility] Number: [id number] Visit Date: 12/13/2015 13:47:33 Attending Provider: RACHEL PERALTA MD Primary Care [...] the Following Medications: Medication list as of 12-13-15 13:47 Attention: If you have any medications at [...] Electronically Signed By: RACHEL PERALTA MD Signed On:13-DEC-2015 13:47:31 Additional Information: Source: [facility] POWERCHART Document Id: [id number] Miscellaneous - Diomedes Mares L.P.N. - 12/13/2015 1:32 PM CDT Adult Reheat Furnace Operator Intake/History Adult Reheat Furnace Operator Intake/History Entered On: 12/13/2015 13:36 CDT Performed On: 12/13/2015 13:32 CDT by DIOMEDES MARES LPN Intake Systolic Blood Pressure : 100 mmHg Diastolic Blood Pressure : 60 mmHg NIBP Mean : 73 mmHg Height : 171 cm(Converted to: 5 ft 7 inch(es), 67 inch(es)) Actual Weight : 95.7 kg(Converted to: 211 lb 0 oz) Dosing Weight Clinic : 95.7 kg Clinic BSA : 2.13 Body Mass Index : 32.73 kg/m2 DIOMEDES MARES LPN - 12/13/2015 13:32 CDT General Info Information Given By : Patient Languages : Romanian Is Patient Female and 13-50 no hysterectomy : Yes Status : Confirmed positive Are you ? : No DIOMEDES MARES LPN - 12/13/2015 13:32 CDT Subjective Pain Symptoms : No DIOMEDES MARES LPN - 12/13/2015 13:32 CDT Dependent Habits Exposure to Tobacco Smoke : Other: non tobacco home Smoking Status : Never smoker Tobacco 2A : No Tobacco Use/Currently Using : No Tobacco Use/Last 30 Days : No Tobacco Use/Last 12 months : No DIOMEDES MARES LPN - 12/13/2015 13:32 CDT Source: [facility] [employer] Document Id: [id number] CDT!25 documented in this encounter Plan of Treatment Not on filedocumented as of this encounter Visit Diagnoses Not on filedocumented in this encounter Additional Health Concerns Assessment Noted Time PHQ-9 Depression Total Score: 14 07/26/2013 11:[address] documented as of this encounter
--- OUTSIDE RECORDS SUMMARY | 2022-05-17 11:38 | XMS_ITS | Encounter Summary ---
:1995 Author Organization [facility] Address [address] [place] [address] Care Team Providers Name Role Phone Unavailable Primary Care Provider Unavailable Encounter Details Date Type Department Care Team Description 12/27/2015 Hospital Encounter HX [facility] Gustavo Rowe M.D. [address] [place], [place] [phone] (Wo rk) Social History [...] How often do you attend latter-day or voodoo Never 11/23/2020 services? 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 - 12/27/2015 1:51 PM CDT Ambulatory Patient Summary [facility] [address] [place] [id number] Visit Information Name: EMILY MCGUIRE [facility] Number: [id number] Current Date: 12/27/2015 13:51:44 Physicians Attending Provider: RACHEL PERALTA MD Primary Care Provider: PCP, ELSEWHERE EMILY MCGUIREE has been given the following list of [...] the Following Medications: Medication list as of 12-27-15 13:51 Attention: If you have any medications at [...] Electronically Signed By: RACHEL PERALTA MD Signed On:27-DEC-2015 13:51:41 Your Allergies & Intolerances Substance Reaction Symptoms Category Comments codeine Upset stomach Drug Your Problem List Problem Status Onset Comments Dizziness Active 04/12/2008 Migraine Common Active 04/20/2008 Sports Exam Active 09/06/2009 Active 04/11/2015 Your Upcoming Appointments Date Time Location Provider 01/03/2016 13:30 [facility] PULLER [facility]ROUGH Rachel Peralta MD 01/10/2016 12:45 [facility] Paul FRAIREHaylee 01/17/2016 13:30 [facility] Rachel Peralta MD 01/24/2016 13:30 [facility] Rachel Peralta MD Attention: Contact your local Clinic if [...] if you dont have one. Go to [email or web address] and click on Create Your Account. Then, follow the directions to complete the online form. Youll be asked for your [facility] number which you can find at the top of this document. Your Goals/Additional instructions: Source: [facility] POWERCHART Document Id: [id number] Miscellaneous - Rachel Peralta M.D. - 12/27/2015 1:51 PM CDT Ambulatory Discharge Medication List [facility] [address] [place] [id number] Visit Information Name: EMILY MCGUIRE [facility] Number: [id number] Visit Date: 12/27/2015 13:51:43 Attending Provider: RACHEL PERALTA MD Primary Care [...] the Following Medications: Medication list as of 12-27-15 13:51 Attention: If you have any medications at [...] Electronically Signed By: RACHEL PERALTA MD Signed On:27-DEC-2015 13:51:41 Additional Information: Source: [facility] [employer] Document Id: [id number] Miscellaneous - Eliz Phillips, L.P.N. - 12/27/2015 1:42 PM CDT Oceanographic Meteorologist Documentation Oceanographic Meteorologist Documentation Entered On: 12/27/2015 13:43 CDT Performed On: 12/27/2015 13:42 CDT by ELIZ PHILLIPS LPN Oceanographic Meteorologist Documentation Exam/Procedure Performed : cervical check CD Oceanographic Meteorologist Present : Yes CD Oceanographic Meteorologist Name : Ophelia Present in Room During Exam/Procedure : Alone ELIZ PHILLIPS LPN - 12/27/2015 13:42 CDT Source: [facility] [employer] Document Id: [id number] CDT!6 Miscellaneous - Eliz Phillips, L.P.N. 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 Operator Intake/History Adult Door Machine Operator Intake/History Entered On: 12/27/2015 13:29 CDT Performed On: 12/27/2015 13:25 CDT by ELIZ PHILLIPS LPN Intake Chief Complaint : ob check Systolic Blood Pressure : 106 mmHg Diastolic Blood Pressure : 70 mmHg NIBP Mean : 82 mmHg BP Location : Left upper extremity Blood Pressure Cuff Size : Large Height : 171 cm(Converted to: 5 ft 7 inch(es), 67 inch(es)) Actual Weight : 96.7 kg(Converted to: 213 lb 3 oz) Dosing Weight Clinic : 96.7 kg Clinic BSA : 2.14 Body Mass Index : 33.07 kg/m2 ELIZ PHILLIPS LPN - 12/27/2015 13:25 CDT General Info Languages : Croatian Is Patient Female and 13-50 no hysterectomy : ELIZ Diaz LPN - 12/27/2015 13:25 CDT Subjective Pain Symptoms : ELIZ Diaz LPN - 12/27/2015 13:25 CDT Dependent Habits Exposure to Tobacco Smoke : Other: non tobacco home Smoking Status : Never smoker Tobacco 2A : No Tobacco Use/Currently Using : No Tobacco Use/Last 30 Days : No Tobacco Use/Last 12 months : ELIZ Diaz LPN - 12/27/2015 13:25 CDT Source: [employer] Document Id: [id number] CDT!25 documented in this encounter Plan of Treatment Not on filedocumented as of this encounter Visit Diagnoses Not on filedocumented in this encounter Additional Health Concerns Assessment Noted Time PHQ-9 Depression Total Score: 14 07/26/2013 11:[address] documented as of this encounter
--- OUTSIDE RECORDS SUMMARY | 2022-05-17 11:38 | XMS_ITS | Encounter Summary ---
:1995 Author Organization [facility] Address [address] [place] [address] Care Team Providers Name Role Phone Unavailable Primary Care Provider Unavailable Encounter Details Date Type Department Care Team Description 08/31/2015 Hospital Encounter HX [facility] Gustavo Rowe M.D. [address] [place], [place] [phone] (Wo rk) Social History [...] How often do you attend congregation or baptist Never 11/23/2020 services? 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 documented as of this encounter Last Filed Vital Signs Vital Sign Reading Time Taken Comments Blood Pressure - - Pulse - - Temperature - - Respiratory Rate - - Oxygen Saturation - - Inhaled Oxygen Concentration - - Weight - - Height 171 cm (5' 7.32) 08/31/2015 8:03 AM BIOTECH PRODUCTION SPECIALIST Body Mass Index - - documented in this encounter Plan of Treatment Not on filedocumented as of this encounter Procedures Procedure Name Priority Date/Time Associated Diagnosis Comme nts US OB GREATER THAN Routine 08/31/2015 8:15 AM Res ults for this 14 WEEKS BIOTECH PRODUCTION SPECIALIST procedure are i n the results section. documented in this encounter Results US OB Greater than 14 weeks (08/31/2015 8:15 AM BIOTECH PRODUCTION SPECIALIST) Anatomical Region Laterality Modality Ultrasound Specimen (Source) Anatomical Collection Method Collection Time Re ceived Time Location / / Volume Laterality 08/31/2015 8:15 AM BIOTECH PRODUCTION SPECIALIST Addenda Addendum by Provider, Diandra Moreira 08/31/2015 8:15 AM BIOTECH PRODUCTION SPECIALIST RAD^^^OW US OB Greater than 14 weeks 08/31/2015 08:15:04 Impressions 08/31/2015 6:06 PM BIOTECH PRODUCTION SPECIALIST 1. Viable with ISATU of 6 , consistent with prior dates. 2. anatomic survey appears normal, gender is female. 3. Low-lying placenta. In general, it is reasonable to use the sonographically derived ISATU if it differs from that calculated using the last menstrual period (LMP) by more than seven days in the fir st trimester and by more than 10 days in the second trimester. In the third trimester, a three-week discrepancy between LMP dating and ultra sound dating is allowed before changing ISATU. No anomalies were detected by batsheva alex's survey. Results shared with the patient were done with a n understanding of the limitations of ultrasound for detection of aneuploidy, as well as congenital heart defects. [facility] in [place] [facility] ASSESSMENT SPECIALIST Dept. [phone] Narrative 08/31/2015 6:06 PM BIOTECH PRODUCTION SPECIALIST EXAM: US OB Greater than 14 weeks INDICATION: Survey REFERRING PHYSICIAN: Dr. Barker STEEL ERECTING PUSHER: Nargis Ortega RDMS. : 1 ?? PARA: 0 LMP: 04/11/2015 ? ISATU by LMP: 016 ?EGA by LMP: 20 weeks 2 days NUMBER: One UTERUS: Visually normal. CERVIX: 3.67 cm PLACENTA: Left lateral and low lying ADNEXA: Visually normal, no adnexal mass es detected. AMNIOTIC FLUID INDEX: Appropriate and no rmal for gestational age at 11.9 cm. BIOMETRY GA(BPD): 4.58 cm consistent with 19 week s 5 days GA(HC): 16.9 cm consistent with 19 weeks 3 days GA(AC): 16.3 cm consistent with 21 weeks 2 days GA(FL): 3.25 cm consistent with 20 weeks 1 day GA(HL): 3.29 cm consistent with 21 weeks 0 days Based on the above, the average ultrasou nd age is 20 weeks and 1 days. See 'Impression' below for ultrasound ca lculation of Estimated Date of Delivery (ISATU). The following anatomic features we re well visualized and appear normal today: SPINE (longitudinal and transverse): Nor mal CEREBELLUM: Normal CISTERNA MAGNA: Normal NUCHAL FOLD: Normal LATERAL VENTRICLES: Normal CHOROID PLEXUS: Normal FOUR CHAMBER HEART: Normal HEART RATE: 146 beats per minute CARDIAC AXIS: Normal RIGHT AND LEFT OUTFLOW TRACTS: Normal ANTERIOR ABDOMINAL WALL: Normal DIAPHRAGM: Normal CORD INSERTION: Normal THREE VESSEL CORD: Normal STOMACH: Normal BLADDER: Normal KIDNEYS: Normal EXTREMITIES (arms and legs): Normal HANDS AND FEET: Normal ORBITS: Normal PROFILE: Normal NOSE AND LIPS: Normal CORD INSERTION AT PLACENTA: Normal Procedure Note Rachel Barker M.D. / Provider, Ole mcgrath M.D. - 10/25/2016 EXAM: US OB Greater than 14 weeks INDICATION: Survey REFERRING PHYSICIAN: Dr. Barker STEEL ERECTING PUSHER: Nargis Ortega [facility] [place]. : 1 PARA: 0 LMP: 04/11/2015 ISATU by LMP: 01/16/2016 EG A by LMP: 20 weeks 2 days NUMBER: One UTERUS: Visually normal. CERVIX: 3.67 cm PLACENTA: Left lateral and low lying ADNEXA: Visually normal, no adnexal mass es detected. AMNIOTIC FLUID INDEX: Appropriate and no rmal for gestational age at 11.9 cm. BIOMETRY GA(BPD): 4.58 cm consistent with 19 week s 5 days GA(HC): 16.9 cm consistent with 19 weeks 3 days GA(AC): 16.3 cm consistent with 21 weeks 2 days GA(FL): 3.25 cm consistent with 20 weeks 1 day GA(HL): 3.29 cm consistent with 21 weeks 0 days Based on the above, the average ultrasou nd age is 20 weeks and 1 days. See 'Impression' below for ultrasound ca lculation of Estimated Date of Delivery (ISATU). The following anatomic features we re well visualized and appear normal today: SPINE (longitudinal and transverse): Nor mal CEREBELLUM: Normal CISTERNA MAGNA: Normal NUCHAL FOLD: Normal LATERAL VENTRICLES: Normal CHOROID PLEXUS: Normal FOUR CHAMBER HEART: Normal HEART RATE: 146 beats per minute CARDIAC AXIS: Normal RIGHT AND LEFT OUTFLOW TRACTS: Normal ANTERIOR ABDOMINAL WALL: Normal DIAPHRAGM: Normal CORD INSERTION: Normal THREE VESSEL CORD: Normal STOMACH: Normal BLADDER: Normal KIDNEYS: Normal EXTREMITIES (arms and legs): Normal HANDS AND FEET: Normal ORBITS: Normal PROFILE: Normal NOSE AND LIPS: Normal CORD INSERTION AT PLACENTA: Normal IMPRESSION: 1. Viable with ISATU of 6 , consistent with prior dates. 2. anatomic survey appears normal, gender is female. 3. Low-lying placenta. In general, it is reasonable to use the sonographically derived ISATU if it differs from that calculated using the last menstrual period (LMP) by more than seven days in the fir st trimester and by more than 10 days in the second trimester. In the third trimester, a three-week discrepancy between LMP dating and ultra sound dating is allowed before changing ISATU. No anomalies were detected by batsheva alex's survey. Results shared with the patient were done with a n understanding of the limitations of ultrasound for detection of aneuploidy, as well as congenital heart defects. [facility] in [place] [facility] ASSESSMENT SPECIALIST Dept. [phone] Nargis Greene R.V.T., RiikSSampson FATIMA OB US JULIUS ES documented in this encounter Visit Diagnoses Not on filedocumented in this encounter Additional Health Concerns Assessment Noted Time PHQ-9 Depression Total Score: 14 07/26/2013 11:[address] documented as of this encounter
--- OUTSIDE RECORDS SUMMARY | 2022-05-17 11:38 | XMS_ITS | Encounter Summary ---
:1995 Author Organization [facility] Address [address] [place] [address] Care Team Providers Name Role Phone Unavailable Primary Care Provider Unavailable Encounter Details Date Type Department Care Team Description 10/21/2016 Hospital Encounter [facility] Zeina Bartholomew, NAHUN, C.N.P., M. S.N. [address] [place] [address] (Wo rk) Social History Tobacco Use Types [...] 11/23/2020 relatives? How often do you attend episcopalian or hoahaoism Never 11/23/2020 services? Do you belong to any clubs or organizations such as No 11/23/2020 episcopalian groups, unions, fraternal or athletic groups, or [...] or slept in a mcc (including now)? Sex Assigned at Date Recorded Female 05/20/2017 4:45 PM CERT PHARMACY TECH documented as of this encounter Last Filed Vital Signs Vital Sign Reading Time Taken Comments Blood Pressure 122/72 10/21/2016 8:19 AM CDT Pulse 108 10/21/2016 8:19 AM CDT Temperature - - Respiratory Rate 16 10/21/2016 8:19 AM CDT Oxygen Saturation - - Inhaled Oxygen Concentration - - Weight 91.7 kg (202 lb 2.6 oz) 10/21/2016 8:19 AM CDT Height 171 cm (5' 7.32) 10/21/2016 8:19 AM CDT Body Mass Index 31.36 10/21/2016 8:19 AM CDT documented in this encounter Progress Notes Jacey Bartholomew, NAHUN, CSampsonNSampsonP. - 10/21/2016 8:01 AM CDT [id number] CHIEF COMPLAINT/REASON FOR VISIT Chest tightness, cough. Vomited this morning due to coughing. HISTORY OF PRESENT ILLNESS Patient is a 21-year-old female who comes in today stating that she has been sick for the last 3 days. She states that she felt feverish initially but has not checked her temp. She has history of exercise-induced asthma but has never actually had an inhaler in her life. States that she has had a phlegmy cough and some tightness in her chest with a sore throat. She states in the morning she coughs up phlegm and coughs so hard that she vomits. She states throughout the day it does improve some. She isnot sleeping well at night due to the cough. She has not been using any medication [id number] currently other than some cough drops. Patient states she is eating and drinking adequately. PAST MEDICAL/SURGICAL HISTORY No other significant past medical history. MEDICATIONS None. ALLERGIES Codeine. VITAL SIGNS Temperature 36.1, heart rate 108, respiratory rate 16, blood pressure 122/72. Oxygen 98% room air. Weight 91.7 kg. PHYSICAL EXAMINATION GENERAL: A 21-year-old female in no acute distress. HEENT: Head atraumatic, normocephalic. Nares patent. No focal sinus pain. Posterior oropharynx slightly erythematous. No inflammation or exudate. Tympanic membranes clear bilaterally. NECK: Supple. No lymphadenopathy. CHEST: Lungs clear to auscultation; however lower lobes somewhat diminished. No wheezing. CARDIOVASCULAR: Regular heart rate and rhythm. DIAGNOSTICS: Chest x-ray shows no acute findings and rapid strep is negative. IMPRESSION/REPORT/PLAN Viral upper respiratory infection. PLAN: Patient was reassured today that the strep came back negative and the chest x-ray was clear. This looks like a viral illness which should be resolving on its own. She should rest and hydrate. We talked about jpzj-ism-[id number] medications she may use for symptomatic relief. She is happy with this plan and has no further questions at this time. Follow up as needed for any ongoing or worsening symptoms. Jacey Bartholomew APRN, C.N.P./pos Electronically Signed By: JACEY BARTHOLOMEW [employer] On: 10/21/2016 03:08 PM Source: [facility] MHSDOLBEYNONRADSYS Document Id: [id number] documented in this encounter Miscellaneous Notes Miscellaneous - Jacey Bartholomew APRN, C.N.P. - 10/21/2016 9:28 AM CDT Ambulatory Patient Summary [address] [id number] Visit Information Name: EMILY MCGUIRE PAYAL [facility] Number: [id number] Current Date: 10/21/2016 09:28:26 Physicians Attending Provider: JACEY BARTHOLOMEW NP Primary Care Provider: PCP, ELSEWHERE EMILY MCGUIRE [...] Take Indications/Special Instructions/Comments/Notes for Patient Medication Changes/Routing No Medications found Stop Taking the Following Medications: Medication list as of 10-21-16 09:28 Attention: If you have any medications at home that are not on this list, DO NOT take them until youcontact your provider for clarification. Give a copy of your medication list to your primary care provider. Update your medication list any time medications or doses are changed and carry your medication list at all times in case of emergency. Electronically Signed By: JACEY BARTHOLOMEW [employer] Signed On:21-OCT-2016 09:28:24 Your Allergies & Intolerances Substance Reaction Symptoms [...] if you dont have one. Go to [email or web address] and click on Create Your Account. Then, follow the directions to complete the online form. Youll be asked for your [facility] number which you can find at the top of this document. Your Goals/Additional instructions: Source: [facility] POWERCHART Document Id: [id number] Miscellaneous - Jacey Bartholomew APRN, C.N.P. - 10/21/2016 9:28 AM CDT Ambulatory Discharge Medication List [facility] [address] [place] [id number] Visit Information Name: EMILY MCGUIRE [facility] Number: [id number] Current Date: 10/21/2016 09:28:26 Attending Provider: JACEY BARTHOLOMEW NP Primary Care Provider: PCP, ELSEWHERE EMILY MCGUIRE [...] Take Indications/Special Instructions/Comments/Notes for Patient Medication Changes/Routing No Medications found Stop Taking the Following Medications: Medication list as of 10-21-16 09:28 Attention: If you have any medications at home that are not on this list, DO NOT take them until youcontact your provider for clarification. Give a copy of your medication list to your primary care provider. Update your medication list any time medications or doses are changed and carry your medication list at all times in case of emergency. Electronically Signed By: JACEY BARTHOLOMEW [employer] Signed On:21-OCT-2016 09:28:24 Additional Information: Source: [facility] POWERCHART Document Id: [id number] Miscellaneous - Jacey Alford, L.P.N. - 10/21/2016 8:19 AM CDT Adult General Labor Intake/History Adult General Labor Intake/History Entered On: 10/21/2016 8:24 CDT Performed On: 10/21/2016 8:19 CDT by JACEY ALFORD BET TAKER Intake Chief Complaint : chest tightness, hurts to breath, at times prod cough, vomited twice from the coughing, can not sleep, headache, congested- Has had since and has gotten worse- feels clammy Ambulatory Intake Additional Information : Strep about 3 weeks ago Temperature Core : 36.1 DegC(Converted to: 97.0 DegF) (LOW) Peripheral Pulse Rate : 108 /min (HI) Respiratory Rate : 16 /min Heart Rhythm : Regular Systolic Blood Pressure : 122 mmHg Diastolic Blood Pressure : 72 mmHg NIBP Mean : 89 mmHg BP Location : Left upper extremity Blood Pressure Cuff Size : Regular SpO2 : 98 % Oxygen Therapy : Room air Height : 171 cm(Converted to: 5 ft 7 inch(es), 67 inch(es)) Actual Weight : 91.7 kg(Converted to: 202 lb 3 oz) Weight Source : Standing scale Dosing Weight Clinic : 91.7 kg Clinic BSA : 2.09 Body Mass Index : 31.36 kg/m2 JACEY ALFORD BET TAKER - 10/21/2016 8:19 CDT General Info Information Given By : Patient Preferred Communication Mode : Verbal, Written Languages : Nepali Is Patient Female and 13-50 no hysterectomy : Yes Status : Patient denies Are you ? : No JACEY ALFORD LPN - 10/21/2016 8:19 CDT Subjective Pain Symptoms : Yes JACEY ALFORD LPN - 10/21/2016 8:19 CDT Pain Scale Pain Scale Verbal 0-10 : Open JACEY ALFORD BET TAKER - 10/21/2016 8:19 CDT Pain Pain Assessment Grid Pain 1 Pain 2 Location : Head Chest Laterality : Right Bilateral Intensity : 7 6 JACEY ALFORD BET TAKER - 10/21/2016 8:19 CDT JACEY ALFORD LPN - 10/21/2016 8:19 CDT Dependent Habits Exposure to Tobacco Smoke : Other: non tobacco home Smoking Status : Current every day smoker Tobacco 2A : No Tobacco Use/Currently Using : No Tobacco Use/Last 30 Days : No Tobacco Use/Last 12 months : No JACEY ALFORD BET TAKER - 10/21/2016 8:19 CDT Source: [facility] VOLITIONRXCHART Document Id: [id number] CDT!49 documented in this encounter Plan of Treatment Not on filedocumented as of this encounter Procedures Procedure Name Priority Date/Time Associated Diagnosis Comme nts RAPID STREP A Routine 10/21/2016 8:40 AM Results for this SCREEN CDT procedure are i n the results section. RAPID STREP A Routine 10/21/2016 8:40 AM Results for this SCREEN CDT procedure are i n the results section. DX CHEST AP OR PA Routine 10/21/2016 8:36 AM Resu lts for this AND LATERAL 2 VIEWS CDT procedur e are in the results section. documented in this encounter Results Rapid Strep A Screen (10/21/2016 8:40 AM CDT) [facility] Method Time Signature HXRapid Strep POWERCHART Confirmation HXPre Negative for POWERCHART Group A Strep by culture. HXFinal Negative for POWERCHART Group A Strep by culture. Specimen Anatomical Collection Method Collection Time Receive d Time (Source) Location / / Volume Laterality Throat 10/21/2016 8:40 AM 7 8:40 CDT AM CDT Jacey Bartholomew APRN, C.N.P., M.S.N. LAB MICROBIOLOGY - GENERAL ORDERABLES Performing Organization Address City/State/ZIP Code Phon e Number POWERCHART Rapid Strep A Screen (10/21/2016 8:40 AM CDT) [facility] gist Method Time Signature HXStrep A POWERCHART Screen Rapid HXFinal Negative for POWERCHART Strep Group A by rapid screen. HXFinal Culture POWERCHART confirmation to follow. Specimen (Source) Anatomical Collection Method Collection Time Re ceived Time Location / / Volume Laterality Throat 10/21/2016 8:40 AM CDT Jacey Bartholomew APRN, C.N.P., M.S.N. LAB MICROBIOLOGY - GENERAL ORDERABLES Performing Organization Address City/State/ZIP Code Phon e Number POWERCHART DX Chest AP or PA and Lateral 2 Views (10/21/2016 8:36 AM CDT) Anatomical Region Laterality Modality Chest N/A Radiographic Imaging Specimen (Source) Anatomical Collection Method Collection Time Re ceived Time Location / / Volume Laterality 10/21/2016 8:36 AM CDT Narrative 10/21/2016 9:07 AM CDT Comparison: None History: 21 year old female with shortne ss of breath and cough. Findings: The heart size and the pulmona ry vascularity are within normal limits. There is no pneumothorax. The lungs and pleural spaces are clear. Impression: ?? 1. No pneumothorax. 2. Lungs and pleural spaces are clear. Procedure Note Mihai Dutta M.D. / Provider, Ole mcgrath M.D. - 12/09/2016 Comparison: None History: 21 year old female with shortne ss of breath and cough. Findings: The heart size and the pulmona ry vascularity are within normal limits. There is no pneumothorax. The lungs and pleural spaces are clear. Impression: 1. No pneumothorax. 2. Lungs and pleural spaces are clear. Jacob Tarango(R) IMG DIAGNOSTIC IMAGING PROCE MELY documented in this encounter Visit Diagnoses Not on filedocumented in this encounter Additional Health Concerns Assessment Noted Time PHQ-9 Depression Total Score: 14 07/26/2013 11:[address] documented as of this encounter
--- OUTSIDE RECORDS SUMMARY | 2022-05-17 11:38 | XMS_ITS | Encounter Summary ---
:1995 Author Organization [facility] Address [address] [place] [address] Care Team Providers Name Role Phone Unavailable Primary Care Provider Unavailable Encounter Details Date Type Department Care Team Description 11/02/2015 Hospital Encounter HX [facility] Nicolás Taylor M.D. [address] [place], [place] [phone] (Wo rk) Social History [...] How often do you attend spiritism or amish Never 11/23/2020 services? Do you [...] at Date Recorded Female 05/20/2017 4:45 PM [employer] documented as of this encounter Last Filed Vital Signs Vital Sign Reading Time Taken Comments Blood Pressure - - Pulse - - Temperature - - Respiratory Rate - - Oxygen Saturation - - Inhaled Oxygen Concentration - - Weight - - Height 171 cm (5' 7.32) 11/02/2015 8:54 AM CDT Body Mass Index - - documented in this encounter Plan of Treatment Not on filedocumented as of this encounter Procedures Procedure Name Priority Date/Time Associated Diagnosis Comme nts US OB FOLLOW UP OR Routine 11/02/2015 9:04 AM Res ults for this REPEAT CDT procedure are i n the results section. documented in this encounter Results US OB Follow Up or Repeat (11/02/2015 9:04 AM CDT) Anatomical Region Laterality Modality Ultrasound Specimen (Source) Anatomical Collection Method Collection Time Re ceived Time Location / / Volume Laterality 11/02/2015 9:04 AM CDT Addenda Addendum by Provider, Diandra Moreira 11/02/2015 9:04 AM CDT RAD^^^OW US OB Follow Up or Repeat 11/02/2015 09:04:54 Impressions 11/02/2015 5:25 PM CDT 1. Limited anatomy survey as above . 2. Estimated weight is consistent with the 65th percentile of growth, which is interpreted as appropri ate and normal interval growth. 3. Resolution of low-lying placenta. [facility] [place] SENIOR WINDOWS ENGINEER Dept. [phone] Narrative 11/02/2015 5:25 PM CDT EXAM: US OB Follow Up or Repeat INDICATION: low lying placenta COMPARISON: None. REFERRING PHYSICIAN: Dr. Barker WINDING OPERATOR: Nargis Ortega [facility]. : 1 PARA: 0 LMP: April 11, 2015 ISATU by LMP: January 16, 2016 GESTATIONAL AGE: 29 weeks and 2 days. PLACENTAL LOCATION: Anterior and 2 to 3 cm distal from the internal cervical os. UTERUS: Normal CERVICAL LENGTH: 3.7 cm. ADNEXA: Normal S/D Ratio: N/A POSITION: Vertex AMNIOTIC FLUID INDEX: 10.3 cm. STOMACH: Normal KIDNEYS: Normal BLADDER: Normal HEART: Normal HEART RATE: 156 beats per minute. BIOMETRY GA(BPD): 6.95 cm, 28 weeks and 0 days GA(HC): 27.1 cm, 29 weeks and 3 days GA(AC): 25.7 cm, 29 weeks and 5 days GA(FL): 5.91 cm, 30 weeks and 5 days Multiple measurements of the biparietal diameter, head circumference, abdominal circumference, and femur lengt h reveal an estimated weight of 1489 grams. This can be roughl y equated to an ultrasound calculation of ISATU of January 15, 2016. Procedure Note Jose Zelaya M.D. / ProviderCelia M.D. - 10/25/2016 EXAM: US OB Follow Up or Repeat INDICATION: low lying placenta COMPARISON: None. REFERRING PHYSICIAN: Dr. Barker WINDING OPERATOR: Nargis Ortega RDMS. : 1 PARA: 0 LMP: April 11, 2015 ISATU by LMP: January 16, 2016 GESTATIONAL AGE: 29 weeks and 2 days. PLACENTAL LOCATION: Anterior and 2 to 3 cm distal from the internal cervical os. UTERUS: Normal CERVICAL LENGTH: 3.7 cm. ADNEXA: Normal S/D Ratio: N/A POSITION: Vertex AMNIOTIC FLUID INDEX: 10.3 cm. STOMACH: Normal KIDNEYS: Normal BLADDER: Normal HEART: Normal HEART RATE: 156 beats per minute. BIOMETRY GA(BPD): 6.95 cm, 28 weeks and 0 days GA(HC): 27.1 cm, 29 weeks and 3 days GA(AC): 25.7 cm, 29 weeks and 5 days GA(FL): 5.91 cm, 30 weeks and 5 days Multiple measurements of the biparietal diameter, head circumference, abdominal circumference, and femur lengt h reveal an estimated weight of 1489 grams. This can be roughl y equated to an ultrasound calculation of ISATU of January 15, 2016. IMPRESSION: 1. Limited anatomy survey as above . 2. Estimated weight is consistent with the 65th percentile of growth, which is interpreted as appropri ate and normal interval growth. 3. Resolution of low-lying placenta. [facility] [place] SENIOR WINDOWS ENGINEER Dept. [phone] Nargis Greene R.V.T., AdolfoMSampsonS. IMG OB US PROCEDUR ES documented in this encounter Visit Diagnoses Not on filedocumented in this encounter Additional Health Concerns Assessment Noted Time PHQ-9 Depression Total Score: 14 07/26/2013 11:[address] documented as of this encounter
--- OUTSIDE RECORDS SUMMARY | 2022-05-17 11:38 | XMS_ITS | Encounter Summary ---
:1995 Author Organization [facility] Address [address] [place] [address] Care Team Providers Name Role Phone Unavailable Primary Care Provider Unavailable Encounter Details Date Type Department Care Team Description 12/09/2016 Hospital Encounter HX [facility] Nicolás Taylor M.D. [address] [place], [place] [phone] (Wo rk) Social History [...] 11/23/2020 relatives? How often do you attend baptism or judaism Never 11/23/2020 services? 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 - 12/09/2016 1:54 PM CDT Ambulatory Patient Education The following Patient Education Materials have been given to the patient: Patient Education Materials: Custom [id number] - [facility] Guide to a Healthy (CUSTOM) Custom [id number] - [facility] Guide to a Healthy Tdap Vaccine for Women, Women Who Recently Gave , and Others in Contact With Infants-[id number] First Trimester Screening for Down Syndrome-[id number] Maternal Serum Screening-[id number] Cystic Fibrosis Carrier Testing-[id number] A Family Guide to Eating [employer] Fish-[facility] IC [phone] Screening-[facility] IC [phone] Protecting Your Baby and Yourself From Listeriosis-[facility] Beginnings: , , and Beyond-Cas [facility] brochure-[facility] Source: [facility] POWERCHART Document Id: [id number] Giuliana Angel R.N. - 12/09/2016 1:54 PM CDT Nurse Only Documentation Nurse Only Documentation Entered On: 12/09/2016 13:54 CDT Performed On: 12/09/2016 13:54 CDT by GIULIANA ANGEL Nurse Only Documentation Nurse Only Visit Documentation : nob ed/intake appt-no charge GIULIANA ANGEL - 12/09/2016 13:54 CDT Source: [facility] POWERCHART Document Id: [id number] CDT!3 Giuliana Angel R.N. - 12/09/2016 1:53 PM CDT Zika Screen Zika Screen: 1. Have you or your partner traveled outside of the [place] up to 6 months prior to ? __yes _x__no 2. If so, where specifically have you or your partner traveled? Country, State? 3. Have you are your partner traveled to [place] since December 06, 2015?___yes x___no. If so, where in [place] did you travel? Electronically Signed By: GIULIANA ANGEL On: 12/09/2016 01:54 PM Source: [email or web address] / Netcycler Document Id: [id number] Giuliana Angel R.N. - 12/09/2016 1:29 PM CDT Antepartum Exam, Initial Document Has Been Updated Antepartum Exam, Initial Entered On: 12/09/2016 13:38 CDT Performed On: 12/09/2016 13:29 CDT by GIULIANA ANGEL Vitals/Ht/Wt LMP Date : 10/25/2016 Pain Symptoms : No Actual Weight : 91 kg(Converted to: 200 lb 10 oz, 200.621 lb) Height : 171 cm(Converted to: 5 ft 7 inch(es), 67 inch(es)) Body Mass Index : 31.12 kg/m2 OB Provider : CATRACHO ZELAYA MD, CATHERINE A - 12/09/2016 13:29 CDT Obstetrical History History (As Of: 12/09/2016 13:39:00 CDT) - 2, Para Fullterm - 1, Para - , Abortions - , Para Living - 1 Delivery/Outcome Date: 01/14/2016 Gestation Age At : 39 Weeks 5 Days ; Full Gestation ; Delivery Method: Vaginal ; Labor Duration: 16 hrs 30 mins ; Gender: Female ; Weight: 7lb 5oz / 3317gm ; Anesthesia: Epidural ; Delivery Hospital: [facility] ; Labor: No ; Outcome: Live ; Child Name: Adrienne Pennington Information Father of Baby : Luis Prepreg Amount : 0 Preg Amount : 0 #Years Use : 0 Alcohol Prepreg Amount : occ Alcohol Preg Amount : 0 Recreational Drug Prepreg Amount : 0 Recreational Drug Preg Amount : 0 Caffeine Prepreg Amount : 2-3/day Caffeine Preg Amount : 1/day GIULIANA ANGEL - 12/09/2016 13:29 CDT Histories Most Recent Hospitalizations Ultra Hospitalization #1 Hospitalization #2 Hospitalization #3 Hospitalization #4 Date : 2015 Reason : childbirth arm fracture-surgery ear infection T&A GIULIANA ANGEL - 12/09/2016 13:29 CDT GIULIANA ANGEL 12/09/2016 13:29 CDT GIULIANA ANGEL 12/09/2016 13:29 CDT GIULIANA ANGEL 12/09/2016 13:29 CDT (As Of : 12/09/2016 13:39:00 CDT) - Past Medical History Dizziness Name of Problem: Dizziness ; Onset Date: 03/2008 ; Confirmation: Provisional ; Classification: Medical ; Code: 780.4 ; Contributor System: [employer] Mobile SolutionsA_HPP_SYS ; Last Updated: 04/20/2008 0:00 CDT ; Life Cycle Date: 04/12/2008 ; Life Cycle Status: Active ; Vocabulary: ICD-9-CM Migraine Common Name of Problem: Migraine Common ; Onset Date: 03/2008 ; Confirmation: Provisional ;Classification: Medical ; Code: 346.10 ; Contributor System: [employer]A_True FitP_SYS ; Last Updated: 04/20/2008 0:00 CDT ; Life Cycle Date: 04/20/2008 ; Life Cycle Status: Active ; Vocabulary: ICD-9-CM Sports Exam Name of Problem: Sports Exam ; Onset Date: 08/2009 ; Confirmation: Provisional ; Classification: Medical ; Code: V70.3 ; Contributor System: [employer]_True FitP_SYS ; Last Updated: 09/06/2009 0:00 CDT ;Life Cycle Date: 09/06/2009 ; Life Cycle Status: Active ; Vocabulary: ICD-9-CM 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 Exam 29d-17yr Name of Problem: 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 Multisys Exam 29d-17yr ; Onset Date: 08/2009 ; Confirmation: Provisional ; Classification: Medical ; Code: V20.2 ; Contributor System: OWA_HPP_SYS ; Last Updated: 11/21/2013 9:18 CDT ; Life Cycle Date: 09/06/2009 ; Life Cycle Status: Inactive ; Vocabulary: ICD-9-CM Name of Problem: ; Onset Date: 04/11/2015 ; Recorder: GIULIANA ANGEL; Confirmation: Possible ; Classification: Medical ; Code: 841872232 ; Last Updated: 03/28/2016 16:06 CDT ; Life Cycle Date: Unknown 01/14/2016 ; Life Cycle Status: Resolved ; Responsible Provider: BETH PERALTA MD; Vocabulary: SNOMED CT ; Resolved Date: Unknown 01/14/2016 ; Resolved Age: 20 years Anemia Pers Hx Name of Problem: Anemia Pers Hx ; Recorder: GIULIANA ANGEL; Confirmation: Confirmed; Classification: Medical ; Code: Z86.2 ; Contributor System: [employer] ; Last Updated: 05/23/2015 9:55 MAP[employer]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[employer] SUPERVISOR ; Life Cycle Status: Resolved ; Vocabulary: ICD-10-CM Infection Urinary Tract (UTI) Pers Hx Name of Problem: Infection Urinary Tract (UTI) Pers Hx ; Recorder: GIULIANA ANGEL; Confirmation: Confirmed ; Classification: Medical ; Code: Z87.440 ; Contributor System: InHomeVestChart ; Last Updated: 05/23/2015 9:55 MAP[employer]ODU[employer] SUPERVISOR ; Life Cycle Status: Resolved ; Vocabulary: I CD-10-CM Depression Anxiety Name of Problem: Depression Anxiety ; Recorder: GIULIANA ANGEL; Confirmation: Confirmed ; Classification: Medical ; Code: F41.8 ; Contributor System: InHomeVestChart ; Last Updated: 05/23/2015 9:56 [employer] SUPERVISOR ; Life Cycle Status: Resolved ; Vocabulary: ICD-10-CM ; Comments: 05/23/2015 9:56 - GIULIANA ANGEL meds in past Anemia NOS Name of Problem: Anemia NOS ; Recorder: GIULIANA ANGEL; Confirmation: Confirmed ; Classification: Medical ; Code: D64.9 ; Contributor System: InHomeVestChart ; Last Updated: 12/09/2016 13:36 CDT ; Life Cycle Status: Resolved ; Vocabulary: ICD-10-CM Depression Pers Hx Name of Problem: Depression Pers Hx ; Recorder: GIULIANA ANGEL; Confirmation: Confirmed ; Classification: Medical ; Code: Z86.59 ; Contributor System: PowerChart ; Last Updated: 12/09/2016 13:37 CDT ; Life Cycle Status: Resolved ; Vocabulary: ICD-10-CM Family History (As Of: 12/09/2016 13:39:00 CDT) Grandfather: Relation: Grandfather ; Gender: Male ; Nomenclature: Hypertension ; Value: Positive Nomenclature: Myocardial infarction ; Value: Positive Anesth/Transfusion Anesthesia/Transfusions : Prior anesthesia Transfusion Acceptable in Emergency : Yes Synagogue/Other Objections to Blood Transfusions : No GIULIANA ANGEL 12/09/2016 13:29 CDT Dependent Habits Exposure to Tobacco Smoke : Other: non tobacco home Smoking Status : Never smoker Tobacco 2A : No Tobacco Use/Currently Using : No Tobacco Use/Last 30 Days : No Tobacco Use/Last 12 months : No GIULIANA ANGEL 12/09/2016 13:29 CDT Psychosocial Behavioral Health Screen/Safety Assmt : Yes GIULIANA ANGEL 12/09/2016 13:51 CDT Domestic Abuse Concerns : None Marital Status : Single 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 GIULIANA ANGEL 12/09/2016 13:29 CDT Behavioral Health Screen/Safety Assmt Depressed : No Thoughts of Harming Self : No Suicide Plan : No Thoughts of Harming Others : No GIULIANA ANGEL 12/09/2016 13:51 CDT Genetic/Infection Screen Infection History : History of Varicella or Immunized for Varicella GIULIANA ANGEL 12/09/2016 13:29 CDT Ethnic Background Grid : Self, Baby's father GIULIANA ANGEL 12/09/2016 13:29 CDT Genetic Disorders Reviewed and Not Applicable : Yes GIULIANA ANGEL 12/09/2016 13:29 CDT Antepartum Note Risk Factors, Antepartum Current Preg : Relative BMI greater than 30 Antepartum Note : H/O depression-states doing well emotionally. Good comm enc. States having nausea-will try OTC anti-emetics and will try OTC PNV(gummies). Enc at least folic acid if not able to handle PNV. ANGEL GIULIANA Gustavo 12/09/2016 13:51 CDT Education Individuals Taught : Patient Barriers to Learning : None evident Teaching Method : Explanation, Printed materials Referral Made To : Other: decline dietitian GIULIANA ANGEL - 12/09/2016 13:51 CDT Alcohol : Verbalizes understanding Anxiety/Depression Symptoms : Verbalizes understanding Childbirth Classes : Verbalizes understanding Domestic Violence : Verbalizes understanding Environmental/Work Hazards : Verbalizes understanding Exercise : Verbalizes understanding Expected Course of Care : Verbalizes understanding HIV Testing : Verbalizes understanding Medication Use : Verbalizes understanding Nutrition Counseling : Verbalizes understanding Recreational Drugs : Verbalizes understanding Risk Factors Identified : Verbalizes understanding Routine Tests : Verbalizes understanding Seat Belt Use : Verbalizes understanding Sexual Activity : Verbalizes understanding Tobacco Assessment : Verbalizes understanding Toxoplasmosis Precautions : Verbalizes understanding Travel : Verbalizes understanding Ultrasound : Verbalizes understanding Circumcision : Verbalizes understanding GIULIANA ANGEL - 12/09/2016 13:51 CDT Source: [facility] ClassBug Document Id: [id number]!37 documented in this encounter Plan of Treatment Not on filedocumented as of this encounter Procedures Procedure Name Priority Date/Time Associated Diagnosis Comme nts GROUPING AND RH, B Routine 12/09/2016 2:07 PM Res ults for this CDT procedure are i n the results section. PROFILE II Routine 12/09/2016 2:07 PM Re sults for this WITHOUT CBC, CDT procedure are i n B/SERUM the results section. HIV-1/-2 AG AND AB Routine 12/09/2016 2:07 PM Res ults for this SCREEN CDT procedure are i n the results section. AUTOMATED Routine 12/09/2016 2:07 PM Results f or this DIFFERENTIAL, B CDT procedure ar e in the results section. CBC WITH Routine 12/09/2016 2:07 PM Results f or this DIFFERENTIAL, B CDT procedure ar e in the results section. ANTIBODY SCREEN, B Routine 12/09/2016 2:07 PM Res ults for this CDT procedure are i n the results section. URINALYSIS, ROUTINE Routine 12/09/2016 2:05 PM Re sults for this CDT procedure are i n the results section. BACTERIAL CULTURE, Routine 12/09/2016 2:05 PM Res ults for this AEROBIC, URINE CDT procedure are in the results section. documented in this encounter Results Antibody Screen, RBC (12/09/2016 2:07 PM CDT) P athologist Signature Antibody Negative [facility] LAB Specimen (Source) Anatomical Collection Method Collection Time Re ceived Time Location / / Volume Laterality 12/09/2016 2:07 PM CDT Catracho Zelaya M.D. LAB BLOOD BANK TEST ORDERABL ES Performing Organization Address City/[facility]/ZIP Code Phon e Number [facility] NA Grouping and Rh, B (12/09/2016 2:07 PM CDT) Patholo gist Method Time Signature HX Grouping O Positive [facility] and [facility] LAB Specimen (Source) Anatomical Collection Method Collection Time Re ceived Time Location / / Volume Laterality 12/09/2016 2:07 PM CDT Catracho Zelaya M.D. LAB BLOOD BANK TEST ORDERABL ES Performing Organization Address [facility] Code Phon e Number [facility] NA HIV-1/-2 Ag and Ab Screen (12/09/2016 2:07 PM CDT) Analysis Performed At Patho logist Time Signature HIV-1/-2 Ag Non-Reacti Non-Reacti POWERCHART and Ab Screen, ve ve S Comment: The performance of this assay h as not been established for neonates, and the assay should not be used in individuals younger than 2 years of age. Hx HIV 1 Ab Non-Reactive Non-Reactive POWERCHART HX HIV 1 Ag Non-Reactive Non-Reactive POWERCHART HX HIV 2 Ab Non-Reactive Non-Reactive POWERCHART Specimen (Source) Anatomical Collection Method Collection Time Re ceived Time Location / / Volume Laterality Blood 12/09/2016 2:07 PM CDT Catracho Zelaya M.D. LAB MICROBIOLOGY - BLOOD ORD ERABLES Performing Organization Address City/State/ZIP Code Phon e Number POWERCHART Automated Differential (12/09/2016 2:07 PM CDT) P athologist Signature Absolute 5.20 1.70 - POWERCHART Neutrophils 7.00 109L Lymphocytes 1.41 0.90 - POWERCHART 2.90 X109L Monocytes 0.61 0.30 - POWERCHART 0.90 X109L Eosinophils 0.09 0.05 - POWERCHART 0.50 X109L Absolute 0.03 0.00 - POWERCHART Basophil 0.30 X109L Specimen Anatomical Collection Method Collection Time Receive d Time (Source) Location / / Volume Laterality Blood 12/09/2016 2:07 PM 201 7 2:07 CDT PM CDT Catracho Zelaya M.D. LAB BLOOD ADD-ON Performing Organization Address City/[facility]/ZIP Code Phon e Number POWERCHART CBC with Differential (12/09/2016 2:07 PM CDT) P athologist Signature Leukocytes 7.3 3.4 - 10.5 POWERCHART X109L Erythrocytes 4.57 3.90 - 5.03 POWERCHART [id number] Hemoglobin 13.5 12.0 - 15.5 POWERCHART GDL Hematocrit 39.8 34.9 - 44.5 POWERCHART MCV 87.1 82.0 - 98.0 POWERCHART FL HX RDW 13.4 11.9 - 15.5 POWERCHART Platelet Count 321 150 - 450 POWERCHART X109L Specimen (Source) Anatomical Collection Method Collection Time Re ceived Time Location / / Volume Laterality Blood 12/09/2016 2:07 PM CDT Catracho Zelaya M.D. LAB BLOOD ADD-ON Performing Organization Address City/[facility] Phon e Number POWERCHART Profile II without CBC/Serum (12/09/2016 2:07 PM CDT) P athologist Signature HBs Antigen, S Negative Negative POWERCHART Comment: Test Performed by: [address] [address] HX Rubella IgG-[place] Positive POWERCHART Comment: Results suggest response to immunization or prior exposure to the virus. REFERENCE VALUE------ Vaccinated: Positive (>=1.0 AI) Unvaccinated: Negative (<=0.7 AI) Rubella IgG Antibody Index 2.3 POW ERCHART Syphilis IgG Ab, S Negative Negative POWERCHART Comment: No serologic evidence of exposu re to syphilis. Specimen (Source) Anatomical Collection Method Collection Time Re ceived Time Location / / Volume Laterality Blood 12/09/2016 2:07 PM CDT Catracho Zelaya M.D. LAB BLOOD NON ADD-ON Performing Organization Address City/[facility] Code Phon e Number POWERCHART Urinalysis, Routine (12/09/2016 2:05 PM CDT) [facility] Method Time Signature HXUr Color Yellow Yellow POWERCHART Clarity Clear Clear POWERCHART Glucose Negative Negative POWERCHART HXBILIRUBIN Negative Negative POWERCHART Ketones, QL(U) Negative Negative POWERCHART Specific 1.018 1.001 - POWERCHART [place], POCT, 1.035 U Comment: Reference Range Specific [place]: 1.000-1.035 pH, POCT, Urine 7.0 POWERCHART Comment: UA pH Reference Range pH: 5.0-8.0 Protein, Ur, Dip Negative Negative POWERCHART Urobilinogen 1.0 0.2 MGDL POWERCHART Comment: Reference Range Urobilinogen: 0.2-1.0 mg/dL HXNITRITE Negative Negative POWERCHART HXBLOOD Negative Negative POWERCHART Leukocyte Esterase Negative Negative POWERCHART Specimen (Source) Anatomical Collection Method Collection Time Re ceived Time Location / / Volume Laterality Urine, First 12/09/2016 2:05 PM Voided CDT Catracho Zelaya M.D. LAB URINE ORDERABLES Performing Organization Address [facility] Code Phon e Number POWERCHART Bacterial Culture, Aerobic, Urine (12/09/2016 2:05 PM CDT) [facility] Method Time Signature Bacterial POWERCHART Culture, Aerobic, Urine HXFinal Mixed edel. No POWERCHART further studies unless notified. HXFinal [place] POWERCHART Microbiology laboratory [phone]. Specimen (Source) Anatomical Collection Method Collection Time Re ceived Time Location / / Volume Laterality Urine, First 12/09/2016 2:05 PM Voided CDT Comment: P Catracho Zelaya M.D. LAB MICROBIOLOGY - GENERAL O RDERABLES Performing Organization Address [facility]/ZIP Code Phon e Number POWERCHART documented in this encounter Visit Diagnoses Not on filedocumented in this encounter Additional Health Concerns Assessment Noted Time PHQ-9 Depression Total Score: 14 11/08/2016 1:35 PM CD T documented as of this encounter
--- OUTSIDE RECORDS SUMMARY | 2022-05-17 11:38 | XMS_ITS | Encounter Summary ---
:1995 Author Organization [facility] Address [address] [place] [address] Care Team Providers Name Role Phone Unavailable Primary Care Provider Unavailable Encounter Details Date Type Department Care Team Description 07/05/2015 Hospital Encounter HX [facility] Rashad Saba M.D. [address], [place], [place] [phone] (Wo rk) Social History Tobacco Use Types [...] How often do you attend mosque or baptism Never 11/23/2020 services? Do you [...] at Date Recorded Female 05/20/2017 4:45 PM AIRCRAFT SYSTEMS REPAIRER documented as of this encounter Last Filed Vital Signs Vital Sign Reading Time Taken Comments Blood Pressure 116/54 07/05/2015 1:29 PM AIRCRAFT SYSTEMS REPAIRER Pulse - - Temperature - - Respiratory Rate - - Oxygen Saturation - - Inhaled Oxygen Concentration - - Weight 81.3 kg (179 lb 3.7 oz) 07/05/2015 1:29 PM AIRCRAFT SYSTEMS REPAIRER Height 171 cm (5' 7.32) 07/05/2015 1:29 PM AIRCRAFT SYSTEMS REPAIRER Body Mass Index 27.8 07/05/2015 1:29 PM AIRCRAFT SYSTEMS REPAIRER documented in this encounter Progress Notes Jessica Pascal M.D. - 07/05/2015 1:17 PM CST [id number] Patient comes in today for OB check. In general she is doing well. She refuses a flu shot. Refuses first trimester screening. Size is consistent with a 12 cm and heart tones 160s. Precautions aregiven. We will see her back in 4 weeks. Jessica Pascal M.D./nandini Electronically Signed By: JESSICA PASCAL MD On: 07/08/2015 12:41 PM Source: [facility] MHSDOLBEYNONRADSYS Document Id: [id number] RAFT SYSTEMS REPAIRER documented in this encounter Miscellaneous Notes Miscellaneous - Burton Quinonez, L.P.N. - 07/05/2015 1:29 PM CST Adult Child And Adolescent Psychiatrist Intake/History Adult Child And Adolescent Psychiatrist Intake/History Entered On: 07/05/2015 13:31 AIRCRAFT SYSTEMS REPAIRER Performed On: 07/05/2015 13:29 AIRCRAFT SYSTEMS REPAIRER by BURTON QUINONEZ FACULTY ADMINISTRATOR Intake Chief Complaint : OB check- see ACOG 12 wk Systolic Blood Pressure : 116 mmHg Diastolic Blood Pressure : 54 mmHg NIBP Mean : 75 mmHg BP Location : Right upper extremity Blood Pressure Cuff Size : Regular Height : 171 cm(Converted to: 5 ft 7 inch(es), 67 inch(es)) Actual Weight : 81.3 kg(Converted to: 179 lb 4 oz) Weight Source : Standing scale Dosing Weight Clinic : 81.3 kg Clinic BSA : 1.97 Body Mass Index : 27.8 kg/m2 BURTON QUINONEZ LPN - 07/05/2015 13:29 AIRCRAFT SYSTEMS REPAIRER General Info Information Given By : Patient Languages : Bengali Is Patient Female and 13-50 no hysterectomy : No BURTON QUINONEZ LPN - 07/05/2015 13:29 AIRCRAFT SYSTEMS REPAIRER Subjective Pain Symptoms : No BURTON QUINONEZ LPN - 07/05/2015 13:29 AIRCRAFT SYSTEMS REPAIRER Dependent Habits Exposure to Tobacco Smoke : Other: non tobacco home Smoking Status : Never smoker Tobacco 2A : No Tobacco Use/Currently Using : No Tobacco Use/Last 30 Days : No Tobacco Use/Last 12 months : No BURTON QUINONEZ LPN - 07/05/2015 13:29 AIRCRAFT SYSTEMS REPAIRER Source: [facility] UNI5 Document Id: [id number] AIRCRAFT SYSTEMS REPAIRER!27 RAFT SYSTEMS REPAIRER Miscellaneous - Burton Quinonez, L.P.N. - 07/05/2015 1:29 PM CST Health Assessment Health Assessment Entered On: 07/05/2015 13:32 AIRCRAFT SYSTEMS REPAIRER Performed On: 07/05/2015 13:29 AIRCRAFT SYSTEMS REPAIRER by BURTON QUINONEZ LPN Health Assessment Complete Health Assessment Complete or Modified : Annual Health Assessment Annual Health Assessment Completed : Yes BURTON QUINONEZ LPN - 07/05/2015 13:29 AIRCRAFT SYSTEMS REPAIRER Nutrition Nutrition Risk Factors by History Adult : None BURTON QUINONEZ LPN - 07/05/2015 13:29 AIRCRAFT SYSTEMS REPAIRER Functional Current Daily Living Assistance : None BURTON QUINONEZ LPN - 07/05/2015 13:29 AIRCRAFT SYSTEMS REPAIRER Dependent Habits Exposure to Tobacco Smoke : Other: non tobacco home Smoking Status : Never smoker Tobacco 2A : No Tobacco Use/Currently Using : No Tobacco Use/Last 30 Days : No Tobacco Use/Last 12 months : No Alcohol Use : No BURTON QUINONEZ LPN - 07/05/2015 13:29 AIRCRAFT SYSTEMS REPAIRER Psychosocial Domestic Abuse Concerns : None Behavioral Health Screen/Safety Assmt : No Zoroastrianism Preference : No qualifying data available. BURTON QUINONEZ LPN - 07/05/2015 13:29 AIRCRAFT SYSTEMS REPAIRER Advance Directive Advanced Directives : No Advance Directive Additional Information : No BURTON QUINONEZ LPN - 07/05/2015 13:29 AIRCRAFT SYSTEMS REPAIRER Educ Needs Learning Style Preference Adult Grid Patient : Video/Educational TV, Demonstration Family : Video/Educational TV, Demonstration BURTON QUINONEZ FACULTY ADMINISTRATOR - 07/05/2015 13:29 AIRCRAFT SYSTEMS REPAIRER Source: [facility] UNI5 Document Id: [id number] AIRCRAFT SYSTEMS REPAIRER!27 RAFT SYSTEMS REPAIRER documented in this encounter Plan of Treatment Not on filedocumented as of this encounter Visit Diagnoses Not on filedocumented in this encounter Additional Health Concerns Assessment Noted Time PHQ-9 Depression Total Score: 14 07/26/2013 11:[address] documented as of this encounter
--- OUTSIDE RECORDS SUMMARY | 2022-05-17 11:38 | XMS_ITS | Encounter Summary ---
:1995 Author Organization [facility] Address [address] [place] [address] Care Team Providers Name Role Phone Unavailable Primary Care Provider Unavailable Encounter Details Date Type Department Care Team Description 06/15/2015 Hospital Encounter HX NO MAPPING Augustina Barker M.D. [address] [place], [place] [phone] (Wo rk) Social History [...] 11/23/2020 relatives? How often do you attend hindu or tenriism Never 11/23/2020 services? Do you belong to any clubs or organizations such as No 11/23/2020 hindu groups, unions, fraternal or athletic groups, or [...] slept in a senior living (including now)? Sex Assigned at Date Recorded Female 05/20/2017 4:45 PM CARAMEL CUTTER MACHINE documented as of this encounter Plan of Treatment Not on filedocumented as of this encounter Visit Diagnoses Not on filedocumented in this encounter Additional Health Concerns Assessment Noted Time PHQ-9 Depression Total Score: 14 07/26/2013 11:[address] documented as of this encounter
--- OUTSIDE RECORDS SUMMARY | 2022-05-17 11:38 | XMS_ITS | Encounter Summary ---
:1995 Author Organization [facility] Address [address] [place] [address] Care Team Providers Name Role Phone Unavailable Primary Care Provider Unavailable Encounter Details Date Type Department Care Team Description 01/10/2016 Hospital Encounter HX [facility] Jose Mendes, NAHUN, C.N.P. [address] [place], [place] [phone] (Wo rk) Social History [...] How often do you attend pentecostal or jehovah's witness Never 11/23/2020 services? 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 DRIVER documented as of this encounter Last Filed Vital Signs Vital Sign Reading Time Taken Comments Blood Pressure 120/62 01/10/2016 12:49 PM CDT Pulse - - Temperature - - Respiratory Rate - - Oxygen Saturation - - Inhaled Oxygen Concentration - - Weight 96.4 kg (212 lb 8.4 oz) 01/10/2016 12:49 PM CDT Height 171 cm (5' 7.32) 01/10/2016 12:49 PM CDT Body Mass Index 32.97 01/10/2016 12:49 PM CDT documented in this encounter Miscellaneous Notes Miscellaneous - Miles Esquivel - 01/15/2016 3:09 PM CDT Reminder Msg-reminder call Document Contains Addenda Addendum by MILES ESQUIVEL on February 13, 2016 16:24:22 CDT Called patient to remind of 6 week post check on 03-04-16 at 2:[address] Barker From: MILES ESQUIVEL To: MILES ESQUIVEL; Sent: 01/15/2016 15:09:02 CDT Show up: 02/13/2016 08:00:00 CDT Subject: Reminder Msg-reminder call Due Date/Time: 02/13/2016 08:00:00 CDT Please Remember to: Call patient to schedule a 6 week post check on 02-27-[address] Barker PATIENT: ( ) Call Patient ( ) Ask Patient to ( ) ( ) Call Relative ( ) Schedule Patient ( ) ( ) Call for Spiral Machine Operator ( ) Follow up on Results ( ) Other: PROVIDER: ( ) Call Physician ( ) Call Pharmacist ( ) Call Lab ( ) Other: Special Instructions: Comments: Source: [facility] POWERCHART Document Id: [id number] Electronically signed by Conversion, [facility] Visual Coordinator [id number] at 11/17/2016 12:47 PM CDT Miscellaneous - Diomedes Mares LSampsonPSampsonNSampson - 01/10/2016 1:18 PM CDT Wire Temperer Documentation Wire Temperer Documentation Entered On: 01/10/2016 13:19 CDT Performed On: 01/10/2016 13:18 CDT by DIOMEDES MARES LPN Wire Temperer Documentation Exam/Procedure Performed : cervical check CD Wire Temperer Present : Yes CD Wire Temperer Name : Diomedes Mares LPN Present in Room During Exam/Procedure : Significant other DIOMEDES MARES LPN - 01/10/2016 13:18 CDT Source: [facility] POWERCHART Document Id: [id number] CDT!6 Miscellaneous - Jose Vicente APRN, C.N.P. - 01/10/2016 1:06 PM CDT Ambulatory Patient Summary [address] [id number] Visit Information Name: EIMLY MCGUIRE [facility] Number: [id number] Current Date: 01/10/2016 13:06:02 Physicians Attending Provider: JOSE VICENTE APRN [facility] Primary Care Provider: PCP, DEEJAY EMILY MCGUIRE [...] the Following Medications: Medication list as of 01-10-16 13:06 Attention: If you have any medications at home that are not on this list, DO NOT take them until youcontact your provider for clarification. Give a copy of your medication list to your primary care provider. Update your medication list any time medications or doses are changed and carry your medication list at all times in case of emergency. Electronically Signed By: JOSE VICENTE APRN, CNP Signed On:10-JAN-2016 13:06:01 Your Allergies & Intolerances Substance Reaction Symptoms Category Comments codeine Upset stomach Drug Your Problem List Problem Status Onset Comments Dizziness Active 04/12/2008 Migraine Common Active 04/20/2008 Sports Exam Active 09/06/2009 Active 04/11/2015 Your Upcoming Appointments Date Time Location Provider 01/17/2016 13:30 [facility] DELIVERY TECHNICIAN Rachel Barker MD 01/24/2016 13:30 [facility] DELIVERY TECHNICIAN Rachel Barker MD Attention: Contact your local Clinic if [...] if you dont have one. Go to [email or web address] and click on Create Your Account. Then, follow the directions to complete the online form. Youll be asked for your [facility] number which you can find at the top of this document. Your Goals/Additional instructions: Source: [facility] POWERCHART Document Id: [id number] Miscellaneous - Jose Vicente APRN, C.N.P. - 01/10/2016 1:06 PM CDT Ambulatory Discharge Medication List [facility] [address] [place] [id number] Visit Information Name: EMILY MCGUIRE [facility] Number: [id number] Visit Date: 01/10/2016 13:06:02 Attending Provider: JOSE VICENTE APRN, CNP Primary Care Provider: PCP, EMILY JOSHIE has been given the following list of [...] the Following Medications: Medication list as of 01-10-16 13:06 Attention: If you have any medications at home that are not on this list, DO NOT take them until youcontact your provider for clarification. Give a copy of your medication list to your primary care provider. Update your medication list any time medications or doses are changed and carry your medication list at all times in case of emergency. Electronically Signed By: JOSE VICENTE APRN COMMUNICATION COORDINATOR Signed On:10-JAN-2016 13:06:01 Additional Information: Source: [facility] POWERCHART Document Id: [id number] Miscellaneous - Diomedes Mares L.PSampsonNSampson - 01/10/2016 12:49 PM CDT Adult Dehydrogenation Operator Head Intake/History Document Has Been Updated Adult Dehydrogenation Operator Head Intake/History Entered On: 01/10/2016 12:50 CDT Performed On: 01/10/2016 12:49 CDT by DIOMEDES MARES LPN Intake Chief Complaint : ob check LMP Date : 04-11-2015 Systolic Blood Pressure : 120 mmHg Diastolic Blood Pressure : 62 mmHg NIBP Mean : 81 mmHg Height : 171 cm(Converted to: 5 ft 7 inch(es), 67 inch(es)) Actual Weight : 96.4 kg(Converted to: 212 lb 8 oz) Dosing Weight Clinic : 96.4 kg Clinic BSA : 2.14 Body Mass Index : 32.97 kg/m2 DIOMEDES MARES LPN - 01/10/2016 12:49 CDT General Info Information Given By : Patient Languages : Divehi Is Patient Female and 13-50 no hysterectomy : Yes Status : Confirmed positive Are you ? : No DIOMEDES MARES LPN - 01/10/2016 12:49 CDT Subjective Pain Symptoms : No DIOMEDES MARES LPN - 01/10/2016 12:49 CDT Dependent Habits Exposure to Tobacco Smoke : Other: non tobacco home Smoking Status : Never smoker Tobacco 2A : No Tobacco Use/Currently Using : No Tobacco Use/Last 30 Days : No Tobacco Use/Last 12 months : No DIOMEDES MARES LPN - 01/10/2016 12:49 CDT Allergy (As Of: 01/10/2016 12:50:56 CDT) Allergies (Active) codeine Estimated Onset Date: Unspecified ; Reactions: Upset stomach ; Created By: SOFÍA DUTTA; Reaction Status: Active ; Category: Drug ; Substance: codeine ; Type: Intolerance ; Updated By: SOFÍA DUTTA; Reviewed Date: 01/10/2016 12:48 CDT Source: [facility] locr Document Id: [id number] CDT!27 documented in this encounter Plan of Treatment Not on filedocumented as of this encounter Visit Diagnoses Not on filedocumented in this encounter Additional Health Concerns Assessment Noted Time PHQ-9 Depression Total Score: 14 07/26/2013 11:[address] documented as of this encounter
--- OUTSIDE RECORDS SUMMARY | 2022-05-17 11:38 | XMS_ITS | Encounter Summary ---
:[address] [facility] Address [address] [place] [address] Care Team Providers Name Role Phone Unavailable Primary Care Provider Unavailable Encounter Details Date Type Department Care Team Description 07/26/2016 Historical Ophthalmology [facility] Edward Steel M.D. [address] [place], [place] [phone] (Wo rk) Social History [...] How often do you attend episcopalian or moravian Never 11/23/2020 services? Do you [...] Date Recorded Female 05/20/2017 4:45 PM MANAGER TAX documented as of this encounter Progress Notes Edward Steel M.D. - 07/26/2016 1:18 PM CST Eye General CHIEF COMPLAINT CE HISTORY OF PRESENT ILLNESS Last exam was 3 years ago Pt. states that VA isnt good and wants to know if there is anything she can do for it getting worse (having Amalia look to see if she's a lasik canidate) Pt. states that she started tanning in May. and states that VA seems a little worse after tanning IMPRESSION / REPORT / PLAN #1 High Myopia, both eyes. Doing well with glasses and contacts. #2 Borderline IOP left eye. Plan: Recheck early AM IOP six months. RD precautions reviewed. Continue contacts. F/u one year. CE/ref DIAGNOSIS #1 High Myopia, both eyes. #2 Borderline IOP left eye. CDM Reports - [facility]YE[facility] Id: [id number] Status: Fnl documented in this encounter Plan of Treatment Not on filedocumented as of this encounter Visit Diagnoses Not on filedocumented in this encounter Additional Health Concerns Assessment Noted Time PHQ-9 Depression Total Score: 14 07/26/2013 11:[address] documented as of this encounter
--- OUTSIDE RECORDS SUMMARY | 2022-05-17 11:38 | XMS_ITS | Encounter Summary ---
:1995 Author Organization [facility] Address [address] [place] [address] Care Team Providers Name Role Phone Unavailable Primary Care Provider Unavailable Encounter Details Date Type Department Care Team Description 08/03/2015 Hospital Encounter HX [facility] Gustavo Rowe M.D. [address] [place], [place] [phone] (Wo rk) Social History [...] How often do you attend scientologist or druze Never 11/23/2020 services? Do you belong to [...] FREELANCE INTERPRETER/TRANSLATOR documented as of this encounter Last Filed Vital Signs Vital Sign Reading Time Taken Comments Blood Pressure 102/52 08/03/2015 1:31 PM FREELANCE INTERPRETER/TRANSLATOR Pulse - - Temperature - - Respiratory Rate - - Oxygen Saturation - - Inhaled Oxygen Concentration - - Weight 82.7 kg (182 lb 5.1 oz) 08/03/2015 1:31 PM FREELANCE INTERPRETER/TRANSLATOR Height 171 cm (5' 7.32) 08/03/2015 1:31 PM FREELANCE INTERPRETER/TRANSLATOR Body Mass Index 28.28 08/03/2015 1:31 PM FREELANCE INTERPRETER/TRANSLATOR documented in this encounter Miscellaneous Notes Miscellaneous - Rachel Peralta M.D. - 08/03/2015 2:04 PM CST Ambulatory Patient Summary [facility] [address] [place] [id number] Visit Information Name: EMILY MCGUIRE PAYAL [facility] Number: [id number] Current Date: 08/03/2015 14:04:34 Physicians Attending Provider: RACHEL PERALTA MD Primary Care Provider: JEANNINE UP MD MAYNOREMILY PAYAL has been given the following list [...] tablet) 1 Tablet(s), Oral, every 8 hours Stop Taking the Following Medications: Medication list as of 08-03-15 14:04 Attention: If you have any medications at [...] Electronically Signed By: RACHEL PERALTA MD Signed On:03-AUG-2015 14:04:29 Your Allergies & Intolerances Substance Reaction Symptoms Category Comments codeine Upset stomach Drug Your Problem List Problem Status Onset Comments Dizziness Active 04/12/2008 Migraine Common Active 04/20/2008 Sports Exam Active 09/06/2009 Active 04/11/2015 Your Upcoming Appointments Date Time Location Provider 08/31/2015 08:00 [facility] INFANT AND TODDLER TEACHER [facility] Coil Machine Supervisor Ultrasound Room 3 08/31/2015 09:00 [facility] INFANT AND TODDLER TEACHER Rachel Peralta MD Attention: Contact your local [...] if you dont have one. Go to [email or web address] and click on Create Your Account. Then, follow the directions to complete the online form. Youll be asked for your [facility] number which you can find at the top of this document. Your Goals/Additional instructions: Source: [facility] POWERCHART Document Id: [id number] LANCE INTERPRETER/TRANSLATOR Miscellaneous - Rachel Peralta M.D. - 08/03/2015 2:04 PM CST Ambulatory Discharge Medication List [facility] [address] [place], [place] [id number] Visit Information Name: MAYNOR EMILY PAYAL [facility] Number: [id number] Visit Date: 08/03/2015 14:04:32 Attending Provider: RACHEL PERALTA MD Primary Care Provider: JEANNINE UP MD EMILY MCGUIRE PAYAL has been given the following list [...] tablet) 1 Tablet(s), Oral, every 8 hours Stop Taking the Following Medications: Medication list as of 08-03-15 14:04 Attention: If you have any medications at [...] Electronically Signed By: RACHEL PERALTA MD Signed On:03-AUG-2015 14:04:29 Additional Information: Source: [facility] POWERCHART Document Id: [id number] LANCE INTERPRETER/TRANSLATOR Miscellaneous - Diomedes Mares L.P.N. - 08/03/2015 1:31 PM CST Adult Incident Response Analyst Intake/History Adult Incident Response Analyst Intake/History Entered On: 08/03/2015 13:34 FREELANCE INTERPRETER/TRANSLATOR Performed On: 08/03/2015 13:31 FREELANCE INTERPRETER/TRANSLATOR by DIOMEDES MARES LPN Intake Chief Complaint : ob check LMP Date : 04-11-2016 Systolic Blood Pressure : 102 mmHg Diastolic Blood Pressure : 52 mmHg NIBP Mean : 69 mmHg Height : 171 cm(Converted to: 5 ft 7 inch(es), 67 inch(es)) Actual Weight : 82.7 kg(Converted to: 182 lb 5 oz) Dosing Weight Clinic : 82.7 kg Clinic BSA : 1.98 Body Mass Index : 28.28 kg/m2 DIOMEDES MARES LPN - 08/03/2015 13:31 FREELANCE INTERPRETER/TRANSLATOR General Info Information Given By : Patient Languages : Tajik Is Patient Female and 13-50 no hysterectomy : Yes Status : Confirmed positive Are you ? : No DIOMEDES MARES LPN - 08/03/2015 13:31 FREELANCE INTERPRETER/TRANSLATOR Subjective Pain Symptoms : No DIOMEDES MARES LPN - 08/03/2015 13:31 FREELANCE INTERPRETER/TRANSLATOR Dependent Habits Exposure to Tobacco Smoke : Other: non tobacco home Smoking Status : Never smoker Tobacco 2A : No Tobacco Use/Currently Using : No Tobacco Use/Last 30 Days : No Tobacco Use/Last 12 months : No DIOMEDES MARES LPN - 08/03/2015 13:31 FREELANCE INTERPRETER/TRANSLATOR Source: [facility] POWERCHART Document Id: [id number] FREELANCE INTERPRETER/TRANSLATOR!27 LANCE INTERPRETER/TRANSLATOR documented in this encounter Plan of Treatment Not on filedocumented as of this encounter Visit Diagnoses Not on filedocumented in this encounter Additional Health Concerns Assessment Noted Time PHQ-9 Depression Total Score: 14 07/26/2013 11:[address] documented as of this encounter
--- OUTSIDE RECORDS SUMMARY | 2022-05-17 11:38 | XMS_ITS | Encounter Summary ---
:1995 Author Organization [facility] Address [address] [place] [address] Care Team Providers Name Role Phone Unavailable Primary Care Provider Unavailable Encounter Details Date Type Department Care Team Description 11/02/2015 Hospital Encounter HX [facility] LAB Wilfrido Barker M.D. [address] [place], [place] [phone] (Wo rk) Social History [...] How often do you attend sabianist or muslim Never 11/23/2020 services? Do you [...] at Date Recorded Female 05/20/2017 4:45 PM HOSEMAN documented as of this encounter Last Filed Vital Signs Vital Sign Reading Time Taken Comments Blood Pressure - - Pulse - - Temperature - - Respiratory Rate - - Oxygen Saturation - - Inhaled Oxygen Concentration - - Weight - - Height 171 cm (5' 7.32) 11/02/2015 8:32 AM CDT Body Mass Index - - documented in this encounter Plan of Treatment Not on filedocumented as of this encounter Procedures Procedure Name Priority Date/Time Associated Comments Diagnosis GLUCOSE, GESTATIONAL Routine 11/02/2015 9:49 AM R esults for this 1HR, S CDT procedure are i n the results section. HEMOGLOBIN, B Routine 11/02/2015 9:49 AM Results for this CDT procedure are i n the results section. documented in this encounter Results (ABNORMAL) Hemoglobin (11/02/2015 9:49 AM CDT) P athologist Signature Hemoglobin 11.2 (L) 12.0 - 15.5 POWERCHART GDL Specimen (Source) Anatomical Collection Method Collection Time Re ceived Time Location / / Volume Laterality Blood 11/02/2015 9:49 AM CDT Rachel Barker M.D. LAB BLOOD ADD-ON Performing Organization Address City/State/ZIP Code Phon e Number POWERCHART Glucose, Gestational 1HR (11/02/2015 9:49 AM CDT) P athologist Signature HXGlucose 1 Hr 106 70 - 139 POWERCHART OB MGDL Specimen (Source) Anatomical Collection Method Collection Time Re ceived Time Location / / Volume Laterality Blood 11/02/2015 9:49 AM CDT Rachel Barker M.D. LAB BLOOD ADD-ON Performing Organization Address City/State/ZIP Code Phon e Number POWERCHART documented in this encounter Visit Diagnoses Not on filedocumented in this encounter Additional Health Concerns Assessment Noted Time PHQ-9 Depression Total Score: 14 07/26/2013 11:[address] documented as of this encounter
--- OUTSIDE RECORDS SUMMARY | 2022-05-17 11:38 | XMS_ITS | Encounter Summary ---
:1995 Author Organization [facility] Address [address] [place] [address] Care Team Providers Name Role Phone Unavailable Primary Care Provider Unavailable Encounter Details Date Type Department Care Team Description 03/16/2016 Hospital Encounter HX [facility] URGENTCAR Rajani Martinez M.D. Social History Tobacco Use Types Packs/Day Years [...] How often do you attend baptist or voodoo Never 11/23/2020 services? 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 - 03/16/2016 10:38 AM CDT [id number] CHIEF COMPLAINT/REASON FOR VISIT Congestion. HISTORY OF PRESENT ILLNESS This 20-year-old female presents with multiple symptoms including reported congestion, rhinorrhea, sinus discomfort and slight headache as well as an element of wheeze. No other acute symptomatic concerns are voiced. SYSTEMS REVIEW No other current acute HEENT or cardiorespiratory positive. MEDICATIONS As per EMR. ALLERGIES As listed. VITAL SIGNS As charted. PHYSICAL EXAMINATION GENERAL: Mildly ill-appearing female in no acute distress. ENT: TMs are clear. Nose is congested. Nasopharynx is not red. NECK: Without acute adenopathy. CARDIOVASCULAR: Regular. LUNGS: There is a congested cough and on auscultation a hint of wheeze. No rales. IMPRESSION/REPORT/PLAN Cough with clinical upper respiratory infection with bronchitis and associated bronchospasm. DIAGNOSTIC: None. THERAPEUTIC: Add Zithromax and ProAir for as needed use as per EMR. PATIENT EDUCATION: Reviewed the above. FOLLOWUP: As needed lack of steady and complete clinical quieting. Miguel Martinez M.D./nandini Electronically Signed By: MIGUEL MARTINEZ MD On: 03/16/2016 05:39 PM Source: [facility] MHSDOLBEYNONRADSYS Document Id: [id number] documented in this encounter Miscellaneous Notes Miscellaneous - Miguel Martinez M.D. - 03/16/2016 11:51 AM CDT Ambulatory Patient Summary [facility] [address] [place] [id number] Visit Information Name: EMILY MCGUIRE [facility] Number: [id number] Current Date: 03/16/2016 11:51:17 Physicians Attending Provider: MIGUEL MARTINEZ MD Primary Care Provider: PCP, DEEJAY EMILY [...] needed for Shortness of breath / Wheezing New Routed to [facility] [address] [place] [phone] azithromycin (Azithromycin 5 Day Dose Pack 250 mg oral tablet) 2 tablets on day 1, then 1 tablet on days 2-5, Oral, as directed x 5 day(s) New Routed to [facility] [address] [address], [place] [phone] Stop Taking the Following Medications: Medication list as of 03-16-16 11:51 Attention: If you have any medications at home that are not on this list, DO NOT take them until youcontact your provider for clarification. Give a copy of your medication list to your primary care provider. Update your medication list any time medications or doses are changed and carry your medication list at all times in case of emergency. Electronically Signed By: MIGUEL MARTINEZ MD Signed On:16-MAR-2016 11:50:29 Your Allergies & Intolerances Substance Reaction Symptoms Category Comments codeine Upset stomach Drug Your Problem List Problem Status Onset Comments Dizziness Active 04/12/2008 Migraine Common Active 04/20/2008 Sports Exam Active 09/06/2009 Active 04/11/2015 Your Upcoming Appointments Date Time Location Provider 03/18/2016 15:00 [facility] CAFE TEAM MEMBER Suleman Stringer MD Attention: Contact your local Clinic if [...] if you dont have one. Go to [email or web address] and click on Create Your Account. Then, follow the directions to complete the online form. Youll be asked for your [facility] number which you can find at the top of this document. Your Goals/Additional instructions: Source: [facility] POWERCHART Document Id: [id number] Miscellaneous - Miguel Martinez M.D. - 03/16/2016 11:51 AM CDT Ambulatory Discharge Medication List [address] [id number] Visit Information Name: EMILY MCGUIRE [facility] Number: [id number] Visit Date: 03/16/2016 11:51:16 Attending Provider: MIGUEL MARTINEZ MD Primary Care Provider: PCP, ELSEWHERE EMILY [...] needed for Shortness of breath / Wheezing New Routed to [address] [phone] azithromycin (Azithromycin 5 Day Dose Pack 250 mg oral tablet) 2 tablets on day 1, then 1 tablet on days 2-5, Oral, as directed x 5 day(s) New Routed to [facility] [address] [place] [id number] Stop Taking the Following Medications: Medication list as of 03-16-16 11:51 Attention: If you have any medications at home that are not on this list, DO NOT take them until youcontact your provider for clarification. Give a copy of your medication list to your primary care provider. Update your medication list any time medications or doses are changed and carry your medication list at all times in case of emergency. 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 Intake/History Adult Embedded Software Development Engineer Intake/History Entered On: 03/16/2016 11:34 CDT Performed On: 03/16/2016 11:31 CDT by ABHINAV HENRY LPN Intake Chief Complaint : congestion, head cold, runny nose, not sleeping well, sinus infection, headaches Onset of Symptoms : 1 week Temperature Oral : 36.6 DegC(Converted to: 97.9 DegF) Peripheral Pulse Rate : 92 /min Respiratory Rate : 18 /min Heart Rhythm : Regular Systolic Blood Pressure : 120 mmHg Diastolic Blood Pressure : 72 mmHg NIBP Mean : 88 mmHg BP Location : Right upper extremity Blood Pressure Cuff Size : Large Height : 171 cm(Converted to: 5 ft 7 inch(es), 67 inch(es)) Actual Weight : 84.5 kg(Converted to: 186 lb 5 oz) Weight Source : Standing scale Dosing Weight Clinic : 84.5 kg Clinic BSA : 2 Body Mass Index : 28.9 kg/m2 ABHINAV HENRY LPN - 03/16/2016 11:31 CDT General Info Information Given By : Patient Preferred Communication Mode : Verbal Languages : Malay Is Patient Female and 13-50 no hysterectomy : ABHINAV Goins LPN - 03/16/2016 11:31 CDT Subjective Pain Symptoms : ABHINAV Goins LPN - 03/16/2016 11:31 CDT Dependent Habits Exposure to Tobacco Smoke : Other: non tobacco home Smoking Status : Never smoker Tobacco 2A : No Tobacco Use/Currently Using : No Tobacco Use/Last 30 Days : No Tobacco Use/Last 12 months : ABHINAV Goins LPN - 03/16/2016 11:31 CDT Source: [employer] Document Id: [id number] CDT!33 documented in this encounter Plan of Treatment Not on filedocumented as of this encounter Visit Diagnoses Not on filedocumented in this encounter Additional Health Concerns Assessment Noted Time PHQ-9 Depression Total Score: 14 07/26/2013 11:[address] documented as of this encounter
--- OUTSIDE RECORDS SUMMARY | 2022-05-17 11:38 | XMS_ITS | Encounter Summary ---
:1995 Author Organization [facility] Address [address] [place] [address] Care Team Providers Name Role Phone Unavailable Primary Care Provider Unavailable Encounter Details Date Type Department Care Team Description 01/03/2016 Hospital Encounter [facility]X [facility] Gustavo Rowe M.D. [address] [place], [place] [phone] (Wo rk) Social History [...] How often do you attend yarsani or yazidism Never 11/23/2020 services? 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 encounter Last Filed Vital Signs Vital Sign Reading Time Taken Comments Blood Pressure 100/68 01/03/2016 1:24 PM CDT Pulse - - Temperature - - Respiratory Rate - - Oxygen Saturation - - Inhaled Oxygen Concentration - - Weight 96.7 kg (213 lb 3 oz) 01/03/2016 1:24 PM CDT Height 171 cm (5' 7.32) 01/03/2016 1:24 PM CDT Body Mass Index 33.07 01/03/2016 1:24 PM CDT documented in this encounter Miscellaneous Notes Miscellaneous - Miles Esquivel - 01/03/2016 2:02 PM CDT Veterinarian Epidemiologist Documentation Veterinarian Epidemiologist Documentation Entered On: 01/03/2016 14:02 CDT Performed On: 01/03/2016 14:02 CDT by MILES ESQUIVEL Veterinarian Epidemiologist Documentation Exam/Procedure Performed : cervical check CD Veterinarian Epidemiologist Present : Yes CD Veterinarian Epidemiologist Name : Miles Esquivel COMPUTER CONSOLE OPERATOR Present in Room During Exam/Procedure : Alone MILES ESQUIVEL - 01/03/2016 14:02 CDT Source: [facility] POWERCHART Document Id: [id number] CDT!6 Miscellaneous - Rachel Peralta M.D. - 01/03/2016 1:34 PM CDT Ambulatory Discharge Medication List [address] [id number] Visit Information Name: EMILY MCGUIRE [facility] Number: [id number] Visit Date: 01/03/2016 13:34:41 Attending Provider: RACHEL PERALTA MD Primary Care [...] the Following Medications: Medication list as of 01-03-16 13:34 Attention: If you have any medications at [...] Electronically Signed By: RACHEL PERALTA MD Signed On:03-JAN-2016 13:34:33 Additional Information: Source: [facility] POWERCHART Document Id: [id number] Miscellaneous - Rachel Peralta M.D. - 01/03/2016 1:34 PM CDT Ambulatory Patient Summary [address] [id number] Visit Information Name: EMILY MCGUIRE [facility] Number: [id number] Current Date: 01/03/2016 13:34:41 Physicians Attending Provider: RACHEL PERALTA MD Primary [...] the Following Medications: Medication list as of 01-03-16 13:34 Attention: If you have any medications at [...] Electronically Signed By: RACHEL PERALTA MD Signed On:03-JAN-2016 13:34:33 Your Allergies & Intolerances Substance Reaction Symptoms Category Comments codeine Upset stomach Drug Your Problem List Problem Status Onset Comments Dizziness Active 04/12/2008 Migraine Common Active 04/20/2008 Sports Exam Active 09/06/2009 Active 04/11/2015 Your Upcoming Appointments Date Time Location Provider 01/10/2016 12:45 [facility] PAPER BAG MAKING MACHINIST Paul FRAIRE Haylee Joy 01/17/2016 13:30 [facility] PAPER BAG MAKING MACHINIST Rachel Peralta MD 01/24/2016 13:30 [facility] PAPER BAG MAKING MACHINIST Lucero MALDONADO, Rachel Attention: Contact your local [...] if you dont have one. Go to [email or web address] and click on Create Your Account. Then, follow the directions to complete the online form. Youll be asked for your [facility] number which you can find at the top of this document. Your Goals/Additional instructions: Source: [facility] POWERCHART Document Id: [id number] Miscellaneous - Miles Esquivel - 01/03/2016 1:24 PM CDT Adult Parts Back Counter Man Intake/History Adult Parts Back Counter Man Intake/History Entered On: 01/03/2016 13:28 CDT Performed On: 01/03/2016 13:24 CDT by MILES ESQUIVEL Intake Chief Complaint : ob ck-see [id number] 1/7 weeks LMP Date : 04-11-15 Systolic Blood Pressure : 100 mmHg Diastolic Blood Pressure : 68 mmHg NIBP Mean : 79 mmHg BP Location : Left upper extremity Blood Pressure Cuff Size : Large Height : 171 cm(Converted to: 5 ft 7 inch(es), 67 inch(es)) Actual Weight : 96.7 kg(Converted to: 213 lb 3 oz) Dosing Weight Clinic : 96.7 kg Clinic BSA : 2.14 Body Mass Index : 33.07 kg/m2 MILES ESQUIVEL - 01/03/2016 13:24 CDT General Info Information Given By : Patient Preferred Communication Mode : Verbal Languages : Kinyarwanda Is Patient Female and 13-50 no hysterectomy : Yes Status : Confirmed positive Are you ? : No MILES ESQUIVEL - 01/03/2016 13:24 CDT Subjective Pain Symptoms : No MILES ESQUIVEL - 01/03/2016 13:24 CDT Dependent Habits Exposure to Tobacco Smoke : Other: non tobacco home Smoking Status : Never smoker Tobacco 2A : No Tobacco Use/Currently Using : No Tobacco Use/Last 30 Days : No Tobacco Use/Last 12 months : No MILES ESQUIVEL - 01/03/2016 13:24 CDT Source: [employer] POWERCHART Document Id: [id number] CDT!30 documented in this encounter Plan of Treatment Not on filedocumented as of this encounter Visit Diagnoses Not on filedocumented in this encounter Additional Health Concerns Assessment Noted Time PHQ-9 Depression Total Score: 14 07/26/2013 11:[address] documented as of this encounter
--- OUTSIDE RECORDS SUMMARY | 2022-05-17 11:38 | XMS_ITS | Encounter Summary ---
:1995 [facility] Organization [facility] Address [address] [place] [address] Care Team Providers Name Role Phone Unavailable Primary Care Provider Unavailable Encounter Details Date Type Department Care Team Description 03/18/2016 Hospital Encounter HX [facility] Gagan Quesada M.D. Social History Tobacco Use Types Packs/Day [...] How often do you attend methodist or methodist Never 11/23/2020 services? 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 - 03/18/2016 2:51 PM CDT [id number] CHIEF COMPLAINT/REASON FOR VISIT A 6 week- visit. HISTORY OF PRESENT ILLNESS The patient is a 20-year-old G1, P1-0-0-1 who is about 8 weeks out from an uncomplicated normal spontaneous vaginal delivery on 01/14/2016. She had a baby girl. Mom and baby are doing well overall. Shehas some good and bad days with the baby. She is sometimes fussy. She feels that since she has stopped and placed the baby on formula feeds, the baby has become less colicky and fussy andthat is helping her cope better. The patient says she has a history of depression. 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 She is able to take the babywith her to her work at her family employer. The patient says she is off pain medication. She has resumed normal diet without nausea or vomiting. She has normal bowel movements and is able to void without difficulty. Her vaginal bleeding has resolved as well. She is interested in discussion of control options today. SYSTEMS REVIEW A 10-point review of systems negative other than described in HPI. PHYSICAL EXAMINATION Height 171 cm. Weight 86.4 kg. BMI 29.55 kg/m2. VITAL SIGNS: Temp 36.5, blood pressure 116/64. GENERAL: The patient is in no apparent distress. Appears to be appropriate and not depressed. BREASTS: Normal symmetrical breasts with normal contour. No evidence of skin dimpling or retraction.No palpable tenderness or masses. No discharge from breasts. ABDOMEN: Soft, nontender, nondistended. GENITOURINARY: Bimanual exam reveals intact and closed cervix. Uterus is barely palpable in lower pelvis and has regressed to normal size. No adnexal masses or tenderness present. Posterior fourchette and posterior vaginal epithelium appear to be well intact and well healed. No abnormal discharge is notable. PSYCHIATRIC: Holt Depression Scale score of 11. IMPRESSION/REPORT/PLAN The patient is a 20-year-old 1, para 1 who is approximately 8 weeks status post normal spontaneous vaginal delivery. We did discuss precautions regarding depression. The patient seems to have appropriate mood and affect today. She appears to be coping well and her baby girl seems meron doing better and less fussy now. The patient knows that if she has any thoughts of homicidal or suicidal ideation or increasingly worse signs of depression that she should seek medical attention either by calling our office or going to the ER. In regard to control options, I did offer long acting reversible choices including Mary Kate intrauterine device and Nexplanon as the patient is not interested in further childbearing for at least the next 3 to 4 years. The patient was averse to forms of LARC control methods for various reasons and she states she has not tolerated Depo-Provera injection in the past. She was on oral contraceptive pill when she got during this butstates she had a stomach flu and therefore was not keeping her pills down and this likely resultedin this . She had been on Mononessa in the past and this had caused her some problems with mood swings and gaining weight. I discussed other control pills, switching progestin around canhelp in some people but not everyone. I chose Levora and did prescribe this to her. A Pap smear is not indicated at today's visit given the patient's age. She may follow up with us or her primary care office for annual well woman care as desired. Gagan Stringer M.D./nandini Electronically Signed By: GAGAN STRINGER MD On: 03/25/2016 02:02 PM Modified by and Electronically Signed by: GAGAN STRINGER MD On: 03/25/2016 02:02 PM Source: [facility] MHSDOLBEYNONRADSYS Document Id: [id number] documented in this encounter Miscellaneous Notes Miscellaneous - Gagan Stringer M.D. - 03/18/2016 3:44 PM CDT Ambulatory Discharge Medication List [facility] [address] [place], [place] [address], [place] [phone] Visit Information Name: EMILY MCGUIRE [facility] Number: [id number] Visit Date: 03/18/2016 15:44:21 Attending Provider: GAGAN STRINGER MD Primary Care Provider: PCP, ELSEWHERE EMILY [...] needed for Shortness of breath / Wheezing azithromycin (Azithromycin 5 Day Dose Pack 250 mg oral tablet) 2 tablets on day 1, then 1 tablet on days 2-5, Oral, as directed x 5 day(s) levonorgestrel-ethinyl estradiol (Levora 0.15 mg-30 mcg oral tablet) 1 Tablet(s), Oral, once a day start first tablet today New Routed to [place] [address] [address] [place] [id number] Stop Taking the Following Medications: Medication list as of 03-18-16 15:44 Attention: If you have any medications at home that are not on this list, DO NOT take them until youcontact your provider for clarification. Give a copy of your medication list to your primary care provider. Update your medication list any time medications or doses are changed and carry your medication list at all times in case of emergency. Electronically Signed By: GAGAN STRINGER MD Signed On:18-MAR-2016 15:44:20 Additional Information: Source: [facility] POWERCHART Document Id: [id number] Miscellaneous - Gagan Stringer M.D. - 03/18/2016 3:44 PM CDT Ambulatory Patient Summary [facility] [address] [facility] [place] [id number] Visit Information Name: EMILY MCGUIRE [facility] Number: [id number] Current Date: 03/18/2016 15:44:22 Physicians Attending Provider: GAGAN STRINGER MD Primary Care Provider: PCP, ELSEWHERE EMILY [...] needed for Shortness of breath / Wheezing azithromycin (Azithromycin 5 Day Dose Pack 250 mg oral tablet) 2 tablets on day 1, then 1 tablet on days 2-5, Oral, as directed x 5 day(s) levonorgestrel-ethinyl estradiol (Levora 0.15 mg-30 mcg oral tablet) 1 Tablet(s), Oral, once a day start first tablet today New Routed to [facility] [address] [facility] [place] [id number] Stop Taking the Following Medications: Medication list as of 03-18-16 15:44 Attention: If you have any medications at home that are not on this list, DO NOT take them until youcontact your provider for clarification. Give a copy of your medication list to your primary care provider. Update your medication list any time medications or doses are changed and carry your medication list at all times in case of emergency. Electronically Signed By: GAGAN STRINGER MD Signed On:18-MAR-2016 15:44:20 Your Allergies & Intolerances Substance Reaction Symptoms [...] if you dont have one. Go to [email or web address] and click on Create Your Account. Then, follow the directions to complete the online form. Youll be asked for your [facility] number which you can find at the top of this document. Your Goals/Additional instructions: Source: [facility] [employer] Document Id: [id number] Miscellaneous - Diomedes Mares, L.P.N. - 03/18/2016 3:41 PM CDT Burring Wheel Operator Documentation Burring Wheel Operator Documentation Entered On: 03/18/2016 15:42 CDT Performed On: 03/18/2016 15:41 CDT by DIOMEDES MARES LPN Burring Wheel Operator Documentation Exam/Procedure Performed : post exam CD Burring Wheel Operator Present : Yes CD Burring Wheel Operator Name : Diomedes Mares LPN Present in Room During Exam/Procedure : Alone DIOMEDES MARES LPN - 03/18/2016 15:41 CDT Source: [facility] [employer] Document Id: [id number] CDT!6 Miscellaneous - Olesya Beltran L.P.N. - 03/18/2016 3:01 PM CDT Adult Service Observer Chief Intake/History Adult Service Observer Chief Intake/History Entered On: 03/18/2016 15:03 CDT Performed On: 03/18/2016 15:01 CDT by OLESYA BELTRAN LPN Intake Chief Complaint : 6 week post LMP Date : N/A Temperature Oral : 36.5 DegC(Converted to: 97.7 DegF) Systolic Blood Pressure : 116 mmHg Diastolic Blood Pressure : 64 mmHg NIBP Mean : 81 mmHg BP Location : Left upper extremity Blood Pressure Cuff Size : Regular Height : 171 cm(Converted to: 5 ft 7 inch(es), 67 inch(es)) Actual Weight : 86.4 kg(Converted to: 190 lb 8 oz) Dosing Weight Clinic : 86.4 kg Clinic BSA : 2.03 Body Mass Index : 29.55 kg/m2 OLESYA BELTRAN LPN - 03/18/2016 15:01 CDT General Info Languages : [place] Is Patient Female and 13-50 no hysterectomy : No OLESYA BELTRAN LPN - 03/18/2016 15:01 CDT Subjective Pain Symptoms : No OLESYA BELTRAN LPN - 03/18/2016 15:01 CDT Dependent Habits Exposure to Tobacco Smoke : Other: non tobacco home Smoking Status : Never smoker Tobacco 2A : No Tobacco Use/Currently Using : No Tobacco Use/Last 30 Days : No Tobacco Use/Last 12 months : No OLESYA BELTRAN LPN - 03/18/2016 15:01 CDT [facility] Document Id: [id number] CDT!27 documented in this encounter Plan of Treatment Not on filedocumented as of this encounter Visit Diagnoses Not on filedocumented in this encounter Additional Health Concerns Assessment Noted Time PHQ-9 Depression Total Score: 14 07/26/2013 11:[address] documented as of this encounter
--- OUTSIDE RECORDS SUMMARY | 2022-05-17 11:38 | XMS_ITS | Encounter Summary ---
:1995 Author Organization [facility] Address [address] [place] [address] Care Team Providers Name Role Phone Unavailable Primary Care Provider Unavailable Encounter Details Date Type Department Care Team Description 11/08/2016 Hospital Encounter HX [facility] FAMILYPRA Iris Duncan APRN C.N.P., M.S.N. [address] [place] [address] (Wo rk) Social History Tobacco Use Types [...] How often do you attend restorationist or voodoo Never 11/23/2020 services? 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 - 11/08/2016 1:06 PM CDT [id number] CHIEF COMPLAINT/REASON FOR VISIT Possible thyroid issues, depression and anxiety. HISTORY OF PRESENT ILLNESS Jen is a pleasant 21-year-old female who presents to clinic today for complaints of depression, anxiety and possible related thyroid issues. She states that she has suffered with anxiety and depression her entire life, but since having her baby 9 months ago, things have progressively gotten worse. She states that at the approximately 6 month point, she reports that her depression and anxiety took a turn for the worst. She reports feelings of being on edge, constantly worrying, feeling paranoid, and being stressed out, overwhelmed and easily fatigued. She states that her excessive worryand stress levels are causing her the most distress at this time. She also reports having trouble with weight loss and actually has been feeling as though she has gained weight despite exercising dailyand maintaining a strict diet in hopes of weight loss. She states that she also seems to be getting sick much easier lately and is wondering about if all of these symptoms are related to difficulties with her thyroid. She states that her mom recently informed her that thyroid issues run in her dad's family and most of the females on that side have hypothyroidism. She is specifically requesting her thyroid to be checked today. She does mention she was on Prozac at a point in her teenage years, but states that she had a lot of adverse effects from that medication and that really scared her way from ta lking about the possibility of medication in the future. She is not completely ruling that possibility out. She denies any other concerns or complaints at this time. SYSTEMS REVIEW Negative except as stated in HPI. ALLERGIES Codeine. MEDICATIONS None. VITAL SIGNS Temp 37.7, heart rate 86, blood pressure 120/80. MEGHNA-7 equals 19. PHQ-9 equals 14. PHYSICAL EXAMINATION GENERAL: This is a well-appearing adult female, in no acute distress. She is alert and oriented to person, place, and time. NECK: No thyromegaly, nodules or goiter. LUNGS: Chest expansion symmetric. Normal respiratory effort. Lung sounds clear to auscultation bilaterally. HEART: S1, S2. Regular rate and rhythm. No murmurs, clicks, or rubs. DIAGNOSTICS CBC with differential, ferritin and TSH. IMPRESSION/REPORT/PLAN 1. Depression. 2. Anxiety. 3. Fatigue. 4. Weight gain. We discussed the possibility of all of her symptoms being related to a physiologic versus psychologic causes. At this time, we will evaluate thyroid function as a possibility for her current symptoms. We also discussed that if her labs do come back normal, we could initiate daily medication to help with her symptoms. I did write down a few medications that I thought would be helpful. She would like to get do her own research as to what the best medication choice for her. At this time, I will have her follow up after results of the lab tests. All questions have been answered and patient is in agreement with this plan. Rosalinda Smith, N.P./nandini Electronically Signed By: IRIS DUNCAN APRN MSN RN On: 11/11/2016 08:04 AM Modified by and Electronically Signed by: IRIS DUNCAN APRN MSN RN On: 11/11/2016 08:04 AM Source: [facility] Document Id: [id number] documented in this encounter Miscellaneous Notes Miscellaneous - Iris Duncan M.S.N., R.N. - 11/08/2016 5:44 PM CDT From: IRIS DUNCAN APRN MSN RN To: JEN MCGUIRE Sent: 11/08/2016 17:44:46 CDT Hi Jen, Your TSH and iron levels are also normal. Please let me know if you would like to discuss medicationas a possible option. Iris Duncan Results: Date Result Name Value Ref Range 11/08/2016 14:01 Ferritin Lvl 17.5 ng/mL (13.0 - 150.0) 11/08/2016 14:01 TSH 1.08 mIU/L (0.27 - 4.20) Source: [facility] [employer] Document Id: [id number] Electronically signed by Conversion, [facility] Strategy Associate [id number] at 12/02/2016 10:44 PM CDT Miscellaneous - Iris Duncan M.S.N., R.N. - 11/08/2016 2:33 PM CDT From: IRIS DUNCAN APRN MSN RN To: JEN MCGUIRE Sent: 11/08/2016 14:33:35 CDT Hi Jen, You blood count is normal. We are still waiting on the results of your TSH. Have a good weekend. Results: Date Result Name Value Ref Range 11/08/2016 14:01 Hgb 13.6 g/dL (12.0 - 15.5) 11/08/2016 14:01 Hct 40.7 % (34.9 - 44.5) 11/08/2016 14:01 WBC 5.9 x10(9)/L (3.4 - 10.5) 11/08/2016 14:01 RBC 4.62 x10(12)/L (3.90 - 5.03) 11/08/2016 14:01 MCV 88.1 fL (82.0 - 98.0) 11/08/2016 14:01 RDW 13.6 % (11.9 - 15.5) 11/08/2016 14:01 Platelet 341 x10(9)/L (150 - 450) 11/08/2016 14:01 Neutro Absolute 3.83 10(9)/L (1.70 - 7.00) 11/08/2016 14:01 Lymph Absolute 1.43 x10(9)/L (0.90 - 2.90) 11/08/2016 14:01 Liberty Absolute 0.45 x10(9)/L (0.30 - 0.90) 11/08/2016 14:01 Eos Absolute 0.16 x10(9)/L (0.05 - 0.50) 11/08/2016 14:01 Baso Absolute 0.06 x10(9)/L (0.00 - 0.30) Source: [facility] [employer] Document Id: [id number] Electronically signed by Lily, [facility] Strategy Associate [id number] at 12/02/2016 10:44 PM CDT Miscellaneous - Iris Duncan M.S.N., R.N. - 11/08/2016 1:51 PM CDT Ambulatory Patient Summary [address] [id number] Visit Information Name: JEN MCGUIRE [facility] Number: [id number] Current Date: 11/08/2016 13:51:30 Physicians Attending Provider: IRIS DUNCAN APRN MSN clay molder Provider: PCP, DEEJAY JEN MCGUIRE has been given the following list [...] the Following Medications: Medication list as of 11-08-16 13:51 Attention: If you have any medications at home that are not on this list, DO NOT take them until youcontact your provider for clarification. Give a copy of your medication list to your primary care provider. Update your medication list any time medications or doses are changed and carry your medication list at all times in case of emergency. Electronically Signed By: IRIS DUNCAN APRN MSN RN Signed On:08-NOV-2016 13:51:27 Your Allergies & Intolerances Substance Reaction Symptoms [...] if you dont have one. Go to [email or web address] and click on Create Your Account. Then, follow the directions to complete the online form. Youll be asked for your [facility] number which you can find at the top of this document. Your Goals/Additional instructions: Source: [facility] POWERCHART Document Id: [id number] Miscellaneous - rIis Duncan M.S.N., R.N. - 11/08/2016 1:51 PM CDT Ambulatory Discharge Medication List [facility] [address] [place] [id number] Visit Information Name: JEN MCGUIRE [facility] Number: [id number] Current Date: 11/08/2016 13:51:29 Attending Provider: IRIS DUNCAN APRN MSN clay molder Provider: PCP, ELSEWHERE JEN MCGUIRE has been given the following list [...] the Following Medications: Medication list as of 11-08-16 13:51 Attention: If you have any medications at home that are not on this list, DO NOT take them until youcontact your provider for clarification. Give a copy of your medication list to your primary care provider. Update your medication list any time medications or doses are changed and carry your medication list at all times in case of emergency. Electronically Signed By: IRIS DUNCAN APRN MSN RN Signed On:08-NOV-2016 13:51:27 Additional Information: Source: [employer] Document Id: [id number] Miscellaneous - Burton Quinonez, L.P.N. - 11/08/2016 1:35 PM CDT PHQ-9 PHQ-9 Entered On: 11/12/2016 13:36 CDT Performed On: 11/08/2016 13:35 CDT by BURTON QUINONEZ LPN PHQ-9 Little interest or pleasure in doing things : Several days Feeling down, depressed, or hopeless : More than half the days Trouble falling or staying asleep, or sleeping too much : More than half the days Feeling tired or having little energy : Nearly every day Poor appetite or overeating : Several days Feeling bad about yourself or that you are a failure : More than half the days Trouble concentrating on things : Several days Moving or speaking slowly; restless or fidgety : Several days Thoughts that you would be better off /hurting self : Several days PHQ-9 Calculated Score : 14 Problems make work, home, or dealing with others : Very difficult BURTON QUINONEZ LPN - 11/12/2016 13:35 CDT [facility] Document Id: [id number] CDT!13 Miscellaneous - Burton Quinonez L.P.N. - 11/08/2016 1:35 PM CDT MEGHNA-7 MEGHNA-7 Entered On: 11/12/2016 13:36 CDT Performed On: 11/08/2016 13:35 CDT by BURTON QUINONEZ LPN GAD7 GAD7 Feeling nervous : Nearly every day GAD7 Not able to control worry : Nearly every day GAD7 Worrying too much : Nearly every day GAD7 Trouble relaxing : Nearly every day GAD7 Being so restless : More than half the days GAD7 Becoming easily annoyed : Nearly every day GAD7 Feeling afraid : More than half the days GAD7 Total Score : 19 Problems make work, home, or dealing with others : Very difficult BURTON QUINONEZ LPN - 11/12/2016 13:35 CDT [facility] Document Id: [id number] CDT!11 Miscellaneous - Sarah Burgess LSampsonP.N. - 11/08/2016 1:28 PM CDT Adult Qa Internship Intake/History Adult Qa Internship Intake/History Entered On: 11/08/2016 13:31 CDT Performed On: 11/08/2016 13:28 CDT by SARAH BURGESS LPN Intake Chief Complaint : wants thyroid checked anxiety/depression Temperature Oral : 37.7 DegC(Converted to: 99.9 DegF) (HI) Peripheral Pulse Rate : 86 /min Systolic Blood Pressure : 120 mmHg Diastolic Blood Pressure : 80 mmHg NIBP Mean : 93 mmHg BP Location : Right upper extremity Blood Pressure Cuff Size : Regular Height : 171 cm(Converted to: 5 ft 7 inch(es), 67 inch(es)) Actual Weight : 91.9 kg(Converted to: 202 lb 10 oz) Dosing Weight Clinic : 91.9 kg Clinic BSA : 2.09 Body Mass Index : 31.43 kg/m2 SARAH BURGESS LPN - 11/08/2016 13:28 CDT General Info Information Given By : Patient Languages : Indonesian Is Patient Female and 13-50 no hysterectomy : Yes Status : Patient denies Are you ? : No ROBERTA BURGESSAlexia Thomas LPN - 11/08/2016 13:28 CDT Subjective Pain Symptoms : No SARAH BURGESS CAROL ANN - 11/08/2016 13:28 CDT Dependent Habits Exposure to Tobacco Smoke : Other: non tobacco home Smoking Status : Never smoker Tobacco 2A : No Tobacco Use/Currently Using : No Tobacco Use/Last 30 Days : No Tobacco Use/Last 12 months : No SARAH BURGESS Martha MAHARAJ - 11/08/2016 13:28 CDT Source: [facility] POWERCHART Document Id: [id number] CDT!30 documented in this encounter Plan of Treatment Not on filedocumented as of this encounter Procedures Procedure Name Priority Date/Time Associated Diagnosis Comme nts AUTOMATED Routine 11/08/2016 2:01 PM Results f or this DIFFERENTIAL, B CDT procedure ar e in the results section. CBC WITH Routine 11/08/2016 2:01 PM Results f or this DIFFERENTIAL, B CDT procedure ar e in the results section. THYROID-STIMULATING Routine 11/08/2016 2:01 PM Re sults for this HORMONE-SENSITIVE CDT procedure are in (S-TSH) the results section. FERRITIN, S Routine 11/08/2016 2:01 PM Results f or this CDT procedure are i n the results section. documented in this encounter Results CBC with Differential (11/08/2016 2:01 PM CDT) P athologist Signature Leukocytes 5.9 3.4 - 10.5 POWERCHART X109L Erythrocytes 4.62 3.90 - 5.03 POWERCHART L4315X Hemoglobin 13.6 12.0 - 15.5 POWERCHART GDL Hematocrit 40.7 34.9 - 44.5 POWERCHART MCV 88.1 82.0 - 98.0 POWERCHART FL HX RDW 13.6 11.9 - 15.5 POWERCHART Platelet Count 341 150 - 450 POWERCHART X109L Specimen (Source) Anatomical Collection Method Collection Time Re ceived Time Location / / Volume Laterality Blood 11/08/2016 2:01 PM CDT Iris Duncan APRN, C.N.P., M.S.N. LAB BLOOD ADD -ON Performing Organization Address City/[facility] Code Phon e Number POWERCHART Automated Differential (11/08/2016 2:01 PM CDT) P athologist Signature Absolute 3.83 1.70 - POWERCHART Neutrophils 7.00 109L Lymphocytes 1.43 0.90 - POWERCHART 2.90 X109L Monocytes 0.45 0.30 - POWERCHART 0.90 X109L Eosinophils 0.16 0.05 - POWERCHART 0.50 X109L Absolute 0.06 0.00 - POWERCHART Basophil 0.30 X109L Specimen Anatomical Collection Method Collection Time Receive d Time (Source) Location / / Volume Laterality Blood 11/08/2016 2:01 PM 7 2:01 CDT PM CDT Iris Duncan APRN, C.N.P., M.S.N. LAB BLOOD ADD -ON Performing Organization Address [facility] Phon e Number POWERCHART Ferritin (11/08/2016 2:01 PM CDT) athologist Signature Ferritin, S 17.5 13.0 - POWERCHART 150.0 NGML Comment: Biotin has been identified by the anthony seth as a potential interfering substance. Higher concentrations of biotin may be found in multivitamins, hair/nail supplements, and workout supplements. If the result does not match clinical observat ions, repeat testing after patient refrains from the use of supplements for at least 12 hours. Specimen (Source) Anatomical Collection Method Collection Time Re ceived Time Location / / Volume Laterality Blood 11/08/2016 2:01 PM CDT rIis Duncan APRN, C.N.P., M.S.N. LAB BLOOD ADD -ON Performing Organization Address [facility] Phon e Number POWERCHART Thyroid-Stimulating Hormone-Sensitive (s-TSH) (11/08/2016 2:01 PM CDT) athologist Signature TSH 1.08 0.27 - 4.20 POWERCHART (Thyrotropin) MIUL Comment: Biotin has been identified by the anthony seth as a potential interfering substance. Higher concentrations of biotin may be found in multivitamins, hair/nail supplements, and workout supplements. If the result does not match clinical observat ions, repeat testing after patient refrains from the use of supplements for at least 12 hours. Specimen (Source) Anatomical Collection Method Collection Time Re ceived Time Location / / Volume Laterality Blood 11/08/2016 2:01 PM CDT Georgina Augustine APRN.NAlejandro., M.S.N. LAB BLOOD ADD -ON Performing Organization Address City/State/ZIP Code Phon e Number POWERCHART documented in this encounter Visit Diagnoses Not on filedocumented in this encounter Additional Health Concerns Assessment Noted Time PHQ-9 Depression Total Score: 14 11/08/2016 1:35 PM CD T documented as of this encounter
--- OUTSIDE RECORDS SUMMARY | 2022-05-17 11:38 | XMS_ITS | Encounter Summary ---
:1995 Author Organization [facility] Address [address] [place] [address] Care Team Providers Name Role Phone Unavailable Primary Care Provider Unavailable Encounter Details Date Type Department Care Team Description 01/14/2016 Hospital Encounter HX NO MAPPING Williams Redman M.D., M.H.A. [address], [place] [phone] (Wo rk) Social History Tobacco Use Types [...] How often do you attend jew or yazidi Never 11/23/2020 services? 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
--- OUTSIDE RECORDS SUMMARY | 2022-05-17 11:38 | XMS_ITS | Encounter Summary ---
:1995 Author Organization [facility] Address [address] [place] [address] Care Team Providers Name Role Phone Unavailable Primary Care Provider Unavailable Encounter Details Date Type Department Care Team Description 09/28/2015 Hospital Encounter HX [facility] Gustavo Rowe M.D. [address] [place], [place] [phone] (Wo rk) Social History [...] How often do you attend yarsani or worship Never 11/23/2020 services? 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 - 09/28/2015 1:45 PM CDT Ambulatory Discharge Medication List [facility] [address] [place] [id number] Visit Information Name: EMILY MCGUIRE [facility] Number: [id number] Visit Date: 09/28/2015 13:45:10 Attending Provider: RACHEL PERALTA MD Primary Care [...] the Following Medications: Medication list as of 09-28-15 13:45 Attention: If you have any medications at [...] Electronically Signed By: RACHEL PERALTA MD Signed On:28-SEP-2015 13:45:04 Additional Information: Source: [facility] P[facility]CHART Document Id: [id number] Miscellaneous - Rachel Peralta M.D. - 09/28/2015 1:45 PM CDT Ambulatory Patient Summary [facility] [address] [place] [id number] Visit Information Name: EMILY MCGUIRE [facility] Number: [id number] Current Date: 09/28/2015 13:45:10 Physicians Attending Provider: RACHEL PERALTA MD Primary Care Provider: JEANNINE UP MD EMILY MCGUIRE has been given the following [...] the Following Medications: Medication list as of 09-28-15 13:45 Attention: If you have any medications at [...] Electronically Signed By: RACHEL PERALTA MD Signed On:28-SEP-2015 13:45:04 Your Allergies & Intolerances Substance Reaction Symptoms Category Comments codeine Upset stomach Drug Your Problem List Problem Status Onset Comments Dizziness Active 04/12/2008 Migraine Common Active 04/20/2008 Sports Exam Active 09/06/2009 Active 04/11/2015 Your Upcoming Appointments Date Time Location Provider 10/03/2015 14:00 [facility] AUTOMATIC PRINT DEVELOPER Haylee Miller CNP 11/01/2015 08:50 [facility] 11/01/2015 09:00 [facility] AUTOMATIC PRINT DEVELOPER Lucero MALDONADO, Rachel 11/02/2015 08:30 [facility] 11/02/2015 09:00 [facility] AUTOMATIC PRINT DEVELOPER [facility] Construction Project Administrator Ultrasound Room 3 11/02/2015 09:45 [facility] AUTOMATIC PRINT DEVELOPER Lucero MALDONADO, Rachel 11/15/2015 13:45 [facility] AUTOMATIC PRINT DEVELOPER Lucero MALDONADO, Rachel 11/29/2015 13:45 [facility] AUTOMATIC PRINT DEVELOPER Lucero MALDONADO, Rachel 12/13/2015 13:30 [facility] AUTOMATIC PRINT DEVELOPER Lucero MALDONADO, Rachel 12/20/2015 13:30 [facility] AUTOMATIC PRINT DEVELOPER Lucero MALDONADO, Rachel 12/27/2015 13:30 [facility] AUTOMATIC PRINT DEVELOPER Lucero MALDONADO, Rachel 01/03/2016 13:30 [facility] AUTOMATIC PRINT DEVELOPER Lucero MALDONADO, Rachel 01/10/2016 13:00 [facility] AUTOMATIC PRINT DEVELOPER Paul FRAIREHaylee 01/17/2016 13:30 [facility] AUTOMATIC PRINT DEVELOPER Lucero MALDONADO, Rachel 01/24/2016 13:30 [facility] AUTOMATIC PRINT DEVELOPER Lucero MALDONADO, Rachel Attention: Contact your local [...] online form. Youll be asked for your [facility] number which you can find at the top of this document. Your Goals/Additional instructions: Source: [facility] POWERCHART Document Id: [id number] Miscellaneous - Diomedes Mares L.P.N. - 09/28/2015 1:29 PM CDT Adult Still Pump Operator Intake/History Adult Still Pump Operator Intake/History Entered On: 09/28/2015 13:33 CDT Performed On: 09/28/2015 13:29 CDT by DIOMEDES MARES LPN Intake Chief Complaint : ob check LMP Date : 04-11-2015 Ambulatory Intake Additional Information : getting like cramps in the eveningsl Systolic Blood Pressure : 104 mmHg Diastolic Blood Pressure : 56 mmHg NIBP Mean : 72 mmHg Height : 171 cm(Converted to: 5 ft 7 inch(es), 67 inch(es)) Actual Weight : 86.7 kg(Converted to: 191 lb 2 oz) Dosing Weight Clinic : 86.7 kg Clinic BSA : 2.03 Body Mass Index : 29.65 kg/m2 DIOMEDES MARES LPN - 09/28/2015 13:29 CDT General Info Information Given By : Patient Languages : Urdu Is Patient Female and 13-50 no hysterectomy : Yes Status : Confirmed positive Are you ? : No DIOMEDES MARES LPN - 09/28/2015 13:29 CDT Subjective Pain Symptoms : No DIOMEDES MARES LPN - 09/28/2015 13:29 CDT Dependent Habits Exposure to Tobacco Smoke : Other: non tobacco home Smoking Status : Never smoker Tobacco 2A : No Tobacco Use/Currently Using : No Tobacco Use/Last 30 Days : No Tobacco Use/Last 12 months : No DIOMEDES MARES LPN - 09/28/2015 13:29 CDT Source: [employer] Document Id: [id number] CDT!28 documented in this encounter Plan of Treatment Not on filedocumented as of this encounter Visit Diagnoses Not on filedocumented in this encounter Additional Health Concerns Assessment Noted Time PHQ-9 Depression Total Score: 14 07/26/2013 11:[address] documented as of this encounter
--- OUTSIDE RECORDS SUMMARY | 2022-05-17 11:38 | XMS_ITS | Encounter Summary ---
:[address] [facility] Address [address] [place] [address] Care Team Providers Name Role Phone Unavailable Primary Care Provider Unavailable Encounter Details Date Type Department Care Team Description 08/31/2015 Hospital Encounter HX [facility] Gustavo Rowe M.D. [address] [place], [place] [phone] (Wo rk) Social History [...] How often do you attend jewish or religion Never 11/23/2020 services? Do you belong to [...] at Date Recorded Female 05/20/2017 4:45 PM PACKAGE CENTER SUPERVISOR documented as of this encounter Last Filed Vital Signs Vital Sign Reading Time Taken Comments Blood Pressure 120/54 08/31/2015 8:53 AM PACKAGE CENTER SUPERVISOR Pulse - - Temperature - - Respiratory Rate - - Oxygen Saturation - - Inhaled Oxygen Concentration - - Weight 84.3 kg (185 lb 13.6 oz) 08/31/2015 8:53 AM PACKAGE CENTER SUPERVISOR Height 171 cm (5' 7.32) 08/31/2015 8:53 AM PACKAGE CENTER SUPERVISOR Body Mass Index 28.83 08/31/2015 8:53 AM PACKAGE CENTER SUPERVISOR documented in this encounter Miscellaneous Notes Miscellaneous - Rachel Peralta M.D. - 08/31/2015 10:21 AM CST Ambulatory Patient Summary [facility] [address] [place] [id number] Visit Information Name: EMILY MCGUIRE PAYAL [facility] Number: [id number] Current Date: 08/31/2015 10:21:48 Physicians Attending Provider: RACHEL PERALTA MD Primary [...] a day Stop Taking the Following Medications: ondansetron (Zofran 4 mg oral tablet) Medication list as of 08-31-15 10:21 Attention: If you have any medications at [...] Electronically Signed By: RACHEL PERALTA MD Signed On:31-AUG-2015 10:21:44 Your Allergies & Intolerances Substance Reaction Symptoms Category Comments codeine Upset stomach Drug Your Problem List Problem Status Onset Comments Dizziness Active 04/12/2008 Migraine Common Active 04/20/2008 Sports Exam Active 09/06/2009 Active 04/11/2015 Your Upcoming Appointments Date Time Location Provider 09/28/2015 13:30 [facility] BAILER OPERATORS SUPERVISOR Lucero MALDONADO, Rachel 10/03/2015 14:00 [facility] BAILER OPERATORS SUPERVISOR Paul FRAIRE, Haylee Alejandro 11/01/2015 08:50 OWOC Lab [facility] Lab 11/01/2015 09:00 [facility] BAILER OPERATORS SUPERVISOR Lucero MALDONADO, Rachel 11/02/2015 08:30 [facility] Lab [facility] Lab 11/02/2015 09:00 [facility]OC BAILER OPERATORS SUPERVISOR OW[facility] Supervisor Printing Shop Ultrasound Room 3 11/02/2015 09:45 CECI BAILER OPERATORS SUPERVISOR Lucero MALDONADO, Rachel 11/15/2015 13:45 [facility]OC BAILER OPERATORS SUPERVISOR Lucero MALDONADO, Rachel 11/29/2015 13:45 [facility]OC BAILER OPERATORS SUPERVISOR Lucero MALDONADO, Rachel 12/13/2015 13:30 [facility]OC BAILER OPERATORS SUPERVISOR Lucero MALDONADO, Rachel 12/20/2015 13:30 [facility] BAILER OPERATORS SUPERVISOR Lucero MALDONADO, Rachel 12/27/2015 13:30 CECI BAILER OPERATORS SUPERVISOR Lucero MALDONADO, Rachel 01/03/2016 13:30 [facility]OC BAILER OPERATORS SUPERVISOR Lucero MALDONADO, Rachel 01/10/2016 13:00 [facility]OC BAILER OPERATORS SUPERVISOR Paul FRAIRE, Haylee Aleajndro 01/17/2016 13:30 [facility]OC BAILER OPERATORS SUPERVISOR Lucero MALDONADO, Rachel 01/24/2016 13:30 [facility]OC BAILER OPERATORS SUPERVISOR Lucero MALDONADO, Rachel Attention: Contact your local [...] if you dont have one. Go to [email or web address] and click on Create Your Account. Then, follow the directions to complete the online form. Youll be asked for your [facility] number which you can find at the top of this document. Your Goals/Additional instructions: Source: [facility] [employer] Document Id: [id number] Mccarty - Rachel Peralta M.D. - 08/31/2015 10:21 AM CST Ambulatory Discharge Medication List [facility] [address] [place] [id number] Visit Information Name: EMILY MCGUIRE [facility] Number: [id number] Visit Date: 08/31/2015 10:21:48 Attending Provider: RACHEL PERALTA MD Primary Care [...] a day Stop Taking the Following Medications: ondansetron (Zofran 4 mg oral tablet) Medication list as of 08-31-15 10:21 Attention: If you have any medications at [...] Electronically Signed By: RACHEL PERALTA MD Signed On:31-AUG-2015 10:21:44 Additional Information: Source: [facility] [employer] Document Id: [id number] Mccarty - Diomedes Mares, L.P.N. - 08/31/2015 8:53 AM CST Adult Ice Guard Inspector Intake/History Adult Ice Guard Inspector Intake/History Entered On: 08/31/2015 8:54 PACKAGE CENTER SUPERVISOR Performed On: 08/31/2015 8:53 PACKAGE CENTER SUPERVISOR by DIOMEDES MARES LPN Intake Chief Complaint : ob check LMP Date : 04-11-2015 Systolic Blood Pressure : 120 mmHg Diastolic Blood Pressure : 54 mmHg NIBP Mean : 76 mmHg Height : 171 cm(Converted to: 5 ft 7 inch(es), 67 inch(es)) Actual Weight : 84.3 kg(Converted to: 185 lb 14 oz) Dosing Weight Clinic : 84.3 kg Clinic BSA : 2 Body Mass Index : 28.83 kg/m2 DIOMEDES MARES LPN - 08/31/2015 8:53 PACKAGE CENTER SUPERVISOR General Info Information Given By : Patient Languages : Tristanian Is Patient Female and 13-50 no hysterectomy : Yes Status : Confirmed positive Are you ? : No DIOMEDES MARES LPN - 08/31/2015 8:53 PACKAGE CENTER SUPERVISOR Subjective Pain Symptoms : No DIOMEDES MARES LPN - 08/31/2015 8:53 PACKAGE CENTER SUPERVISOR Dependent Habits Exposure to Tobacco Smoke : Other: non tobacco home Smoking Status : Never smoker Tobacco 2A : No Tobacco Use/Currently Using : No Tobacco Use/Last 30 Days : No Tobacco Use/Last 12 months : No DIOMEDES MARES LPN - 08/31/2015 8:53 PACKAGE CENTER SUPERVISOR Source: [facility] POWERCHART Document Id: [id number] PACKAGE CENTER SUPERVISOR!27 AGE CENTER SUPERVISOR documented in this encounter Plan of Treatment Not on filedocumented as of this encounter Visit Diagnoses Not on filedocumented in this encounter Additional Health Concerns Assessment Noted Time PHQ-9 Depression Total Score: 14 07/26/2013 11:[address] documented as of this encounter
--- OUTSIDE RECORDS SUMMARY | 2022-05-17 11:38 | XMS_ITS | Encounter Summary ---
:1995 Author Organization [facility] Address [address] [place] [address] Care Team Providers Name Role Phone Unavailable Primary Care Provider Unavailable Encounter Details Date Type Department Care Team Description 11/29/2015 Hospital Encounter HX [facility] Gustavo Rowe M.D. [address] [place], [place] [phone] (Wo rk) Social History [...] 11/23/2020 relatives? How often do you attend zoroastrian or jehovah's witness Never 11/23/2020 services? 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 - 11/29/2015 2:00 PM CDT Ambulatory Patient Summary [facility] [address] [place] [id number] Visit Information Name: EMILY MCGUIRE [facility] Number: [id number] Current Date: 11/29/2015 14:00:47 Physicians Attending Provider: RACHEL PERALTA MD Primary [...] the Following Medications: Medication list as of 11-29-15 14:00 Attention: If you have any medications at [...] Electronically Signed By: RACHEL PERALTA MD Signed On:29-NOV-2015 14:00:44 Your Allergies & Intolerances Substance Reaction Symptoms Category Comments codeine Upset stomach Drug Your Problem List Problem Status Onset Comments Dizziness Active 04/12/2008 Migraine Common Active 04/20/2008 Sports Exam Active 09/06/2009 Active 04/11/2015 Your Upcoming Appointments Date Time Location Provider 12/13/2015 13:30 [facility] WEAVE DEFECT CHARTING CLERK Lucero MALDONADO, Rachel 12/20/2015 13:30 [facility] WEAVE DEFECT CHARTING CLERK Lucero MALDONADO, Rachel 12/27/2015 13:30 [facility] WEAVE DEFECT CHARTING CLERK Lucero MALDONADO, Rachel 01/03/2016 13:30 [facility] WEAVE DEFECT CHARTING CLERK Lucero MALDONADO, Rachel 01/10/2016 12:45 [facility] WEAVE DEFECT CHARTING CLERK Paul FRAIRE Haylee Morenoy 01/17/2016 13:30 [facility]OC WEAVE DEFECT CHARTING CLERK Lucero MALDONADO, Rachel 01/24/2016 13:30 [facility]OC WEAVE DEFECT CHARTING CLERK Lucero MALDONADO, Rachel Attention: Contact your local [...] if you dont have one. Go to [email or web address] and click on Create Your Account. Then, follow the directions to complete the online form. Youll be asked for your [facility] number which you can find at the top of this document. Your Goals/Additional instructions: Source: [facility] POWERCHART Document Id: [id number] Miscellaneous - Rachel Peralta M.D. - 11/29/2015 2:00 PM CDT Ambulatory Discharge Medication List [facility] [address] [place] [id number] Visit Information Name: EMILY MCGUIRE [facility] Number: [id number] Visit Date: 11/29/2015 14:00:46 Attending Provider: RACHEL PERALTA MD Primary Care [...] the Following Medications: Medication list as of 11-29-15 14:00 Attention: If you have any medications at [...] Electronically Signed By: RACHEL PERALTA MD Signed On:29-NOV-2015 14:00:44 Additional Information: Source: [facility] POWERCHART Document Id: [id number] Miscellaneous - Giuliana Angel, R.N. - 11/29/2015 1:50 PM CDT Adult Transfer Table Operator Helper Intake/History Adult Transfer Table Operator Helper Intake/History Entered On: 11/29/2015 13:51 CDT Performed On: 11/29/2015 13:50 CDT by GIULIANA ANGEL Intake Chief Complaint : OB CHECK 33 1/7 wk gestation LMP Date : 04/11/2015 Systolic Blood Pressure : 124 mmHg Diastolic Blood Pressure : 60 mmHg NIBP Mean : 81 mmHg BP Location : Left upper extremity Blood Pressure Cuff Size : Regular Height : 171 cm(Converted to: 5 ft 7 inch(es), 67 inch(es)) Actual Weight : 93.6 kg(Converted to: 206 lb 6 oz) Dosing Weight Clinic : 93.6 kg Clinic BSA : 2.11 Body Mass Index : 32.01 kg/m2 GIULIANA ANGEL - 11/29/2015 13:50 CDT General Info Information Given By : Patient Languages : Dominican Is Patient Female and 13-50 no hysterectomy : Yes Status : Confirmed positive Are you ? : No GIULIANA ANGEL - 11/29/2015 13:50 CDT Subjective Pain Symptoms : No GIULIANA ANGEL - 11/29/2015 13:50 CDT Dependent Habits Exposure to Tobacco Smoke : Other: non tobacco home Smoking Status : Never smoker Tobacco 2A : No Tobacco Use/Currently Using : No Tobacco Use/Last 30 Days : No Tobacco Use/Last 12 months : No GIULIANA ANGEL - 11/29/2015 13:50 CDT [facility] Document Id: [id number] CDT!29 documented in this encounter Plan of Treatment Not on filedocumented as of this encounter Visit Diagnoses Not on filedocumented in this encounter Additional Health Concerns Assessment Noted Time PHQ-9 Depression Total Score: 14 07/26/2013 11:[address] documented as of this encounter
--- OUTSIDE RECORDS SUMMARY | 2022-05-17 11:38 | XMS_ITS | Encounter Summary ---
:1995 Author Organization [facility] Address [address] [place] [address] Care Team Providers Name Role Phone Unavailable Primary Care Provider Unavailable Encounter Details Date Type Department Care Team Description 09/27/2016 Hospital Encounter HX [facility] URGENTCAR Rajani [...] How often do you attend shinto or congregational Never 11/23/2020 services? Do you belong to [...] or slept in a chcf (including now)? 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 - 09/27/2016 12:53 PM CDT [id number] CHIEF COMPLAINT/REASON FOR VISIT Sore throat. HISTORY OF PRESENT ILLNESS This 21-year-old female presents with a 24-hour history of multiple symptoms including sore throat, cough, chest discomfort with cough, as well as a bit of nausea and chill. SYSTEMS REVIEW No other current acute HEENT, cardiorespiratory, gastrointestinal or genitourinary positive. She refutes any chance of . MEDICATIONS As per EMR. ALLERGIES Codeine. VITAL SIGNS As per EMR results review. PHYSICAL EXAMINATION GENERAL: Mildly ill-appearing female. ENT: TMs are clear. Nose is slightly congested. Nasopharynx is 1+ red. NECK: Without acute adenopathy. CARDIOVASCULAR: Regular. LUNGS: Clear. IMPRESSION/REPORT/PLAN Upper respiratory infection with streptococcal pharyngitis. DIAGNOSTIC: Rapid strep screen is positive. THERAPEUTIC: We mutually agreed to Bicillin LA 1.2 intramuscularly. Otherwise symptomatic care. PATIENT EDUCATION: Reviewed the above. Follow up as needed for lack of steady and complete recovery. Miguel Martinez M.D./nandini Electronically Signed By: MIGUEL MARTINEZ MD On: 09/28/2016 04:17 PM Source: [facility] MHSDOLBEYNONRADSYS Document Id: [id number] documented in this encounter Procedure Notes Bunny Becerra L.P.N. - 09/27/2016 2:04 PM CDT Rapid Strep A Screen POC Rapid Strep A Screen POC Entered On: 09/27/2016 14:04 CDT Performed On: 09/27/2016 14:04 CDT by BUNNY BECERRA LPN Rapid Strep A Screen POC Rapid Strep A Screen POC : Positive Internal Positive QC : Pass Internal Negative QC : Pass BUNNY BECERRA LPN - 09/27/2016 14:04 CDT Source: [facility] [employer] Document Id: [id number] CDT!5 documented in this encounter Miscellaneous Notes Miscellaneous - Miguel Martinez M.D. - 09/27/2016 2:17 PM CDT Ambulatory Patient Summary [address] [id number] Visit Information Name: EMILY MCGUIRE [facility] Number: [id number] Current Date: 09/27/2016 14:17:33 Physicians Attending Provider: MIGUEL MARTINEZ MD Primary [...] the Following Medications: Medication list as of 09-27-16 14:17 Attention: If you have any medications at [...] Electronically Signed By: MIGUEL MARTINEZ MD Signed On:27-SEP-2016 14:17:31 Your Allergies & Intolerances Substance Reaction Symptoms [...] if you dont have one. Go to [email or web address] and click on Create Your Account. Then, follow the directions to complete the online form. Youll be asked for your [facility] number which you can find at the top of this document. Your Goals/Additional instructions: Source: [facility] POWERCHART Document Id: [id number] Miscellaneous - Miguel Martinez M.D. - 09/27/2016 2:17 PM CDT Ambulatory Discharge Medication List [address] [id number] Visit Information Name: EMILY MCGUIRE [facility] Number: [id number] Current Date: 09/27/2016 14:17:33 Attending Provider: MIGUEL MARTINEZ MD Primary Care [...] the Following Medications: Medication list as of 09-27-16 14:17 Attention: If you have any medications at [...] Electronically Signed By: MIGUEL MARTINEZ MD Signed On:27-SEP-2016 14:17:31 Additional Information: Source: [facility] POWERCHART Document Id: [id number] Miscellaneous - Bunny Becerra L.P.N. - 09/27/2016 1:49 PM CDT Adult Art Therapy Certified Supervisor Intake/History Adult Art Therapy Certified Supervisor Intake/History Entered On: 09/27/2016 13:53 CDT Performed On: 09/27/2016 13:49 CDT by BUNNY BECERRA LPN Intake Chief Complaint : sore throat, fever, SOB, chest pain, nausea and congestion with vomiting Temperature Core : 38.4 DegC(Converted to: 101.1 DegF) Peripheral Pulse Rate : 128 /min (HI) Respiratory Rate : 24 /min (HI) Systolic Blood Pressure : 110 mmHg Diastolic Blood Pressure : 75 mmHg NIBP Mean : 87 mmHg BP Location : Right upper extremity Blood Pressure Cuff Size : Large SpO2 : 99 % Oxygen Therapy : Room air Height : 171 cm(Converted to: 5 ft 7 inch(es), 67 inch(es)) Actual Weight : 91.1 kg(Converted to: 200 lb 13 oz) Weight Source : Standing scale Dosing Weight Clinic : 91.1 kg Clinic BSA : 2.08 Body Mass Index : 31.15 kg/m2 BUNNY BECERRA LPN - 09/27/2016 13:49 CDT General Info Information Given By : Patient Languages : Ecuadorean Is Patient Female and 13-50 no hysterectomy : Yes Status : Patient denies Are you ? : No BUNNY BECERRA LPN - 09/27/2016 13:49 CDT Subjective Pain Symptoms : Yes BUNNY BECERRA LPN - 09/27/2016 13:49 CDT Pain Scale Pain Scale Verbal 0-10 : Open BUNNY BECERRA LPN - 09/27/2016 13:49 CDT Pain Pain Assessment Grid Pain 1 Location : Throat Intensity : 5 BUNNY BECERRA LPN - 09/27/2016 13:49 CDT Dependent Habits Exposure to Tobacco Smoke : Other: non tobacco home Smoking Status : Never smoker Tobacco 2A : No Tobacco Use/Currently Using : No Tobacco Use/Last 30 Days : No Tobacco Use/Last 12 months : No BUNNY BECERRA LPN - 09/27/2016 13:49 CDT [facility] Document Id: [id number] CDT!41 documented in this encounter Plan of Treatment Not on filedocumented as of this encounter Visit Diagnoses Not on filedocumented in this encounter Additional Health Concerns Assessment Noted Time PHQ-9 Depression Total Score: 14 07/26/2013 11:[address] documented as of this encounter
--- OUTSIDE RECORDS SUMMARY | 2022-05-17 11:38 | XMS_ITS | Encounter Summary ---
:1995 Author Organization [facility] Address [address] [place] [address] Care Team Providers Name Role Phone Unavailable Primary Care Provider Unavailable Encounter Details Date Type Department Care Team Description 07/26/2016 Historical Ophthalmology [facility] Edward Steel M.D. [address] [place], [place] [phone] (Wo rk) Social History [...] How often do you attend holiness or baptist Never 11/23/2020 services? 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 - 07/26/2016 9:35 AM CST Contact Lens Exam HISTORY OF PRESENT ILLNESS Pt. states that VA is good and Cl's are comfortable. Just needs Rx updated CDM Reports - EYECL Id: [id number] Status: Fnl documented in this encounter Plan of Treatment Not on filedocumented as of this encounter Visit Diagnoses Not on filedocumented in this encounter Additional Health Concerns Assessment Noted Time PHQ-9 Depression Total Score: 14 07/26/2013 11:[address] documented as of this encounter
--- OUTSIDE RECORDS SUMMARY | 2022-05-17 11:38 | XMS_ITS | Encounter Summary ---
:1995 Author Organization [facility] Address [address] [place] [address] Care Team Providers Name Role Phone Unavailable Primary Care Provider Unavailable Encounter Details Date Type Department Care Team Description 12/20/2015 Hospital Encounter HX NO MAPPING Augustina Barker M.D. [address] [place], [place] [phone] (Wo rk) Social History [...] How often do you attend yazidism or evangelical Never 11/23/2020 services? 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 Coded By: ANGELICA RUANO Date Saved: 01/01/2016 05:09 pm Source: [facility] POWERCHART Document Id: [id number] documented in this encounter Plan of Treatment Not on filedocumented as of this encounter Visit Diagnoses Not on filedocumented in this encounter Additional Health Concerns Assessment Noted Time PHQ-9 Depression Total Score: 14 07/26/2013 11:[address] documented as of this encounter
--- OUTSIDE RECORDS SUMMARY | 2022-05-17 11:39 | XMS_ITS | Encounter Summary ---
:1995 Author Organization [facility] Address [address] [place] [address] Care Team Providers Name Role Phone Unavailable Primary Care Provider Unavailable Encounter Details Date Type Department Care Team Description 01/31/2014 Hospital Encounter [facility] Campbell George M.D. [address] [place] [address] (Wo rk) Social History Tobacco [...] 11/23/2020 relatives? How often do you attend rastafari or christianity Never 11/23/2020 services? 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 - 01/31/2014 12:31 PM CDT [id number] CHIEF COMPLAINT/REASON FOR VISIT An 18-year-old female, had 2 home tests that were positive and one that was negative. Her last period was November 25. She stopped taking her control pills shortly thereafter and also stopped taking her antidepressants. Has not had any symptoms with her medications being stopped but she is worried that she might be . She does not really want to be at this time. VITAL SIGNS Per EMR. PHYSICAL EXAMINATION Patient does not appear to be in physical distress at this time generally. DIAGNOSTICS Serum test for is obtained and was negative. IMPRESSION/REPORT/PLAN Negative . Advised her to restart on control pills but not sure where she is during her cycle and not sure how far she was into her pills before she stopped them. Have asked her to touchbase with her regular physician before starting the pill again. Did discuss this also with Halima faye review this with Dr. Cadet tomorrow and get back to the patient. In the meantime, other precautions should she be sexually active to avoid . Palmer George M.D./nandini Electronically Signed By: PALMER GEORGE MD On: 02/02/2014 08:29 AM Source: [facility] MHSDOLBEYNONRADSYS Document Id: [id number] documented in this encounter Miscellaneous Notes Telephone Encounter - Conversion, Historical Provider Ser - 05/16/2015 12:52 PM CST *Phone Message- Dr. 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 Patient was told that because she has not established care with a provider they can not write a note for her at this time. She has already put in her 2 week notice. 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 Barker Caller is: ( x ) Patient ( ) Mother ( ) Father ( ) Spouse ( ) Daughter ( ) Son ( ) Pharmacy ( ) Other: Physician: Patient MRN #: Reason for Call: Message: S: Pt called clinic to talk to nurse B: nob set up May 23 with Jazmyne Adams and Jun [address] Barker, patient is having problems with morning sickness, would like to discuss with nurse A: R: Please call pt at [phone] Advice/Action: Source used: ( ) Verbalizes understanding of instructions ( ) Instructed to call back if symptoms worsen or do not resolve ( ) Refused to see provider ( ) Appointment Scheduled ( ) OK to leave message on voice mail ( ) Patient told to expect return call: ( ) today ( ) tomorrow ( ) next work day ( ) Patient's email ( ) Patient told physician out of office, will call upon return call on ( ) ( ) Patient told physician out of office, routed to other physician ( ) Other ( ) Call back telephone number ( ) Call back cell phone number ( ) [facility] POWER[facility] Document Id: [id number] Miscellaneous - Edith Cota L.PSampsonNSampson - 02/01/2014 11:37 AM CDT *General Message Document Contains Addenda Addendum by EDITH COTA on 02 February 2014 13:34:[address] of [address] Cadet recomendatere. Addendum by EDITH COTA on 02 February 2014 09:13:16 CDT Left message to call back. Addendum by JEANNINE CADET MD on 01 February 2014 16:45:11 CDT From: JEANNINE CADET MD To: ROSS Cadet Nurse; Sent: 02/01/2014 16:45:11 CDT Subject: RE: *General Message Actions: Notify patient- refer to General Message she should start the Prozac right up, that should not be a problem. Start the BCP the Friday after her next period starts. Use other forms of contraception until then, and for the month after. From: EDITH COTA (ROSS Cadet Nurse) To: JEANNINE CADET MD; Sent: 02/01/2014 11:37:44 CDT Subject: *General Message Patient was seen in [facility] yesterday for a test. Please see yesterdays notes and results. Patient stated that when she had a positive home test she stopped taking her medication. Dr. George askedme to have you speak with patient and let her know when she can start up her meds again. Source: [facility] POWERCHART Document Id: [id number] Electronically signed by Lily [facility] Floral Designer Salesperson [id number] at 11/19/2016 1:33 PM CDT Miscellaneous - Palmer George M.D. - 01/31/2014 2:04 PM CDT Ambulatory Patient Summary [address] [id number] Visit Information Name: JEN MCGUIRE [facility] Number: [id number] Current Date: 01/31/2014 14:04:15 Physicians Attending Provider: PALMER GEORGE MD Primary Care Provider: JEANNINE CADET MD MAYNORJENE has been given the following list of [...] Take Indications/Special Instructions/Comments/Notes for Patient Medication Changes/Routing *FLUoxetine (PROzac 20 mg oral capsule) 1 cap, Oral, once a day *norgestimate-ethinyl estradiol (Ortho-Cyclen oral tablet) 1 Tablet(s), Oral, once a day * You have let us know that you are not taking this medication as listed. Please talk with your primary care provider or the health care provider who prescribed the medication as soon as possible. Stop Taking the Following Medications: Medication list as of 01-31-14 14:04 Attention: If you have any medications at home that are not on this list, DO NOT take them until youcontact your provider for clarification. Give a copy of your medication list to your primary care provider. Update your medication list any time medications or doses are changed and carry your medication list at all times in case of emergency. Electronically Signed By: PALMER GEORGE MD Signed On:31-JAN-2014 14:04:12 Your Allergies & Intolerances Substance Reaction Symptoms Category Comments codeine Upset stomach Drug Your Problem List Problem Status Onset Comments Dizziness Active 04/12/2008 Migraine Common Active 04/20/2008 Sports Exam Active 09/06/2009 Your Upcoming Appointments Date Time Location Reason Provider No Appointments found Attention: Contact your local Clinic if further appointment detail needed. Your Goals/Additional instructions: Source: [facility] POWERCHART Document Id: [id number] Miscellaneous - Palmer George M.D. - 01/31/2014 2:04 PM CDT Ambulatory Discharge Medication List [address] [id number] Visit Information Name: JEN MCGUIRE [facility] Number: [id number] Visit Date: 01/31/2014 14:04:14 Attending Provider: PALMER GEORGE MD Primary Care Provider: JEANNINE CADET MD JEN MCGUIRE has been given the following list of medications: Your Medications It is important to take your medications as directed. Use a pill box or chart to help remind you to take your medications. Please let your doctor or nurse know if you have problems taking your medications. Medication/Strength How to Take Indications/Special Instructions/Comments/Notes for Patient Medication Changes/Routing *FLUoxetine (PROzac 20 mg oral capsule) 1 cap, Oral, once a day *norgestimate-ethinyl estradiol (Ortho-Cyclen oral tablet) 1 Tablet(s), Oral, once a day * You have let us know that you are not taking this medication as listed. Please talk with your primary care provider or the health care provider who prescribed the medication as soon as possible. Stop Taking the Following Medications: Medication list as of 01-31-14 14:04 Attention: If you have any medications at home that are not on this list, DO NOT take them until youcontact your provider for clarification. Give a copy of your medication list to your primary care provider. Update your medication list any time medications or doses are changed and carry your medication list at all times in case of emergency. Electronically Signed By: PALMER GEORGE MD Signed On:31-JAN-2014 14:04:12 Additional Information: Source: [facility] POWERCHART Document Id: [id number] Miscellaneous - Edith Cota, L.P.N. - 01/31/2014 1:41 PM CDT Adult Deputy Director Intake/History Adult Deputy Director Intake/History Entered On: 01/31/2014 13:47 CDT Performed On: 01/31/2014 13:41 CDT by EDITH COTA Intake Chief Complaint : requesting a pregncy test. Has taken 2 home test that were positive and one home test that was negative after the two positive. LMP was 11/25/13 Temperature Oral : 36.7 DegC(Converted to: 98.1 DegF) Peripheral Pulse Rate : 88 /min Respiratory Rate : 24 /min (HI) Heart Rhythm : Regular Systolic Blood Pressure : 112 mmHg Diastolic Blood Pressure : 60 mmHg NIBP Mean : 77 mmHg BP Location : Right upper extremity Blood Pressure Cuff Size : Regular Actual Weight : 76.4 kg(Converted to: 168 lb 7 oz) Weight Source : Standing scale Dosing Weight Clinic : 76.4 kg EDITH COTA M - 01/31/2014 13:41 CDT General Info Information Given By : Patient Languages : Kenyan Is Patient Female and 13-50 no hysterectomy : Yes Status : Possible unconfirmed Are you ? : No EDITH COTA - 01/31/2014 13:41 CDT Subjective Pain Symptoms : No EDITH COTA - 01/31/2014 13:41 CDT Dependent Habits Tobacco Use/Currently Using : No Exposure to Tobacco Smoke : Other: non tobacco home Smoking Status : Never smoker EDITH COTA - 01/31/2014 13:41 CDT Source: [facility] POWERCHART Document Id: [id number] CDT!27 documented in this encounter Plan of Treatment Not on filedocumented as of this encounter Procedures Procedure Name Priority Date/Time Associated Diagnosis Comme nts BHCG (BETA-HUMAN Routine 01/31/2014 2:24 PM Resul ts for this CHORIONIC CDT procedure are i n GONADOTROPIN), the results JAVI, S section. documented in this encounter Results bHCG (Beta-Human Chorionic Gonadotropin), Quantitative (01/31/2014 2:24 PM CDT) P athologist Signature Beta-HCG, 0.5 <=25.0 POWERCHART Quantitative, S MIUML Specimen (Source) Anatomical Collection Method Collection Time Re ceived Time Location / / Volume Laterality Blood 01/31/2014 2:24 PM CDT Palmer George M.D. LAB BLOOD ADD-ON Performing Organization Address City/State/ZIP Code Phon e Number POWERCHART documented in this encounter Visit Diagnoses Not on filedocumented in this encounter Additional Health Concerns Assessment Noted Time PHQ-9 Depression Total Score: 14 07/26/2013 11:[address] documented as of this encounter
--- OUTSIDE RECORDS SUMMARY | 2022-05-17 11:39 | XMS_ITS | Encounter Summary ---
:1995 Author Organization [facility] Address [address] [place] [address] Care Team Providers Name Role Phone Unavailable Primary Care Provider Unavailable Encounter Details Date Type Department Care Team Description 09/06/2009 Hospital Encounter HX [facility] Gordo Snyder, P.ASampson-CSampson [address] [place], [place] [id number] (Wo rk) Social History Tobacco Use Types [...] How often do you attend nondenominational or pentecostalism Never 11/23/2020 services? 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
--- OUTSIDE RECORDS SUMMARY | 2022-05-17 11:39 | XMS_ITS | Encounter Summary ---
:1995 Author Organization [facility] Address [address] [place] [address] Care Team Providers Name Role Phone Unavailable Primary Care Provider Unavailable Encounter Details Date Type Department Care Team Description 05/23/2015 Hospital Encounter HX [facility] Gustavo Rowe M.D. [address] [place], [place] [phone] (Wo rk) Social History [...] How often do you attend yazidism or gnosticist Never 11/23/2020 services? Do you [...] at Date Recorded Female 05/20/2017 4:45 PM BUILD AUTOMATION ENGINEER documented as of this encounter Last Filed Vital Signs Vital Sign Reading Time Taken Comments Blood Pressure - - Pulse - - Temperature - - Respiratory Rate - - Oxygen Saturation - - Inhaled Oxygen Concentration - - Weight 78.3 kg (172 lb 9.9 oz) 05/23/2015 9:48 AM BUILD AUTOMATION ENGINEER Height 171 cm (5' 7.32) 05/23/2015 9:48 AM BUILD AUTOMATION ENGINEER Body Mass Index 26.78 05/23/2015 9:48 AM BUILD AUTOMATION ENGINEER documented in this encounter Nursing Notes Giuliana Angel R.N. - 05/23/2015 10:23 AM CST Ambulatory Patient Education The following Patient Education Materials have been given to the patient: Patient Education Materials: Custom [id number] - [facility] Guide to a Healthy (CUSTOM) Custom [id number] - [facility] Guide to a Healthy Tdap Vaccine for Women, Women Who Recently Gave , and Others in Contact With Infants -[id number] First Trimester Screening for Down Syndrome-[id number] Maternal Serum Screening-[id number] Cystic Fibrosis Carrier Testing-[id number] A Family Guide to Eating [place] Fish-[facility] IC [phone] [place] Screening-[facility] IC [phone] Protecting Your Baby and Yourself From Listeriosis-[facility] Beginnings: , , and Beyond-[facility] Source: [facility] POWERCHART Document Id: [id number] D AUTOMATION ENGINEER Giuliana Angel R.N. - 05/23/2015 10:22 AM CST Nurse Only Documentation Nurse Only Documentation Entered On: 05/23/2015 10:22 BUILD AUTOMATION ENGINEER Performed On: 05/23/2015 10:22 BUILD AUTOMATION ENGINEER by GIULIANA ANGEL Nurse Only Documentation Nurse Only Visit Documentation : nob ed/intake appt-no charge GIULIANA ANGEL - 05/23/2015 10:22 BUILD AUTOMATION ENGINEER Source: [facility] POWERCHART Document Id: [id number] BUILD AUTOMATION ENGINEER!3 D AUTOMATION ENGINEER Giuliana Angel, R.N. - 05/23/2015 9:48 AM CST Antepartum Exam, Initial Document Has Been Updated Antepartum Exam, Initial Entered On: 05/23/2015 9:59 BUILD AUTOMATION ENGINEER Performed On: 05/23/2015 9:48 BUILD AUTOMATION ENGINEER by GIULIANA ANGEL Vitals/Ht/Wt LMP Date : 04/11/2015 Pain Symptoms : No Actual Weight : 78.3 kg(Converted to: 172 lb 10 oz, 172.622 lb) Height : 171 cm(Converted to: 5 ft 7 inch(es), 67 inch(es)) Body Mass Index : 26.78 kg/m2 OB Provider : RACHEL PERALTA MD, CATHERINE A - 05/23/2015 9:48 BUILD AUTOMATION ENGINEER Obstetrical History History (As Of: 05/23/2015 09:59:05 BUILD AUTOMATION ENGINEER) - 1, Para Fullterm - , Para - , Abortions - , Para Living - Add'l Information Father of Baby : Luis Prepreg Amount : 0 Preg Amount : 0 Alcohol Prepreg Amount : occ Alcohol Preg Amount : 0 Recreational Drug Prepreg Amount : 0 Recreational Drug Preg Amount : 0 Caffeine Prepreg Amount : several Caffeine Preg Amount : 1/day GIULIANA ANGEL - 05/23/2015 9:48 BUILD AUTOMATION ENGINEER Problems & Procedures (As Of: 05/23/2015 09:59:05 BUILD AUTOMATION ENGINEER) Problems(Active) Dizziness (ICD-9-CM :780.4 ) Name of Problem: Dizziness ; Onset Date: 03/2008 ; Confirmation: Provisional ; Classification: Medical ; Code: 780.4 ; Contributor System: OWA_HPP_SYS ; Last Updated: 04/20/2008 0:00 CDT ; Life Cycle Date: 04/12/2008 ; Life Cycle Status: Active ; Vocabulary: ICD-9-CM Migraine Common (ICD-9-CM :346.10 ) Name of Problem: Migraine Common ; Onset Date: 03/2008 ; Confirmation: Provisional ; Classification: Medical ; Code: 346.10 ; Contributor System: OWA_HPP_SYS ; Last Updated: 04/20/2008 0:00 CDT ; Life Cycle Date: 04/20/2008 ; Life Cycle Status: Active ; Vocabulary: ICD-9-CM (SNOMED CT :956728468 ) Name of Problem: ; Onset Date: 04/11/2015 ; Recorder: GIULIANA ANGEL; Confirmation: Possible ; Classification: Medical ; Code: 188698643 ; Last Updated: 05/23/2015 9:48 BUILD AUTOMATION ENGINEER ; Life Cycle Status: Active ; Responsible Provider: RACHEL PERALTA MD; Vocabulary:SNOMED CT Sports Exam (ICD-9-CM :V70.3 ) Name of Problem: Sports Exam ; Onset Date: 08/2009 ; Confirmation: Provisional ; Classification: Medical ; Code: V70.3 ; Contributor System: [employer]_HPP_SYS ; Last Updated: 09/06/2009 0:00 CDT ; Life Cycle Date: 09/06/2009 ; Life Cycle Status: Active ; Vocabulary: ICD-9-CM - Procedure History (As Of: 05/23/2015 09:59:05 BUILD AUTOMATION ENGINEER) Procedure Dt/Tm: 04/30/2006 ; Location: [facility] ; Provider: MARTHA BENNETT MD; Anesthesia Minutes: 0 ; Procedure Minutes: 0 ; Comments: 08/26/2009 06:32 - IVET [place]ONEY Hx: [id number] - REMOVE TONSILS AND ADENOIDS 05/10/2013 12:00 - Contributor source changed to PowerChart. ; Last Reviewed Dt/Tm:04/30/2006 00:00:00 BUILD AUTOMATION ENGINEER Procedure Dt/Tm: 01/25/2008 ; Location: [facility] ; Provider: JEANNINE UP MD; Anesthesia Minutes: 0 ; Procedure Minutes: 0 ; Comments: 08/26/2009 07:13 - IVET COONEY Hx: [id number] - TDAP/ADACEL BOOSTRIX 05/10/2013 12:00 - Contributor source changed to PowerChart. ; Last Reviewed Dt/Tm: 01/25/2008 00:00:00 CDT Histories Most Recent Hospitalizations [facility] Hospitalization #1 Hospitalization #2 Hospitalization #3 Reason : arm fracture-surgery ear infection-spreading T&A Comments (Comment: age 8 [GIULIANA ANGEL - 05/23/2015 9:48 BUILD AUTOMATION ENGINEER] ) (Comment: age 13 [CARMEN ANGEL - 05/23/2015 9:48 BUILD AUTOMATION ENGINEER] ) (Comment: age 13-14 [GIULIANA ANGEL - 05/23/2015 9:48 BUILD AUTOMATION ENGINEER] ) GIULIANA ANGEL - 05/23/2015 9:48 BUILD AUTOMATION ENGINEER GIULIANA ANGEL - 05/23/2015 9:48 BUILD AUTOMATION ENGINEER GIULIANA ANGEL - 05/23/2015 9:48 BUILD AUTOMATION ENGINEER (As Of : 05/23/2015 09:59:06 BUILD AUTOMATION ENGINEER) - Past Medical History Dizziness Name of Problem: Dizziness ; Onset Date: 03/2008 ; Confirmation: Provisional ; Classification: Medical ; Code: 780.4 ; Contributor System: AdVolume_UfreeS ; Last Updated: 04/20/2008 0:00 CDT ; Life Cycle Date: 04/12/2008 ; Life Cycle Status: Active ; Vocabulary: ICD-9-CM Migraine Common Name of Problem: Migraine Common ; Onset Date: 03/2008 ; Confirmation: Provisional ;Classification: Medical ; Code: 346.10 ; Contributor System: [employer]_UfreeS ; Last Updated: 04/20/2008 0:00 CDT ; Life Cycle Date: 04/20/2008 ; Life Cycle Status: Active ; Vocabulary: ICD-9-CM Sports Exam Name of Problem: Sports Exam ; Onset Date: 08/2009 ; Confirmation: Provisional ; Classification: Medical ; Code: V70.3 ; Contributor System: AdVolume_UfreeS ; Last Updated: 09/06/2009 0:00 CDT ;Life Cycle Date: 09/06/2009 ; Life Cycle Status: Active ; Vocabulary: ICD-9-CM 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 29d-17yr ; Onset Date: 08/2009 ; Confirmation: Provisional ; Classification: Medical ; Code: V20.2 ; Contributor System: [employer]_UfreeS ; Last Updated: 11/21/2013 9:18 CDT ; Life Cycle Date: 09/06/2009 ; Life Cycle Status: Inactive ; Vocabulary: ICD-9-CM Anemia Pers Hx Name of Problem: Anemia Pers Hx ; Recorder: GIULIANA ANGEL; Confirmation: Confirmed; Classification: Medical ; Code: Z86.2 ; Contributor System: PowerChart ; Last Updated: 05/23/2015 9:55 BUILD AUTOMATION ENGINEER ; Life Cycle Status: Resolved ; Vocabulary: ICD-10-CM Infection Urinary Tract (UTI) Pers Hx Name of Problem: Infection Urinary Tract (UTI) Pers Hx ; Recorder: GIULIANA ANGEL; Confirmation: Confirmed ; Classification: Medical ; Code: Z87.440 ; Contributor System: PowerChart ; Last Updated: 05/23/2015 9:55 BUILD AUTOMATION ENGINEER ; Life Cycle Status: Resolved ; Vocabulary: I CD-10-CM Depression Anxiety Name of Problem: Depression Anxiety ; Recorder: GIULIANA ANGEL; Confirmation: Confirmed ; Classification: Medical ; Code: F41.8 ; Contributor System: PowerChart ; Last Updated: 05/23/2015 9:56 BUILD AUTOMATION ENGINEER ; Life Cycle Status: Resolved ; Vocabulary: ICD-10-CM ; Comments: 05/23/2015 9:56 - GIULIANA ANGEL meds in past Family History (As Of: 05/23/2015 09:59:06 BUILD AUTOMATION ENGINEER) Grandfather: Relation: Grandfather ; Gender: Male ; Nomenclature: Hypertension ; Value: Positive Nomenclature: Myocardial infarction ; Value: Positive Anesth/Transfusion Anesthesia/Transfusions : Prior anesthesia Transfusion Acceptable in Emergency : Yes Baptism/Other Objections to Blood Transfusions : No GIULIANA ANGEL 05/23/2015 9:48 BUILD AUTOMATION ENGINEER Dependent Habits Exposure to Tobacco Smoke : Other: non tobacco home Smoking Status : Former smoker Tobacco 2A : Yes Tobacco Use/Currently Using : No Tobacco Use/Last 30 Days : No Tobacco Use/Last 12 months : No GIULIANA ANGEL 05/23/2015 9:48 BUILD AUTOMATION ENGINEER Psychosocial Domestic Abuse Concerns : Unable to Screen Marital Status : Single Behavioral Health Screen/Safety Assmt : No Occupation : [employer] Education : Other: current college Exercise Type : None Baptism Preference : No qualifying data available. GIULIANA ANGEL 05/23/2015 9:48 BUILD AUTOMATION ENGINEER Genetic/Infection Screen Infection History : History of Varicella or Immunized for Varicella GIULIANA ANGEL 05/23/2015 9:48 BUILD AUTOMATION ENGINEER Ethnic Background Grid : Self, Baby's father GIULIANA ANGEL 05/23/2015 9:48 BUILD AUTOMATION ENGINEER Genetic Disorders Reviewed and Not Applicable : Yes GIULIANA ANGEL 05/23/2015 9:48 BUILD AUTOMATION ENGINEER Antepartum Note Antepartum Note : H/O depression/anxiety with meds in past. STates doing well emotionally. Good communication enc. Questions about nausea and extra MVI. Discussed OTC nausea remedies-should call if notable to keep fluids down. Advised PNV only GIULIANA ANGEL - 05/23/2015 10:20 BUILD AUTOMATION ENGINEER Education Individuals Taught : Patient, Spouse Barriers to Learning : None evident Teaching Method : Explanation, Printed materials GIULIANA ANGEL - 05/23/2015 10:20 BUILD AUTOMATION ENGINEER Alcohol : Verbalizes understanding Anxiety/Depression Symptoms : Verbalizes understanding Childbirth Classes : Verbalizes understanding Domestic Violence : Verbalizes understanding Environmental/Work Hazards : Verbalizes understanding Exercise : Verbalizes understanding Expected Course of Care : Verbalizes understanding HIV Testing : Verbalizes understanding Influenza Vaccine : Verbalizes understanding Medication Use : Verbalizes understanding Nutrition Counseling : Verbalizes understanding Recreational Drugs : Verbalizes understanding Risk Factors Identified : Verbalizes understanding Routine Tests : Verbalizes understanding Sexual Activity : Verbalizes understanding Tobacco Assessment : Verbalizes understanding Toxoplasmosis Precautions : Verbalizes understanding Travel : Verbalizes understanding Ultrasound : Verbalizes understanding GIULIANA ANGEL - 05/23/2015 10:20 BUILD AUTOMATION ENGINEER Source: [facility] Peecho Document Id: [id number] BUILD AUTOMATION ENGINEER!27 D AUTOMATION ENGINEER documented in this encounter Plan of Treatment Not on filedocumented as of this encounter Procedures Procedure Name Priority Date/Time Associated Diagnosis Comme nts URINALYSIS, ROUTINE Routine 05/23/2015 11:00 AM R esults for this BUILD AUTOMATION ENGINEER procedure are i n the results section. BACTERIAL CULTURE, Routine 05/23/2015 11:00 AM Re sults for this AEROBIC, URINE BUILD AUTOMATION ENGINEER procedure are in the results section. ABO GROUPING, B Routine 05/23/2015 10:52 AM Resul ts for this BUILD AUTOMATION ENGINEER procedure are i n the results section. PROFILE II Routine 05/23/2015 10:52 AM R esults for this WITHOUT CBC, BUILD AUTOMATION ENGINEER procedure are i n B/SERUM the results section. HIV-1/-2 AG AND AB Routine 05/23/2015 10:52 AM Re sults for this SCREEN BUILD AUTOMATION ENGINEER procedure are i n the results section. AUTOMATED Routine 05/23/2015 10:52 AM Results for this DIFFERENTIAL, B BUILD AUTOMATION ENGINEER procedure ar e in the results section. CBC WITH Routine 05/23/2015 10:52 AM Results for this DIFFERENTIAL, B BUILD AUTOMATION ENGINEER procedure ar e in the results section. ANTIBODY SCREEN, B Routine 05/23/2015 10:52 AM Re sults for this BUILD AUTOMATION ENGINEER procedure are i n the results section. documented in this encounter Results Urinalysis, Routine (05/23/2015 11:00 AM BUILD AUTOMATION ENGINEER) [facility] Method Time Signature HXUr Color Yellow Colorless POWERCHART Clarity Clear Clear POWERCHART Glucose Negative Negative MGDL POWERCHART HXBILIRUBIN Negative Negative POWERCHART Ketones, QL(U) Negative Negative MGDL POWERCHART Specific 1.015 POWERCHART [place], POCT, U pH, POCT, Urine 7.0 POWERCHART Protein, Ur, Dip Negative Negative MGDL POWERCHAR T Urobilinogen 0.2 0.2 MGDL POWERCHART HXNITRITE Negative Negative POWERCHART HXBLOOD Negative Negative POWERCHART Leukocyte Negative Negative POWERCHART Esterase Specimen (Source) Anatomical Collection Method Collection Time Re ceived Time Location / / Volume Laterality Urine, First 05/23/2015 11:00 Voided AM BUILD AUTOMATION ENGINEER Rachel Peralta M.D. LAB URINE ORDERABLES Performing Organization Address [facility] Phon e Number POWERCHART Bacterial Culture, Aerobic, Urine (05/23/2015 11:00 AM BUILD AUTOMATION ENGINEER) [facility] Method Time Signature Bacterial POWERCHART Culture, Aerobic, Urine HXFinal Mixed edel. No POWERCHART further studies unless notified. HXFinal [place] POWERCHART Microbiology laboratory [phone]. Specimen (Source) Anatomical Collection Method Collection Time Re ceived Time Location / / Volume Laterality Urine, First 05/23/2015 11:00 Voided AM BUILD AUTOMATION ENGINEER Comment: P Rachel Peralta M.D. LAB MICROBIOLOGY - GENERAL O RDERABLES Performing Organization Address City/[facility] Code Phon e Number POWERCHART Antibody Screen (05/23/2015 10:52 AM BUILD AUTOMATION ENGINEER) athologist Signature Antibody Negative POWERCHART Screen Comment: Test Performed by: [address] [address] Lab oratory Director: Derrick Dawkins II, M.D., Ph.D. Specimen (Source) Anatomical Collection Method Collection Time Re ceived Time Location / / Volume Laterality 05/23/2015 10:52 AM BUILD AUTOMATION ENGINEER Rachel Peralta M.D. LAB BLOOD BANK TEST ORDERABL ES Performing Organization Address City/[facility]/ZIP Code Phon e Number POWERCHART Grouping and Rh-Mchenry FLIP, see #[id number] (05/23/2015 10:52 AM BUILD AUTOMATION ENGINEER) Patholo gist Method Time Signature HX Grouping O Positive POWERCHART and Rh Specimen (Source) Anatomical Collection Method Collection Time Re ceived Time Location / / Volume Laterality 05/23/2015 10:52 AM BUILD AUTOMATION ENGINEER Rachel Peralta M.D. LAB BLOOD BANK TEST ORDERABL ES Performing Organization Address City/State/ZIP Code Phon e Number POWERCHART Automated Differential (05/23/2015 10:52 AM BUILD AUTOMATION ENGINEER) P athologist Signature Absolute 3.09 1.70 - POWERCHART Neutrophils 7.00 109L Lymphocytes 1.09 0.90 - POWERCHART 2.90 X109L Monocytes 0.37 0.30 - POWERCHART 0.90 X109L Eosinophils 0.06 0.05 - POWERCHART 0.50 X109L Absolute 0.02 0.00 - POWERCHART Basophil 0.30 X109L Specimen Anatomical Collection Method Collection Time Receive d Time (Source) Location / / Volume Laterality Blood 05/23/2015 10:52 05/23/2015 AM BUILD AUTOMATION ENGINEER 10:52 AM BUILD AUTOMATION ENGINEER Rachel Peralta M.D. LAB BLOOD ADD-ON Performing Organization Address City/State/ZIP Code Phon e Number POWERCHART CBC with Differential (05/23/2015 10:52 AM BUILD AUTOMATION ENGINEER) P athologist Signature Leukocytes 4.6 3.4 - 10.5 POWERCHART X109L Erythrocytes 4.61 3.90 - 5.03 POWERCHART S4190R Hemoglobin 13.3 12.0 - 15.5 POWERCHART GDL Hematocrit 40.7 34.9 - 44.5 POWERCHART MCV 88.3 82.0 - 98.0 POWERCHART FL HX RDW 13.3 11.9 - 15.5 POWERCHART Platelet Count 312 150 - 450 POWERCHART X109L Specimen (Source) Anatomical Collection Method Collection Time Re ceived Time Location / / Volume Laterality Blood 05/23/2015 10:52 AM BUILD AUTOMATION ENGINEER Rachel Peralta M.D. LAB BLOOD ADD-ON Performing Organization Address City/State/ZIP Code Phon e Number POWERCHART Profile II without CBC/Serum (05/23/2015 10:52 AM BUILD AUTOMATION ENGINEER) P athologist Signature HBs Antigen, S Negative Negative POWERCHART Comment: Test Performed by: [facility] [place] [address] Deoiling Machine Operator: Derrick Dawkins II, M.D., Ph.D. HX Rubella IgG-Mchenry Positive POWERCHART Comment: Results suggest response to immunization or prior exposure to the virus. REFERENCE VALUE------ Vaccinated: Positive (>=1.0 AI) Unvaccinated: Negative (<=0.7 AI) Rubella IgG Antibody Index 2.0 POW ERCHART Syphilis IgG Ab, S Negative Negative POWERCHART Comment: No serologic evidence of exposure to syp hilis. Test Performed by: [facility] [place] [address] Deoiling Machine Operator: Derrick Dawkins II, M.D., Ph.D. Specimen (Source) Anatomical Collection Method Collection Time Re ceived Time Location / / Volume Laterality Blood 05/23/2015 10:52 AM BUILD AUTOMATION ENGINEER Rachel Peralta M.D. LAB BLOOD NON ADD-ON Performing Organization Address City/[facility]/ZIP Code Phon e Number POWERCHART HIV-1/-2 Ag and Ab Screen (05/23/2015 10:52 AM BUILD AUTOMATION ENGINEER) athologist [facility] HIV-1/-2 Negative Negative POWERCHART Antibody Comment: Negative result does not rule out HIV in fection. If acute HIV infection is suspected in a hi gh-risk individual, submit plasma specimen for H IV-1 RNA quantification test (HIVDQ) and/or HIV-2 DNA/RNA test (FHV2Q). Test Performed by: [facility] [place] [address] Deoiling Machine Operator: Derrick Dawkins II, M.D., Ph.D. Specimen (Source) Anatomical Collection Method Collection Time Re ceived Time Location / / Volume Laterality Blood 05/23/2015 10:52 AM BUILD AUTOMATION ENGINEER Rachel Peralta M.D. LAB MICROBIOLOGY - BLOOD ORD ERABLES Performing Organization Address City/State/ZIP Code Phon e Number POWERCHART documented in this encounter Visit Diagnoses Not on filedocumented in this encounter Additional Health Concerns Assessment Noted Time PHQ-9 Depression Total Score: 14 07/26/2013 11:[address] documented as of this encounter
--- OUTSIDE RECORDS SUMMARY | 2022-05-17 11:39 | XMS_ITS | Encounter Summary ---
:[address] [facility] Address [address] [place] [address] Care Team Providers Name Role Phone Unavailable Primary Care Provider Unavailable Encounter Details Date Type Department Care Team Description 04/19/2011 Hospital Encounter HX [facility] Teodora Cadet M.D. [address] [place] [address] (Wo rk) Social History Tobacco [...] How often do you attend anglican or rastafarian Never 11/23/2020 services? 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 - 04/19/2011 12:00 AM CDT [id number] CHIEF COMPLAINT / REASON FOR VISIT Menstrual cycle irregularity, depression, acne. HISTORY OF PRESENT ILLNESS Emily is a 15-year-old young lady who comes in with mom today with concerns of menstrual cycle irregularity, possible depression symptoms, and acne. They are wondering whether these are all related. Main complaint is that periods are very irregular. She can bleed anywhere up to 3 times per month. She states menses are heavy and she will change her pad maybe twice a day at school but will have some leakage through. She uses pads plus tampons. She does not go through a pad every hour, though. She has slowly gotten worse with this. She states that the longest between menses is probably a month but it can be just 2 days. Menses usually last 5 days or so. They have never been regular since she had menarche at 13 years of age. She can get cramping with this. She gets headaches with her menses. Her last menstrual period started yesterday, April 18. She is having marked mood swings as well. She thinks these may be worse with her menstrual cycle. She states that mainly it is a depressed mood. She can be having a great day and suddenly she will feel unsafe and down. She cries for no reason. She thinks it may be worse before her menstrual cycle as opposed to during. She notes that, for homecoming, she had a great day and was out late, then came home. The next morning she woke up after a good sleep and felt depressed. She feels that it is worse than it used to be. It is increased with stress. She does admit to thoughts of hurting herself. The last was probably a month ago. Her ideas would be taking pills or going into the garage, starting the car, and having carbon monoxide poisoning. She states that she used to starve myself when she got down and she had lost a lot of weight a couple of years ago. She denies any cutting behavior. She also has acne. This is on her forehead and chin. Out of nowhere, this summer, it seemed to get a lot worse. She does tend to eat healthy and they are not sure why that is worse. FAMILY HISTORY Negative for any bleeding problems. Mom had similar mood swings, suicidal ideation, and irregular cycles as a teen. There are no blood clots in the family. There is a paternal aunt with bipolar disorder, who has had nervous breakdowns. She gets extreme paranoia. No suicidal behavior. Maternal grandmother has depression and anxiety. There is thyroid disease in a paternal aunt and great-grandmother. SOCIAL HISTORY Emily states that her parents will get stressed out with their [email or web address] business. There is a lot of arguing about that. She feels that they bring their stress home. She states it has also been lately that someone always is sick or hurt. There is a great-aunt currently with cancer. She feels that it sometimes can be overwhelming with stress and sadness. Mom does admit that there has been a lot of illness in the family lately. Emily is in the 10th grade. Last year she got mostly As and Bs with one C. This year she is getting Cs and Ds. She states that health and YSL are going well, but math, geometry, is stressful for her. She is struggling with Macedonian, although she did well last year. She finds it hard to concentrate. She just feels like she is not soaking it in. She admits that she has been skipping class. She has been doing this a couple of times a week. She forges notes. She usually comes back after half an hour or so. She usually does this with a friend and states that she will just go out and go for a walk. She has been doing that throughout the year. She states it is getting harder and harder not to do that. She just feels like she needs a break. She admits that this is unusual behavior for her. She also admits that she tried drinking alcohol at home. She was home alone a couple of months ago and had, what she says was, 1 shot of vodka. She was depressed and thought it would help. She has tried smoking but does not smoke currently. She admits to trying cocaine in this last month on one occasion. She reportedly met some people in a parking lot and tried it. She states that she did not like it but does not feel like she got enough to give her much of a change. She is not currently dating anyone. She is not sexually active and has not been sexually active. She denies any sexual abuse. Denies physical abuse but does state that she occasionally gets put down at home. HABITS: She goes to bed between 9-9:30 but can be up until 11 or midnight. She just lies there with her brain going. She gets up about 6 in the morning. Sometimes she is tired. She does toss and turn sometimes, and just feels like she has an energy boost. About 3 times a week, she does not sleep well. She does not nap. On weekends, she goes to bed between 11-12 and then gets up between 8-9 in the morning. She feels more rested then. She gets regular exercise during the spring, because she is in track, but otherwise is not getting any regular activity or exercise. She denies drinking pop. She does drink 1 cup of coffee in the morning. Mom notes that parents are quite opposed to antidepressants and feel that they are not necessary and can have too many side effects. SYSTEMS REVIEW Positive for some easy bruising. No easy bleeding. There is no diarrhea or hard stool. No joint pain, sore throat, cough, rashes. She does get headaches usually twice a week and, what she calls, a migraine that is bad once a week. She will maybe take 1 ibuprofen. It can last anywhere from a couple of hours or through the evening. No phonophobia or photophobia associated with that, but she can feel nauseated. She maybe takes ibuprofen 3 times a month for headaches. VITAL SIGNS WEIGHT: 58 kg HEIGHT: 170.1 cm PULSE: 72 BLOOD PRESSURE: 98/50 PHYSICAL EXAM GENERAL: Emily is alert. She is in no acute distress but is talking very quickly and bouncing her foot quite frequently. I did interview her separately from mom, together with mom, and I interviewed mom separately as well. HEENT: Shows TMs are clear bilaterally. Nares are not congested. Oropharynx is benign. Neck is supple without masses. LUNGS: Clear to auscultation with good air movement. HEART: Regular rate and rhythm without murmurs. ABDOMEN: Good bowel sounds, soft, nontender, nondistended, without hepatosplenomegaly or masses. SKIN: Moderate acne on the face, mostly the forehead and the chin, which are mostly papules, although it would be hard to tell pustules because she has a fair bit of makeup on. MENTAL: I did administer the Burn's depression checklist and she scored a 29, which is moderate. For the Burn's anxiety inventory she scored 50, which is severe. IMPRESSION / REPORT / PLAN [id number]-[id number] young lady with multiple issues going on: 1) Menstrual irregularity. Need to consider thyroid disease or bleeding disorder. 2) Depression, anxiety, and mood swings. Given the family history, we need to consider bipolar disorder. Consider hormonal induced symptoms. Consider nonhormonal induced depression and anxiety as well. 3) Some early signs of substance abuse. I am really concerned about this. Emily is going down a road that even she admits is not normal for her. She is skipping class, trying alcohol and drugs. We really need to intervene here quickly. High risk behavior. 4) Acne, likely related to the hormonal issues but it certainly could just be acne on its own. PLAN: 1) Discussed the above issues, although kept confidential Emily's confessions about her skipping class, and her drug and alcohol exploration. She did not want me to bring this up with mom, although I strongly encouraged it. She is afraid mom will not make a big deal out of it here but will make a big deal out of it at home. 2) Will get a CBC and thyroid test today. If those are normal, will go ahead and get PT and PTT as well. 3) Start oral contraceptives to see if this can help. Will try Ortho-Cyclen 1 by mouth daily. If things go well, my goal would be to consider having her only get her cycle 3 or 4 times a year. Discussed how we have to get to that point. 4) Discussed with mom separately about the importance of keeping things, such as big bottles of pills, under lock and henderson and not accessible. I did not admit the suicidal ideation to her, but I just stressed the importance in all adolescents. There are no guns available to patient in the house. 5) Also discussed with mom separately the potential benefits of antidepressants and anxiety medications. Together we talked about counseling. I think that is something really to consider. We may want to start with talking to the school counselor. Emily has already started to do that, which I think is encouraging. 6) With Emily separately, I asked her what 2 goals she thinks she could set for our next visit. She came up with not trying drugs or alcohol, and not skipping class for the next 2 weeks. I felt those were very good goals and will see how she does with those. I expressed my concern to her about her behavior and her risk for making choices that are becoming more serious. She expressed her understanding. 7) We are going to watch the acne for right now. If things improve with the control pills, we will not have to go further with that. 8) I will see her back in 2 weeks, sooner as needed for any concerns. 9) She did agree to talk to her best friend if she felt imminently suicidal. ADMINISTRATIVE BILLING Total Time: Over 60 minutes, over half of that spent in counseling Jeannine Cadet M.D. akg Electronically Signed By: JEANNINE CADET MD On: 05/01/2011 10:48 AM Source: [facility] MHSDOLBEYNONRADSYS Document Id: [id number] CONVEYOR OPERATOR documented in this encounter Miscellaneous Notes Miscellaneous - Jeannine Cadet M.D. - 04/22/2011 8:26 AM CDT Results Notification Document Contains Addenda Addendum by ED BENSON on 24 April 2011 08:16:40 CDT Telephone call from patients mother in response to our call. Normal cbc and thyroid function results given. Mother thanked us for our call. From: JEANNINE CADET MD To: ED BENSON Sent: 04/22/2011 08:26:16 CDT ! Show up: 04/22/2011 13:26:16 [facility] Subject: Results Notification Actions: Notify patient of results Source: [facility] POWERCHART Document Id: [id number] Miscellaneous - Conversion, Historical Provider Ser - 04/19/2011 11:52 AM CDT Pediatric Brake Drum Molder Intake/History Pediatric Brake Drum Molder Intake/History Entered On: 04/19/2011 11:54 CDT Performed On: 04/19/2011 11:52 CDT by ED BENSON Intake Chief Complaint: mentrual cycle irregular, depression, acne DE BENSON - 04/19/2011 11:54 CDT Peripheral Pulse Rate: 72/min Systolic Blood Pressure: 98mmHg Diastolic Blood Pressure: 50mmHg (LOW) NIBP Mean: 66mmHg BP Location: Right upper extremity Heart Rhythm: Regular Height: 170.10cm(Converted to: 5ft 7inch(es), 66.97inch(es)) Actual Weight: 58.000kg(Converted to: 127lb 14oz) Weight Source: Standing scale Dosing Weight Clinic: 58.00kg Clinic BSA: 1.66 Body Mass Index: 20.05kg/m2 ED BENSON - 04/19/2011 11:52 CDT Subjective Pain Symptoms: No Genitourinary Symptoms: Other: menstrual cycles irregular, skin issues, depression ED BENSON - 04/19/2011 11:52 CDT Dependent Habits Tobacco Use/Currently Using: No Exposure to Tobacco Smoke: Other: non tobacco home Smoking Status: Never smoker Alcohol Use: No ED BENSON - 04/19/2011 11:52 CDT Allergy Source: [facility] POWERCHART Document Id: [id number] CDT!3 documented in this encounter Plan of Treatment Not on filedocumented as of this encounter Visit Diagnoses Not on filedocumented in this encounter
--- OUTSIDE RECORDS SUMMARY | 2022-05-17 11:39 | XMS_ITS | Encounter Summary ---
:1995 Author Organization [facility] Address [address] [place] [address] Care Team Providers Name Role Phone Unavailable Primary Care Provider Unavailable Encounter Details Date Type Department Care Team Description 12/05/2014 Hospital Encounter HX NO MAPPING Molly Oneal M.D. [address] [place], [place] [phone] (Wo rk) Social History [...] 11/23/2020 relatives? How often do you attend muslim or yazidi Never 11/23/2020 services? 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 However, the narrative phrase printed from the coding software may appear abbreviated, or result in slightly different terminology. Coded By: CHRISTINA BELLA Date Saved: 12/15/2014 09:09 pm Source: [facility] POWERCHART Document Id: [id number] documented in this encounter Plan of Treatment Not on filedocumented as of this encounter Visit Diagnoses Not on filedocumented in this encounter Additional Health Concerns Assessment Noted Time PHQ-9 Depression Total Score: 14 07/26/2013 11:[address] documented as of this encounter
--- OUTSIDE RECORDS SUMMARY | 2022-05-17 11:39 | XMS_ITS | Encounter Summary ---
:1995 Author Organization [facility] Address [address] [place] [address] Care Team Providers Name Role Phone Unavailable Primary Care Provider Unavailable Encounter Details Date Type Department Care Team Description 02/11/2013 Hospital Encounter [facility]X [facility] Riley Chapman M.D. [address] [place], [place] [phone] (Wo rk) Social History [...] How often do you attend gnosticist or rastafarian Never 11/23/2020 services? 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 - 02/11/2013 1:53 PM CDT Eye Services Clinic Exam Eye Services Clinic Exam Entered On: 02/11/2013 13:59 CDT Performed On: 02/11/2013 13:53 CDT by REINALDO SYKES Chief Complaint and History Chief Complaint : Routine exam, CL exam/recheck Pain Symptoms : No Last Eye Exam : 1 year Smoking Status : Never smoker Comment : Happy with cl's. Family History Reviewed : 02/11/2013 CDT REINALDO SYKES - 02/11/2013 13:53 CDT Optometry Exam Familty History Grid Contacts : Self Cardiovascular : Grandparents REINALDO SYKES - 02/11/2013 13:53 CDT Vision Testing Right Eye Vision Testing : Contacts, 20/25, +2, -2 Left Eye Vision Testing : Contacts, 20/25, +1 REINALDO SYKES - 02/11/2013 13:53 CDT Refraction Right Eye Manifest Grid Date : 02/11/2013 CDT Performed by : [employer] : -9.75 Visual Acuity Distance : 20/20 REINALDO SYKES - 02/11/2013 14:11 CDT Left Eye Manifest Grid Date : 02/11/2013 CDT Performed by : [employer] : -9.75 Visual Acuity Distance : 20/20 REINALDO SYKES - 02/11/2013 14:11 CDT Ocular Testing EOMS : Normal Comment : 6-4 6-4 Pupils : PERRLA Confrontation Peters : RE Normal, LE Normal REINALDO SYKES - 02/11/2013 13:53 CDT Intraoccular Pressures Intraoccular Pressures Grid Date : 02/11/2013 CDT 02/11/2013 CDT Eye : RE LE Applanation : 14 16 Eye Drops : Fluress Fluress REINALDO SYKES - 02/11/2013 14:11 CDT REINALDO SYKES - 02/11/2013 14:11 CDT Eye Drops Exam Date of Last Eye Exam : 02/11/2013 CDT Phenylephrine 2.5% Eye Drops Eye : Both eyes Phenylephrine 2.5% Eye Drops Time : 14:17 CHOCOLATE DIPPER Tropicamide 1% Eye Drops Eye : Both eyes Tropicamide 1% Eye Drops Time : 14:17 CHOCOLATE DIPPER REINALDO SYKES - 02/11/2013 14:11 CDT Source: [facility] POWERCHART Document Id: [id number] CDT!32 documented in this encounter H&P Notes Edward Milligan M.D. - 02/11/2013 1:47 PM CDT [id number] CHIEF COMPLAINT / REASON FOR VISIT Routine ophthalmic exam. IMPRESSION / REPORT / PLAN High myopia doing well with current contacts. PLAN: Continue contact lenses without change. Retinal detachment precautions reviewed. Follow up in 1 year. Edward Milligan M.D./tejinder Electronically Signed By: EDWARD MILLIGAN MD On: 02/12/2013 07:54 AM Source: [facility] MHSDOLBEYNONRADSYS Document Id: [id number] documented in this encounter Miscellaneous Notes Miscellaneous - David Cota, L.P.N. - 02/12/2013 5:07 PM CDT Med Management Document Contains Addenda Addendum by JEANNINE UP MD on 15 February 2013 10:22:22 CDT From: JEANNINE UP MD To: DAVID COTA; Sent: 02/15/2013 10:22:21 CDT Subject: RE:Med Management Approved Order:norgestimate-ethinyl estradiol (Ortho-Cyclen oral tablet) 1 tab(s) PO Daily Qty: 84 tab(s) Refills: 3 Substitutions Allowed Route To Pharmacy - [facility] [id number] Signed by JEANNINE UP MD 02/15/2013 10:22:19 From: DAVID COTA To: JEANNINE UP MD; Sent: 02/12/2013 17:07:11 CDT Subject: Med Management On hold pending signature Order:norgestimate-ethinyl estradiol (Ortho-Cyclen oral tablet) 1 tab(s) PO Daily Qty: 84 tab(s) Refills: 3 Substitutions Allowed Route To Pharmacy - [facility] [id number] Caller is: ( ) Patient ( ) Mother ( ) Father ( ) Spouse ( ) Daughter ( ) Son ( ) Pharmacy ( ) Other: Physician: Patient MRN #: Reason for Call: Message: Advice/Action: Source used: ( ) Verbalizes understanding [...] back cell phone number ( ) Source: [facility] POWERCHART Document Id: [id number] Electronically signed by Lily [facility] In Store Marketing Representative [id number] at 11/20/2016 5:33 AM CDT Miscellaneous - Edward Milligan M.D. - 02/11/2013 3:08 PM CDT Ambulatory Patient Summary [facility] [address] [place] [id number] Visit Information Name: EMILY MCGUIRE [facility] Number: [id number] Current Date: 02/11/2013 15:08:12 Physicians Attending Provider: EDWARD MILLIGAN MD Primary Care Provider: JEANNINE UP MD Your Medications Here is a list of your medications. It is important to take your medications as directed. Use a pillbox or chart to help remind you to take your medications. Please let your doctor or nurse know if you have problems taking your medications. Medication/Strength Dose Route Frequency Indications/Special Instructions/Comments/Notes norgestimate-ethinyl estradiol (Ortho-Cyclen oral tablet) 1 tab(s) Oral once a day ibuprofen (Motrin) 2 tab(s) Oral as needed Attention: If you have any medications at home that are not on this list, DO NOT take them until youcontact your provider for clarification. Your Allergies & Intolerances Substance Reaction Symptoms Category Comments codeine Upset stomach Drug Your Problem List Problem Status Onset Comments Dizziness Active 04/12/2008 Migraine Common Active 04/20/2008 Sports Exam Active 09/06/2009 Well Special Projects Coordinator Multisys Exam 29d-17yr Active 09/06/2009 Your Upcoming Appointments Date Time Location Reason Provider No Appointments found Your Goals/Additional instructions: Source: [employer] Document Id: [id number] Miscellaneous - Edward Milligan M.D. - 02/11/2013 3:08 PM CDT Ambulatory Depart Summary [facility] [address] [place] [id number] Visit Information Name: EMILY MCGUIRE [facility] Number: [id number] Visit Date: 02/11/2013 15:08:11 Attending Provider: EDWARD MILLIGAN MD Primary Care Provider: JEANNINE UP MD EMILY MCGUIREE has been given the following list of medications: Your Medications It is important to take your medications as directed. Use a pill box or chart to help remind you to take your medications. Please let your doctor or nurse know if you have problems taking your medications. Medication/Strength Dose Route Frequency Indications/Special Instructions/Comments/Notes norgestimate-ethinyl estradiol (Ortho-Cyclen oral tablet) 1 tab(s) Oral once a day ibuprofen (Motrin) 2 tab(s) Oral as needed Attention: If you have any medications at home that are not on this list, DO NOT take them until youcontact your provider for clarification. Additional Information: Source: [employer] Document Id: [id number] documented in this encounter Plan of Treatment Not on filedocumented as of this encounter Visit Diagnoses Not on filedocumented in this encounter
--- OUTSIDE RECORDS SUMMARY | 2022-05-17 11:39 | XMS_ITS | Encounter Summary ---
:1995 Author Organization [facility] Address [address] [place] [address] Care Team Providers Name Role Phone Unavailable Primary Care Provider Unavailable Encounter Details Date Type Department Care Team Description 06/15/2015 Hospital Encounter HX NO MAPPING Augustina Barker M.D. [address] [place], [place] [phone] (Wo rk) Social History [...] How often do you attend evangelical or gnosticist Never 11/23/2020 services? Do you [...] or slept in a penitentiary (including now)? Sex Assigned at Date Recorded Female 05/20/2017 4:45 PM MENTAL HEALTH NURSE documented as of this encounter Miscellaneous Notes Miscellaneous - Conversion, Historical Provider Ser - 06/15/2015 11:59 PM MENTAL HEALTH NURSE Coding Summary-Paper Based CODING DATE: 07/13/2015 FINAL [facility] STATUS: * Discharged to Home or Self Care PAYOR: [employer] ADMIT DX: REASON FOR VISIT DX: FINAL DX: PRINCIPAL: Z34.02 Encounter for supervision of normal first , second trimester SECONDARY: PROCEDURES DOCTOR NAME DATE NOTE: The code number assigned matches the documented diagnosis and / or procedure in the patient's chart. However, the narrative phrase printed from the coding software may appear abbreviated, or result in slightly different terminology. Coded By: HERMILA ZHU Date Saved: 07/13/2015 01:06 pm Source: [facility] POWERCHART Document Id: [id number] documented in this encounter Plan of Treatment Not on filedocumented as of this encounter Visit Diagnoses Not on filedocumented in this encounter Additional Health Concerns Assessment Noted Time PHQ-9 Depression Total Score: 14 07/26/2013 11:[address] documented as of this encounter
--- OUTSIDE RECORDS SUMMARY | 2022-05-17 11:39 | XMS_ITS | Encounter Summary ---
:1995 Author Organization [facility] Address [address] [place] [address] Care Team Providers Name Role Phone Unavailable Primary Care Provider Unavailable Encounter Details Date Type Department Care Team Description 01/25/2008 Hospital Encounter HX [facility] Teodora Rooj M.D. [address] [place] [phone] (Wo rk) Social History Tobacco [...] How often do you attend faith or protestant Never 11/23/2020 services? Do you [...] or slept in a fpc (including now)? 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
--- OUTSIDE RECORDS SUMMARY | 2022-05-17 11:39 | XMS_ITS | Encounter Summary ---
:1995 Author Organization [facility] Address [address] [place] [address] Care Team Providers Name Role Phone Unavailable Primary Care Provider Unavailable Encounter Details Date Type Department Care Team Description 09/28/2008 Hospital Encounter [facility] Lashell Gauthier, P.ASampson-C. [address] [place] [address] (Wo rk) Social History Tobacco [...] 11/23/2020 relatives? How often do you attend sikhism or alevism Never 11/23/2020 services? Do you belong to any clubs or organizations such as No 11/23/2020 sikhism groups, unions, fraternal or athletic groups, or [...] at Date Recorded Female 05/20/2017 4:45 PM RANGE OPERATOR documented as of this encounter Plan of Treatment Not on filedocumented as of this encounter Visit Diagnoses Not on filedocumented in this encounter
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
--- OUTSIDE RECORDS SUMMARY | 2022-05-17 11:39 | XMS_ITS | Encounter Summary ---
:1995 Author Organization [facility] Address [address] [place] [address] Care Team Providers Name Role Phone Unavailable Primary Care Provider Unavailable Encounter Details Date Type Department Care Team Description 06/21/2014 Historical Ophthalmology [facility] Edward Steel M.D. [address] [place], [place] [phone] (Wo rk) Social History [...] How often do you attend zoroastrian or jew Never 11/23/2020 services? Do you [...] or slept in a detention (including now)? 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 - 06/21/2014 9:29 AM CST Eye General CHIEF COMPLAINT Yearly Exam HISTORY OF PRESENT ILLNESS No vision problems noted. ROS good general health- heart and lungs WNL IMPRESSION / REPORT / PLAN #1 High Myopia, both eyes. Doing well with glasses and contacts. Plan: RD precautions reviewed. Continue contacts. F/u one year. CE/ref DIAGNOSIS #1 High Myopia, both eyes. CDM Reports - EYEGEN Id: [id number] Status: Fnl documented in this encounter Plan of Treatment Not on filedocumented as of this encounter Visit Diagnoses Not on filedocumented in this encounter Additional Health Concerns Assessment Noted Time PHQ-9 Depression Total Score: 14 07/26/2013 11:[address] documented as of this encounter
--- OUTSIDE RECORDS SUMMARY | 2022-05-17 11:39 | XMS_ITS | Encounter Summary ---
:1995 Author Organization [facility] Address [address] [place] [address] Care Team Providers Name Role Phone Unavailable Primary Care Provider Unavailable Encounter Details Date Type Department Care Team Description 08/19/2013 Hospital Encounter HX NO MAPPING Ward Edge M.D. [address] [place], [place] [phone] (Wo rk) Social History [...] often do you attend latter day or rastafarian Never 11/23/2020 services? 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
--- OUTSIDE RECORDS SUMMARY | 2022-05-17 11:39 | XMS_ITS | Encounter Summary ---
:1995 Author Organization [facility] Address [address] [place] [address] Care Team Providers Name Role Phone Unavailable Primary Care Provider Unavailable Encounter Details Date Type Department Care Team Description 06/15/2015 Hospital Encounter HX [facility] Nicolás Taylor M.D. [address] [place], [place] [phone] (Wo rk) Social History [...] 11/23/2020 relatives? How often do you attend episcopal or samaritan Never 11/23/2020 services? Do you belong to any clubs or organizations such as No 11/23/2020 episcopal groups, unions, fraternal or athletic groups, or [...] at Date Recorded Female 05/20/2017 4:45 PM CRYPTOANALYSIS TEACHER documented as of this encounter Last Filed Vital Signs Vital Sign Reading Time Taken Comments Blood Pressure - - Pulse - - Temperature - - Respiratory Rate - - Oxygen Saturation - - Inhaled Oxygen Concentration - - Weight - - Height 171 cm (5' 7.32) 06/15/2015 10:33 AM CRYPTOANALYSIS TEACHER Body Mass Index - - documented in this encounter Plan of Treatment Not on filedocumented as of this encounter Procedures Procedure Name Priority Date/Time Associated Diagnosis Comme nts US PETROLEUM TRANSPORT DRIVER LESS THAN Routine 06/15/2015 10:44 AM R esults for this 14 WEEKS MULTI CRYPTOANALYSIS TEACHER procedure are in the results section. documented in this encounter Results US PETROLEUM TRANSPORT DRIVER less than 14 weeks multi (06/15/2015 10:44 AM CRYPTOANALYSIS TEACHER) Anatomical Region Laterality Modality Ultrasound Specimen (Source) Anatomical Collection Method Collection Time Re ceived Time Location / / Volume Laterality 06/15/2015 10:44 AM CRYPTOANALYSIS TEACHER Impressions 06/15/2015 11:20 AM CRYPTOANALYSIS TEACHER 1. Single Viable Intrauterine with ISATU of January 18, 2016 , consistent with menstrual dates. 2. The early placentation located in the lower uterus is of doubtful clinical significance, and will be reeva luated at the anatomic scan. In general, it is reasonable to use the sonographically derived ISATU if it differs from that calculated using the last menstrual period (LMP) by more than seven days in the fir st trimester. [facility] in [place] PETROLEUM TRANSPORT DRIVER Dept. [phone] Narrative 06/15/2015 11:20 AM CRYPTOANALYSIS TEACHER EXAM: US OB less than 14 weeks INDICATION: Dates COMPARISON: None. REFERRING PHYSICIAN: Dr. Barker BLOCKING MACHINE OPERATOR SECOND: Mayte Greene [facility]. : 1 PARA: 0 LMP: April 11, 2015 ISATU by LMP: January 16, 2016 NUMBER: One CHORIONICITY: Not Applicable CARDIAC ACTIVITY: Yes HEART RATE: 183 beats per minute. UTERUS: Early placentation appears low, but will be reevaluated at the anatomic scan. UTERINE POSITION: Anteverted. CUL DE SAC: Normal. ADNEXA: Visually normal, no adnexal mass es detected. RIGHT OVARY: Not well-visualized on toda y's exam LEFT OVARY: Appears normal. Multiple measurements of the [place] Rump Length (CRL) reveal an average ultrasound age of 9 weeks and 0 days. ??See IMPRESSION below for ultrasound calculation of Estimated Date of Delivery (ISATU). Procedure Note Jose Zelaya M.D. / Provider, Celia juan M.D. - 10/31/2016 EXAM: US OB less than 14 weeks INDICATION: Dates COMPARISON: None. REFERRING PHYSICIAN: Dr. Barker BLOCKING MACHINE OPERATOR SECOND: Mayte Greene RDMS. : 1 PARA: 0 LMP: April 11, 2015 ISATU by LMP: January 16, 2016 NUMBER: One CHORIONICITY: Not Applicable CARDIAC ACTIVITY: Yes HEART RATE: 183 beats per minute. UTERUS: Early placentation appears low, but will be reevaluated at the anatomic scan. UTERINE POSITION: Anteverted. CUL DE SAC: Normal. ADNEXA: Visually normal, no adnexal mass es detected. RIGHT OVARY: Not well-visualized on toda y's exam LEFT OVARY: Appears normal. Multiple measurements of the [place] Rump Length (CRL) reveal an average ultrasound age of 9 weeks and 0 days. See IMPRESSION below for ultrasound calculation of Estimated Date of Delivery (ISATU). IMPRESSION: 1. Single Viable Intrauterine with ISATU of January 18, 2016 , consistent with menstrual dates. 2. The early placentation located in the lower uterus is of doubtful clinical significance, and will be reeva luated at the anatomic scan. In general, it is reasonable to use the sonographically derived ISATU if it differs from that calculated using the last menstrual period (LMP) by more than seven days in the fir st trimester. [facility] in [place] PETROLEUM TRANSPORT DRIVER Dept. [phone] Mayte Greene R.V.T., AdolfoMSampsonS. IMG OB US PROCEDURE S documented in this encounter Visit Diagnoses Not on filedocumented in this encounter Additional Health Concerns Assessment Noted Time PHQ-9 Depression Total Score: 14 07/26/2013 11:[address] documented as of this encounter
--- OUTSIDE RECORDS SUMMARY | 2022-05-17 11:39 | XMS_ITS | Encounter Summary ---
:1995 Author Organization [facility] Address [address] [place] [address] Care Team Providers Name Role Phone Unavailable Primary Care Provider Unavailable Encounter Details Date Type Department Care Team Description 05/18/2013 Hospital Encounter HX NO MAPPING Germán Garcia M.D. [address] [place], [place] [phone] (Wo rk) Social History [...] How often do you attend jew or sikhism Never 11/23/2020 services? 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
--- OUTSIDE RECORDS SUMMARY | 2022-05-17 11:39 | XMS_ITS | Encounter Summary ---
:1995 Author Organization [facility] Address [address] [place] [address] Care Team Providers Name Role Phone Unavailable Primary Care Provider Unavailable Encounter Details Date Type Department Care Team Description 03/17/2008 Hospital Encounter HX [facility] Teodora Cadet M.D. [address] [place] [phone] (Wo rk) Social History Tobacco [...] How often do you attend druze or tenriism Never 11/23/2020 services? Do you [...] at Date Recorded Female 05/20/2017 4:45 PM ASBESTOS WORKER HELPER documented as of this encounter Plan of Treatment Not on filedocumented as of this encounter Visit Diagnoses Not on filedocumented in this encounter
--- OUTSIDE RECORDS SUMMARY | 2022-05-17 11:39 | XMS_ITS | Encounter Summary ---
:1995 Author Organization [facility] Address [address] [place] [address] Care Team Providers Name Role Phone Unavailable Primary Care Provider Unavailable Encounter Details Date Type Department Care Team Description 08/19/2013 Hospital Encounter HX NO MAPPING Ward Edge M.D. [address] [place], [place] [phone] (Wo rk) Social History [...] How often do you attend moravian or catholic Never 11/23/2020 services? Do you belong [...] Date Recorded Female 05/20/2017 4:45 PM MANAGER CONTENT documented as of this encounter Plan of Treatment Not on filedocumented as of this encounter Visit Diagnoses Not on filedocumented in this encounter Additional Health Concerns Assessment Noted Time PHQ-9 Depression Total Score: 14 07/26/2013 11:[address] documented as of this encounter
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
--- OUTSIDE RECORDS SUMMARY | 2022-05-17 11:39 | XMS_ITS | Encounter Summary ---
:1995 Author Organization [facility] Address [address] [place] [address] Care Team Providers Name Role Phone Unavailable Primary Care Provider Unavailable Encounter Details Date Type Department Care Team Description 06/21/2014 Hospital Encounter HX [facility] Riley Chapman M.D. [address] [place], [place] [phone] (Wo rk) Social History [...] How often do you attend evangelical or hoahaoism Never 11/23/2020 services? Do you [...] at Date Recorded Female 05/20/2017 4:45 PM COAT HANGER SHAPER MACHINE OPERATOR documented as of this encounter Progress Notes Edward Milligan M.D. - 06/21/2014 9:12 AM CST [id number] The documentation for this visit is available in [employer] IMPRESSION/REPORT/PLAN #1 High Myopia, both eyes. Doing well with glasses and contacts. Plan: RD precautions reviewed. Continue contacts. F/u one year. CE/ref Edward Milligan M.D./hrf Electronically Signed By: EDWARD MILLIGAN MD On: 06/24/2014 07:58 AM Source: [facility] MHSDOLBEYNONRADSYS Document Id: [id number] HANGER SHAPER MACHINE OPERATOR documented in this encounter Miscellaneous Notes Miscellaneous - Edward Milligan M.D. - 06/21/2014 10:07 AM CST Ambulatory Patient Summary [facility] [address] [place] [id number] Visit Information Name: MAYNOREMILY PAYAL [facility] Number: [id number] Current Date: 06/21/2014 10:07:23 Physicians Attending Provider: EDWARD MILLIGAN MD Primary [...] the Following Medications: Medication list as of 06-21-14 10:07 Attention: If you have any medications at [...] Electronically Signed By: EDWARD MILLIGAN MD Signed On:21-JUN-2014 10:07:19 Your Allergies & Intolerances Substance Reaction Symptoms Category Comments codeine Upset stomach Drug Your Problem List Problem Status Onset Comments Dizziness Active 04/12/2008 Migraine Common Active 04/20/2008 Sports Exam Active 09/06/2009 Your Upcoming Appointments Date Time Location Provider No Appointments found Attention: Contact your local Clinic if further appointment detail needed. Your Goals/Additional instructions: Source: [facility] POWERCHART Document Id: [id number] HANGER SHAPER MACHINE OPERATOR Miscellaneous - Edward Milligan M.D. - 06/21/2014 10:07 AM CST Ambulatory Discharge Medication List [facility] [address] [place] [id number] Visit Information Name: MAYNOR EMILY PAYAL [facility] Number: [id number] Visit Date: 06/21/2014 10:07:22 Attending Provider: EDWARD MILLIGAN MD Primary Care [...] the Following Medications: Medication list as of 06-21-14 10:07 Attention: If you have any medications at [...] Electronically Signed By: EDWARD MILLIGAN MD Signed On:21-JUN-2014 10:07:19 Additional Information: Source: [facility] POWERCHART Document Id: [id number] HANGER SHAPER MACHINE OPERATOR documented in this encounter Plan of Treatment Not on filedocumented as of this encounter Visit Diagnoses Not on filedocumented in this encounter Additional Health Concerns Assessment Noted Time PHQ-9 Depression Total Score: 14 07/26/2013 11:[address] documented as of this encounter
--- OUTSIDE RECORDS SUMMARY | 2022-05-17 11:39 | XMS_ITS | Encounter Summary ---
:1995 Author Organization [facility] Address [address] [place] [address] Care Team Providers Name Role Phone Unavailable Primary Care Provider Unavailable Encounter Details Date Type Department Care Team Description 04/12/2008 Hospital Encounter HX [facility] Reymundo Oneal M.D. [address] [place] [address] (Wo tamica) Social History Tobacco Use Types Packs/Day Years [...] How often do you attend rastafarian or spiritism Never 11/23/2020 services? Do you [...] at Date Recorded Female 05/20/2017 4:45 PM GRILL PREP COOK documented as of this encounter Plan of Treatment Not on filedocumented as of this encounter Visit Diagnoses Not on filedocumented in this encounter
--- OUTSIDE RECORDS SUMMARY | 2022-05-17 11:39 | XMS_ITS | Encounter Summary ---
:1995 Author Organization [facility] Address [address] [place] [address] Care Team Providers Name Role Phone Unavailable Primary Care Provider Unavailable Encounter Details Date Type Department Care Team Description 05/23/2015 Hospital Encounter HX NO MAPPING Augustina Barker M.D. [address] [place], [place] [phone] (Wo rk) Social History [...] How often do you attend advent or mandaeism Never 11/23/2020 services? Do you [...] at Date Recorded Female 05/20/2017 4:45 PM TURNER MACHINE OPERATOR documented as of this encounter Miscellaneous Notes Miscellaneous - Conversion, Historical Provider Ser - 05/23/2015 11:59 PM TURNER MACHINE OPERATOR Coding Summary-Paper Based CODING DATE: 06/05/2015 FINAL [facility] STATUS: * Discharged to Home or Self Care PAYOR: [employer] ADMIT DX: REASON FOR VISIT DX: FINAL DX: PRINCIPAL: Z34.01 Encounter for supervision of normal first , first trimester SECONDARY: PROCEDURES DOCTOR NAME DATE NOTE: The code number assigned matches the documented diagnosis and / or procedure in the patient's chart. However, the narrative phrase printed from the coding software may appear abbreviated, or result in slightly different terminology. Coded By: HERMILA ZHU Date Saved: 06/05/2015 02:13 pm Source: [facility] [employer] Document Id: [id number] documented in this encounter Plan of Treatment Not on filedocumented as of this encounter Visit Diagnoses Not on filedocumented in this encounter Additional Health Concerns Assessment Noted Time PHQ-9 Depression Total Score: 14 07/26/2013 11:[address] documented as of this encounter
--- OUTSIDE RECORDS SUMMARY | 2022-05-17 11:39 | XMS_ITS | Encounter Summary ---
:1995 Author Organization [facility] Address [address] [place] [address] Care Team Providers Name Role Phone Unavailable Primary Care Provider Unavailable Encounter Details Date Type Department Care Team Description 06/21/2014 Historical Ophthalmology [facility] Edward Steel M.D. [address] [place], [place] [phone] (Wo rk) Social History [...] How often do you attend gnosticist or baptist Never 11/23/2020 services? Do you [...] at Date Recorded Female 05/20/2017 4:45 PM INSPECTOR MULTIFOCAL LENS documented as of this encounter Progress Notes Edward Steel M.D. - 06/21/2014 9:57 AM CST Contact Lens Exam HISTORY OF PRESENT ILLNESS Pt is happy with her currant lens. Can wear all day comfortably. CDM Reports - EYECL Id: [id number] Status: Fnl documented in this encounter Plan of Treatment Not on filedocumented as of this encounter Visit Diagnoses Not on filedocumented in this encounter Additional Health Concerns Assessment Noted Time PHQ-9 Depression Total Score: 14 07/26/2013 11:[address] documented as of this encounter
--- OUTSIDE RECORDS SUMMARY | 2022-05-17 11:39 | XMS_ITS | Encounter Summary ---
:1995 Author Organization [facility] Address [address] [place] [address] Care Team Providers Name Role Phone Unavailable Primary Care Provider Unavailable Encounter Details Date Type Department Care Team Description 05/29/2014 Hospital Encounter HX NO MAPPING Germán Garcia M.D. [address] [place], [place] [phone] (Wo rk) Social History [...] 11/23/2020 relatives? How often do you attend cheondoism or taoist Never 11/23/2020 services? 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
--- OUTSIDE RECORDS SUMMARY | 2022-05-17 11:39 | XMS_ITS | Encounter Summary ---
:1995 Author Organization [facility] Address [address] [place] [address] Care Team Providers Name Role Phone Unavailable Primary Care Provider Unavailable Encounter Details Date Type Department Care Team Description 05/19/2011 Hospital Encounter HX [facility] Lashell Cleary, P.ASampson-C. [address] [place] [address] (Wo rk) Social History Tobacco [...] 11/23/2020 relatives? How often do you attend confucianism or gnosticism Never 11/23/2020 services? Do you belong to any clubs or organizations such as No 11/23/2020 confucianism groups, unions, fraternal or athletic groups, or [...] at Date Recorded Female 05/20/2017 4:45 PM SWITCHBOARD OPERATOR RECEPTIONIST documented as of this encounter Progress Notes Marilyn Cleary - 05/19/2011 12:00 AM CST [id number] CHIEF COMPLAINT Sore throat. HISTORY OF PRESENT ILLNESS Patient presents to the clinic today with her mother. She started to get a sore throat on May 17. She has a little bit of nasal drainage. No headache. No fever. They wanted to be sure she does not have strep throat. There has been no nausea, vomiting or diarrhea. MEDICATIONS Per EMR. ALLERGIES Per EMR. VITAL SIGNS Per EMR. PHYSICAL EXAMINATION GENERAL: Patient is alert, pleasant and no acute distress. HEENT: Conjunctivae and sclerae clear. EACs and TMs within normal limits. Nasal turbinates are nonedematous. Oropharynx minimal erythema and postnasal drainage. Neck has no adenopathy. LUNGS: Clear to auscultation. HEART: Regular rate and rhythm. IMPRESSION/REPORT/PLAN DIAGNOSTIC: Rapid strep is negative. Culture pending. 1) Pharyngitis. Discussed that this appears to be viral, should be self-limiting resolving on its own within the next week. symptomatic treatment discussed and encouraged. Follow-up if symptoms worsen or persist despite this treatment. She and mom are comfortable with the plan. Marilyn Cleary P.A.-C. Electronically Signed By: MARILYN CLEARY On: 05/30/2011 10:15 AM Source: [facility] MHSDOLBEYNONRADSYS Document Id: [id number] CHBOARD OPERATOR RECEPTIONIST documented in this encounter Procedure Notes Sofía Nguyen - 05/19/2011 2:08 PM CST Rapid Strep A Screen POC Rapid Strep A Screen POC Entered On: 05/19/2011 14:08 SWITCHBOARD OPERATOR RECEPTIONIST Performed On: 05/19/2011 14:08 SWITCHBOARD OPERATOR RECEPTIONIST by SOFÍA DUTTA Rapid Strep A Screen POC Rapid Strep A Screen POC : Negative Internal QC : Pass SOFÍA DUTTA - 05/19/2011 14:08 SWITCHBOARD OPERATOR RECEPTIONIST Source: [facility] [employer] Document Id: [id number] SWITCHBOARD OPERATOR RECEPTIONIST!4 CHBOARD OPERATOR RECEPTIONIST documented in this encounter Miscellaneous Notes Miscellaneous - Marilyn Cleary - 05/19/2011 2:10 PM CST School or Work Excuse School or Work Excuse Entered On: 05/19/2011 14:10 SWITCHBOARD OPERATOR RECEPTIONIST Performed On: 05/19/2011 14:10 SWITCHBOARD OPERATOR RECEPTIONIST by MARILYN CLEARY School or Work Excuse Date Patient Seen : 05/19/2011 SWITCHBOARD OPERATOR RECEPTIONIST Date of Return to School/Work Without Restrictions : 05/21/2011 SWITCHBOARD OPERATOR RECEPTIONIST MARILYN CLEARY - 05/19/2011 14:10 SWITCHBOARD OPERATOR RECEPTIONIST Source: [facility] [employer] Document Id: [id number] SWITCHBOARD OPERATOR RECEPTIONIST!4 CHBOARD OPERATOR RECEPTIONIST Miscellaneous - Sofía Nguyen - 05/19/2011 1:54 PM CST Pediatric Compensation Coordinator Intake/History Pediatric Compensation Coordinator Intake/History Entered On: 05/19/2011 13:57 SWITCHBOARD OPERATOR RECEPTIONIST Performed On: 05/19/2011 13:54 SWITCHBOARD OPERATOR RECEPTIONIST by SOFÍA DUTTA Intake Chief Complaint : Throat lucero when swallowing or drinking, voice goes in and out, cough Onset of Symptoms : Since Friday Ambulatory Intake Additional Information : Pt's sister had strep about 2 weeks ago. Temperature Oral : 36.6C(Converted to: 97.9DegF) (LOW) Peripheral Pulse Rate : 76/min Respiratory Rate : 16/min Systolic Blood Pressure : 112mmHg Diastolic Blood Pressure : 72mmHg NIBP Mean : 85mmHg BP Location : Right upper extremity Actual Weight : 57.7kg(Converted to: 127lb 3oz) Weight Source : Standing scale Dosing Weight Clinic : 57.70kg SOFÍA DUTTA - 05/19/2011 13:54 SWITCHBOARD OPERATOR RECEPTIONIST General Info Information Given By : Patient, Mother SOFÍA DUTTA - 05/19/2011 13:54 SWITCHBOARD OPERATOR RECEPTIONIST Subjective Pain Symptoms : Yes SOFÍA DUTTA - 05/19/2011 13:54 SWITCHBOARD OPERATOR RECEPTIONIST Pain Pain Assessment Grid Pain 1 Location : Other: throat SOFÍA DUTTA - 05/19/2011 13:54 SWITCHBOARD OPERATOR RECEPTIONIST Dependent Habits Tobacco Use/Currently Using : No Exposure to Tobacco Smoke : Other: non tobacco home Smoking Status : Current status unknown SOFÍA DUTTA - 05/19/2011 13:54 SWITCHBOARD OPERATOR RECEPTIONIST Allergy Allergies (Active) codeine Estimated Onset Date: Unspecified ; Reactions: Upset stomach ; Created By: SOFÍA DUTTA; Reaction Status: Active ; Category: Drug ; Substance: codeine ; Type: Intolerance ; Updated By: SOFÍA DUTTA; Reviewed Date: 05/19/2011 13:54 SWITCHBOARD OPERATOR RECEPTIONIST Source: [facility] [employer] Document Id: [id number] SWITCHBOARD OPERATOR RECEPTIONIST!27 CHBOARD OPERATOR RECEPTIONIST documented in this encounter Plan of Treatment Not on filedocumented as of this encounter Visit Diagnoses Not on filedocumented in this encounter
--- OUTSIDE RECORDS SUMMARY | 2022-05-17 11:39 | XMS_ITS | Encounter Summary ---
:1995 Author Organization [facility] Address [address] [place] [address] Care Team Providers Name Role Phone Unavailable Primary Care Provider Unavailable Encounter Details Date Type Department Care Team Description 04/05/2009 Hospital Encounter HX [facility] Teodora Cadet M.D. [address] [place] [address] (Wo rk) Social History Tobacco [...] How often do you attend gnosticist or sabianist Never 11/23/2020 services? Do you belong to [...] at Date Recorded Female 05/20/2017 4:45 PM AGILE JAVA DEVELOPER documented as of this encounter Plan of Treatment Not on filedocumented as of this encounter Visit Diagnoses Not on filedocumented in this encounter
--- OUTSIDE RECORDS SUMMARY | 2022-05-17 11:39 | XMS_ITS | Encounter Summary ---
:1995 Author Organization [facility] Address [address] [place] [address] Care Team Providers Name Role Phone Unavailable Primary Care Provider Unavailable Encounter Details Date Type Department Care Team Description 12/05/2014 Hospital Encounter HX [facility] Reymundo Oneal M.D. [address] [place] [address] (Wo tamica) Social History Tobacco [...] How often do you attend cheondoism or anabaptism Never 11/23/2020 services? Do you [...] Date Recorded Female 05/20/2017 4:45 PM MANAGER COMPLIANCE documented as of this encounter Last Filed Vital Signs Vital Sign Reading Time Taken Comments Blood Pressure 116/64 12/05/2014 11:56 AM CDT Pulse 84 12/05/2014 11:56 AM CDT Temperature - - Respiratory Rate 16 12/05/2014 11:56 AM CDT Oxygen Saturation - - Inhaled Oxygen Concentration - - Weight 77.2 kg (170 lb 3.1 oz) 12/05/2014 11:56 AM CDT Height - - Body Mass Index - - documented in this encounter Progress Notes You Oneal M.D. - 12/05/2014 11:50 AM CDT [id number] HISTORY OF PRESENT ILLNESS Patient presents with burning when she urinates. It started about 3 to 4 days ago, but worsened overthe last couple of days. She has not had a fever with it, but she said she was up last night, not sleeping well. She is currently taking no medications. She has had bladder infections in the past. She is sexually active, but her last period was 1 month ago and she is not using any control. Thereis an outside chance she could be , but she does not think so since she had a normal period 1 month ago. She got nauseated with control. It is recommended she use 2 forms of control, if she would like to prevent . MEDICATIONS We reviewed her medication. ALLERGIES Reviewed her allergies. VITAL SIGNS Per EMR. PHYSICAL EXAMINATION Today, no CVA tenderness. Some suprapubic pressure, perhaps. DIAGNOSTICS Urine looks suspicious for a bladder infection. IMPRESSION/REPORT/PLAN Probable urinary tract infection. PLAN: Macrobid and symptomatic care. Contact her primary if this should worsen or not improve. You Oneal M.D./nandini Electronically Signed By: YOU ONEAL MD On: 12/12/2014 08:23 AM Source: [facility] MHSDOLBEYNONRADSYS Document Id: [id number] documented in this encounter Miscellaneous Notes Miscellaneous - Miguel Martinez M.D. - 12/06/2014 1:45 PM CDT Results Notification Document Contains Addenda Addendum by HAYDEN MCBRIDE on 06 December 2014 15:29:18 CDT patient notified of results by phone. Addendum by DEEDEE MATIAS on 06 December 2014 15:20:28 CDT TCB From: MIGUEL MARTINEZ MD To: Same Day Nurse; Sent: 12/06/2014 13:45:59 CDT ! Show up: 12/06/2014 13:45:59 CDT Subject: Results Notification Actions: Notify patient of results Reminder Comments: Finish course of Rx and recheck UA thereafter midcycle. Order entered. Results: Date Result Type Ind Result Name MBO Review Culture Urine Source: [facility] [employer] Document Id: [id number] Electronically signed by [facility] Airport Operations Specialist [id number] at 11/18/2016 3:25 PM CDT [employer] - You Oneal M.D. - 12/05/2014 12:07 PM CDT Ambulatory Patient Summary [facility] [address] [place] [phone] Visit Information Name: JEN MCGUIRE [facility] Number: [id number] Current Date: 12/05/2014 12:07:50 Physicians Attending Provider: UNKNOWN1, PROVIDER Primary Care Provider: JEANNINE UP MD MAYNORJENE has been given the following [...] the Following Medications: Medication list as of 12-05-14 12:07 Attention: If you have any medications at home that are not on this list, DO NOT take them until youcontact your provider for clarification. Give a copy of your medication list to your primary care provider. Update your medication list any time medications or doses are changed and carry your medication list at all times in case of emergency. Electronically Signed By: YOU ONEAL MD Signed On:05-DEC-2014 12:07:46 Your Allergies & Intolerances Substance Reaction Symptoms Category Comments codeine Upset stomach Drug Your Problem List Problem Status Onset Comments Dizziness Active 04/12/2008 Migraine Common Active 04/20/2008 Sports Exam Active 09/06/2009 Your Upcoming Appointments Date Time Location Provider No Appointments found Attention: Contact your local Clinic if further appointment detail needed. Your Goals/Additional instructions: Source: [facility] P[employer]CHART Document Id: [id number] Miscellaneous - You Oneal M.D. - 12/05/2014 12:07 PM CDT Ambulatory Discharge Medication List [place] [id number] [place] [id number] Visit Information Name: JEN MCGUIRE [facility] Number: [id number] Visit Date: 12/05/2014 12:07:48 Attending Provider: UNKNOWN1, PROVIDER Primary Care Provider: JEANNINE PU MD JEN MCGUIRE has been given the [...] the Following Medications: Medication list as of 12-05-14 12:07 Attention: If you have any medications at home that are not on this list, DO NOT take them until youcontact your provider for clarification. Give a copy of your medication list to your primary care provider. Update your medication list any time medications or doses are changed and carry your medication list at all times in case of emergency. Electronically Signed By: YOU ONEAL MD Signed On:05-DEC-2014 12:07:46 Additional Information: Source: [facility] [employer] Document Id: [id number] Miscellaneous - Bertha Cabrera L.P.N. - 12/05/2014 11:56 AM CDT Adult Assemblyman Or Woman Intake/History Adult Assemblyman Or Woman Intake/History Entered On: 12/05/2014 11:59 CDT Performed On: 12/05/2014 11:56 CDT by BERTHA CABRERA Intake Chief Complaint : Pt has frequency, burning, pressure with urination Onset of Symptoms : x 2 days Temperature Oral : 37.0 DegC(Converted to: 98.6 DegF) Peripheral Pulse Rate : 84 /min Respiratory Rate : 16 /min Systolic Blood Pressure : 116 mmHg Diastolic Blood Pressure : 64 mmHg NIBP Mean : 81 mmHg BP Location : Right upper extremity Blood Pressure Cuff Size : Regular Actual Weight : 77.2 kg(Converted to: 170 lb 3 oz) Dosing Weight Clinic : 77.2 kg BERTHA CABRERA - 12/05/2014 11:56 CDT General Info Information Given By : Patient Preferred Communication Mode : Verbal Languages : Spanish Is Patient Female and 13-50 no hysterectomy : Yes Status : Patient denies Are you ? : No BERTHA CABRERA - 12/05/2014 11:56 CDT Subjective Pain Symptoms : Yes BERTHA CABRERA - 12/05/2014 11:56 CDT Pain Scale Pain Scale Verbal 0-10 : Open BERTHA CABRERA - 12/05/2014 11:56 CDT Pain Pain Assessment Grid Pain 1 Location : Bladder BERTHA CABRERA - 12/05/2014 11:56 CDT Dependent Habits Tobacco Use/Currently Using : Yes Exposure to Tobacco Smoke : Other: non tobacco home Smoking Status : Current every day smoker BERTHA CABRERA - 12/05/2014 11:56 CDT Source: [facility] [employer] Document Id: [id number] CDT!33 documented in this encounter Plan of Treatment Not on filedocumented as of this encounter Procedures Procedure Name Priority Date/Time Associated Comments Diagnosis BACTERIAL CULTURE, Routine 12/05/2014 12:06 PM Re sults for this AEROBIC, URINE CDT procedure are in the results section. HXUR % DYSMORPHIC Routine 12/05/2014 12:04 PM Res ults for this RBC CDT procedure are i n the results section. URINALYSIS, Routine 12/05/2014 12:04 PM Results for this MIDSTREAM, WITH CDT procedure ar e in CULTURE IF INDICATED the res ults section. documented in this encounter Results Bacterial Culture, Aerobic, Urine (12/05/2014 12:06 PM CDT) [facility] Method Time Signature Bacterial POWERCHART Culture, Aerobic, Urine HXFinal Mixed edel. No POWERCHART further studies unless notified. [facility] POWERCHART Microbiology laboratory [phone]. Specimen Anatomical Collection Method Collection Time Receive d Time (Source) Location / / Volume Laterality Urine, First 12/05/2014 12:06 12/05/2014 Voided PM CDT 12:06 PM CDT You Oneal M.D. LAB MICROBIOLOGY - GENERAL O RDERABLES Performing Organization Address City/[facility] Code Phon e Number POWERCHART HXUR % DYSMORPHIC RBC (12/05/2014 12:04 PM CDT) athologist Signature Dysmorphic RBC <=25 <=25 POWERCHART Specimen Anatomical Collection Method Collection Time Receive d Time (Source) Location / / Volume Laterality Urine, First 12/05/2014 12:04 12/05/2014 Voided PM CDT 12:04 PM CDT You Oneal M.D. LAB HISTORICAL ORDERS Performing Organization Address City/[facility] Code Phon e Number POWERCHART (ABNORMAL) Urinalysis, Midstream, with culture if indicated (12/05/2014 12:04 PM CDT) [facility] Method Time Signature HXUR WBC. 11-20 (A) None Seen POWERCHART HPF HXUR RBC. 3-10 (A) None Seen POWERCHART HPF HXUR Bacteria, Present (A) None Seen POWERCHART Squamous 4-10 (A) None Seen POWERCHART Epithelial HPF HXUr Color STRAW POWERCHART Clarity Clear Clear POWERCHART Glucose Negative Negative POWERCHART HXBILIRUBIN Negative Negative POWERCHART Ketones, QL(U) Negative Negative POWERCHART Specific <=1.005 (A) POWERCHART [place], POCT, U pH, POCT, Urine 6.0 <5.0 POWERCHART Protein, Ur, Dip Negative Negative POWERCHART Urobilinogen 0.2 0.2 MGDL POWERCHART HXNITRITE Negative Negative POWERCHART HXBLOOD Small (A) Negative POWERCHART Leukocyte Moderate Negative POWERCHART Esterase (A) Specimen (Source) Anatomical Collection Method Collection Time Re ceived Time Location / / Volume Laterality Urine, First 12/05/2014 12:04 Voided PM CDT You Oneal M.D. LAB URINE ORDERABLES Performing Organization Address City/State/ZIP Code Phon e Number POWERCHART documented in this encounter Visit Diagnoses Not on filedocumented in this encounter Additional Health Concerns Assessment Noted Time PHQ-9 Depression Total Score: 14 07/26/2013 11:[address] documented as of this encounter
--- OUTSIDE RECORDS SUMMARY | 2022-05-17 11:39 | XMS_ITS | Encounter Summary ---
:1995 Author Organization [facility] Address [address] [place] [address] Care Team Providers Name Role Phone Unavailable Primary Care Provider Unavailable Encounter Details Date Type Department Care Team Description 05/08/2011 Hospital Encounter HX [facility] Teodora Cadet M.D. [address] [place] [address] (Wo rk) Social History Tobacco [...] How often do you attend mosque or mandaen Never 11/23/2020 services? Do you belong to [...] at Date Recorded Female 05/20/2017 4:45 PM BRUSHING OPERATOR documented as of this encounter Progress Notes Jeannine Cadet M.D. - 05/08/2011 12:00 AM CST [id number] CHIEF COMPLAINT / REASON FOR VISIT Recheck after starting control pills. HISTORY OF PRESENT ILLNESS Emily is a 15-year-old who comes in for recheck after starting her control pills. We started these because of moodiness, acne and some anxiety. We felt that perhaps some of her anxiety might be because of the moods and hormones. Things are definitely starting to help in the acne department. Mom feels that she is starting to talk a little bit more and have perhaps less sad days. When I talked to Emily on her own she states that she does not know that she has less sad days. Perhaps they are less deeper sadness, but that is questionable. She is happy that her face is getting better. She still feels some anxiety. She reports that she did tell her mom about skipping school. She reports that her mom thought she was on drugs and they were talking about it and she did not want her mom to be worried that she was into something more serious and so she told her about skipping school. She did get in trouble and is actually not happy she told them about skipping school because now they are checking on her constantly and checking grades. However, she has not skipped school since I last saw her. She denies trying alcohol or drugs again. She feels relatively pleased about that. She is also sleeping better. She is going to bed later, somewhere between 9:50 and 10:30 and falls asleep much more quickly. She is pleased with that as well. She is average tired' in the morning. She is also trying harder in class and improving her grades. Her appetite is good. She denies any suicidal ideation. She states that when she gets depressed she just wants to sleep. On weekends, she will just go in her room and try to sleep. VITAL SIGNS WEIGHT: 58.3 kg HEIGHT: 168.7 cm PULSE: 72 BLOOD PRESSURE: 96/72 PHYSICAL EXAM GENERAL: Emily is alert. She is in good spirits. No acute distress. SKIN: Mild acne on the forehead. It has improved from previous. IMPRESSION/REPORT/PLAN 1) Young lady with acne, mood changes and anxiety with some depression. She is getting some improvement on her control pills. I am still concerned about the anxiety and depression, but she seems stable. I am encouraged her by her keeping her goals. I am also encouraged that she was able to talk to mom about at least some of these things. PLAN: 1) Encouraged her and gave her praise for being able to meet those goals even though she did not like the consequences. Also discussed that I am proud that she is willing to talk about these things. 2) Discussed again her plan, if she feels suicidal she is to call her friend, Jeri. 3) I offered that I am always available by phone. I am in the phone book or she can call me at the clinic. 4) Will follow up in 1 month or sooner as needed. 5) Recommended that they go ahead and get an appointment with a counselor and see how things go. It will probably take a month to get into a counselor and if things are going better they can cancel. Jeannine Cadet M.D. [facility] Electronically Signed By: JEANNINE CADET MD On: 05/20/2011 01:30 PM Source: [facility] MHSDOLBEYNONRADSYS Document Id: [id number] HING OPERATOR documented in this encounter Miscellaneous Notes Miscellaneous - Conversion, Historical Provider Ser - 05/08/2011 4:31 PM BRUSHING OPERATOR Pediatric Rn Endocrinology Intake/History Pediatric Rn Endocrinology Intake/History Entered On: 05/08/2011 16:32 BRUSHING OPERATOR Performed On: 05/08/2011 16:31 BRUSHING OPERATOR by ED BENSON Intake Chief Complaint : recheck after startin bc pils Peripheral Pulse Rate : 72/min Systolic Blood Pressure : 96mmHg Diastolic Blood Pressure : 72mmHg NIBP Mean : 80mmHg BP Location : Right upper extremity Heart Rhythm : Regular Height : 168.7cm(Converted to: 5ft 6inch(es), 66.42inch(es)) Actual Weight : 58.3kg(Converted to: 128lb 8oz) Weight Source : Standing scale Dosing Weight Clinic : 58.30kg Clinic BSA : 1.65 Body Mass Index : 20.49kg/m2 ED BENSON - 05/08/2011 16:31 BRUSHING OPERATOR Subjective Pain Symptoms : No ED BENSON - 05/08/2011 16:31 BRUSHING OPERATOR Dependent Habits Tobacco Use/Currently Using : No Exposure to Tobacco Smoke : Other: non tobacco home Smoking Status : Never smoker Alcohol Use : Yes ED BENSON - 05/08/2011 16:31 BRUSHING OPERATOR Allergy Allergies (Active) NKA Estimated Onset Date: Unspecified ; Created By: ED BENSON; Reaction Status: Active ; Category: Drug ; Substance: NKA ; Type: Allergy ; Updated By: ED BENSON; Source: Family ; Reviewed Date: 05/08/2011 16:29 BRUSHING OPERATOR Source: [facility] POWERCHART Document Id: [id number] BRUSHING OPERATOR!22 documented in this encounter Plan of Treatment Not on filedocumented as of this encounter Visit Diagnoses Not on filedocumented in this encounter
--- OUTSIDE RECORDS SUMMARY | 2022-05-17 11:39 | XMS_ITS | Encounter Summary ---
:1995 Author Organization [facility] Address [address] [place] [address] Care Team Providers Name Role Phone Unavailable Primary Care Provider Unavailable Encounter Details Date Type Department Care Team Description 05/21/2011 Hospital Encounter HX [facility] Palma Bull M.D. [address] [place] [address] (Wo rk) Social History Tobacco [...] How often do you attend adventist or congregation Never 11/23/2020 services? Do you [...] at Date Recorded Female 05/20/2017 4:45 PM POOLING OPERATOR documented as of this encounter Progress Notes Alyssa Bull M.D. - 05/21/2011 12:00 AM CST [id number] CHIEF COMPLAINT / REASON FOR VISIT Cough. HISTORY OF PRESENT ILLNESS Emily is a 15-year-old white female here with her mom for ongoing cough and sore throat. Symptoms started 5 days ago, and she was seen in Urgent Care two days ago. A rapid strep and culture were negative. She was diagnosed with a cold. The cough is more frequent, and she continues to have a sore throat and hoarse voice. Patient and mother expected it to be better by now. She was going to go to school today but is very tired and coughing more frequently. They tried Robitussin and ibuprofen at bedtime last night. She has had low-grade fever on and off until today, when the fever seems to be gone. Family members and friends are well. She has no history of reactive airway disease or other chronic illnesses. No vomiting or diarrhea, but she has felt a little bit nauseous now and then. She is drinking well but has less of an appetite than usually. CURRENT MEDICATIONS Ibuprofen. Robitussin. Ortho Cyclen. ALLERGIES Codeine causes an upset stomach. VITAL SIGNS WEIGHT: 56.7 kg TEMP: 36.7 degreesC RESP RATE: 16 PULSE: 72 BLOOD PRESSURE: 100/62 PHYSICAL EXAM GENERAL: Alert and active female with a frequent loose cough and hoarse voice. ENT: TMs are hays with normal light reflexes and no fluid. Nose is clear with occasional sniffing. Oropharynx is pink and moist without erythema. Neck is supple with small nontender anterior cervical nodes bilaterally. HEART: Regular rate and rhythm without murmur. LUNGS: There was an initial crackle at the right base, but it cleared with coughing. No obvious wheezes. Good air movement. IMPRESSION / REPORT / PLAN 1) Upper respiratory infection, possible early pneumonia. I recommend continuing symptomatic treatment, but trying NyQuil at bedtime tonight. Offered Hycodan syrup, but the patient deferred based on her experience with codeine in the past. Continue to push fluids today. Should fever recur tomorrow or patient not feel like she is turning the corner, I have given a prescription for Zithromax 500 mg on the first day and then 250 mg once a day after that for 4 more days. They will wait until tomorrow or to fill that. Alyssa Bull M.D. pas Electronically Signed By: ALYSSA BULL MD On: 05/30/2011 02:49 PM Source: [facility] MHSDOLBEYNONRADSYS Document Id: [id number] ING OPERATOR documented in this encounter Miscellaneous Notes Miscellaneous - Jose Ramon Hennessy, L.P.N. - 05/21/2011 9:28 AM CST Pediatric Dredging Inspector Intake/History Pediatric Dredging Inspector Intake/History Entered On: 05/21/2011 9:31 POOLING OPERATOR Performed On: 05/21/2011 9:28 POOLING OPERATOR by JOSE RAMON HENNESSY Intake Chief Complaint : cough and sore throat was in on Friday neg strep worse now, hard to breath and coughing a lot fever really tired Temperature Oral : 36.7C(Converted to: 98.1DegF) Apical Heart Rate : 72/min Respiratory Rate : 16/min Systolic Blood Pressure : 100mmHg Diastolic Blood Pressure : 62mmHg NIBP Mean : 75mmHg BP Location : Right upper extremity Actual Weight : 56.7kg(Converted to: 125lb 0oz) Dosing Weight Clinic : 56.70kg JOSE RAMON HENNESSY - 05/21/2011 9:28 POOLING OPERATOR General Info Accompanied By : Mother Information Given By : Patient, Mother JOSE RAMON HENNESSY - 05/21/2011 9:28 POOLING OPERATOR Subjective Pain Symptoms : Yes JOSE RAMON HENNESSY - 05/21/2011 9:28 POOLING OPERATOR Dependent Habits Tobacco Use/Currently Using : No Exposure to Tobacco Smoke : Other: non tobacco home Smoking Status : Never smoker JOSE RAMON HENNESSY - 05/21/2011 9:28 POOLING OPERATOR Allergy Allergies (Active) codeine Estimated Onset Date: Unspecified ; Reactions: Upset stomach ; Created By: SOFÍA DUTTA Reaction Status: Active ; Category: Drug ; Substance: codeine ; Type: Intolerance ; Updated By: SOFÍA DUTTA; Reviewed Date: 05/19/2011 13:54 POOLING OPERATOR Source: [facility] POWERCHART Document Id: [id number] POOLING OPERATOR!21 ING OPERATOR documented in this encounter Plan of Treatment Not on filedocumented as of this encounter Visit Diagnoses Not on filedocumented in this encounter
--- OUTSIDE RECORDS SUMMARY | 2022-05-17 11:39 | XMS_ITS | Encounter Summary ---
:1995 Author Organization [facility] Address [address] [place] [address] Care Team Providers Name Role Phone Unavailable Primary Care Provider Unavailable Encounter Details Date Type Department Care Team Description 05/18/2013 Hospital Encounter HX NO MAPPING Germán Garcia M.D. [address] [place], [place] [address] (Wo rk) Social History [...] How often do you attend episcopalian or sabianist Never 11/23/2020 services? Do you [...] at Date Recorded Female 05/20/2017 4:45 PM TOY MECHANIC documented as of this encounter Plan of Treatment Not on filedocumented as of this encounter Visit Diagnoses Not on filedocumented in this encounter
--- OUTSIDE RECORDS SUMMARY | 2022-05-17 11:39 | XMS_ITS | Encounter Summary ---
:1995 Author Organization [facility] Address [address] [place] [address] Care Team Providers Name Role Phone Unavailable Primary Care Provider Unavailable Encounter Details Date Type Department Care Team Description 06/15/2015 Hospital Encounter HX [facility] Gustavo Rowe M.D. [address] [place], [place] [phone] (Wo rk) Social History [...] 11/23/2020 relatives? How often do you attend amish or jehovah's witness Never 11/23/2020 services? Do you belong to any clubs or organizations such as No 11/23/2020 amish groups, unions, fraternal or athletic groups, or [...] at Date Recorded Female 05/20/2017 4:45 PM PHYSICAL LABORATORY ASSISTANT documented as of this encounter Last Filed Vital Signs Vital Sign Reading Time Taken Comments Blood Pressure 116/52 06/15/2015 10:54 AM PHYSICAL LABORATORY ASSISTANT Pulse - - Temperature - - Respiratory Rate - - Oxygen Saturation - - Inhaled Oxygen Concentration - - Weight 80 kg (176 lb 5.9 oz) 06/15/2015 10:54 AM PHYSICAL LABORATORY ASSISTANT Height 171 cm (5' 7.32) 06/15/2015 10:54 AM PHYSICAL LABORATORY ASSISTANT Body Mass Index 27.36 06/15/2015 10:54 AM PHYSICAL LABORATORY ASSISTANT documented in this encounter H&P Notes Rachel Peralta M.D. - 06/15/2015 10:29 AM CST [id number] CHIEF COMPLAINT/REASON FOR VISIT Establish OB care. HISTORY OF PRESENT ILLNESS Patient is a 19-year-old G1, P0, who presents to the clinic at 9 weeks 2 days' gestation by an LMP of 04/11/2015 giving her an ISATU of 01/16/2016, which is consistent with a 9-week ultrasound. She is here to establish OB care. She is very excited about this . This is an unplanned for and her boyfriend, Luis. The patient was on oral contraceptive pills; however, experienced a bout of viral gastroenteritis and had 4 days of nausea, vomiting, and diarrhea and thinks that she became because she missed her oral contraceptive pill during that time. The patient's family and her boyfriend's family are supportive of the . Emily and Luis have been dating for approximately 10 or 11 months. The patient denies any vaginal bleeding. She is experiencing some breast tenderness and fatigue. Patient is also missing work secondary to nausea and wondering if she can get amedication for that. SYSTEMS REVIEW Obtained and is negative other than stated in the HPI. PAST MEDICAL/SURGICAL HISTORY 1. Migraine headaches. 2. Former smoker. 3. History of depression and anxiety. 4. Tonsillectomy and adenoidectomy. 5. Right arm fracture. PAST BARIATRIC PROGRAM COORDINATOR HISTORY Patient is a G1, P0, LMP of 04/11/2015, ISATU of 01/16/2016, that is consistent with a first-trimesterultrasound performed today. This is an unplanned . The patient was using oral contraceptivepills, however, missed 4 days of pills. She denies any history of sexually transmitted infections. She has never had a pelvic exam or Pap smear. The patient is currently dating Luis, who is the father of this . She is currently in college getting her general education credits and working at [email or web address]. SOCIAL HISTORY Patient denies any tobacco, alcohol, or recreational drugs. FAMILY HISTORY Significant for a grandfather with hypertension and a myocardial infarction. PHYSICAL EXAMINATION VITALS: Height is 171 cm, weight 80 kg, BMI 27.4. Blood pressure is 116/52. GENERAL: This is a well-developed female, no acute distress. She is alert and oriented. HEENT: Normocephalic, atraumatic. Pupils are equal and round. HEART: Regular rate and rhythm. No murmurs, rubs, or gallops noted. LUNGS: Clear to auscultation bilaterally without wheezes or crackles. BREASTS: Normal symmetric breasts bilaterally. No skin changes or nipple discharge. No dominant masses or lesions. No axillary lymphadenopathy. ABDOMEN: Normoactive bowel sounds. Soft, nontender, nondistended. No rebound or guarding. No suprapubic tenderness. GENITOURINARY: Normal-appearing external female genitalia. BUS is normal. Vaginal mucosa is pink andwell rugated with physiological discharge. There is a normal-appearing nulliparous cervix without lesion. Gonorrhea and Chlamydia swab was obtained. Bimanual exam reveals a cervix that is long, thick, and closed. Nontender. The uterus is consistent with a 9-week gestation and nontender. There is no adnexal masses or tenderness. EXTREMITIES: Warm and nontender. DIAGNOSTICS labs from 05/23/2015. Hemoglobin 13.3, platelet count 312. Syphilis IgG is negative. HIV 1 and 2 antibody and antigen screen is negative. Rubella IgG positive signifying immunity. Hepatitis B surface antigen is negative. Blood type O positive with a negative antibody screen. IMPRESSION/REPORT/PLAN Patient is a 19-year-old G1, P0 at 9 weeks 2 days. 1. Intrauterine status is reassuring on the ultrasound prior to her appointment today. 2. care. Estimated due date of 01/16/2016. This is based on a last menstrual period of 04/11/2015 and consistent with a first-trimester ultrasound performed today. I did discuss the frequency of visits with the patient. I will see her every 4 weeks until 28 weeks and then every 2 weeks until 36 weeks and then weekly thereafter. I did discuss anatomy ultrasound at 20 weeks' gestation and also gestational diabetes screen. I did discuss optional first-trimester screen with the patient; however, she would like to talk to her boyfriend prior to making a decision. Patient was encouraged to talk to Luis and call the clinic if they desire first-trimester screening so that this can be scheduled in an appropriate and timely manner. 3. Patient declines flu shot today. States she wants to think about this and may consider it at her next appointment. 4. Nausea. A prescription for Zofran was sent to the patient's pharmacy. 5. History of migraine headaches. I did discuss the use of Tylenol during . 6. History of depression and anxiety. This is remote. Patient is not currently on medications with no signs of depression today. 7. precautions are reviewed. 8. Patient to return to clinic in 4 weeks. Rachel Peralta M.D./nandini Electronically Signed By: RACHEL PERALTA MD On: 06/21/2015 12:44 PM Source: [facility] MHSDOLBEYNONRADSYS Document Id: [id number] ICAL LABORATORY ASSISTANT documented in this encounter Miscellaneous Notes Miscellaneous - Rachel Peralta M.D. - 06/15/2015 11:07 AM CST Ambulatory Patient Summary [facility] [address] [place] [id number] Visit Information Name: MAYNOR EMILY MOE [facility] Number: [id number] Current Date: 06/15/2015 11:07:19 Physicians Attending Provider: RACHEL PERALTA MD Primary [...] tablet) 1 Tablet(s), Oral, every 8 hours Routed to [place] [address], [place] [id number] Stop Taking the Following Medications: Medication list as of 06-15-15 11:07 Attention: If you have any medications at [...] Electronically Signed By: RACHEL PERALTA MD Signed On:15-JUN-2015 11:07:14 Your Allergies & Intolerances Substance Reaction Symptoms [...] if you dont have one. Go to [email or web address] and click on Create Your Account. Then, follow the directions to complete the online form. Youll be asked for your [facility] number which you can find at the top of this document. Your Goals/Additional instructions: Source: [facility] POWERCHART Document Id: [id number] ICAL LABORATORY ASSISTANT [facility] - Rachel Peralta M.D. - 06/15/2015 11:07 AM CST Ambulatory Discharge Medication List [facility] [address] [place] [id number] Visit Information Name: EMILY MCGUIRE [facility] Number: [id number] Visit Date: 06/15/2015 11:07:18 Attending Provider: RACHEL PERALTA MD Primary Care [...] tablet) 1 Tablet(s), Oral, every 8 hours Routed to [address] [id number] Stop Taking the Following Medications: Medication list as of 06-15-15 11:07 Attention: If you have any medications at [...] Electronically Signed By: RACHEL PERALTA MD Signed On:15-JUN-2015 11:07:14 Additional Information: Source: [facility] POWERCHART Document Id: [id number] ICAL LABORATORY ASSISTANT Miscellaneous - Diomedes Mares, L.P.N. - 06/15/2015 10:54 AM CST Adult Retail Area Manager Intake/History Adult Retail Area Manager Intake/History Entered On: 06/15/2015 10:56 PHYSICAL LABORATORY ASSISTANT Performed On: 06/15/2015 10:54 PHYSICAL LABORATORY ASSISTANT by DIOMEDES MARES LPN Intake Chief Complaint : ob check LMP Date : Systolic Blood Pressure : 116 mmHg Diastolic Blood Pressure : 52 mmHg NIBP Mean : 73 mmHg Height : 171 cm(Converted to: 5 ft 7 inch(es), 67 inch(es)) Actual Weight : 80.0 kg(Converted to: 176 lb 6 oz) Dosing Weight Clinic : 80 kg Clinic BSA : 1.95 Body Mass Index : 27.36 kg/m2 DIOMEDES MARES LPN - 06/15/2015 10:54 PHYSICAL LABORATORY ASSISTANT General Info Information Given By : Patient Languages : Georgian Is Patient Female and 13-50 no hysterectomy : Yes Status : Confirmed positive Are you ? : No DIOMEDES MARES LPN - 06/15/2015 10:54 PHYSICAL LABORATORY ASSISTANT Subjective Pain Symptoms : No DIOMEDES MARES LPN - 06/15/2015 10:54 PHYSICAL LABORATORY ASSISTANT Dependent Habits Exposure to Tobacco Smoke : Other: non tobacco home Smoking Status : Never smoker Tobacco 2A : No DIOMEDES MARES LPN - 06/15/2015 10:54 PHYSICAL LABORATORY ASSISTANT [facility] Document Id: [id number] PHYSICAL LABORATORY ASSISTANT!24 ICAL LABORATORY ASSISTANT documented in this encounter Plan of Treatment Not on filedocumented as of this encounter Procedures Procedure Name Priority Date/Time Associated Comments Diagnosis CHLAMYDIA/GONORRHOEAE Routine 06/15/2015 12:41 Re sults for this AMPLIFIED RNA PM PHYSICAL LABORATORY ASSISTANT procedure are in the results section. CHLAMYDIA TRACHOMATIS Routine 06/15/2015 12:41 Re sults for this AMPLIFIED RNA PM PHYSICAL LABORATORY ASSISTANT procedure are in the results section. documented in this encounter Results Chlamydia / Gonorrhoeae Amplified RNA (06/15/2015 12:41 PM PHYSICAL LABORATORY ASSISTANT) Component Value Ref Test Analysis Performed At [facility] Range Method Time Signature HX GC by Nucleic POWERCHART Acid Amplification HXFinal Negative for POWERCHART Neisseria gonorrhea by RNA amplification . HXFinal Reference: POWERCHART Negative HXFinal If you POWERCHART submitted a female urine sample, please note it is a Laboratory Developed Test. Specimen (Source) Anatomical Collection Method Collection Time Re ceived Time Location / / Volume Laterality Cervix/Endocervix 06/15/2015 12:41 PM PHYSICAL LABORATORY ASSISTANT Rachel Peralta M.D. LAB MICROBIOLOGY - GENERAL O EVELYN Performing Organization Address City/State/ZIP Code Phon e Number POWERCHART Chlamydia Trachomatis Amplified RNA (06/15/2015 12:41 PM PHYSICAL LABORATORY ASSISTANT) Component Value Ref Test Analysis Performed At [facility] Range Method Time Signature HXChlamydia by POWERCHART Nucleic Acid Amplification HXFinal Negative for POWERCHART Chlamydia trachomatis by RNA amplification. HXFinal Reference: POWERCHART Negative HXFinal If you POWERCHART submitted a female urine sample, please note it is a Laboratory Developed Test. Specimen (Source) Anatomical Collection Method Collection Time Re ceived Time Location / / Volume Laterality Cervix/Endocervix 06/15/2015 12:41 PM PHYSICAL LABORATORY ASSISTANT Racehl Peralta M.D. LAB MICROBIOLOGY - GENERAL Jeffrey RIVAS Performing Organization Address City/State/ZIP Code Phon e Number POWERCHART documented in this encounter Visit Diagnoses Not on filedocumented in this encounter Additional Health Concerns Assessment Noted Time PHQ-9 Depression Total Score: 14 07/26/2013 11:[address] documented as of this encounter
--- OUTSIDE RECORDS SUMMARY | 2022-05-17 11:39 | XMS_ITS | Encounter Summary ---
:1995 Author Organization [facility] Address [address] [place] [address] Care Team Providers Name Role Phone Unavailable Primary Care Provider Unavailable Encounter Details Date Type Department Care Team Description 05/29/2014 Hospital Encounter HX NO MAPPING Germán Garcia M.D. [address] [place], [place] [address] (Wo rk) Social History [...] How often do you attend islam or sabianism Never 11/23/2020 services? Do you [...] at Date Recorded Female 05/20/2017 4:45 PM MEDICAL ASSISTANT PRN documented as of this encounter Plan of Treatment Not on filedocumented as of this encounter Procedures Procedure Name Priority Date/Time Associated Diagnosis Comme nts DX ANKLE RIGHT 3+ Routine 05/29/2014 7:24 PM Resu lts for this VIEWS MEDICAL ASSISTANT PRN procedure are i n the results section. documented in this encounter Results DX Ankle Right 3+ Views (05/29/2014 7:24 PM MEDICAL ASSISTANT PRN) Anatomical Region Laterality Modality Lower Extremity, Ankle Right Radiographic Imag ing Specimen (Source) Anatomical Collection Method Collection Time Re ceived Time Location / / Volume Laterality 05/29/2014 7:24 PM MEDICAL ASSISTANT PRN Impressions 05/29/2014 8:23 PM MEDICAL ASSISTANT PRN Negative. Narrative 05/29/2014 8:23 PM MEDICAL ASSISTANT PRN EXAM: XR Ankle Right 3 or more views INDICATION: ankle injury AGE: 18 years-old COMPARISON: None. FINDINGS: No acute fracture or subluxati on. No degenerative joint disease. Procedure Note Tushar Walden M.D. / ProviderHarish M.D. - 11/02/2016 EXAM: XR Ankle Right 3 or more views INDICATION: ankle injury AGE: 18 years-old COMPARISON: None. FINDINGS: No acute fracture or subluxati on. No degenerative joint disease. IMPRESSION: Negative. Myra Tarango(Martha) Geena DIAGNOSTIC IMAGING PROC EDURES documented in this encounter Visit Diagnoses Not on filedocumented in this encounter Additional Health Concerns Assessment Noted Time PHQ-9 Depression Total Score: 14 07/26/2013 11:[address] documented as of this encounter
--- OUTSIDE RECORDS SUMMARY | 2022-05-17 11:40 | XMS_ITS | Encounter Summary ---
:1995 Author Organization [facility] Address [address] [place] [address] Care Team Providers Name Role Phone Unavailable Primary Care Provider Unavailable Encounter Details Date Type Department Care Team Description 09/10/2007 Hospital Encounter [facility] Duncan Michelle, P.A.-C. [address] [place] [address] (Wo rk) Social History Tobacco Use Types [...] 11/23/2020 relatives? How often do you attend lutheran or jehovah's witness Never 11/23/2020 services? Do you belong to any clubs or organizations such as No 11/23/2020 lutheran groups, unions, fraternal or athletic groups, or [...] at Date Recorded Female 05/20/2017 4:45 PM SUPPLIER QUALITY SPECIALIST documented as of this encounter Plan of Treatment Not on filedocumented as of this encounter Visit Diagnoses Not on filedocumented in this encounter
--- OUTSIDE RECORDS SUMMARY | 2022-05-17 11:40 | XMS_ITS | Encounter Summary ---
:1995 Author Organization [facility] Address [address] [place] [address] Care Team Providers Name Role Phone Unavailable Primary Care Provider Unavailable Encounter Details Date Type Department Care Team Description 04/16/2006 Hospital Encounter [facility]X [facility] Valentín Sarabia M.D. [address] [place], [place] [address] (Wo rk) Social History Tobacco Use Types [...] How often do you attend anglican or presybeterian Never 11/23/2020 services? Do you [...] Date Recorded Female 05/20/2017 4:45 PM HOME CARE ATTENDANT documented as of this encounter Plan of Treatment Not on filedocumented as of this encounter Visit Diagnoses Not on filedocumented in this encounter
--- OUTSIDE RECORDS SUMMARY | 2022-05-17 11:40 | XMS_ITS | Encounter Summary ---
:1995 Author Organization [facility] Address [address] [place] [address] Care Team Providers Name Role Phone Unavailable Primary Care Provider Unavailable Encounter Details Date Type Department Care Team Description 10/28/2004 Hospital Encounter [facility] Cody Cheung M.D. Social History Tobacco Use Types Packs/Day [...] How often do you attend nondenominational or confucianist Never 11/23/2020 services? Do you [...] at Date Recorded Female 05/20/2017 4:45 PM PHOTOGRAPHIC MACHINE OPERATOR documented as of this encounter Plan of Treatment Not on filedocumented as of this encounter Visit Diagnoses Not on filedocumented in this encounter
--- OUTSIDE RECORDS SUMMARY | 2022-05-17 11:40 | XMS_ITS | Encounter Summary ---
:1995 Author Organization [facility] Address [address] [place] [address] Care Team Providers Name Role Phone Unavailable Primary Care Provider Unavailable Encounter Details Date Type Department Care Team Description 07/10/2000 Hospital Encounter HX NO MAPPING Humera Omalley Au. D. Social History Tobacco Use Types Packs/Day Years [...] 11/23/2020 relatives? How often do you attend mormonism or hoahaoism Never 11/23/2020 services? Do you belong to any clubs or organizations such as No 11/23/2020 mormonism groups, unions, fraternal or athletic groups, or [...] at Date Recorded Female 05/20/2017 4:45 PM ROOF SERVICE TECHNICIAN documented as of this encounter Plan of Treatment Not on filedocumented as of this encounter Visit Diagnoses Not on filedocumented in this encounter
--- OUTSIDE RECORDS SUMMARY | 2022-05-17 11:40 | XMS_ITS | Encounter Summary ---
:1995 Author Organization [facility] Address [address] [place] [address] Care Team Providers Name Role Phone Unavailable Primary Care Provider Unavailable Encounter Details Date Type Department Care Team Description 04/28/2006 Hospital Encounter [facility]X [facility] Teodora Cadet M.D. [address] [place] [address] (Wo rk) Social History Tobacco [...] How often do you attend methodist or zoroastrianism Never 11/23/2020 services? Do you belong to [...] at Date Recorded Female 05/20/2017 4:45 PM ICE CREAM FREEZER documented as of this encounter Plan of Treatment Not on filedocumented as of this encounter Visit Diagnoses Not on filedocumented in this encounter
--- OUTSIDE RECORDS SUMMARY | 2022-05-17 11:40 | XMS_ITS | Encounter Summary ---
:1995 Author Organization [facility] Address [address] [place] [address] Care Team Providers Name Role Phone Unavailable Primary Care Provider Unavailable Encounter Details Date Type Department Care Team Description 06/17/2002 Hospital Encounter [facility]X [facility] FAMILY[facility] Reymundo Oneal M.D. [address] [place] [address] (Wo tamica) Social History Tobacco [...] How often do you attend methodist or hinduism Never 11/23/2020 services? Do you [...] at Date Recorded Female 05/20/2017 4:45 PM ANODIC TREATER documented as of this encounter Plan of Treatment Not on filedocumented as of this encounter Visit Diagnoses Not on filedocumented in this encounter
--- OUTSIDE RECORDS SUMMARY | 2022-05-17 11:40 | XMS_ITS | Encounter Summary ---
:1995 Author Organization [facility] Address [address] [place] [address] Care Team Providers Name Role Phone Unavailable Primary Care Provider Unavailable Encounter Details Date Type Department Care Team Description 06/14/2003 Hospital Encounter HX [facility] Teodora Cadet M.D. [address] [place] [address] (Wo rk) Social History Tobacco [...] How often do you attend mu-ism or yazidism Never 11/23/2020 services? Do you [...] at Date Recorded Female 05/20/2017 4:45 PM USED CAR RENOVATOR documented as of this encounter Plan of Treatment Not on filedocumented as of this encounter Visit Diagnoses Not on filedocumented in this encounter
--- OUTSIDE RECORDS SUMMARY | 2022-05-17 11:40 | XMS_ITS | Encounter Summary ---
:1995 Author Organization [facility] Address [address] [place] [address] Care Team Providers Name Role Phone Unavailable Primary Care Provider Unavailable Encounter Details Date Type Department Care Team Description 10/01/2004 Hospital Encounter [facility]X [facility] Gaston Arshad W, P.A. [address] [place] [address] (Wo rk) Social History Tobacco Use Types [...] How often do you attend evangelical or sikh Never 11/23/2020 services? Do you belong to [...] at Date Recorded Female 05/20/2017 4:45 PM INSOLE TAPE STITCHER UCO documented as of this encounter Plan of Treatment Not on filedocumented as of this encounter Visit Diagnoses Not on filedocumented in this encounter
--- OUTSIDE RECORDS SUMMARY | 2022-05-17 11:40 | XMS_ITS | Encounter Summary ---
:1995 Author Organization [facility] Address [address] [place] [address] Care Team Providers Name Role Phone Unavailable Primary Care Provider Unavailable Encounter Details Date Type Department Care Team Description 08/03/2001 Hospital Encounter [facility]X [facility] Teodora Cadet M.D. [address] [place] [address] (Wo rk) Social History Tobacco [...] How often do you attend adventism or nondenominational Never 11/23/2020 services? Do you belong to [...] at Date Recorded Female 05/20/2017 4:45 PM ESTIMATOR LUMBER documented as of this encounter Plan of Treatment Not on filedocumented as of this encounter Visit Diagnoses Not on filedocumented in this encounter
--- OUTSIDE RECORDS SUMMARY | 2022-05-17 11:40 | XMS_ITS | Encounter Summary ---
:1995 Author Organization [facility] Address [address] [place] [address] Care Team Providers Name Role Phone Unavailable Primary Care Provider Unavailable Encounter Details Date Type Department Care Team Description 08/17/2002 Hospital Encounter [facility]X [facility] Teodora Cadet M.D. [address] [place] [address] (Wo rk) Social History Tobacco [...] How often do you attend restorationist or adventist Never 11/23/2020 services? Do you [...] Date Recorded Female 05/20/2017 4:45 PM CARAMEL MAKER documented as of this encounter Plan of Treatment Not on filedocumented as of this encounter Visit Diagnoses Not on filedocumented in this encounter
--- OUTSIDE RECORDS SUMMARY | 2022-05-17 11:40 | XMS_ITS | Encounter Summary ---
:1995 Author Organization [facility] Address [address] [place] [address] Care Team Providers Name Role Phone Unavailable Primary Care Provider Unavailable Encounter Details Date Type Department Care Team Description 05/19/2002 Hospital Encounter [facility]X [facility] Teodora Cadet M.D. [address] [place] [address] (Wo rk) Social History Tobacco [...] 11/23/2020 relatives? How often do you attend zoroastrianism or jain Never 11/23/2020 services? Do you belong to any clubs or organizations such as No 11/23/2020 zoroastrianism groups, unions, fraternal or athletic groups, or [...] Date Recorded Female 05/20/2017 4:45 PM PATTERN STORAGE CLERK documented as of this encounter Plan of Treatment Not on filedocumented as of this encounter Visit Diagnoses Not on filedocumented in this encounter
--- OUTSIDE RECORDS SUMMARY | 2022-05-17 11:40 | XMS_ITS | Encounter Summary ---
:1995 Author Organization [facility] Address [address] [place] [address] Care Team Providers Name Role Phone Unavailable Primary Care Provider Unavailable Encounter Details Date Type Department Care Team Description 04/20/2003 Hospital Encounter [facility]X [facility] Teodora Cadet M.D. [address] [place] [address] (Wo rk) Social History Tobacco [...] 11/23/2020 relatives? How often do you attend uatsdin or hoahaoism Never 11/23/2020 services? Do you belong to any clubs or organizations such as No 11/23/2020 uatsdin groups, unions, fraternal or athletic groups, or [...] at Date Recorded Female 05/20/2017 4:45 PM STENO TYPIST documented as of this encounter Plan of Treatment Not on filedocumented as of this encounter Visit Diagnoses Not on filedocumented in this encounter
--- OUTSIDE RECORDS SUMMARY | 2022-05-17 11:40 | XMS_ITS | Encounter Summary ---
:1995 Author Organization [facility] Address [address] [place] [address] Care Team Providers Name Role Phone Unavailable Primary Care Provider Unavailable Encounter Details Date Type Department Care Team Description 01/18/2005 Hospital Encounter [facility]X [facility] Gaston Arshad W, P.A. [address] [place] [address] (Wo rk) Social History Tobacco [...] How often do you attend nondenominational or jain Never 11/23/2020 services? Do you [...] at Date Recorded Female 05/20/2017 4:45 PM LEARNING TECHNOLOGIST documented as of this encounter Plan of Treatment Not on filedocumented as of this encounter Visit Diagnoses Not on filedocumented in this encounter
--- OUTSIDE RECORDS SUMMARY | 2022-05-17 11:40 | XMS_ITS | Encounter Summary ---
:1995 Author Organization [facility] Address [address] [place] [address] Care Team Providers Name Role Phone Unavailable Primary Care Provider Unavailable Encounter Details Date Type Department Care Team Description 07/12/2004 Hospital Encounter [facility]X [facility] Teodora Cadet M.D. [address] [place] [address] (Wo rk) Social History Tobacco [...] How often do you attend sabianism or zoroastrian Never 11/23/2020 services? Do you [...] Date Recorded Female 05/20/2017 4:45 PM DIRECTOR INFORMATION documented as of this encounter Plan of Treatment Not on filedocumented as of this encounter Visit Diagnoses Not on filedocumented in this encounter
--- OUTSIDE RECORDS SUMMARY | 2022-05-17 11:40 | XMS_ITS | Encounter Summary ---
:1995 Author Organization [facility] Address [address] [place] [address] Care Team Providers Name Role Phone Unavailable Primary Care Provider Unavailable Encounter Details Date Type Department Care Team Description 02/04/2006 Hospital Encounter HX [facility] E[facility] Valentín Sarabia M.D. [address] [place], [place] [address] (Wo rk) Social History [...] How often do you attend nondenominational or temple Never 11/23/2020 services? Do you [...] at Date Recorded Female 05/20/2017 4:45 PM CRUSHER MACHINE OPERATOR documented as of this encounter Plan of Treatment Not on filedocumented as of this encounter Visit Diagnoses Not on filedocumented in this encounter
--- OUTSIDE RECORDS SUMMARY | 2022-05-17 11:40 | XMS_ITS | Encounter Summary ---
:1995 Author Organization [facility] Address [address] [place] [address] Care Team Providers Name Role Phone Unavailable Primary Care Provider Unavailable Encounter Details Date Type Department Care Team Description 05/04/2003 Hospital Encounter [facility]X [facility] Teodora Cadet M.D. [address] [place] [address] (Wo rk) Social History Tobacco [...] 11/23/2020 relatives? How often do you attend worship or lutheran Never 11/23/2020 services? Do you belong to any clubs or organizations such as No 11/23/2020 worship groups, unions, fraternal or athletic groups, or [...] at Date Recorded Female 05/20/2017 4:45 PM COUNTY AUDITOR documented as of this encounter Plan of Treatment Not on filedocumented as of this encounter Visit Diagnoses Not on filedocumented in this encounter
--- OUTSIDE RECORDS SUMMARY | 2022-05-17 11:40 | XMS_ITS | Encounter Summary ---
:1995 Author Organization [facility] Address [address] [place] [address] Care Team Providers Name Role Phone Unavailable Primary Care Provider Unavailable Encounter Details Date Type Department Care Team Description 01/30/2001 - Hospital Encounter HX RST [facility] 2[facility] Emory Hay, 02/01/2001 M.D. [address] [place] [phone] (Wo rk) Social History Tobacco Use Types [...] How often do you attend sabianism or hindu Never 11/23/2020 services? Do you [...] at Date Recorded Female 05/20/2017 4:45 PM RESTAURANT SERVER documented as of this encounter Plan of Treatment Not on filedocumented as of this encounter Visit Diagnoses Not on filedocumented in this encounter
--- OUTSIDE RECORDS SUMMARY | 2022-05-17 11:40 | XMS_ITS | Encounter Summary ---
:1995 Author Organization [facility] Address [address] [place] [address] Care Team Providers Name Role Phone Unavailable Primary Care Provider Unavailable Encounter Details Date Type Department Care Team Description 12/08/2000 Hospital Encounter [facility]X [facility] Teodora Cadet M.D. [address] [place] [address] (Wo rk) Social History Tobacco [...] How often do you attend methodist or mandaeism Never 11/23/2020 services? Do you [...] at Date Recorded Female 05/20/2017 4:45 PM SAMPLE SEWER documented as of this encounter Plan of Treatment Not on filedocumented as of this encounter Visit Diagnoses Not on filedocumented in this encounter
--- OUTSIDE RECORDS SUMMARY | 2022-05-17 11:40 | XMS_ITS | Encounter Summary ---
:1995 Author Organization [facility] Address [address] [place] [address] Care Team Providers Name Role Phone Unavailable Primary Care Provider Unavailable Encounter Details Date Type Department Care Team Description 05/18/2002 Hospital Encounter HX [facility] Teodora Cadet M.D. [address] [place] [address] (Wo rk) Social History Tobacco [...] How often do you attend pentecostal or worship Never 11/23/2020 services? Do you [...] Recorded Female 05/20/2017 4:45 PM FULL STACK SOFTWARE ENGINEER documented as of this encounter Plan of Treatment Not on filedocumented as of this encounter Visit Diagnoses Not on filedocumented in this encounter
--- OUTSIDE RECORDS SUMMARY | 2022-05-17 11:40 | XMS_ITS | Encounter Summary ---
:1995 Author Organization [facility] Address [address] [place] [address] Care Team Providers Name Role Phone Unavailable Primary Care Provider Unavailable Encounter Details Date Type Department Care Team Description 05/21/2006 Hospital Encounter HX [facility] E[facility] Valentín Sarabia M.D. [address] [place], [place] [address] (Wo rk) Social History [...] How often do you attend jew or alevism Never 11/23/2020 services? Do you [...] at Date Recorded Female 05/20/2017 4:45 PM VICTORIAN LITERATURE PROFESSOR documented as of this encounter Plan of Treatment Not on filedocumented as of this encounter Visit Diagnoses Not on filedocumented in this encounter
--- OUTSIDE RECORDS SUMMARY | 2022-05-17 11:40 | XMS_ITS | Encounter Summary ---
:1995 Author Organization [facility] Address [address] [place] [address] Care Team Providers Name Role Phone Unavailable Primary Care Provider Unavailable Encounter Details Date Type Department Care Team Description 02/18/2006 Hospital Encounter HX [facility] E[facility] Valentín Sarabia M.D. [address] [place], [place] [address] (Wo rk) Social History [...] 11/23/2020 relatives? How often do you attend restoration or faith Never 11/23/2020 services? Do you belong to any clubs or organizations such as No 11/23/2020 restoration groups, unions, fraternal or athletic groups, or [...] at Date Recorded Female 05/20/2017 4:45 PM WASTE WATER TREATMENT PLANT OPERATOR documented as of this encounter Plan of Treatment Not on filedocumented as of this encounter Visit Diagnoses Not on filedocumented in this encounter
--- OUTSIDE RECORDS SUMMARY | 2022-05-17 11:40 | XMS_ITS | Encounter Summary ---
:1995 Author Organization [facility] Address [address] [place] [address] Care Team Providers Name Role Phone Unavailable Primary Care Provider Unavailable Encounter Details Date Type Department Care Team Description 12/19/2005 Hospital Encounter HX [facility] Teodora Cadet M.D. [address] [place] [address] (Wo rk) Social History Tobacco [...] How often do you attend mandaeism or congregational Never 11/23/2020 services? Do you [...] at Date Recorded Female 05/20/2017 4:45 PM PAPER MILL SUPERVISOR documented as of this encounter Plan of Treatment Not on filedocumented as of this encounter Visit Diagnoses Not on filedocumented in this encounter
--- OUTSIDE RECORDS SUMMARY | 2022-05-17 11:40 | XMS_ITS | Encounter Summary ---
:[address] [facility] Address [address] [place] [address] Care Team Providers Name Role Phone Unavailable Primary Care Provider Unavailable Encounter Details Date Type Department Care Team Description 07/14/2003 Hospital Encounter HX [facility] FAMILYPRA Taylor Quinonez M.D. Social History Tobacco Use Types Packs/Day [...] How often do you attend worship or anglican Never 11/23/2020 services? Do you [...] at Date Recorded Female 05/20/2017 4:45 PM BUDDER documented as of this encounter Plan of Treatment Not on filedocumented as of this encounter Visit Diagnoses Not on filedocumented in this encounter
--- OUTSIDE RECORDS SUMMARY | 2022-05-17 11:40 | XMS_ITS | Encounter Summary ---
:1995 Author Organization [facility] Address [address] [place] [address] Care Team Providers Name Role Phone Unavailable Primary Care Provider Unavailable Encounter Details Date Type Department Care Team Description 03/04/2001 Hospital Encounter HX NO MAPPING Social History Tobacco Use Types Packs/Day Years [...] How often do you attend restorationist or alevism Never 11/23/2020 services? Do you [...] at Date Recorded Female 05/20/2017 4:45 PM ROTARY DRYER OPERATOR documented as of this encounter Plan of Treatment Not on filedocumented as of this encounter Visit Diagnoses Not on filedocumented in this encounter
--- OUTSIDE RECORDS SUMMARY | 2022-05-17 11:40 | XMS_ITS | Encounter Summary ---
:1995 Author Organization [facility] Address [address] [place] [address] Care Team Providers Name Role Phone Unavailable Primary Care Provider Unavailable Encounter Details Date Type Department Care Team Description 11/22/2005 Hospital Encounter [facility]X [facility] Provider, Il gladis Social History Tobacco Use Types Packs/Day Years [...] How often do you attend adventist or restorationism Never 11/23/2020 services? Do you belong to [...] at Date Recorded Female 05/20/2017 4:45 PM GATEKEEPER documented as of this encounter Plan of Treatment Not on filedocumented as of this encounter Visit Diagnoses Not on filedocumented in this encounter
--- OUTSIDE RECORDS SUMMARY | 2022-05-17 11:40 | XMS_ITS | Encounter Summary ---
:1995 Author Organization [facility] Address [address] [place] [address] Care Team Providers Name Role Phone Unavailable Primary Care Provider Unavailable Encounter Details Date Type Department Care Team Description 01/30/2001 Hospital Encounter [facility]X [facility] Kathy Thornton M.D. [address] [place] [address] (Wo rk) Social History Tobacco Use Types [...] How often do you attend islam or judaism Never 11/23/2020 services? Do you [...] at Date Recorded Female 05/20/2017 4:[address] OILING TRUCK DRIVER documented as of this encounter Plan of Treatment Not on filedocumented as of this encounter Visit Diagnoses Not on filedocumented in this encounter
--- OUTSIDE RECORDS SUMMARY | 2022-05-17 11:40 | XMS_ITS | Encounter Summary ---
:1995 Author Organization [facility] Address [address] [place] [address] Care Team Providers Name Role Phone Unavailable Primary Care Provider Unavailable Encounter Details Date Type Department Care Team Description 12/04/2005 Hospital Encounter HX [facility]IATRIC Teodora Cadet M.D. [address] [place] [address] (Wo rk) Social History Tobacco [...] How often do you attend restorationist or lutheran Never 11/23/2020 services? Do you [...] at Date Recorded Female 05/20/2017 4:45 PM SAGGER SOAK documented as of this encounter Plan of Treatment Not on filedocumented as of this encounter Visit Diagnoses Not on filedocumented in this encounter
--- OUTSIDE RECORDS SUMMARY | 2022-05-17 11:40 | XMS_ITS | Encounter Summary ---
:1995 Author Organization [facility] Address [address] [place] [address] Care Team Providers Name Role Phone Unavailable Primary Care Provider Unavailable Encounter Details Date Type Department Care Team Description 04/30/2006 Hospital Encounter [facility]X [facility] E[facility] Valentín Sarabia M.D. [address] [place], [place] [phone] (Wo rk) Social History [...] 11/23/2020 relatives? How often do you attend samaritan or advent Never 11/23/2020 services? Do you belong to any clubs or organizations such as No 11/23/2020 samaritan groups, unions, fraternal or athletic groups, or [...] Date Recorded Female 05/20/2017 4:45 PM COMMERCIAL TECHNICIAN documented as of this encounter Plan of Treatment Not on filedocumented as of this encounter Visit Diagnoses Not on filedocumented in this encounter
--- OUTSIDE RECORDS SUMMARY | 2022-05-17 11:40 | XMS_ITS | Encounter Summary ---
:1995 Author Organization [facility] Address [address] [place] [address] Care Team Providers Name Role Phone Unavailable Primary Care Provider Unavailable Encounter Details Date Type Department Care Team Description 08/16/2004 Hospital Encounter HX [facility] URGENTCAR Provider, In gladis Social History Tobacco Use Types Packs/Day [...] How often do you attend orthodox or rastafari Never 11/23/2020 services? Do you [...] Recorded Female 05/20/2017 4:45 PM PHYSICIAN OFFICE ASSISTANT documented as of this encounter Plan of Treatment Not on filedocumented as of this encounter Visit Diagnoses Not on filedocumented in this encounter
--- OUTSIDE RECORDS SUMMARY | 2022-05-17 11:40 | XMS_ITS | Encounter Summary ---
:1995 Author Organization [facility] Address [address] [place] [address] Care Team Providers Name Role Phone Unavailable Primary Care Provider Unavailable Encounter Details Date Type Department Care Team Description 02/11/2006 Hospital Encounter HX [facility] E[facility] Valentín Sarabia M.D. [address] [place], [place] [phone] (Wo rk) Social History [...] How often do you attend islam or samaritan Never 11/23/2020 services? Do you [...] at Date Recorded Female 05/20/2017 4:45 PM SUPPORT TEAM ASSOC documented as of this encounter Plan of Treatment Not on filedocumented as of this encounter Visit Diagnoses Not on filedocumented in this encounter
--- OUTSIDE RECORDS SUMMARY | 2022-05-17 11:40 | XMS_ITS | Encounter Summary ---
:1995 Author Organization [facility] Address [address] [place] [address] Care Team Providers Name Role Phone Unavailable Primary Care Provider Unavailable Encounter Details Date Type Department Care Team Description 03/30/2001 Hospital Encounter HX NO MAPPING Social History [...] How often do you attend yazidi or congregational Never 11/23/2020 services? Do you [...] at Date Recorded Female 05/20/2017 4:45 PM ROUND CUTTER OPERATOR documented as of this encounter Plan of Treatment Not on filedocumented as of this encounter Visit Diagnoses Not on filedocumented in this encounter
--- OUTSIDE RECORDS SUMMARY | 2022-05-17 11:40 | XMS_ITS | Encounter Summary ---
:1995 Author Organization [facility] Address [address] [place] [address] Care Team Providers Name Role Phone Unavailable Primary Care Provider Unavailable Encounter Details Date Type Department Care Team Description 08/27/2007 Hospital Encounter HX [facility] FAMILYPRA Gordo Snyder, P.ASampson-CSampson [address] [facility] [place], [place] [phone] (Wo rk) Social History Tobacco Use Types [...] How often do you attend mormonism or quaker Never 11/23/2020 services? Do you belong to [...] at Date Recorded Female 05/20/2017 4:45 PM BEVEL FACE STONER AND POLISHER documented as of this encounter Plan of Treatment Not on filedocumented as of this encounter Visit Diagnoses Not on filedocumented in this encounter
--- OUTSIDE RECORDS SUMMARY | 2022-05-17 11:40 | XMS_ITS | Encounter Summary ---
:1995 Author Organization [facility] Address [address] [place] [address] Care Team Providers Name Role Phone Unavailable Primary Care Provider Unavailable Encounter Details Date Type Department Care Team Description 02/04/2006 Hospital Encounter HX NO MAPPING Humera Omalley [...] How often do you attend mormonism or anabaptist Never 11/23/2020 services? Do you [...] at Date Recorded Female 05/20/2017 4:45 PM LABORATORY INSPECTOR documented as of this encounter Plan of Treatment Not on filedocumented as of this encounter Visit Diagnoses Not on filedocumented in this encounter
--- OUTSIDE RECORDS SUMMARY | 2022-05-17 11:40 | XMS_ITS | Encounter Summary ---
:1995 Author Organization [facility] Address [address] [place] [address] Care Team Providers Name Role Phone Unavailable Primary Care Provider Unavailable Encounter Details Date Type Department Care Team Description 06/28/2002 Hospital Encounter HX [facility] PEDIATRIC Teodora Cadet M.D. [address] [place] [address] (Wo rk) Social History Tobacco [...] How often do you attend mandaeism or gnosticist Never 11/23/2020 services? Do you [...] at Date Recorded Female 05/20/2017 4:45 PM NURSES' ASSOCIATION COUNSELOR documented as of this encounter Plan of Treatment Not on filedocumented as of this encounter Visit Diagnoses Not on filedocumented in this encounter
--- OUTSIDE RECORDS SUMMARY | 2022-05-17 11:40 | XMS_ITS | Encounter Summary ---
:1995 Author Organization [facility] Address [address] [place] [address] Care Team Providers Name Role Phone Unavailable Primary Care Provider Unavailable Encounter Details Date Type Department Care Team Description 01/31/2006 Hospital Encounter HX [facility] URGENTCAR Provider, [place] gladis Social History Tobacco Use Types Packs/Day [...] How often do you attend yarsani or baptism Never 11/23/2020 services? Do you [...] at Date Recorded Female 05/20/2017 4:45 PM OPERATIONS INTELLIGENCE SUPERINTENDENT documented as of this encounter Plan of Treatment Not on filedocumented as of this encounter Visit Diagnoses Not on filedocumented in this encounter
--- OUTSIDE RECORDS SUMMARY | 2022-05-17 11:40 | XMS_ITS | Encounter Summary ---
:1995 Author Organization [facility] Address [address] [place] [address] Care Team Providers Name Role Phone Unavailable Primary Care Provider Unavailable Encounter Details Date Type Department Care Team Description 04/13/2003 Hospital Encounter HX [facility] URGENTCAR Provider, [place] gladis Social History Tobacco Use Types Packs/Day [...] How often do you attend temple or hoahaoism Never 11/23/2020 services? Do you [...] at Date Recorded Female 05/20/2017 4:45 PM ELEVATOR EXAMINER documented as of this encounter Plan of Treatment Not on filedocumented as of this encounter Visit Diagnoses Not on filedocumented in this encounter
--- OUTSIDE RECORDS SUMMARY | 2022-05-17 11:40 | XMS_ITS | Encounter Summary ---
:1995 Author Organization [facility] Address [address] [place] [address] Care Team Providers Name Role Phone Unavailable Primary Care Provider Unavailable Encounter Details Date Type Department Care Team Description 11/20/2002 Hospital Encounter HX [facility] URGENTCAR Provider, [place] gladis Social History Tobacco Use Types Packs/Day [...] How often do you attend yazidi or bahai Never 11/23/2020 services? Do you [...] at Date Recorded Female 05/20/2017 4:45 PM CALENDER ROLL OPERATOR documented as of this encounter Plan of Treatment Not on filedocumented as of this encounter Visit Diagnoses Not on filedocumented in this encounter
--- OUTSIDE RECORDS SUMMARY | 2022-05-17 11:40 | XMS_ITS | Encounter Summary ---
:1995 Author Organization [facility] Address [address] [place] [address] Care Team Providers Name Role Phone Unavailable Primary Care Provider Unavailable Encounter Details Date Type Department Care Team Description 04/01/2006 Hospital Encounter HX [facility] PEDIATRIC Teodora Cadet M.D. [address] [place] [address] (Wo rk) Social History Tobacco [...] How often do you attend hindu or yarsani Never 11/23/2020 services? Do you [...] at Date Recorded Female 05/20/2017 4:45 PM TELEVISION INSTALLER HELPER documented as of this encounter Plan of Treatment Not on filedocumented as of this encounter Visit Diagnoses Not on filedocumented in this encounter
--- OUTSIDE RECORDS SUMMARY | 2022-05-17 11:40 | XMS_ITS | Encounter Summary ---
:1995 Author Organization [facility] Address [address] [place] [address] Care Team Providers Name Role Phone Unavailable Primary Care Provider Unavailable Encounter Details Date Type Department Care Team Description 08/30/2005 Hospital Encounter HX [facility] URGENTCAR Bryan Fair D.O. [address] [place], [place] [address] (Wo rk) Social History Tobacco Use Types [...] How often do you attend temple or mu-ism Never 11/23/2020 services? Do you [...] at Date Recorded Female 05/20/2017 4:45 PM DRAFTING TECHNICIAN documented as of this encounter Plan of Treatment Not on filedocumented as of this encounter Visit Diagnoses Not on filedocumented in this encounter
--- OUTSIDE RECORDS SUMMARY | 2022-05-17 11:40 | XMS_ITS | Encounter Summary ---
:1995 Author Organization [facility] Address [address] [place] [address] Care Team Providers Name Role Phone Unavailable Primary Care Provider Unavailable Encounter Details Date Type Department Care Team Description 11/26/2005 Hospital Encounter HX [facility] PEDIATRIC Teodora Cadet M.D. [address] [place] [address] (Wo rk) Social History Tobacco [...] 11/23/2020 relatives? How often do you attend jain or judaism Never 11/23/2020 services? Do you belong to any clubs or organizations such as No 11/23/2020 jain groups, unions, fraternal or athletic groups, or [...] Date Recorded Female 05/20/2017 4:45 PM SENIOR ACCOUNTING ASSOCIATE documented as of this encounter Plan of Treatment Not on filedocumented as of this encounter Visit Diagnoses Not on filedocumented in this encounter
--- OUTSIDE RECORDS SUMMARY | 2022-05-17 11:42 | XMS_ITS | Clinical Summary ---
:1995 Author Organization [facility] Address Unavailable [address] Care Team Providers Name Role Phone Nargis Reddy Rajani BOSOM PRESSER Primary Care Provider Allergies Active Allergy Reactions Severity Noted Date Comments Codeine Vomiting Low 05/19/2011 Medications Medication Sig Dispensed Refills Start Date End Date Status DULoxetine (Cymbalta) 20 Take 20 mg by 0 Active mg Delayed-release mouth once capsule daily. doxylamine-pyridoxine, Take by mouth 30 Tablet 0 01/03/2022 Active vit B6, 10-10 mg once daily. TbECIndications: Vomiting, unspecified vomiting type, unspecified whether nausea present ondansetron (ZOFRAN ODT) Place 2 Tablets 30 Tablet 0 2 Active 4 mg disintegrating (8 mg) on the tabletIndications: tongue in the Vomiting, unspecified morning and 2 vomiting type, Tablets (8 mg) unspecified whether in the evening. 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 Resolved Problems Problem Noted Date Resolved Date (spontaneous vaginal delivery) 01/16/201607/30 Immunizations Name Administration Dates Next Due DTP-HIB 03/02/1996, 1995, 1995 DTaP 01/25/2008, 12/08/2000, 02/08/1997 HIB PRP-OMP (PedvaxHIB) 12/21/1996 Hepatitis B (Adult) 08/13/1996, 1995 Hepatitis B (Peds) 1995 Hepatitis B, Unspecified 08/13/1996, 1995, 1995 Inactivated Polio Vaccine 12/08/2000 Influenza A (H1N1), Inactivated 02/21/2017 Influenza Virus, Unspecified 06/09/2008, 05/04/2003 Influenza, IIV3 (Age 6-35 mos) 06/09/2008 Influenza, IIV3 (Age >=3 years) 05/04/2003 MMR 12/08/2000, 12/21/1996 Meningococcal Vaccine (Menactra) 09/06/2009 Oral Polio Vaccine 05/21/1996, 1995, 1995 Tdap 07/11/2017, 11/15/2015, 01/25/2008 Varicella Vaccine 01/25/2008, 08/16/1997 Social History Tobacco Use Types Packs/Day Years Used Date Never Smoker Smokeless Tobacco: Never Used Alcohol Use Standard Drinks/Week Comments No 0 (1 standard drink = 0.6 oz pure alcoho l) Comments Yes Sex Assigned at Date Recorded Not on file Obstetrics History Para Term AB IAB SAB Ectopic Multiple Living Live Births 3 2 2 0 0 0 0 0 0 2 2 Date Outcome GA Total Labor/2nd/3rd Weight Sex Delivery Anes PTL Randi A 1 A5 Name Clin Labor 01/13 Term 39w 3.31 kg F Vag Epidu N Payton 9 9 STEWA /2015 5d (7 lb ral ng RT,BG Ya hya 4.6 oz) EMILY Complications: None Delivery Location: [facility] 07/30/2017 Term 39w5d 4.01 kg M Vag-Vacuum Epidural N Livin g 6 9 FATOUMATA MCGUIRE (8 lb EMILY 13.5 oz) Complications: Shoulder Dystocia Delivery Location: [facility] Current Last Filed Vital Signs Vital Sign Reading Time Taken Comments Blood Pressure 134/86 01/03/2022 12:07 PM CDT Pulse 101 01/03/2022 12:07 PM CDT Temperature 37.1 ??C (98.7 ??F) 01/03/2022 12:07 PM CDT Respiratory Rate 20 01/03/2022 12:07 PM CDT Oxygen Saturation 100% 01/03/2022 12:07 PM CDT Inhaled Oxygen Concentration - - Weight 99.3 kg (219 lb) 01/03/2022 12:07 PM CDT Height 167.6 cm (5' 6) 01/03/2022 12:07 PM CDT Body Mass Index 35.35 01/03/2022 12:07 PM CDT Plan of Treatment Health Maintenance Due Date Last Done Comments COVID-19 vaccine series (#1) 02/07/1996 HPV series for age 9-26 (1 - 2006 2-dose series) Depression screening for age 12+ 2007 HIV for age 15-65 2010 BMI (ht and wt on same day) for 2013 age 18+ Hepatitis C screening for age 0208/09/2013 18-79 Pap test for age 21-65 2016 Influenza for age 9-49 02/21/2022 02/21/2017, 06/09/2008, 05/04/2003, Additional history exists Tetanus booster 07/11/2027 07/11/2017, 11/15/2015, 01/25/2008 Tdap Completed 07/11/2017, 11/15/2015, 01/25/2008 Results Not on filefrom Last 3 Months Insurance Payer Benefit Plan / Subscriber ID Effective Dates Phone Addre ss Type Group [facility] [id number] 2021-Presen [address] [facility] [place] [address] MEDICA MEDICA CHOICE [id number] 2015-Present [address] [address] [place] [address] [phone] (Home) [facility] [place] [address] Advance Directives Latest Code Status on File Code Status Date Activated Date Inactivated Comments Full Code 07/30/2017 7:50 AM 08/01/2017 1:30 PM Full Code 07/29/2017 8:07 PM 07/30/2017 7:50 AM Full Code 06/18/2017 4:12 PM 06/18/2017 8:59 PM Full Code 01/14/2016 11:21 PM 01/16/2016 6:39 PM Code Status Discussion: Not Discussed Full Code 01/14/2016 7:30 AM 01/14/2016 11:21 PM Care Teams Measurement Specialist Relationship Specialty Start Date End Date Nargis Reddy, BOSOM PRESSER PCP - General Nurse Practitioner 06/03/[address] [address]
[2022-05-17 11:49] VITALS: BP 131/64; PULSE 93; RESP 18; TEMP 36.9
--- NOTE | 2022-05-17 12:36 | P.OBLDTN_ITS ---
OB - Triage/Final Diagnosis Visit Information Time Seen by Provider: 12:36 Date Seen: 05/17/22 Date of evaluation: 05/17/22 Narrative: Emily is a 26 year old 3 para 2 at 24 5/7 weeks gestation by LMP, who presents with abdominal cramping. Pt reports that she started having abdominal cramping a few days ago and it has continued to get worse. She feels it mostly in her lower abdomen and sometimes her lower back, there is shooting pain and increased cramping when she bends over. Yesterday she had some creamy white vaginal discharge, but does not have it today. She also had some diarrhea yesterday. She has not been exposed to anyone who is sick lately. Pt had a UTI earlier in , she says she is not experiencing the same symptoms as she did then. Pt reports she is just very nervous that she could be having contractions right now. Reason for evaluation: threatened labor Comments/Additional reasons for admission: Plan: test for: Fibronectin Amniosure Gonorrhea/Chlamydia Wet prep - yeast, BV, tric Urine analysis Continue to monitor Evaluation Vital signs: Vital Signs - 24 hr 05/17/22 11:49 Pulse Rate 93 Blood Pressure 131/64 Fetus (Single) Heart Rate Baseline: 145 Tanning Wheel Filler Variability: Moderate (6-25) Monitor Accelerations: Present Monitor Decelerations: None Final Diagnosis (1) Encounter for supervision of other normal , second trimester: Status: Acute (2) Anxiety: Status: Acute (3) Abdominal cramping affecting , antepartum: Status: Acute
[2022-05-17 13:07] LABS: Appearance Urine Clear (Clear); Bilirubin Urine Negative (Negative); Blood Urine Negative (Negative); Color Urine Yellow (Yellow); Glucose Urine Negative (Negative); Ketones Urine Negative (Negative); Leukocyte Esterase Urine Negative (Negative); Nitrite Urine Negative (Negative); Protein Urine Negative (Negative); Urobilinogen Urine 0.2 (0.2-1.0)
[2022-05-17 13:26] LABS: Clue Cells No Clue Cells Seen (None Seen); Trichomonas No Trichomonas Seen (None Seen); Yeast No Yeast Seen (None Seen)
[2022-05-17 13:37] LABS: Amnisure Rom* Negative
[2022-05-17 14:00] LABS: Fetal Fibronectin* Negative (Negative)
--- NOTE | 2022-05-17 14:39 | CRLHL7_ITS ---
For Patients: As a result of the Century Cures Act, medical imaging exams and procedure reports are released immediately into your electronic medical record. You may view this report before your referring provider. If you have questions, please contact your health care provider. INDICATION: Cervical check. COMPARISON: None. TECHNIQUE: Ultrasound OB pelvis with real time hays scale imaging and color doppler analysis. FINDINGS: Sonographic imaging demonstrates a single living intrauterine gestation. The fetus has a regular cardiac rate of 143 beats per minute. The fetus has a transverse orientation. The placenta lies posteriorly without evidence of placenta previa. Single deepest pocket measures 5.6 cm. The cervix is closed and measures 4.2 cm in length. IMPRESSION: 1. Single living intrauterine gestation in transverse position with heart rate 143 beats per minute. 2. The cervix is closed and measures 4.2 cm in length. Dictated by Shellie Costello MD @ 05/17/2022 3:31:48 PM (Electronically Signed)
[2022-05-17 15:33] LABS: Chlamydia DNA Amplified* NOT DETECTED (No Detected); GC DNA Amplified* NOT DETECTED (No Detected)
[2022-05-17 15:56] VITALS: BP 119/65; PULSE 96
--- NOTE | 2022-05-17 17:17 | P.OBLDTN_ITS ---
OB - Triage/Final Diagnosis Visit Information Time Seen by Provider: 17:00 Date Seen: 05/17/22 Date of evaluation: 05/17/22 Narrative: Emily is a 26 year old 3 para 2 at 24 5/7 weeks gestation by LMP, who presents with abdominal cramping. Discussed with pt that all pre-term labor labs came back negative and ultra sound indicated a long and closed cervix. Encouraged pt to rest, hydrate, accept help from family and friends. Discussed options for PT, chiropractic, massage, warm baths and tylenol for comfort. Encouraged pt to follow up in clinic in 2 weeks, or sooner if she is concerned, and to come back to L&D triage if contractions increase in severity, for bleeding, or if SROM occurs. Pt verbalized understanding. Questions answered to her satisfaction. EFM Baseline 140-145, Accels present, overall reassuring. Pt marking contractions and feeling them, RN not feeling contractions with palpation, TOCO showing only irritability - no contraction pattern. Reason for evaluation: threatened labor Evaluation Cervical dilation (cm): 0 (Per RN) Cervical effacement (%): 0 Laboratory results: Laboratory Tests 05/17/22 05/17/22 05/17/22 Range/Units 12:31 12:31 11:48 Urine Color Yellow (Yellow) Urine Appearance Clear (Clear) Urine pH 7.0 (5.0-8.5) Ur Specific [place] 1.010 (1.000-1.030) Urine Protein Negative (Negative) Urine Glucose (UA) Negative (Negative) Urine Ketones Negative (Negative) Urine Blood Negative (Negative) Urine Nitrite Negative (Negative) Urine Bilirubin Negative (Negative) Urine Urobilinogen 0.2 (0.2-1.0) Ur Leukocyte Esterase Negative (Negative) Membrane Rupture Negative Vaginal Trichomonas No Trichomonas Seen (None Seen) Vaginal Yeast No Yeast Seen (None Seen) Vaginal Clue Cells No Clue Cells Seen (None Seen) C.trachomatis Ampl DNA NOT DETECTED (No Detected) N.gonorrhoeae Ampl DNA NOT DETECTED (No Detected) Fibronectin Negative (Negative) Vital signs: Vital Signs - 24 hr 05/17/22 11:49 05/17/22 11:49 05/17/22 15:56 Temperature 98.4 F Pulse Rate 93 96 Respiratory Rate 18 Blood Pressure 131/64 119/65 Fetus (Single) Heart Rate Baseline: 145 Seafood Technology Specialist Variability: Moderate (6-25) Monitor Accelerations: Present Monitor Decelerations: None Final Diagnosis (1) Encounter for supervision of other normal , second trimester: Status: Acute (2) Anxiety: Status: Acute (3) Abdominal cramping affecting , antepartum: Status: Acute
--- NOTE | 2022-05-17 18:19 | PC.OBNST ---
NST Note NST Note Start: 05/17/22 11:32 Freq: ONCE Status: Discharge Protocol: Document 05/17/22 17:00 ABP (Rec: 05/17/22 18:19 ABP [id number]) NST Note 3 Para (# of births) 2 EDC 09/01/22 Gestational Age In Weeks & Days 24 Weeks & 5 Days Patient Presented with Complaint(s) of Contractions/cramping Appropriate for Gestational Age Yes RN Fernando Ramirez RN Date 05/17/22 Appropriate for Gestational Age Yes ADRIENNE Jimenez RN OB NST charge Yes Complete NST Note via Write Note Yes The provider's electronic signature indicates the NST is reactive/appropriate for gestational age. *Note to provider: If an addendum is required, open the patient's chart and click on the note under the Nurse/Allied Health tab.
== END 2022-05-17 17:15 | disposition home or self-care (01) ==
LOC: OB OUT 11:21 → OB 11:22
PROVIDERS: Visit Provider Advanced Practice Midwife
DX: O47.02 False labor before 37 completed weeks of gestation, second trimester (principal); Z3A.24 24 weeks gestation of pregnancy
CPT/HCPCS: 59025; 76815; 81003; 84112; 87086; 87210; 87491; 87591; 99213

== ENCOUNTER 2022-06-11 13:23 | Outpatient (CLI) | payer OTHER, SELFPAY ==
[2022-06-14 02:09] LABS: Rapid Plasma Reagin (RPR) Non Reactive (Non Reactive)
== END 2022-06-11 13:24 | disposition home or self-care (01) ==
LOC: NFLDREF 13:24
PROVIDERS: Advanced Practice Midwife; Visit Provider Physician Assistant
DX: Z34.82 Encounter for supervision of other normal pregnancy, second trimester (principal)
CPT/HCPCS: 86592

== ENCOUNTER 2022-07-09 13:11 | Outpatient (CLI) | payer OTHER, SELFPAY ==
--- NOTE | 2022-07-09 13:00 | CRLHL7_ITS ---
For Patients: As a result of the Century Cures Act, medical imaging exams and procedure reports are released immediately into your electronic medical record. You may view this report before your referring provider. If you have questions, please contact your health care provider. INDICATION: Third trimester scan, evaluate growth. + COVID in COMPARISON: 05/17/2022 TECHNIQUE: Real time hays scale imaging of the fetus was performed as well as color Doppler and spectral Doppler analysis of the umbilical artery. FINDINGS: Sonographic imaging demonstrates a single living intrauterine gestation. Fetus demonstrates a regular cardiac rate of 169 beats per minute. Fetus has a vertex position. The placenta lies posteriorly. Amniotic fluid volume appears normal and there is a single deepest vertical pocket: 6.8 cm. The estimated weight is 2260gm which lies at the 83rd %. On the prior OB ultrasound exam dated 04/15/2022 the estimated weight was at the 68th%. BPD 80th percentile. HC 76th percentile. AC 96th percentile. FL 24th percentile. The HC/AC ratio measures 1.01 range (0.95-1.11). IMPRESSION: Sonographic gestational age 33 weeks 5 days and sonographic due date of 08/22/2022. Sonographic age is 10 days ahead of the clinical age. Estimated weight 83rd percentile. Abdominal circumference 96th percentile. Dictated by Tushar Solomon MD @ 07/10/2022 12:52:46 PM (Electronically Signed)
== END 2022-07-09 13:12 | disposition home or self-care (01) ==
LOC: US 13:12
PROVIDERS: Visit Provider Advanced Practice Midwife
DX: O98.513 Other viral diseases complicating pregnancy, third trimester (principal); Z3A.33 33 weeks gestation of pregnancy
CPT/HCPCS: 76816

== ENCOUNTER 2022-07-09 15:26 | Outpatient (CLI) | payer OTHER, SELFPAY ==
[2022-07-09 15:37] VITALS: PULSE 102; O2SAT 98
[2022-07-09 15:42] VITALS: PULSE 109; O2SAT 98
[2022-07-09 15:43] VITALS: BP 133/65; PULSE 95; TEMP 36.8
[2022-07-09 16:16] LABS: Basophils Absolute Auto 0.03 K/uL (0.00-0.30); Basophils Percent Auto 0.3 % (0.0-3.0); Eosinophils Percent Auto 1.1 % (0.0-7.0); Hematocrit 36.3 % (33.0-51.0); Immature Granulocytes Abs Auto 0.12 K/uL (0.00-0.30); Immature Granulocytes Pct Auto 1.3 %; Mean Corpuscular HGB Conc 33 gm/dL (32-36); Mean Corpuscular Hemoglobin 31 pg (26-34); Mean Corpuscular Volume 92 fL (80-100); Monocytes Percent Auto 7.4 % (0.0-11.0); Neutrophils Percent Auto 76.9 % (42.0-72.0); Platelet Count* 213 K/uL (140-440); RDW Coefficient of Variation % 13.4 % (11.5-15.5); Red Blood Count 3.94 m/uL (4.00-5.20); White Blood Count* 9.03 K/uL (4.50-11.00)
[2022-07-09 16:45] LABS: Slide Review Reflex No
[2022-07-09 17:23] LABS: Appearance Urine Clear (Clear); Bilirubin Urine Negative (Negative); Blood Urine Negative (Negative); Color Urine Yellow (Yellow); Glucose Urine Negative (Negative); Ketones Urine Negative (Negative); Leukocyte Esterase Urine Negative (Negative); Nitrite Urine Negative (Negative); Protein Urine Negative (Negative); Urobilinogen Urine 0.2 (0.2-1.0)
--- NOTE | 2022-07-09 17:38 | PC.OBNST ---
NST Note NST Note Start: 07/09/22 15:46 Freq: ONCE Status: Active Protocol: Document 07/09/22 17:30 ISLAM (Rec: 07/09/22 17:37 ISLAM [id number]) NST Note 3 Para (# of births) 2 EDC 08/31/22 Gestational Age In Weeks & Days 32 Weeks & 3 Days Patient Presented with Complaint(s) of Other Other Complaints Clinic request due to increased FHR Reactive Yes Appropriate for Gestational Age Yes ADRIENNE Lewis Date 07/09/22 Reactive Yes Appropriate for Gestational Age Yes ADRIENNE Torres Date 07/09/22 OB NST charge Yes Complete NST Note via Write Note Yes The provider's electronic signature indicates the NST is reactive/appropriate for gestational age. *Note to provider: If an addendum is required, open the patient's chart and click on the note under the Nurse/Allied Health tab.
== END 2022-07-09 16:55 | disposition home or self-care (01) ==
LOC: OB OUT 15:28 → OB 15:33
PROVIDERS: Visit Provider Advanced Practice Midwife
DX: O98.513 Other viral diseases complicating pregnancy, third trimester (principal); U07.1 COVID-19; Z3A.33 33 weeks gestation of pregnancy
CPT/HCPCS: 36415; 59025; 81003; 85025; 87086; 99213

== ENCOUNTER 2022-08-05 08:56 | Outpatient (CLI) | payer OTHER, SELFPAY ==
--- NOTE | 2022-08-05 09:15 | CRLHL7_ITS ---
For Patients: As a result of the Century Cures Act, medical imaging exams and procedure reports are released immediately into your electronic medical record. You may view this report before your referring provider. If you have questions, please contact your health care provider. INDICATION: Ob growth, Hx of COVID COMPARISON: 07/09/2022 TECHNIQUE: Real time hays scale imaging of the fetus was performed. FINDINGS: Sonographic imaging demonstrates a single living intrauterine gestation. Fetus demonstrates a regular cardiac rate of 141 beats per minute. Fetus has a vertex position. The placenta lies posteriorly. Amniotic fluid volume appears normal and there is a single deepest vertical pocket: 6.8 cm. The estimated weight is 3184gm which lies at the 83rd %. On the prior OB ultrasound exam dated 07/09/2022 the estimated weight was at the 83rd%. BPD greater than 97th percentile. HC 96th percentile. AC 92nd percentile. FL 14th percentile. The HC/AC ratio measures 1.02 range (0.90-1.05). IMPRESSION: Sonographic gestational age 37 weeks 6 days and sonographic due date 08/20/2022. Sonographic age is 12 days ahead of the clinical age. Estimated weight 83rd percentile. Abdominal circumference 92nd percentile. Dictated by Tushar Solomon MD @ 08/05/2022 11:03:35 AM (Electronically Signed)
== END 2022-08-05 08:57 | disposition home or self-care (01) ==
LOC: US 08:57
PROVIDERS: Visit Provider Advanced Practice Midwife
DX: Z34.83 Encounter for supervision of other normal pregnancy, third trimester (principal); Z3A.37 37 weeks gestation of pregnancy
CPT/HCPCS: 76816

== ENCOUNTER 2022-08-05 11:00 | Outpatient (CLI) | payer OTHER, SELFPAY ==
[2022-08-06 12:40] LABS: Strep B DNA Probe NEGATIVE (Negative)
[2022-08-06 12:43] LABS: Strep B Pen/Amox Allergy No
== END 2022-08-05 11:01 | disposition home or self-care (01) ==
LOC: NFLDREF 11:01
PROVIDERS: Visit Provider Advanced Practice Midwife
DX: Z34.93 Encounter for supervision of normal pregnancy, unspecified, third trimester (principal); Z3A.35 35 weeks gestation of pregnancy
CPT/HCPCS: 87081; 87653

== ENCOUNTER 2022-08-11 22:52 | Outpatient (CLI) | payer OTHER, SELFPAY ==
[2022-08-11 23:14] VITALS: PULSE 95; O2SAT 98
[2022-08-11 23:19] VITALS: BP 131/71; PULSE 93; RESP 20; TEMP 36.9
--- NOTE | 2022-08-12 02:33 | PC.OBNST ---
NST Note NST Note Start: 08/11/22 22:58 Freq: ONCE Status: Discharge Protocol: Document 08/12/22 01:20 [facility] (Rec: 08/12/22 02:32 [facility] [id number]) NST Note 3 Para (# of births) 2 EDC 09/01/22 Gestational Age In Weeks & Days 37 Weeks & 1 Days Patient Presented with Complaint(s) of Contractions/cramping Reactive Yes Appropriate for Gestational Age Yes RN Pao Mishra RN; Fernando Liang RN. Date 08/12/22 Reactive Yes Appropriate for Gestational Age Yes ADRIENNE Johnson, ADRIENNE Date 08/12/22 OB NST charge Yes Complete NST Note via Write Note Yes The provider's electronic signature indicates the NST is reactive/appropriate for gestational age. *Note to provider: If an addendum is required, open the patient's chart and click on the note under the Nurse/Allied Health tab.
== END 2022-08-12 01:20 | disposition home or self-care (01) ==
LOC: OB OUT 22:52 → OB 22:52
PROVIDERS: Visit Provider Advanced Practice Midwife
DX: O26.893 Other specified pregnancy related conditions, third trimester (principal); R10.9 Unspecified abdominal pain; Z3A.36 36 weeks gestation of pregnancy
CPT/HCPCS: 59025; 99213

== ENCOUNTER 2022-08-23 11:11 | Outpatient (CLI) | payer OTHER, SELFPAY ==
[2022-08-23 11:18] VITALS: PULSE 108; O2SAT 98
[2022-08-23 11:20] VITALS: RESP 18; TEMP 36.6
[2022-08-23 11:22] VITALS: BP 126/67; PULSE 101
[2022-08-23 14:48] LABS: Amnisure Rom* Negative
--- NOTE | 2022-08-23 15:22 | P.OBLDTN_ITS ---
OB - Triage/Final Diagnosis Visit Information Narrative: The patient is a 27 year old 3 para 2 at 38.5 weeks gestation by LMP, who presents with contractions. Emily states that she has been toby since around 0800 this am. The contractions have increased in frequency and intensity. She states that they are more painful and occur more often when she is up and walking and they are better when she is sitting. She feels that she has had an increase in thin, clear discharge but denies any gushes of fluid. Denies bleeding and is appreciating good movement. She was 3.5cm/60/-3 per RN exam on admission. I rechecked her after about 2 hours and found that her outer OS was about 3-4cm but her inner OS was 2cm/50%/-3. AmniSure was negative. Discussed discharging and ways to promote comfort including ambulation, napping, and warm shower/bath. She was offered Morphine and Vistaril but declined. Labor precautions reviewed. 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 Labor precautions reviewed.
--- NOTE | 2022-08-23 15:56 | PC.OBNST ---
NST Note NST Note Start: 08/23/22 11:16 Freq: ONCE Status: Active Protocol: Document 08/23/22 15:53 [facility] (Rec: 08/23/22 15:55 [facility] [id number]) NST Note 3 Para (# of births) 2 EDC 08/31/22 Gestational Age In Weeks & Days 38 Weeks & 6 Days Patient Presented with Complaint(s) of Contractions/cramping Reactive Yes Appropriate for Gestational Age Yes RN Zhen Zamudio RN Date 08/23/22 Reactive Yes Appropriate for Gestational Age Yes ADRIENNE Cheung Date 08/23/22 OB NST charge Yes Complete NST Note via Write Note Yes The provider's electronic signature indicates the NST is reactive/appropriate for gestational age. *Note to provider: If an addendum is required, open the patient's chart and click on the note under the Nurse/Allied Health tab.
== END 2022-08-23 15:22 | disposition home or self-care (01) ==
LOC: OB OUT 11:12 → OB 11:12
PROVIDERS: Visit Provider Advanced Practice Midwife
DX: O47.1 False labor at or after 37 completed weeks of gestation (principal); Z3A.38 38 weeks gestation of pregnancy
CPT/HCPCS: 59025; 84112; 99213

== ENCOUNTER 2022-08-27 07:05 | Inpatient (IN) | payer OTHER, SELFPAY ==
[2022-08-27] VITALS (13 sets, daily range): BP systolic 105–134; BP diastolic 53–73; PULSE 76–120; RESP 16–18; TEMP 36.4–37.1; O2SAT 90–99; BMI 41.1
--- NOTE | 2022-08-27 08:51 | W.PM.LDBA ---
Subjective History of Present Illness Date Seen: 08/27/22 Narrative: Patient is being admitted to Labor and Delivery for induction of labor for history of shoulder dystocia with vacuum assist. She is a 27 year old at 39.2 weeks gestation. Her full history and physical was dictated by H& P done 08/16/2022 by Michelle DEXTER with Shauna Mg CNM Please see this for details. First trimester US: Normal first trimester OB ultrasound exam.? Gestational age calculated at 8w 1d with a sonographic due date of 09.02.22. Dictated by Tushar Solomon MD @ 01/22/2022 9:42:35 AM 20 week US: Normal OB ultrasound exam with concordance of clinical and sonographic dating.? No intrinsic abnormalities noted on anatomic survey. Dictated by Tushar Solomon MD @ 04/15/2022 10:11:50 AM Other US: 1. Single living intrauterine gestation in transverse position with heart rate 143 beats per minute. 2. The cervix is closed and measures 4.2 cm in length. Dictated by Shellie Costello MD @ 05/17/2022 3:31:48 PM Sonographic gestational age 33 weeks 5 days and sonographic due date of 08/22/2022. Sonographic age is 10 days ahead of the clinical age. Estimated weight 83rd percentile. Abdominal circumference 96th percentile. Dictated by Tushar Solomon MD @ 07/10/2022 12:52:46 PM Sonographic gestational age 37 weeks 6 days and sonographic due date 08/20/2022. Sonographic age is 12 days ahead of the clinical age. Estimated weight 83rd percentile. Abdominal circumference 92nd percentile. Dictated by Tushar Solomon MD @ 08/05/2022 11:03:35 AM OB - Problem Based A/P Additional Plan (1) Encounter for induction of labor: Status: Acute Plan ASSESSMENT:? at 39.2 weeks gestation? GBS negative? Uncomplicated ? IOL for history of shoulder dystocia ?? PLAN:? 1. Reviewed risks and benefits of IOL with pitocin vs cytotec. Pt prefers cytotec. Pitocin to follow if needed.? 2. Candidate for analgesia of choice. Planning unmedicated .?? 3. Anticipate ? 4. Expectant management at this time.? 5. Intermittent monitoring per policy 6. No IV needed at this time. Consider placement if patient condition changes per unit policy. ? Delivery/Labor/Induction Plan Plan: induction Induction method: per misoprostol protocol OB Result Labs Blood Type: O (+) positive GBS Status: negative OB Exam Physical Exam Vital signs: Temp Pulse Resp BP Pulse Ox 98.2 F 120 H 16 123/73 93 08/27/22 07:31 08/27/22 07:31 08/27/22 07:31 08/27/22 07:08/27/22 08:04 Narrative: Vitals per EMR? Psychiatric:? Alert and oriented x3? HEENT:? Normocephalic, atraumatic? Neck:? Supple without adenopathy or thyromegaly? Lungs:? Clear to auscultation bilaterally? Heart:? Regular rate and rhythm, no murmur, rub or gallop? Abdomen:? Soft, nontender, and gravid? Extremities:? No edema or erythema? Pelvic:? SVE: 2cm/20%/-1? Membrane status:? intact? presentation:? vertex? FHT:? Moderate Variability.? Positive Accels.? No Decels. Baseline 150, initial FHR tracing showed 170's for approximately 5 minutes.? [place]:? Ctx occasional? 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
[2022-08-27] MEDS: miSOPROStoL 25 MCG/0.25 TABLET VAGINAL ×4 (09:10→23:18)
[2022-08-27 09:19] LABS: SARS PCR* Negative SARS-CoV-2 (Negative)
--- NOTE | 2022-08-27 12:09 | PM.OBPNL ---
Subjective Date Seen: 08/27/22 Narrative: Emily is states that she is doing well. She is feeling some cramps and discomfort. She feels that they are more uncomfortable and regular when she is in an upright position and decrease when she is laying down. Encouraged her to continue ambulation and upright positions but to also attempt to rest/nap if possible. She is due for her second dose of Cytotec at 1215. She is being monitored by the [place] which is tracing some irritability which she denies feeling as well as some contractions. Objective Vital Signs: Last Vital Signs Temp 98.2 F 08/27/22 07:31 Pulse 120 H 08/27/22 07:31 Resp 16 08/27/22 07:31 BP 123/73 08/27/22 07:31 Pulse Ox 93 08/27/22 08:04 Contractions Monitor mode: External Contraction Frequency: occasonal with irritability Contraction pattern: Irregular Contraction intensity: Mild Assessment Assessment: induction ongoing Status: Category l Heart Rate Baseline: 140 Custodial Variability: Moderate (6-25) Monitor Accelerations: Present Monitor Decelerations: None Plan Plan: 1. Candidate for analgesia of choice. Planning unmedicated .? 2. Anticipate ? 3. Continue with Cytotec induction.? 4. IV not needed at this time. Reconsider if condition changes per unit policy. 5. Monitoring per unit policy for Cytotec induction.?
[2022-08-28] VITALS (48 sets, daily range): BP systolic 90–134; BP diastolic 51–88; PULSE 65–187; RESP 16–20; TEMP 36.4–36.7; O2SAT 91–100
--- NOTE | 2022-08-28 01:25 | PM.OBPNL ---
Subjective Date Seen: 08/28/22 Narrative: Emily is resting comfortably at this time. Contractions continue but have not increased in intensity in the last few hours. She is sleeping through contractions and reports she can't tell when she is having them at this time. Cytotec dosing last at 2315 dose number 4. Will plan additional dose around 0300 if not change in labor pattern and intensity. Objective Vital Signs: Last Vital Signs Temp 97.8 F 08/27/22 23:24 Pulse 81 08/28/22 01:21 Resp 18 08/27/22 23:24 BP 97/51 L 08/28/22 01:21 Pulse Ox 98 08/27/22 21:32 Contractions Monitor mode: External Contraction Frequency: 1-2 Contraction pattern: Regular Contraction intensity: Mild Assessment Assessment: induction ongoing Station: -1 Status: Category l Heart Rate Baseline: 135 Rotary Rig Engine Operator Variability: Moderate (6-25) Monitor Accelerations: Present Monitor Decelerations: Variable (occasional with good return to baseline) Plan Plan: at 39.3 weeks Induction of labor for history of shoulder dystocia Plan: 1. Continue with Cytotec per policy. Reevaluate after next Cytotec dose around 0300. Discuss plan for additional Cytotec or Pitocin induction after 0700. 2. Candidate for analgesia of choice. Planning unmedicated .?? 3.. Anticipate ? 4.. Expectant management at this time.?
[2022-08-28] MEDS: miSOPROStoL 25 MCG/0.25 TABLET VAGINAL (06:18)
--- NOTE | 2022-08-28 07:48 | PM.OBPNL ---
Subjective Date Seen: 08/28/22 Narrative: Emily is a 27 yo at 39 3/7 that was admitted 08/27/22 for elective IOL for hx of shoulder dystocia. She is currently being supported by her partner. She is coping well with labor pain/contractions. She reports that she is feeling mild cramping and occasional contractions. She was able to get some sleep last evening. Understands the current plan of care. Cytotec last given at 6 am, patient had declined pitocin at this time. Objective Exam: Constitutional: Alert and oriented x3, no distress, coping well? Vital signs stable, see nurse documentation?? Abdomen: gravid, contractions palpate mild with contractions and soft between? Vital Signs: Last Vital Signs Temp 98 F 08/28/22 07:37 Pulse 85 08/28/22 07:37 Resp 16 08/28/22 07:37 BP 113/55 L 08/28/22 07:37 Pulse Ox 98 08/27/22 21:32 Pelvic Exam Dilation (cm): 5 Effacement (%): 60 Station: -1 Contractions Monitor mode: External Contraction Frequency: 1-4 Contraction pattern: Irregular Contraction intensity: Mild Assessment Assessment: early labor Station: -1 Status: Category l Heart Rate Baseline: 140 Honing Machine Operator Production Variability: Moderate (6-25) Monitor Accelerations: Present Monitor Decelerations: Variable (occasional with good return to baseline) Plan Plan: ASSESSMENT:? at 39.2 weeks gestation? GBS negative? Uncomplicated ? IOL for history of shoulder dystocia Category I Tracing Early labor ?? PLAN:? 1. Reviewed risks and benefits of IOL. Patient was opposed to Pitocin yesterday, this morning states she is open to it. Last dose of cytotec given at 6 am. Discussed AROM vs Pitocin at next exam. 2. Candidate for analgesia of choice. Planning unmedicated .??No IV at this time, will need if IV pitocin started. 3. Anticipate ? 4. Continuous monitoring per unit policy. 5. Anticipate .
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
[2022-08-28] MEDS: LACTATED RINGERS 1000 ML 1,000 ML 999 ML IV (10:45)
[2022-08-28] MEDS: ROPIVACAINE 0.2% 100 ml 100 ML 12 MG EPIDURAL (11:14)
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
[2022-08-28] MEDS: LACTATED RINGERS 1000 ML 1,000 ML 125 ML IV (12:00)
[2022-08-28] MEDS: ONDANSETRON 2 MG/ML inj 4 MG IV (13:02)
[2022-08-28] MEDS: OXYTOCIN 30 unit/500 ML in NS 30 UNIT/500 ML BAG 300 UNIT IVPB (14:04)
--- NOTE | 2022-08-28 14:38 | W.PM.VAGDEL1 ---
Procedure Delivery date: 08/28/22 Procedure Done: Global Procedure Details: Emily is a 27 year-old G3 now P3 admitted on 08/27/22 at 39 Weeks, 2 Days gestation for IOL r/t history of shoulder dystocia. Cervical exam on admission was 2 cm/20 % effaced/-1 station with membranes intact, in vertex presentation.? AROM?occurred at 0950 on 08/28/22 with clear/pink tinged fluid. Labor Analgesia:? Epidural Pitocin: No, PP only for AMTSL Labor onset:? 08/28/22 1138 Complete: 1211 Pushing:? 1224 heart tones during second stage were: Baseline 135, moderate variability, accels present, decels down into 90's/80's with pushing with good return to baseline. Into room to check on pt after epidural, pt reported feeling some pressure with contractions. SVE: complete and +1 station. Fiance Luis supportive at bedside. Emily pushed with good effort in numerous positions in bed including right and left side-lying, semi-xie, all 4's, leaning over back of bed and tug of war. Emily requested that Luis be able to help catch the baby. Luis donned sterile gloves and helped deliver baby hand over hand with CNM. At 1402 a viable male , Prakash, delivered in vertex OA presentation over an intact perineum via spontaneous vaginal?delivery. ? was placed on maternal abdomen. ?Cord was clamped and cut after a 5+ minute delay. Nose and mouth were bulb suctioned.?Infant weight pending. ? 7 at 1 minute and 9 at 5 minutes. ?Shoulder dystocia: no. ?Nuchal cord: no. Placenta delivered spontaneously and complete at 1429 with a 3 vessel cord. Mother and infant were stable after?delivery. Lacerations:?very small 1st degree perineal, not bleeding, not repaired. Blood loss: 50 mL. Blood loss measurement type: QBL? Sponge and needles counts are correct. Events: Labor Induction (r/t history of shoulder dystocia ) and Covid Infection in Intrapartal Events: Labor Augmentation (AROM) and Labor Induction Delivery augmentation: rupture of membranes Delivery monitor: external FHT and external uterine Route of delivery: Laceration description: Perineal - 1st Degree (not bleeding/not repaired) Estimated blood loss (mL): 50 Anesthesia type: Epidural Disposition: floor [place] Infant Gender: Male (Prakash ) presentation: vertex Placental Delivery Description: Spontaneous Cord Description: 3 Vessels OB Vag Delivery Procedures Additional Procedures ECV: No Cook Catheter Insertion: No NST: No D&C: No Laceration Repair: No Tubal Ligation : No Other: No
[2022-08-28] MEDS: IBUPROFEN 600 MG TABLET PO (21:42)
[2022-08-29 04:00] VITALS: BP 106/66; PULSE 62; RESP 16; TEMP 36.4; O2SAT 97
[2022-08-29] MEDS: IBUPROFEN 600 MG TABLET PO (04:04)
[2022-08-29] MEDS: LANOLIN CREAM 1 APPLIC TOPICAL (04:04)
--- NOTE | 2022-08-29 07:21 | P.DS_ITS ---
DS: Providers Provider Time Seen by Provider: 07:21 Date Seen: 08/29/22 Date of admission: 08/27/22 07:05 Primary care physician: Not a Local Provider Admitting Clinician: Jody Morrison CNM Attending Physician on discharge: Jody Morrison CNM Date of Discharge: 08/29/22 DS: Diagnosis Discharge Diagnosis (1) Lactating mother: Status: Acute (2) Anxiety: Status: Acute (3) Depression: Status: Acute Problem details: Takes Cymbalta 20mg per day, states depression and anxiety well managed on medication (4) NVD (normal vaginal delivery): Status: Acute Exam Narrative: Exam Narrative: VSS, afebrile GENERAL APPEARANCE: ?normal affect, alert, no distress MOOD: ?appropriate HEENT: normocephalic, neck supple, full ROM CHEST: ?Symmetrical chest wall movement. ?Normal respiratory effort. ?Clear to auscultation HEART: ?regular rate and rhythm ABDOMEN: ?soft, non-tender. Uterine fundus is firm, at Umbilicus, Midline and is appropriate for the stage of recovery. ?Bowel sounds present. PERINEUM: ?mild edema of the perineum, there is a 1st degree laceration that is healing well. EXTREMITIES: ?normal and trace edema Const: Vital Signs, click to edit/add: Vital Signs - 24 hr 08/28/22 07:37 08/28/22 07:37 08/28/22 10:01 Temperature 98 F Pulse Rate 85 113 H Pulse Rate [Pulse Oximeter] Respiratory Rate 16 Blood Pressure 113/55 L 119/70 Blood Pressure [Ri ght Arm] [facility] 08/28/22 10:01 08/28/22 10:53 08/28/22 10:53 Temperature 97.9 F 97.9 F Pulse Rate 94 Pulse Rate [Pulse Oximeter] Respiratory Rate 20 20 Blood Pressure 128/76 Blood Pressure [Ri ght Arm] Pulse Oxim[facility] 08/28/22 10:55 08/28/22 10:59 08/28/22 11:01 Temperature Pulse Rate Pulse Rate [Pulse Oximeter] Respiratory Rate Blood Pressure Blood Pressure [Ri ght Arm] Pulse Oximetry 100 92 100 [facility] 08/28/22 11:05 08/28/22 11:06 08/28/22 11:08 Temperature Pulse Rate 123 H Pulse Rate [Pulse Oximeter] Respiratory Rate Blood Pressure 117/68 Blood Pressure [Ri ght Arm] Pulse Oximetry 91 100 [facility] 08/28/22 11:10 08/28/22 11:11 08/28/22 11:12 Temperature Pulse Rate 109 H 101 H Pulse Rate [Pulse Oximeter] Respiratory Rate Blood Pressure 116/68 125/64 Blood Pressure [Ri ght Arm] Pulse Oximetry 100 [facility] 08/28/22 11:14 08/28/22 11:16 08/28/22 11:18 Temperature Pulse Rate 99 97 Pulse Rate [Pulse Oximeter] Respiratory Rate Blood Pressure 124/67 126/71 114/62 Blood Pressure [Ri ght Arm] Pulse Oximetry [facility] 08/28/22 11:20 08/28/22 11:22 08/28/22 11:24 Temperature Pulse Rate 99 104 H 101 H Pulse Rate [Pulse Oximeter] Respiratory Rate Blood Pressure 118/68 124/66 123/59 L Blood Pressure [Ri ght Arm] Pulse Oximetry [facility] 08/28/22 11:10 08/28/22 11:30 08/28/22 11:38 Temperature 97.9 F Pulse Rate 101 H 90 Pulse Rate [Pulse Oximeter] Respiratory Rate 18 Blood Pressure 122/61 110/56 L Blood Pressure [Ri ght Arm] Pulse Oximetry [facility] 08/28/22 11:48 08/28/22 12:04 08/28/22 12:10 Temperature 97.7 F Pulse Rate 91 88 Pulse Rate [Pulse Oximeter] Respiratory Rate 18 Blood Pressure 115/59 L 127/71 Blood Pressure [Ri ght Arm] Pulse Oximetry [facility] 08/28/22 13:35 08/28/22 14:09 08/28/22 14:09 Temperature 97.9 F Pulse Rate 136 H 187 H Pulse Rate [Pulse Oximeter] Respiratory Rate Blood Pressure 132/88 134/73 Blood Pressure [Ri ght Arm] Pulse Oximetry [facility] 08/28[facility]22 14:20 08/28/22 14:35 08/28/22 14:50 Temperature Pulse Rate 78 83 76 Pulse Rate [Pulse Oximeter] Respiratory Rate Blood Pressure 120/56 L 115/59 L 111/53 L Blood Pressure [Ri ght Arm] Pulse Oximetry Oxygen Delivery [facility] 08/28/22 15:05 08/28/22 15:19 08/28/22 15:34 Temperature Pulse Rate 71 70 76 Pulse Rate [Pulse Oximeter] Respiratory Rate Blood Pressure 115/55 L 124/72 118/69 Blood Pressure [Ri ght Arm] Pulse Oximetry Oxygen Delivery [facility] 08/28/22 15:49 08/28/22 16:04 08/28/22 16:19 Temperature Pulse Rate 73 78 75 Pulse Rate [Pulse Oximeter] Respiratory Rate Blood Pressure 117/67 115/64 118/63 Blood Pressure [Ri ght Arm] Pulse Oximetry Oxygen Delivery [facility] 08/28/22 14:15 08/28/22 14:45 08/28/22 15:15 Temperature Pulse Rate Pulse Rate [Pulse Oximeter] Respiratory Rate 16 16 16 Blood Pressure Blood Pressure [Ri ght Arm] Pulse Oximetry Oxygen Delivery [facility] 08/28/22 15:30 08/28/22 15:45 08/28/22 16:00 Temperature Pulse Rate Pulse Rate [Pulse Oximeter] Respiratory Rate 16 16 16 Blood Pressure Blood Pressure [Ri ght Arm] Pulse Oximetry Oxygen Delivery [facility] 08/28/22 16:15 08/28/22 16:30 08/28/22 20:10 Temperature 97.6 F Pulse Rate Pulse Rate [Pulse Oximeter] 78 Respiratory Rate 16 16 16 Blood Pressure Blood Pressure [Ri ght Arm] 127/78 Pulse Oximetry 97 Oxygen Delivery [facility] Room Air 08/28/22 23:45 08/29/22 04:00 Temperature 98.1 F 97.5 F L Pulse Rate Pulse Rate [Pulse Oximeter] 65 62 Respiratory Rate 16 16 Blood Pressure Blood Pressure [Ri ght Arm] 101/70 106/66 Pulse Oximetry 97 97 Oxygen Delivery [facility] Room Air Room Air Documenting provider has reviewed patient's vital signs: yes OB - DS: Summary Hospital Course Hospital Course: Subjective: Emily is a 27 y.o. who was admitted to [facility] for hx of shoulder dystocia. ?She had an uncomplicated NVD The patient feels well. ?The pain is well controlled with current medications. ?She has no new complaints. ?She is breast feeding and reports things are going well.? the patient has done well.? Vitals have been stable.? She has remained afebrile.? Has a good appetite, is tolerating a general diet. ?She is voiding without difficulty.? She is passing gas and has not had a bowel movement.? She is ambulating and denies any dizziness.? Has Small amount of rubra lochia. ?She is planning partner vasectomy and condoms for prevention. Problems: none plan: Discharge home with baby. Follow up in 2 weeks and 6 weeks. , may follow up with if needed Peripartum Data delivery method: Vaginal Laceration description: Perineal - 1st Degree (not repaired) Episiotomy description: None Gender: Male Infant Discharge Plan: Home A Infant Gender: Male Status at Discharge Functional status at discharge: independent ambulation Overall status at discharge: patient is progressing back to baseline Time Spent with Patient Time attestation: Total time spent providing and/or coordinating discharge services: Time spent: Less than 30 minutes Discharge Plan Discharge Disposition: Home, Self-Care Date of Admission: 08/27/22 07:05 Attending Provider on Discharge: Haylee Grande Primary Care Provider: Provider,Not a Local Condition: Stable Anticipated Discharge Date/Time: 08/29/22 16:28 Discharge Medications: New ibuprofen 600 mg Tablet 600 mg PO Q6H PRNQty: 60 0RF docusate sodium 100 mg Capsule 100 mg PO DAILY PRNQty: 100 0RF Rx Instructions: Take 1 cap 1-2 times a day as needed for constipation Continued with DHA-Folic Acid 400-32.5 mcg-mg tablet,chewable 1 tab PO 1XD PRN duloxetine 30 mg capsule,delayed release(DR/EC) 30 mg PO QDAY Qty: 90 3RF Discharge Orders: Discharge Order (Routine); Ordered 08/29/22 Ordered By: Haylee Grande Patient Education: OB Over the Counter Medication Information, OB Vaginal/Breast Feeding Additional Instructions: Follow up in 2 and 6 weeks Activity Level: Activity as Tolerated Discharge Diet: Regular Follow Up Appointments: Provider,Not a Local [Primary Care Provider] - Forms: [employer] Info Instructions
[2022-08-29 07:55] VITALS: BP 111/73; PULSE 62; RESP 16; TEMP 36.7; O2SAT 97
[2022-08-29 12:55] VITALS: BP 112/69; PULSE 85; RESP 16; TEMP 36.7; O2SAT 97
== END 2022-08-29 16:13 | disposition home or self-care (01) | DRG 560 ==
PROVIDERS: Admitting Provider Advanced Practice Midwife; Visit Provider Advanced Practice Midwife
DX: O70.0 First degree perineal laceration during delivery (principal); F41.9 Anxiety disorder, unspecified; F32.A Depression, unspecified; O99.344 Other mental disorders complicating childbirth; Z3A.39 39 weeks gestation of pregnancy; Z37.0 Single live birth
CPT/HCPCS: 01967; 59200; 87635; A9270; J2370; J2405; J2795; J7120; S0020